=== PATIENT | female | born 1945 | race Caucasian/White ===

== ENCOUNTER → 2016-10-24 | Outpatient (CLI) | payer MEDICARE, OTHER ==
--- NOTE | 2016-10-24 12:04 | XR ---
EXAMINATION TYPE: XR bone survey complete DATE OF EXAM: 10/24/2016 COMPARISON: NONE HISTORY: Multiple myeloma Bony calvarium : 2 views of the bony calvarium demonstrate. No abnormality noted Spine: Two views of the cervical, thoracic and lumbar spines are submitted. Hypertrophic changes of the cervical spine noted. Degenerative changes of the thoracic and lumbar spine. Multilevel facet art hropathy. PELVIS: Single view of the pelvis demonstrates. No abnormality noted. Lucencies overlying the right iliac bone likely related to bowel. Arthropathy of the SI joints seen. Arthropathy of the hip joints noted. Correlate for femoral acetabular impingement. UPPER EXTREMITIES: Two views of the upper extremities. No abdomen only noted LOWER EXTREMITIES: 2 views of the lower extremities. Arthropathy of the hip and knee joints noted. Frontal view of the chest demonstrates cardiomegaly. Arthropathy of the shoulders noted. IMPRESSION: 1. No diagnostic evidence of multiple myeloma
== END | disposition home or self-care (01) ==
LOC: RADXRMAIN 10:48
PROVIDERS: ATTEND Internal Medicine Hematology & Oncology
DX: C90.01 Multiple myeloma in remission (principal); D64.9 Anemia, unspecified; I10 Essential (primary) hypertension; Z71.3 Dietary counseling and surveillance
CPT/HCPCS: 77075

== ENCOUNTER 2016-10-31 06:32 | Day surgery (SDC) | payer MEDICARE, OTHER ==
[2016-10-27 12:46] VITALS: BMI 40.7
[~2016-10-31 06:32] MED LIST: LACTATED RINGERS 1,000 ML IV SCH; LIDOCAINE 1% 20 ML VIAL (10MG/ML) FOR IV START INTRADERMA PRN
[2016-10-31 07:10] VITALS: TEMP 97.1
[2016-10-31] MEDS ORDERED: MIDAZOLAM 2 MG/2 ML VIAL ONE (08:00)
[2016-10-31] MEDS ORDERED: LIDOCAINE 1% INJ 10MG/ML (20 ML MDV) ONE (08:00)
[2016-10-31] MEDS ORDERED: PROPOFOL 10 MG/ML 20 ML VIAL IV ONE (08:00)
[2016-10-31] MEDS ORDERED: fentaNYL (PF) 50 MCG/ML 2 ML AMP ONE (08:00)
[2016-10-31 08:43] LABS: Basophils % (A) 1 %; CH 30.5; CHCM 32.3; Eosinophils # (A) 0.2 k/uL (0-0.7); Eosinophils % (A) 4 %; HCT 33.5 % (34.0-46.0); HDW 2.53; HGB 11.1 gm/dL (11.4-16.0); Luc # (Auto) 0.19; Luc % (Auto) 4; Lymphocytes % (A) 21 %; MCH 31.2 pg (25.0-35.0); MCV 94.4 fL (80.0-100.0); Mean Platelet Volume 8.6; Monocytes # (A) 0.4 k/uL (0-1.0); Monocytes % (A) 8 %; Neutrophils # (A) 2.8 k/uL (1.3-7.7); Neutrophils % (A) 62 %; RBC 3.55 m/uL (3.80-5.40); RDW 15.4 % (11.5-15.5); WBC 4.5 k/uL (3.8-10.6)
[2016-10-31 09:03] VITALS: BP 158/77; PULSE 44; RESP 20
--- NOTE | 2016-10-31 16:47 | PCN ---
DATE OF PROCEDURE: 10/31/2016 PROCEDURE: Bone marrow aspiration and biopsy. INDICATIONS FOR PROCEDURE: Monoclonal gammopathy and anemia. TYPE OF ANESTHESIA: Local with IV sedation. PROCEDURE NOTE: The procedure was explained in detail to the patient in the office. She presented to the outpatient endoscopy suite where IV access and informed consent were obtained. She was then placed in the left lateral decubitus position. The area over both posterior iliac crest was cleaned and prepped with chlorhexidine and sterile draping. IV sedation was then initiated. Local anesthesia was administered with lidocaine. Jamshidi needle was then inserted and bone marrow aspirate and biopsy obtained. On withdrawal of the needle, hemostasis was easily achieved. Blood loss was minimal and recovery from sedation was satisfactory. She appeared to have tolerated the procedure well without any obvious complications.
== END 2016-10-31 09:10 | disposition home or self-care (01) ==
LOC: OR 06:32
PROVIDERS: ATTEND Internal Medicine Hematology & Oncology
DX: D47.2 Monoclonal gammopathy (principal); D64.9 Anemia, unspecified; C90.00 Multiple myeloma not having achieved remission; I10 Essential (primary) hypertension; Z79.899 Other long term (current) drug therapy; Z88.1 Allergy status to other antibiotic agents
CPT/HCPCS: 85025; 38221; J2250; J2001; J3010; J2704; G0364

== ENCOUNTER → 2017-07-12 | Outpatient (CLI) | payer MEDICARE, OTHER ==
--- NOTE | 2017-07-12 14:41 | US ---
EXAMINATION TYPE: US venous doppler duplex LE BI DATE OF EXAM: 07/12/2017 2:23 PM COMPARISON: NONE CLINICAL HISTORY: R22.42 Swelling of Rt leg R22.41 Swelling of Lt Le. Bilateral pain and edema, great er on the right SIDE PERFORMED: bilateral TECHNIQUE: The lower extremity deep venous system is examined utilizing real time linear array sonog guillermo with graded compression, doppler sonography and color-flow sonography. VESSELS IMAGED: External Iliac Vein (EIV) Common Femoral Vein Deep Femoral Vein Greater Saphenous Vein * Femoral Vein Popliteal Vein Small Saphenous Vein * Proximal Calf Veins (* superficial vessels) Grayscale, color doppler, spectral doppler imaging performed of the deep veins of the lower extremiti es. There is normal flow, compressibility, vascular waveforms. IMPRESSION: Right Leg: No evidence of DVT. Superficial thrombus noted within varicose vein extending from mid th igh into lower calf Left Leg: No evidence of DVT
== END | disposition home or self-care (01) ==
LOC: RADUSWWP 13:43
PROVIDERS: ATTEND Internal Medicine Hematology & Oncology
DX: I82.811 Embolism and thrombosis of superficial veins of right lower extremity (principal); R22.42 Localized swelling, mass and lump, left lower limb
CPT/HCPCS: 93970

== ENCOUNTER 2017-09-01 10:23 | Inpatient (IN) | payer MEDICARE, OTHER ==
[2017-09-01] MEDS ORDERED: IBUPROFEN 600 MG TAB PO STA (10:50)
[2017-09-01] MEDS ORDERED: ACETAMINOPHEN TAB 500 MG TAB PO STA (10:50)
--- NOTE | 2017-09-01 10:55 | ED ---
General Adult HPI - General Chief complaint: Fever Stated complaint: Fever Time Seen by Provider: 09/01/17 10:25 Source: patient, RN notes reviewed Mode of arrival: ambulatory Limitations: no limitations - History of Present Illness Initial comments: This is a 71-year-old female with past medical history significant for multiple myeloma. Patient presents here today because she's complaining of chills and fever over the last 3 days. Patient states she has little bit of a cough but nothing significant production. Patient denies any difficulty breathing or shortness of breath. Patient denies any palpitations or chestpain. Patient denies any sore throat. Patient denies any neck pain or stiffness. Patient denies any abdominal pain patient denies nausea vomiting diarrhea. Patient denies any skin lesions rashes or abscesses. Patient states she is unable to get the shot because of her multiple myeloma patient denies any dysuria hematuria urinary freaky. Patient denies any back pain. Patient denies headache patient denies numbness weakness. Patient states she just feels weak and chilled. - Related Data Home Medications Medication Instructions Recorded Confirmed Ascorbic Acid [Vitamin C] 500 mg PO DAILY@1200 01/26/14 10/31/16 Atenolol [Tenormin] 50 mg PO QAM 01/26/14 10/31/16 Cholecalciferol [Vitamin D3] 2,000 units PO DAILY 01/26/14 10/31/16 Calcium Carbonate/Vitamin D3 1 each PO DAILY 10/27/16 10/31/16 [Caltrate 600 Plus D3 Tablet] Cyanocobalamin (Vitamin B-12) 1,000 mcg PO DAILY 10/27/16 10/31/16 [Vitamin B-12] Lactobacillus Acidophilus 1 each PO DAILY 10/27/16 10/31/16 [Acidophilus] Magnesium Oxide [Magnesium] 500 mg PO DAILY 10/27/16 10/31/16 Melatonin 10 mg PO HS 10/27/16 10/31/16 Multivit with Calcium,Iron,Min 1 each PO DAILY 10/27/16 10/31/16 [Women's Multivitamin] [place]-3 Fatty Acids [[place]-3] 300 mg PO DAILY 10/27/16 10/31/16 Pyridoxine [Vitamin B-6] 100 mg PO DAILY 10/27/16 10/31/16 Turmeric Root Extract [Turmeric] 1,000 mg PO DAILY 10/27/16 10/31/16 Allergies Allergy/AdvReac Type Severity Reaction Status Date / Time cephalexin Allergy Rash/Hives Verified 09/01/17 10:33 Review of Systems ROS Statement: Those systems with pertinent positive or pertinent negative responses have been documented in the HPI. ROS Other: All systems not noted in ROS Statement are negative. Past Medical History Past Medical History: Hypertension Additional Past Medical History / Comment(s): multiple myeloma History of Any Multi-Drug Resistant Organisms: None Reported Past Surgical History: Tubal Ligation Past Anesthesia/Blood Transfusion Reactions: No Reported Reaction Past Psychological History: No Psychological Hx Reported Smoking Status: Never smoker Past Alcohol Use History: Rare Past Drug Use History: None Reported - Past Family History Mother Family Medical History: Cancer Father Family Medical History: Cancer General Exam - General Exam Comments Initial Comments: GENERAL: Patient is well-developed and well-nourished. Patient is nontoxic and well- hydrated and is in mild distress. ENT: Neck is soft and supple. No significant lymphadenopathy is noted. Oropharynx is clear. Moist mucous membranes. Neck has full range of motion without eliciting any pain. EYES: The sclera were anicteric and conjunctiva were pink and moist. Extraocular movements were intact and pupils were equal round and reactive to light. Eyelids were unremarkable. PULMONARY: Unlabored respirations. Good breath sounds bilaterally. No audible rales rhonchi or wheezing was noted. CARDIOVASCULAR: There is a regular rate and rhythm without any murmurs gallops or rubs. ABDOMEN: Soft and nontender with normal bowel sounds. No palpable organomegaly was noted. There is no palpable pulsatile mass. SKIN: Skin is clear with no lesions or rashes and otherwise unremarkable. NEUROLOGIC: Patient is alert and oriented x3. Cranial nerves II through XII are grossly intact. Motor and sensory are also intact. Normal speech, volume and content. Symmetrical smile. MUSCULOSKELETAL: Normal extremities with adequate strength and full range of motion. No lower extremity swelling or edema. No calf tenderness. LYMPHATICS: No significant lymphadenopathy is noted PSYCHIATRIC: Normal psychiatric evaluation. Normal interpersonal interactions appears functionally intact in deals appropriately with others. No signs of depression. No signs of anxiety. Limitations: no limitations Course Vital Signs 09/01/17 09/01/17 09/01/17 10:28 10:50 11:20 Temperature 100.8 F H 102.1 F H Pulse Rate 81 76 Respiratory 22 24 Rate Blood Pressure 145/85 178/74 O2 Sat by Pulse 94 L 98 Oximetry 09/01/17 13:11 Temperature 100.1 F H Pulse Rate 62 Respiratory 18 Rate Blood Pressure 155/58 O2 Sat by Pulse 97 Oximetry Medical Decision Making - Medical Decision Making EKG shows sinus rhythm with occasional PAC at 74 bpm SC interval is 148 QRSs 84 QT interval 396 QTC is 439. Patient's EKG shows no ST segment elevation or depression or T wave abnormalities are noted. Chest x-ray shows bilateral patchy infiltrates. Radiology read it as relatively normal psychiatric CAT scan verified that it was red with as ground glass opacifications bilaterally indicative of pneumonia I spoke with Dr. Salmeron agreed to admit the patient admitted the patient wrote admitting orders consult pulmonary and oncology - Lab Data Result diagrams: 09/01/17 11:14 09/01/17 11:14 Lab Results 09/01/17 09/01/17 09/01/17 Range/Units 10:36 11:14 11:14 WBC 4.7 (3.8-10.6) k/uL RBC 3.25 L (3.80-5.40) m/uL Hgb 10.3 L (11.4-16.0) gm/dL Hct 30.0 L (34.0-46.0) % MCV 92.4 (80.0-100.0) fL MCH 31.6 (25.0-35.0) pg MCHC 34.2 (31.0-37.0) g/dL RDW 15.7 H (11.5-15.5) % Plt Count 104 L (150-450) k/uL Neutrophils % 80 % Lymphocytes % 5 % Monocytes % 6 % Eosinophils % 7 % Basophils % 0 % Neutrophils # 3.8 (1.3-7.7) k/uL Lymphocytes # 0.2 L (1.0-4.8) k/uL Monocytes # 0.3 (0-1.0) k/uL Eosinophils # 0.3 (0-0.7) k/uL Basophils # 0.0 (0-0.2) k/uL Poikilocytosis Moderate PT (9.0-12.0) sec INR (<1.2) APTT (22.0-30.0) sec Sodium (137-145) mmol/L Potassium (3.5-5.1) mmol/L Chloride (98-107) mmol/L Carbon Dioxide (22-30) mmol/L Anion Gap mmol/L BUN (7-17) mg/dL Creatinine (0.52-1.04) mg/dL Est GFR (CKD-EPI)AfAm (>60 ml/min/1.73 sqM) Est GFR (CKD-EPI)NonAf (>60 ml/min/1.73 sqM) Glucose (74-99) mg/dL Plasma Lactic Acid Jethro (0.7-2.0) mmol/L Calcium (8.4-10.2) mg/dL Total Bilirubin (0.2-1.3) mg/dL AST (14-36) U/L ALT (9-52) U/L Alkaline Phosphatase (38-126) U/L Total Protein (6.3-8.2) g/dL Albumin (3.5-5.0) g/dL Urine Color Yellow Urine Appearance Clear (Clear) Urine pH 5.5 (5.0-8.0) Ur Specific [place] 1.016 (1.001-1.035) Urine Protein Trace H (Negative) Urine Glucose (UA) Negative (Negative) Urine Ketones Negative (Negative) Urine Blood Negative (Negative) Urine Nitrite Negative (Negative) Urine Bilirubin Negative (Negative) Urine Urobilinogen <2.0 (<2.0) mg/dL Ur Leukocyte Esterase Negative (Negative) Influenza Type A RNA Not Detected (Not Detectd) Influenza Type B (PCR) Not Detected (Not Detectd) 09/01/17 09/01/17 09/01/17 Range/Units 11:14 11:14 11:14 WBC (3.8-10.6) k/uL RBC (3.80-5.40) m/uL Hgb (11.4-16.0) gm/dL Hct (34.0-46.0) % MCV (80.0-100.0) fL MCH (25.0-35.0) pg MCHC (31.0-37.0) g/dL RDW (11.5-15.5) % Plt Count (150-450) k/uL Neutrophils % % Lymphocytes % % Monocytes % % Eosinophils % % Basophils % % Neutrophils # (1.3-7.7) k/uL Lymphocytes # (1.0-4.8) k/uL Monocytes # (0-1.0) k/uL Eosinophils # (0-0.7) k/uL Basophils # (0-0.2) k/uL Poikilocytosis PT 10.3 (9.0-12.0) sec INR 1.1 (<1.2) APTT 21.6 L (22.0-30.0) sec Sodium 138 (137-145) mmol/L Potassium 4.0 (3.5-5.1) mmol/L Chloride 103 (98-107) mmol/L Carbon Dioxide 24 (22-30) mmol/L Anion Gap 11 mmol/L BUN 19 H (7-17) mg/dL Creatinine 0.70 (0.52-1.04) mg/dL Est GFR (CKD-EPI)AfAm >90 (>60 ml/min/1.73 sqM) Est GFR (CKD-EPI)NonAf 89 (>60 ml/min/1.73 sqM) Glucose 132 H (74-99) mg/dL Plasma Lactic Acid Jethro 1.5 (0.7-2.0) mmol/L Calcium 9.1 (8.4-10.2) mg/dL Total Bilirubin 1.3 (0.2-1.3) mg/dL AST 14 (14-36) U/L ALT 21 (9-52) U/L Alkaline Phosphatase 79 (38-126) U/L Total Protein 5.5 L (6.3-8.2) g/dL Albumin 3.6 (3.5-5.0) g/dL Urine Color Urine Appearance (Clear) Urine pH (5.0-8.0) Ur Specific [place] (1.001-1.035) Urine Protein (Negative) Urine Glucose (UA) (Negative) Urine Ketones (Negative) Urine Blood (Negative) Urine Nitrite (Negative) Urine Bilirubin (Negative) Urine Urobilinogen (<2.0) mg/dL Ur Leukocyte Esterase (Negative) Influenza Type A RNA (Not Detectd) Influenza Type B (PCR) (Not Detectd) Disposition Clinical Impression: Pneumonia, Multiple myeloma Disposition: ADMITTED IP TO THIS HOSP Is patient prescribed a controlled substance at d/c from ED?: No Referrals: Fermín Chris MD [Primary Care Provider] - 1-2 days Time of Disposition: 14:06
[2017-09-01 11:08] LABS: Appearance,Urine Clear (Clear); Bilirubin,Urine Negative (Negative); Blood,Urine Negative (Negative); Color,Urine Yellow; Glucose,Urine (UA) Negative (Negative); Ketones,Urine Negative (Negative); Leukocyte Esterase,Urine Negative (Negative); Nitrite,Urine Negative (Negative); PH, Urine 5.5 (5.0-8.0); Protein,Urine Trace (Negative); Specific Gravity,Urine 1.016 (1.001-1.035); Urobilinogen,Urine <2.0 mg/dL (<2.0)
[2017-09-01] MEDS: SODIUM CHLORIDE 0.9% 500 ML IV SCH ×2 (11:17→11:30)
[2017-09-01 11:40] LABS: Basophils % (A) 0 %; Eosinophils # (A) 0.3 k/uL (0-0.7); Eosinophils % (A) 7 %; HGB 10.3 gm/dL (11.4-16.0); Lymphocytes # (A) 0.2 k/uL (1.0-4.8); Lymphocytes % (A) 5 %; MCH 31.6 pg (25.0-35.0); MCHC 34.2 g/dL (31.0-37.0); MCV 92.4 fL (80.0-100.0); Mean Platelet Volume 9.3; Monocytes # (A) 0.3 k/uL (0-1.0); Monocytes % (A) 6 %; Neutrophils # (A) 3.8 k/uL (1.3-7.7); Neutrophils % (A) 80 %; Platelet Count 104 k/uL (150-450); Poikilocytosis Moderate; RBC 3.25 m/uL (3.80-5.40); RDW 15.7 % (11.5-15.5); WBC 4.7 k/uL (3.8-10.6)
--- NOTE | 2017-09-01 11:45 | XR ---
EXAMINATION TYPE: XR chest 2V DATE OF EXAM: 09/01/2017 HISTORY: Difficulty breathing . REFERENCE: NONE. FINDINGS: The heart is enlarged. There is blunting of both CP angles. I could not exclude small effus ions. The lungs are otherwise clear. I do not see evidence of pneumonia or edema. IMPRESSION: 1. CARDIOMEGALY. 2. I COULD NOT EXCLUDE SMALL, BILATERAL EFFUSIONS.
[2017-09-01 11:46] LABS: ALT 21 U/L (9-52); AST 14 U/L (14-36); Albumin 3.6 g/dL (3.5-5.0); Alkaline Phosphatase 79 U/L (38-126); Anion Gap 11 mmol/L; Blood Urea Nitrogen 19 mg/dL (7-17); Calcium 9.1 mg/dL (8.4-10.2); Carbon Dioxide 24 mmol/L (22-30); Chloride 103 mmol/L (98-107); Glucose 132 mg/dL (74-99); Sodium 138 mmol/L (137-145); Total Bilirubin 1.3 mg/dL (0.2-1.3); Total Protein 5.5 g/dL (6.3-8.2)
[2017-09-01 11:52] LABS: INR 1.1 (<1.2); Partial Thromboplastin Time 21.6 sec (22.0-30.0); Prothrombin Time 10.3 sec (9.0-12.0)
[2017-09-01] MEDS ORDERED: RX INFO: IV CONTRAST WAS GIVEN 1 EACH MISC MISCELLANE PRN (12:29)
--- NOTE | 2017-09-01 13:16 | CT ---
EXAMINATION TYPE: CT chest angio for PE DATE OF EXAM: 09/01/2017 COMPARISON: None. HISTORY: Multiple myeloma, patient has fever CT DLP: 711.8 mGycm Automated exposure control for dose reduction was used. CONTRAST: CT Chest for pulmonary embolism performed with with IV Contrast, patient injected with 100 mL of Isov ue 370. FINDINGS: There are patchy groundglass opacities throughout both lungs. There is some shotty mediastinal adenopathy. No pathologically enlarged lymph nodes are seen. There i s no pleural or pericardial fluid. The heart is mildly enlarged. The contrast bolus is suboptimal. There are no large pulmonary emboli. The aorta is normal in caliber without evidence of dissection. The gallbladder is been removed. There is an incompletely assessed 4.1 cm lesion in the posterior seg ment of the right lobe of the liver. The spleen is prominent measuring 15 cm. No definite bony destructive lesion is seen. IMPRESSION: 1. Suboptimal contrast bolus. There are no large pulmonary emboli. 2. Diffuse, patchy groundglass opacity may represent pneumonitis or alveolitis. 3. Splenomegaly. 4. Lesion in the posterior segment of the right lobe of the liver is incompletely assessed. This may represent hemangioma. Further, nonemergent follow-up would BE suggested.
[2017-09-01] MEDS ORDERED: cefTRIAXone 2,000 MG in SODIUM CHLORIDE 0.9% 100 ML IVPB STA (13:54)
[2017-09-01] MEDS ORDERED: LEVOFLOXACIN 750MG-D5W PMX 750 MG in DEXTROSE/WATER 1 150ML.BAG IVPB STA (14:02)
[2017-09-01] MEDS ORDERED: PNEUMONIA PROTOCOL UTILIZED 1 EACH MISC PO PRN (14:15)
[2017-09-01] MEDS ORDERED: AZITHROMYCIN 500 MG in SODIUM CHLORIDE 0.9% 250 ML IVPB STA (14:20)
[2017-09-01 15:08] VITALS: BMI 40.7
[2017-09-01] MEDS ORDERED: BISACODYL 5 MG TABLET.DR PO PRN (21:03)
[2017-09-01] MEDS: MELATONIN 5 MG TABLET PO SCH (21:23)
[2017-09-01] MEDS: LACTATED RINGERS 1,000 ML IV SCH (21:23)
--- NOTE | 2017-09-01 21:39 | HP ---
HISTORY AND PHYSICAL DATE OF ADMISSION: 09/01/2017 PRESENTING COMPLAINT: Fever, chills. HISTORY OF PRESENTING COMPLAINT: A very pleasant 71-year-old patient of Dr. Chris. Diagnosis of multiple myeloma under remission on maintenance medication being followed by Dr. Moncada. The patient for about 4 days has been having chills, fever, decreased appetite. No nausea, vomiting. No shortness of breath. No cough. No runny nose. No urinary symptoms. No skin trouble. Finally decided to come in. Chest x-ray was nonspecific. CT scan did show some pneumonitis-like picture. Hence, admitted with empiric antibiotics. The patient did force herself to eat some food this evening. No diarrhea. REVIEW OF SYSTEMS: CONSTITUTIONAL: Fever, chills. HEENT: None. RESPIRATORY: None. CARDIOVASCULAR: None. GASTROINTESTINAL: None. GENITOURINARY: None. MUSCULOSKELETAL: None. DERMATOLOGICAL: None. HEMATOLOGIC: None. LYMPHATIC: None. PSYCHIATRY: None. NEUROLOGICAL: None. PAST MEDICAL HISTORY: Multiple myeloma, hypertension. PAST SURGICAL HISTORY: Cholecystectomy, tubal ligation. SOCIAL HISTORY: Does not smoke, alcohol rarely. Takes care of her mother and brother. FAMILY HISTORY: Cancer, type unknown. HOME MEDICATIONS: 1. Turmeric 1000 mg p.o. daily. 2. Melatonin 10 mg q.h.s. 3. Magnesium oxide 400 mg p.o. daily. 4. as directed. 5. Probiotic 1 capsule p.o. daily. 6. Dexamethasone 20 mg p.o. daily. 7. Apple cider vinegar 10 mg p.o. daily. 8. Bisacodyl. 9. Tenormin 50 mg p.o. daily. 10.Aspirin 81 mg p.o. daily. 11. 60 mg p.o. daily. ALLERGIES: KEFLEX. EXAMINATION: VITAL SIGNS: On presentation, temperature 102.1, pulse 76, respirations 24, blood pressure 145/85, pulse ox 94% on room air. GENERAL APPEARANCE: Well-built, BMI of 40%. Lying in bed, tired-appearing. EYES: Pupils equal. Conjunctivae normal. HEENT: External nose and ears normal. Oral cavity normal. NECK: JVD not raised. Mass not palpable. RESPIRATORY: Effort normal. LUNGS: Fair air entry. CARDIOVASCULAR: First and second sounds normal. No edema. ABDOMEN: Soft, nontender. Liver and spleen not palpable. LYMPHATIC: No lymph nodes palpable in neck or axillae. PSYCHIATRY: Alert and oriented x3. Mood and affect normal. NEUROLOGICAL: Pupils equal. Cranial nerves grossly intact. Power and sensation grossly intact. INVESTIGATIONS: White count 4.7, hemoglobin 10.3, platelets 104, lymphocytes low at 0.2. Potassium 4.0, BUN 19, creatinine 0.7. Chest x-ray: Questionable right lower zone infiltrate. Chest CT: Evidence of possible pneumonitis. 1. Possible acute pneumonitis, likely viral, manifesting in chills, fever. Patient has no significant shortness of breath. No cough. The patient has associated lymphopenia suggestive of viral cause. Since the patient has had multiple myeloma, will cover empirically for bacteria. 2. Morbid obesity, BMI 40.7. 3. Multiple myeloma under remission on maintenance medication. 4. Essential hypertension. PLAN: Home medications are resumed. The patient is empirically on Levaquin and Zithromax. Give IV fluids. MMODL / IJN: [id number] /
[2017-09-01 22:24] VITALS: RESP 18
[2017-09-02 07:18] LABS: Basophils % (A) 0 %; Eosinophils # (A) 0.2 k/uL (0-0.7); Eosinophils % (A) 6 %; HCT 26.5 % (34.0-46.0); Lymphocytes # (A) 0.2 k/uL (1.0-4.8); Lymphocytes % (A) 6 %; MCH 31.8 pg (25.0-35.0); MCHC 33.8 g/dL (31.0-37.0); MCV 93.9 fL (80.0-100.0); Mean Platelet Volume 9.5; Monocytes # (A) 0.2 k/uL (0-1.0); Monocytes % (A) 9 %; Neutrophils % (A) 76 %; Platelet Count 101 k/uL (150-450); Poikilocytosis Moderate; RBC 2.82 m/uL (3.80-5.40); RDW 15.7 % (11.5-15.5); WBC 2.6 k/uL (3.8-10.6)
[2017-09-02] MEDS: LACTATED RINGERS 1,000 ML IV SCH ×2 (08:34→23:27)
[2017-09-02] MEDS: ATENOLOL 50 MG TAB PO SCH (08:35)
[2017-09-02] MEDS: ENOXAPARIN 40 MG/0.4 ML SYRINGE SQ SCH (08:35)
[2017-09-02] MEDS: MAGNESIUM OXIDE 400 MG TAB PO SCH (08:35)
[2017-09-02] MEDS: ASPIRIN 81 MG PO SCH (08:35)
[2017-09-02] MEDS: ACETYLCYSTEINE 800 MG/4 ML VIAL PO SCH (08:39)
--- NOTE | 2017-09-02 09:09 | XR ---
EXAMINATION TYPE: XR chest 2V DATE OF EXAM: 09/02/2017 HISTORY: pneumonia. REFERENCE: Previous study dated 09/01/2017. FINDINGS: The heart is enlarged. There is worsening bibasilar densities. I suspect small effusions. IMPRESSION: 1. CARDIOMEGALY. 2. BIBASILAR AIRSPACE DISEASE. 3. SMALL, BILATERAL EFFUSIONS.
[2017-09-02] MEDS ORDERED: FUROSEMIDE 10 MG/ML 4 ML VIAL IV STA (10:56)
[2017-09-02] MEDS: LACTOBACILLUS ACIDOPH & BULGAR 1 EACH PACKET PO SCH (11:13)
[2017-09-02] MEDS ORDERED: AZITHROMYCIN 500 MG TAB PO SCH (12:00)
--- NOTE | 2017-09-02 13:59 | P.CNPUL ---
History of Present Illness Consult date: 09/02/17 Reason for consult: dyspnea History of present illness: 71-year-old female patient, morbidly obese, with known history of multiple myeloma who is been maintained on a combination of Revlimid and Decadron once a week at a dose of 20 mg every Sunday. The patient came into the hospital because of increased shortness of breath and she was very much concerning that she was developing a fever and based on her history of multiple myeloma she was very much worried about an underlying septic event. She had some exertional dyspnea and limited cough. No significant sputum production. No hemoptysis or pleurisy. No runny nose. No nasal congestion. No dysuria fakes urgency. No skin rashes pain and altered mentation. No headaches. No nausea vomiting or diarrhea. She came in to the emergency and the patient had a chest x-ray that was nonspecific. Following that, a CAT scan of the chest was done and it showed suboptimal contrast and there was no evidence of any large pulmonary emboli. There was diffuse patchy groundglass opacity to suggest underlying alveolitis. There was splenomegaly. The patient denies having any history of cardiomyopathy. No history of any previous asthma or emphysema. She is a nonsmoker. No history of recurrent pneumonias. No previous history of DVT or pulmonary embolism. She was having some increased lower extremity edema and is improved. She is afebrile for now. She is feeling much better and today she was brought up to a room air oxygen. She has typical features of sleep breathing disorder. She has a BMI of 40.7. She snores and she has a Mallampati class IV with overbite. This needs to be evaluated on an outpatient basis. Review of Systems Constitutional: Reports fever, Reports weight gain Eyes: denies blurred vision, denies bulging eye, denies decreased vision Ears: deny: decreased hearing, ear discharge, earache, tinnitus Ears, nose, mouth and throat: Denies headache, Denies sore throat Cardiovascular: Reports dyspnea on exertion Respiratory: Reports dyspnea Gastrointestinal: Denies abdominal pain, Denies diarrhea, Denies nausea, Denies vomiting Genitourinary: Denies dysuria, Denies hematuria Musculoskeletal: Denies myalgias Musculoskeletal: bilateral: ankle swelling, absent: ankle pain, ankle stiffness Integumentary: Denies pruritus, Denies rash Neurological: Denies numbness, Denies weakness Psychiatric: Denies anxiety, Denies depression Endocrine: Denies fatigue, Denies weight change Hematologic/Lymphatic: Reports as per HPI Allergic/Immunologic: Reports as per HPI Past Medical History Past Medical History: Hypertension Additional Past Medical History / Comment(s): multiple myeloma History of Any Multi-Drug Resistant Organisms: None Reported Past Surgical History: Cholecystectomy, Tubal Ligation Past Anesthesia/Blood Transfusion Reactions: No Reported Reaction Past Psychological History: No Psychological Hx Reported Smoking Status: Never smoker Past Alcohol Use History: Rare Past Drug Use History: None Reported - Past Family History Mother Family Medical History: Cancer Father Family Medical History: Cancer Medications and Allergies Home Medications Medication Instructions Recorded Confirmed Type Magnesium Oxide [Magnesium] 500 mg PO DAILY 10/27/16 09/01/17 History Melatonin 10 mg PO HS 10/27/16 09/01/17 History Turmeric Root Extract [Turmeric] 1,000 mg PO DAILY 10/27/16 09/01/17 History Acetylcysteine 600mg 600 mg PO DAILY 09/01/17 09/01/17 History Aspirin EC [Ecotrin Low Dose] 81 mg PO DAILY 09/01/17 09/01/17 History Atenolol [Tenormin] 50 mg PO DAILY 09/01/17 09/01/17 History Bisacodyl 5 mg PO DAILY PRN 09/01/17 09/01/17 History Cider Vinegar [Apple Cider Vinegar] 300 mg PO DAILY 09/01/17 09/01/17 History Dexamethasone [Hexadrol] 20 mg PO MO 09/01/17 09/01/17 History L.acidoph,Paracasei, B.lactis 1 cap PO DAILY 09/01/17 09/01/17 History [Probiotic] Lenalidomide [Revlimid] 25 mg PO DIRECTED 09/01/17 09/01/17 History Allergies Allergy/AdvReac Type Severity Reaction Status Date / Time cephalexin Allergy Rash/Hives Verified 09/01/17 14:37 Physical Exam Vitals: Vital Signs Temp Pulse Pulse Resp BP BP Pulse Ox 09/02/17 06:49 97.9 F 75 18 128/60 92 L 09/01/17 22:23 97.9 F 64 18 157/82 93 L 09/01/17 14:52 97.8 F 65 20 149/61 94 L 09/01/17 14:33 97.7 F 60 18 133/59 98 09/01/17 14:15 94 L Intake and Output 09/01/17 09/02/17 09/02/17 22:59 06:59 14:59 Intake Total 800 Balance 800 Intake: IV 800 Lactated Ringers 1,000 ml 800 @ 100 mls/hr IV .Q10H [facility] Rx#:[id number] Other: Voiding Method Toilet # Voids 1 Gen. appearance, comfortable likely distress. The patient is morbidly obese with a BMI of 40.7. Head exam was generally normal. There was no scleral icterus or corneal arcus. Mucous membranes were moist. Neck was supple and without jugular venous distension, thyromegaly, or carotid bruits. Carotids were easily palpable bilaterally. There was no adenopathy. The patient has a Mallampati class IV along with significant crowding of the posterior oropharynx and the patient has an obvious overbite. Lung sounds are diminished bilaterally, especially in the lung bases,Lungs were clear to auscultation and percussion, and with normal diaphragmatic excursion. No wheezes or rales were noted. Abdominal exam revealed normal bowel sounds. The abdomen was soft, non-tender, and without masses, organomegaly, or appreciable enlargement of the abdominal aorta. The patient is morbidly obese and the examination of the organs are suboptimal Examination of the extremities revealed easily palpable radial, femoral and pedal pulses. There was no cyanosis, clubbing or edema. Examination of the skin revealed no evidence of significant rashes, suspicious appearing nevi or other concerning lesions. Neurologic the patient is awake and alert and there is no focal neurological deficit. Results - Laboratory Findings CBC and BMP: 09/02/17 06:44 09/01/17 11:14 PT/INR, D-dimer PT 10.3 sec (9.0-12.0) 09/01/17 11:14 INR 1.1 (<1.2) 09/01/17 11:14 Abnormal lab findings: Abnormal Labs 09/01/17 09/01/17 09/01/17 10:36 11:14 11:14 WBC RBC 3.25 L Hgb 10.3 L Hct 30.0 L RDW 15.7 H Plt Count 104 L Lymphocytes # 0.2 L APTT BUN 19 H Glucose 132 H Total Protein 5.5 L Urine Protein Trace H 09/01/17 09/02/17 11:14 06:44 WBC 2.6 L RBC 2.82 L Hgb 9.0 L Hct 26.5 L RDW 15.7 H Plt Count 101 L Lymphocytes # 0.2 L APTT 21.6 L BUN Glucose Total Protein Urine Protein - Diagnostic Findings Chest x-ray: image reviewed CT scan - chest: image reviewed Assessment and Plan Plan: Assessment 1 acute bilateral pneumonia suspected and a 71-year-old female patient who presented with fever, shortness of breath and hypoxemia in addition to diffuse groundglass changes bilaterally. Clinically the patient improved with antibiotics and her oxygenation is improved and she is currently afebrile. Rule out underlying CHF/interstitial edema/fluid overload 2 multiple myeloma currently on a combination of Revlimid and Decadron 3 morbid obesity with a BMI of 40.7 4 lower extremity edema 5 hypertension 6 suspect sleep apnea based on obesity with anatomic features Plan Continue the Levaquin and stop the Zithromax. Obtain sputum and blood cultures. Give the patient additional dose of Lasix 40 mg IV push. Cut down the IV fluids to KVO. Proceed with an echo cardiac exam in the morning. We'll continue to follow. Possible discharge within the next 24 hours especially if she continues to improve. Clinically much improved compared to yesterday. We' ll continue to follow.
[2017-09-02] MEDS ORDERED: LEVOFLOXACIN 750MG-D5W PMX 750 MG in DEXTROSE/WATER 1 150ML.BAG IVPB SCH (14:00)
--- NOTE | 2017-09-02 20:40 | CONS ---
CONSULTATION DATE OF CONSULTATION: September 02, 2017. REASON FOR CONSULTATION: Multiple myeloma. REASON FOR ADMISSION: Fever and shortness of breath. CHIEF COMPLAINT: Short of breath. HISTORY OF PRESENT ILLNESS: Antoinette is a very pleasant 71-year-old lady very well known to our practice. She has been under the care of Dr. Moncada. She was diagnosed with multiple myeloma in October of 2016. She was initially treated with RVD regimen and she received a very good response to it and subsequently she has been placed on maintenance Revlimid and she has been on it since then. Initially, the dose and schedule was adjusted due to her tolerance and she is currently taking Revlimid 25 mg day 1-14 of every 28 day cycles, and she has been doing well on it. The patient presented to the emergency department yesterday with fever, chills and decreased appetite about 4 days duration. In the emergency department, her fever went up to 102 Fahrenheit. She did have a chest x-ray which revealed cardiomegaly and then subsequently she ended up having a CT scan of the chest, which revealed diffuse patchy ground-glass opacity. Represent pneumonitis or alveolitis and she ended up being admitted to the hospital for further evaluation and recommendation. The patient since she has been in the hospital, she started to feel better. She is still short of breath and she has a cough mostly dry, but this improved. There is no headaches. No dysphagia, nausea, or vomiting. No melena, hematochezia, hematuria, hemoptysis, hematemesis or epistaxis and no skin rash or itching. Cultures are obtained and the blood cultures obtained and results are pending at this point in time. PAST MEDICAL HISTORY: In addition to multiple myeloma as stated above she has a history of hypertension, obesity. She has a history of superficial thrombosis in the upper extremity. SOCIAL HISTORY: No history of smoking, alcohol abuse or substance abuse. She is a . FAMILY HISTORY: For malignancy is negative. REVIEW OF SYSTEMS: As stated above in the history of present illness, otherwise negative. CURRENT MEDICATION: Include Mucomyst 600 mg daily, aspirin 81 mg daily. Tenormin 50 mg daily, Dulcolax 5 mg daily as needed. She takes Decadron 20 mg weekly, Revlimid 25 mg a day 1-14 every 28 days. She is currently on Lovenox 40 mg subcu daily. Levaquin 750 mg p.o. IV piggyback daily. Magnesium oxide 400 mg daily. Melatonin 10 mg at bedtime. PHYSICAL EXAMINATION: She is alert, oriented x3. She does not appear to be in distress. Her vital signs temperature 100.1. Her temp max was 102.1, pulse 62 and regular, respiration 18, blood pressure 155/58. HEENT: Normocephalic, atraumatic. No obvious icterus. NECK: Supple. No jugular venous distention. Chest was equal expansion bilaterally. LUNGS: Clear to auscultation and percussion. Heart is regular rhythm. ABDOMEN: Soft. No obvious organomegaly or masses. Bowel sounds present. Extremities reveal trace edema. Skin no significant bruise, petechiae. Lymphatics: No peripherally enlarged cervical supraclavicular nodes. Musculoskeletal moving all extremities appropriately. No percussion tenderness detected over spine, or sternum. RECENT LABORATORY DATA: WBC of 2.7, hemoglobin 9.0, hematocrit 26.5, platelets are 101. Sodium 138, potassium 4.0, chloride 103, CO2 24, BUN 19, creatinine 0.7. IMPRESSION: 1. Multiple myeloma with diagnostic and therapeutic circumstances stated above. 2. Respiratory tract infection with possible pneumonitis. The patient clinically appears to be improving. 3. Mild leukopenia without any significant neutropenia. This is from Revlimid. 4. Anemia also related to her multiple myeloma. 5. Anemia this is in part related to Revlimid and in part related to this current acute presentation. RECOMMENDATION: 1. Continue IV antibiotics. 2. Awaiting final blood cultures results. 3. I would recommend to hold the Revlimid for now until her symptoms resolved and then she may resume the subsequent cycle as scheduled. 4. Monitor blood count. 5. Continue DVT prophylaxis. The above was discussed in detail with the patient and her family at bedside and I have answered all their questions to their satisfaction. Thank you very much for allowing me to participate in the care of this nice lady. MMODL / IJN: [id number] /
[2017-09-02] MEDS: MELATONIN 5 MG TABLET PO SCH (21:18)
--- NOTE | 2017-09-02 21:49 | PN ---
PROGRESS NOTE DATE OF SERVICE: 09/02/2017. PRESENTING COMPLAINT: Fevers and chills. INTERVAL HISTORY: This patient presented with fever, chills, minimal respiratory symptoms, felt to have acute pneumonitis. Did start with antibiotics to which she is actually feeling better. Fevers have come down come down. Up to the bathroom. Family at the bedside. REVIEW OF SYSTEMS: Done for constitutional, cardiovascular, GI, pulmonary; relevant findings as above. CURRENT MEDICATIONS: Reviewed, that include IV Levaquin. PHYSICAL EXAMINATION: Afebrile, pulse 75, respiratory 18, blood pressure 120/60, pulse ox 92% on room air. GENERAL APPEARANCE: Sitting up, more comfortable. EYES: Pupils equal. Conjunctivae normal. HEENT: External nose and ear normal. NECK: JVD not raised. Mass not palpable. Respiratory effort lungs fair entry. CARDIOVASCULAR: 1st and 2nd sounds normal. No edema. ABDOMEN: Soft. Liver and spleen not palpable. PSYCHIATRY: Alert and oriented x3. Mood and affect normal. INVESTIGATIONS: White count 2.6, hemoglobin 9, platelets 101, pending proBNP. ASSESSMENT: 1. Possible pneumonitis, could be viral; cannot rule out a bacterial cause. The patient is feeling better. 2. Pancytopenia in a patient on Revlimid. 3. Morbid obesity, BMI 40.7. 4. Multiple myeloma, in remission. 5. Essential hypertension. PLAN: Discussed with Dr. Leon from Oncology. Given her white count, the patient's Revlimid is to be held for right now. We will add BNP. Doubt this to be fluid overload. Continue with antibiotics at the present time. If remains afebrile for 24 more hours and clinically continues to improve, hopefully can be discharged tomorrow. MMODL / IJN: [id number] /
[2017-09-03] MEDS: ENOXAPARIN 40 MG/0.4 ML SYRINGE SQ SCH (07:27)
[2017-09-03] MEDS: ASPIRIN 81 MG PO SCH (07:27)
[2017-09-03] MEDS: MAGNESIUM OXIDE 400 MG TAB PO SCH (07:27)
[2017-09-03] MEDS: ATENOLOL 50 MG TAB PO SCH (07:28)
[2017-09-03] MEDS: ACETYLCYSTEINE 800 MG/4 ML VIAL PO SCH (07:28)
--- NOTE | 2017-09-03 09:47 | P.PN ---
Subjective Progress Note Date: 09/03/17 Principal diagnosis: fever, URI Pt seen today in follow up. She has been holding oral Revlimid, continues on weekly dex for her multiple myeloma. Today she is feeling better, no fever, productive cough or SOB. Mild weakness but is independently ambulatory. Did have diarrhea after breakfast, related to the food, denied any other episodes of diarrhea, abd pain or cramping. No swelling or pain. Objective - Vital Signs Vital signs: Vital Signs Temp 97.8 F 09/03/17 07:40 Pulse 60 09/03/17 07:40 Resp 18 09/03/17 07:40 BP 130/59 09/03/17 07:40 Pulse Ox 92 L 09/03/17 07:40 Intake & Output 09/02/17 09/03/17 09/03/17 18:59 06:59 18:59 Other: Voiding Method Toilet Toilet # Voids 4 1 - Constitutional General appearance: Present: no acute distress, obese - EENT ENT: Present: normal oropharynx - Neck Neck: Absent: lymphadenopathy - Respiratory Respiratory: bilateral: CTA - Cardiovascular Rhythm: regular Heart sounds: normal: S1, S2 - Gastrointestinal General gastrointestinal: Present: normal bowel sounds, soft - Neurologic Neurologic: Present: CNII-XII intact - Musculoskeletal Musculoskeletal: Present: generalized weakness, strength equal bilaterally - Psychiatric Psychiatric: Present: A&O x's 3, appropriate affect, intact judgment & insight - Labs CBC & Chem 7: 09/02/17 06:44 09/01/17 11:14 Labs: Microbiology - Last 24 Hours (Table) 09/01/17 10:36 Urine Culture - Final Urine,Voided 09/01/17 12:12 Blood Culture - Preliminary Blood No Growth after 24 hours 09/01/17 11:14 Blood Culture - Preliminary Blood No Growth after 24 hours Assessment and Plan (1) Multiple myeloma Narrative/Plan: Cont to hold Revlimid until next cycle due to start and abx for URI complete. F/U appt with Dr. Moncada in chart CBC and lab monitoring outpatient Current Visit: Yes Status: Chronic Priority: Medium Code(s): C90.00 - MULTIPLE MYELOMA NOT HAVING ACHIEVED REMISSION SNOMED Code(s): 907350184 (2) Pancytopenia due to antineoplastic chemotherapy Narrative/Plan: Chemotherapy induced, also r/t disease. No acute interventions at this time. Pt CBC is near baseline for her. Current Visit: Yes Status: Chronic Priority: Medium Code(s): D61.810 - ANTINEOPLASTIC CHEMOTHERAPY INDUCED PANCYTOPENIA; T45.1X5A - ADVERSE EFFECT OF ANTINEOPLASTIC AND IMMUNOSUP DRUGS, INIT SNOMED Code(s): 604346084683899 Plan: Attending and Pulmonary following for admitting diagnosis of URI
[2017-09-03] MEDS ORDERED: DEXAMETHASONE 4 MG TAB PO SCH (12:00)
[2017-09-03] MEDS: LACTOBACILLUS ACIDOPH & BULGAR 1 EACH PACKET PO SCH (12:12)
--- NOTE | 2017-09-03 12:26 | ECHOF ---
Referral Reason:edema, sob MEASUREMENTS -------- HEIGHT: 170.2 cm WEIGHT: 117.9 kg BP: 169/72 IVSd: 1.3 cm (0.6 - 1.1) LVIDd: 4.2 cm (3.9 - 5.3) LVPWd: 1.2 cm (0.6 - 1.1) IVSs: 2.3 cm LVIDs: 2.6 cm LVPWs: 1.9 cm LAESV Index (A-L): 28.20 ml/m Ao Diam: 3.4 cm (2.0 - 3.7) AV Cusp: 2.3 cm (1.5 - 2.6) LA Diam: 4.4 cm (2.7 - 3.8) MV EXCURSION: 13.536 mm (> 18.000) MV EF SLOPE: 83 mm/s (70 - 150) EPSS: 0.4 cm MV E Liam: 0.95 m/s MV DecT: 251 ms MV A Liam: 1.18 m/s MV E/A Ratio: 0.80 AV maxP.91 mmHg AV meanP.50 mmHg RAP: 5.00 mmHg RVSP: 16.53 mmHg FINDINGS -------- Sinus rhythm. This was a technically good study. The left ventricular size is normal. There is mild concentric left ventricular hypertrophy. Overa ll left ventricular systolic function is normal with, an EF between 55 - 60 %. The right ventricle is mildly enlarged. The left atrium is mildly dilated. The right atrium is normal in size. Aortic valve is trileaflet and is mildly thickened. The mitral valve leaflets are mildly thickened. There is trace mitral regurgitation. Trace tricuspid regurgitation present. The right ventricular systolic pressure, as measured by Dopp ler, is 16.53mmHg. Pulmonic valve appears structurally normal. The aortic root size is normal. Normal inferior vena cava with normal inspiratory collapse consistent with estimated right atrial pre ssure of 5 mmHg. The pericardium is normal. CONCLUSIONS -------- 1. Sinus rhythm. 2. This was a technically good study. 3. The left ventricular size is normal. 4. There is mild concentric left ventricular hypertrophy. 5. Overall left ventricular systolic function is normal with, an EF between 55 - 60 %. 6. The right ventricle is mildly enlarged. 7. The left atrium is mildly dilated. 8. The right atrium is normal in size. 9. Aortic valve is trileaflet and is mildly thickened. 10. The mitral valve leaflets are mildly thickened. 11. There is trace mitral regurgitation. 12. Trace tricuspid regurgitation present. 13. The right ventricular systolic pressure, as measured by Doppler, is 16.53mmHg. 14. Pulmonic valve appears structurally normal. 15. The aortic root size is normal. 16. Normal inferior vena cava with normal inspiratory collapse consistent with estimated right atrial pressure of 5 mmHg. 17. The pericardium is normal. LITERATURE PROFESSOR: Joya Hall RDCS
--- NOTE | 2017-09-03 13:41 | P.PN ---
Subjective Progress Note Date: 09/03/17 Principal diagnosis: Acute bilateral pneumonia, with shortness of breath, and hypoxemia, rule out CHF , interstitial edema and fluid overload 71-year-old female patient, morbidly obese, with known history of multiple myeloma who is been maintained on a combination of Revlimid and Decadron once a week at a dose of 20 mg every Sunday. The patient came into the hospital because of increased shortness of breath and she was very much concerning that she was developing a fever and based on her history of multiple myeloma she was very much worried about an underlying septic event. She had some exertional dyspnea and limited cough. No significant sputum production. No hemoptysis or pleurisy. No runny nose. No nasal congestion. No dysuria fakes urgency. No skin rashes pain and altered mentation. No headaches. No nausea vomiting or diarrhea. She came in to the emergency and the patient had a chest x-ray that was nonspecific. Following that, a CAT scan of the chest was done and it showed suboptimal contrast and there was no evidence of any large pulmonary emboli. There was diffuse patchy groundglass opacity to suggest underlying alveolitis. There was splenomegaly. The patient denies having any history of cardiomyopathy. No history of any previous asthma or emphysema. She is a nonsmoker. No history of recurrent pneumonias. No previous history of DVT or pulmonary embolism. She was having some increased lower extremity edema and is improved. She is afebrile for now. She is feeling much better and today she was brought up to a room air oxygen. She has typical features of sleep breathing disorder. She has a BMI of 40.7. She snores and she has a Mallampati class IV with overbite. This needs to be evaluated on an outpatient basis. On 09/03/2017 patient seen in follow-up on oncology floor. She denies any worsening dyspnea, denies any chest wall pain, denies any hemoptysis. Vitals are stable, she is currently on 2 L per nasal cannula with O2 sat 91%, on room air her pulse ox is 86%, she is afebrile, blood and urine cultures show no growth since admission. Yesterday she was given a dose of IV Lasix with good diuresis, she is on empiric antibiotics with oral Levaquin. She denies any coughing, chest congestion or sputum production. No new lab work today, patient denies any fever chills or chest pain. ProBNP was within normal limits at 793, influenza screen was negative. Overall she reports improvement. We will obtain follow-up chest x-ray today to evaluate the appearance of bibasilar airspace disease, and bilateral effusions Objective - Vital Signs Vital signs: Vital Signs Temp 97.8 F 09/03/17 07:40 Pulse 60 09/03/17 07:40 Resp 18 09/03/17 07:40 BP 130/59 09/03/17 07:40 Pulse Ox 91 L 09/03/17 11:03 Intake & Output 09/02/17 09/03/17 09/03/17 18:59 06:59 18:59 Other: Voiding Method Toilet Toilet # Voids 4 1 - Exam Gen. appearance, comfortable likely distress. The patient is morbidly obese with a BMI of 40.7. Head exam was generally normal. There was no scleral icterus or corneal arcus. Mucous membranes were moist. Neck was supple and without jugular venous distension, thyromegaly, or carotid bruits. Carotids were easily palpable bilaterally. There was no adenopathy. The patient has a Mallampati class IV along with significant crowding of the posterior oropharynx and the patient has an obvious overbite. Lung sounds are diminished bilaterally, especially in the lung bases,Lungs were clear to auscultation and percussion, and with normal diaphragmatic excursion. No wheezes or rales were noted. Abdominal exam revealed normal bowel sounds. The abdomen was soft, non-tender, and without masses, organomegaly, or appreciable enlargement of the abdominal aorta. The patient is morbidly obese and the examination of the organs are suboptimal Examination of the extremities revealed easily palpable radial, femoral and pedal pulses. There was no cyanosis, clubbing or edema. Examination of the skin revealed no evidence of significant rashes, suspicious appearing nevi or other concerning lesions. Neurologic the patient is awake and alert and there is no focal neurological deficit. - Labs CBC & Chem 7: 09/02/17 06:44 09/01/17 11:14 Labs: Microbiology - Last 24 Hours (Table) 09/01/17 11:14 Blood Culture - Preliminary Blood No Growth after 48 hours 09/01/17 10:36 Urine Culture - Final Urine,Voided 09/01/17 12:12 Blood Culture - Preliminary Blood No Growth after 24 hours Assessment and Plan Plan: Assessment: 1 acute bilateral pneumonia suspected and a 71-year-old female patient who presented with fever, shortness of breath and hypoxemia in addition to diffuse groundglass changes bilaterally. Clinically the patient improved with antibiotics and her oxygenation is improved and she is currently afebrile. Rule out underlying CHF/interstitial edema/fluid overload 2 multiple myeloma currently on a combination of Revlimid and Decadron 3 morbid obesity with a BMI of 40.7 4 lower extremity edema 5 hypertension 6 suspect sleep apnea based on obesity with anatomic features Plan Microbiology remains negative thus far, patient is unable to produce any sputum , denies any chest congestion, has been afebrile for the past 48 hours. Continues to improve on empiric antibiotics in the form of Levaquin. Yesterday we gave her a dose of IV Lasix, obtain repeat chest x-ray today. Echocardiogram was completed and shows overall left ventricular systolic function is normal with an EF between 55-60%. Continue current medical treatment, I performed a history & physical examination of the patient and discussed their management with my nurse practitioner, Madina Crowe. I reviewed the nurse practitioner's note and agree with the documented findings and plan of care. Lung sounds are positive for diminished lung sounds, no rhonchi no rales or wheezes noted. The findings and the impression was discussed with the patient. I attest to the documentation by the nurse practitioner. Time with Patient: Less than 30
--- NOTE | 2017-09-03 13:43 | XR ---
EXAMINATION TYPE: XR chest 2V DATE OF EXAM: 09/03/2017 COMPARISON: 09/02/2017 HISTORY: Cough and fever TECHNIQUE: Frontal and lateral views of the chest are obtained. FINDINGS: Heart is enlarged. Bibasilar airspace disease has improved in the interim. No tony pulmon kirk vascular congestion is noted. Mild multilevel degenerative changes of thoracic spine and left acr omioclavicular joint are seen. Right acromioclavicular arthropathy is moderate no sizable pneumothora x or pleural effusion. IMPRESSION: Cardiomegaly with improved aeration of the lung bases in comparison to the prior and min imal subsegmental residual atelectasis.
[2017-09-03] MEDS ORDERED: LEVOFLOXACIN 750 MG TAB PO SCH (15:00)
[2017-09-03 16:10] VITALS: BP 123/58; PULSE 69; TEMP 98.2
--- NOTE | 2017-09-03 22:26 | DS ---
DISCHARGE SUMMARY FINAL DIAGNOSES: 1. Acute pneumonitis, could be viral, could be gram-negative organism present on admission. 2. Acute hypoxic respiratory failure secondary to pneumonia. 3. Pancytopenia in a patient on Revlimid. 4. Morbid obesity, BMI 40.7. 5. Multiple myeloma, in remission. 6. Essential hypertension. HOSPITAL COURSE: This very pleasant lady who is on Revlimid on maintenance dose for multiple myeloma presented with fever and chills. CT scan did show pneumonitis-like picture. Did get Levaquin to which she clinically responded well. The patient is found to be hypoxic, dropping her pulse ox to 86% on room air. Hence, she is being sent home on 2L of oxygen. Overall doing much better. Appetite has come back. Seen by Dr. Leon from Oncology who said to hold of the Revlimid for now. Doing much better the time of discharge. On exam, lungs improved air entry. CARDIOVASCULAR: First and seconds sounds normal. PSYCH: A and O x3. Care was discussed in detail with the patient. Oxygen is being arranged. CONSULTATION: Dr. Bowens/Dr. Mar from Pulmonary and Dr. Leon from Oncology. DISCHARGE MEDICATIONS: 1. Magnesium 500 mg p.o. daily. 2. Melatonin 10 mg q.h.s. 3. Turmeric 1000 mg p.o. daily. 4. Acetylcysteine 600 mg p.o. daily. 5. Aspirin 81 mg p.o. daily. 6. Tenormin 50 mg p.o. daily. 7. Dulcolax 5 mg daily p.r.n. 8. Apple cider vinegar 300 mg p.o. daily. 9. Dexamethasone 20 mg p.o. . 10.Probiotic 1 capsule p.o. daily. 11.Revlimid to be held off right now until follow up with Oncology. 12.Levaquin 750 mg a day for 5 days. Follow up with Dr. Chris in 2 or 3 days. Follow with on 09/11/2017. Labs CBC and BMP in 3 days. Discussed home oxygen 2 L at all times. Discussion and discharge planning more than 35 minutes. MMODL / IJN: [id number] /
== END 2017-09-03 17:15 | disposition home or self-care (01) | DRG 177 ==
LOC: EC 10:23 → 5ONC 14:15
PROVIDERS: ADMIT Hospitalist; ATTEND Hospitalist
DX: J15.6 Pneumonia due to other Gram-negative bacteria (principal); D61.810 Antineoplastic chemotherapy induced pancytopenia; J96.01 Acute respiratory failure with hypoxia; C90.01 Multiple myeloma in remission; Z68.41 Body mass index [BMI] 40.0-44.9, adult; R19.7 Diarrhea, unspecified; J12.9 Viral pneumonia, unspecified; E66.01 Morbid (severe) obesity due to excess calories; I11.9 Hypertensive heart disease without heart failure; M26.29 Other anomalies of dental arch relationship; T45.1X5A Adverse effect of antineoplastic and immunosuppressive drugs, initial encounter; Z98.51 Tubal ligation status; Z90.49 Acquired absence of other specified parts of digestive tract; Z80.9 Family history of malignant neoplasm, unspecified; Z88.1 Allergy status to other antibiotic agents; Z79.82 Long term (current) use of aspirin; Z79.899 Other long term (current) drug therapy
CPT/HCPCS: 36415; 71046; 71275; 80053; 81003; 83605; 83880; 85025; 85610; 85730; 87040; 87086; 87502; 93005; 93306; 96360; 99285

== ENCOUNTER 2017-11-04 14:58 | Inpatient (IN) | payer MEDICARE, OTHER ==
--- NOTE | 2017-11-04 15:24 | ED ---
Extremity Problem HPI - General Chief complaint: Extremity Problem,Nontraumatic Stated complaint: Swollen arm Time Seen by Provider: 11/04/17 15:08 Source: patient Mode of arrival: ambulatory Limitations: no limitations - History of Present Illness Initial comments: 72 yoF presenting with left hand and wrist swelling and an erythematous patch on her leg. She states the left leg rash began 5 days prior and began on the knee. It has now migrated to the middle of her anterior thigh. She states she has been taking aleve with mild improvement of the pain. she denies any injury to area. Denies F/C. She stats the hand swelling began yesterday after she was playing cards. She denies inciting event. She states she had been elevating it but it had not improved the swelling. It initially began with pain in her wrist. She states the pain is worse with movement and not alleviated by anything. Patient has a history of multiple myeloma, which is currently in remission. She states she has been diagnosed with superficial blood clots in the past that were secondary to Revlimid, which she is still currently on. She denies any DVT/PE, recent surgery, active cancer, coagulopathy, or history of being on anticoagulation. - Related Data Home Medications Medication Instructions Recorded Confirmed Magnesium Oxide [Magnesium] 500 mg PO DAILY 10/27/16 11/04/17 Melatonin 10 mg PO HS 10/27/16 11/04/17 Aspirin EC [Ecotrin Low Dose] 81 mg PO DAILY 09/01/17 11/04/17 Atenolol [Tenormin] 50 mg PO DAILY 09/01/17 11/04/17 Dexamethasone [Hexadrol] 20 mg PO MO 09/01/17 11/04/17 L.acidoph,Paracasei, B.lactis 1 cap PO DAILY 09/01/17 11/04/17 [Probiotic] Lenalidomide [Revlimid] 25 mg PO DIRECTED 09/01/17 11/04/17 Acyclovir 400 mg PO BID 11/04/17 11/04/17 Calcium Carbonate [Tums] 500 mg PO DAILY 11/04/17 11/04/17 Cholecalciferol (Vitamin D3) 2,000 unit PO DAILY 11/04/17 11/04/17 [Vitamin D3] Cyanocobalamin (Vitamin B-12) 1,000 mcg PO DAILY 11/04/17 11/04/17 [Vitamin B-12] Hydrochlorothiazide [Hydrodiuril] 25 mg PO DAILY 11/04/17 11/04/17 Prochlorperazine [Compazine] 10 mg PO DAILY PRN 11/04/17 11/04/17 Allergies Allergy/AdvReac Type Severity Reaction Status Date / Time Iodinated Contrast- Oral and Allergy Intermediate Rash/Hives Verified 11/04/17 22:01 IV Dye cephalexin Allergy Rash/Hives Verified 11/04/17 17:29 Review of Systems ROS Statement: Those systems with pertinent positive or pertinent negative responses have been documented in the HPI. Review of Systems Constitutional: Denies fever, chills Eyes: Denies change in vision, Denies pain Ears, nose, mouth, throat: Denies headaches, Denies sore throat Cardiovascular: Denies chest pain. Denies palpitations Respiratory: Denies shortness of breath, Denies cough Gastrointestinal: Denies abdominal pain. Denies nausea, vomiting, diarrhea. Genitourinary: Denies hematuria, Denies infections Musculoskeletal: Pain and swelling of left hand. Integumentary: Left leg rash Neurological: Denies headache, focal weakness, focal numbness Psychiatric: Denies anxiety, Denies depression Hematologic/Lymphatic: Denies easy bleeding or bruising ROS Other: All systems not noted in ROS Statement are negative. Past Medical History Past Medical History: Hypertension Additional Past Medical History / Comment(s): multiple myeloma History of Any Multi-Drug Resistant Organisms: None Reported Past Surgical History: Cholecystectomy, Tubal Ligation Past Anesthesia/Blood Transfusion Reactions: No Reported Reaction Past Psychological History: No Psychological Hx Reported Smoking Status: Never smoker Past Alcohol Use History: Rare Past Drug Use History: None Reported - Past Family History Mother Family Medical History: Cancer Father Family Medical History: Cancer General Exam - General Exam Comments Initial Comments: General: Awake, alert, No acute Distress HENT: Normocephalic. Atraumatic Eyes: PERRL. EOMI. No scleral icterus. No injected conjunctiva Neck: Full ROM Chest/Lungs: Clear to auscultation bilaterally. No wheezing, rhonchi, or rales Cardiac: Bradyacaria, rhythm. No murmurs or rubs Abdomen/GI: Soft, nontender, nondistended. No rebound, guarding, or rigidity. Musculoskeletal: Left hand swelling from wrist to PIP joint without eythema or focal tenderness. Full ROM. Sensation intact. 1+ left radial pulse. Skin: Warm, dry, intact. Large erythematous patch with indurated areas. No fluctuance. Tender to palpation. No streaking. Neurologic: A/Ox3, no weakness, no sensory deficit, no abnormal gait, no coordination deficit Limitations: no limitations Course Vital Signs 11/04/17 11/04/17 11/04/17 15:09 17:05 18:27 Temperature 97.6 F 97.7 F 97.9 F Pulse Rate 52 L 57 L 58 L Respiratory 18 18 18 Rate Blood Pressure 188/85 139/60 137/63 O2 Sat by Pulse 98 99 97 Oximetry 11/04/17 11/04/17 20:00 20:58 Temperature Pulse Rate 58 L 63 Respiratory 16 16 Rate Blood Pressure 172/72 157/70 O2 Sat by Pulse 97 Oximetry Medical Decision Making - Medical Decision Making 72 yoF presenting with left upper extremity swelling and left anterior thigh rash. On initial exam the patient is awake, alert, and in NAD. VSS. Initially a doppler of the left upper extremity was ordered as the patient's leg erythema appeared to be cellulitis. A bedside uS was done which showed multiple superficial blood clots. While discussing with the patient her results she was tachypneic. The family is reporting now that she has had worsening shortness of breath on exertion and intermittently while at rest. EKG and cardiac workup ordered. Wells score 1. D-dimer added. [address] with hives on her face post contrast. Solumedrol, Benadryl, and Pepcid ordered. No shortness of breath or oropharyngeal swelling. [address] negative. Her lower extremity DVT is negative. Her left hand swelling improved with elevation. Patient's symptoms could be secondary to osteoarthritis or acute strain. Her xrays were negative. Patient's hives have resolved. While assisting the patient to the commode she became very short of breath. She had one word conversational dyspnea. It resolved about 5 minutes after. Patient state this is not baseline for her. At this time she requires admission for new onset dyspnea. Spoke with Dr. Pisano who is agreeable to admission. - Lab Data Result diagrams: 11/04/17 15:30 11/04/17 15:30 Lab Results 0611/04/17 11/04/17 Range/Units 15:30 15:30 15:30 WBC 5.3 (3.8-10.6) k/uL RBC 3.04 L (3.80-5.40) m/uL Hgb 9.4 L (11.4-16.0) gm/dL Hct 28.5 L (34.0-46.0) % MCV 93.6 (80.0-100.0) fL MCH 30.9 (25.0-35.0) pg MCHC 33.0 (31.0-37.0) g/dL RDW 16.2 H (11.5-15.5) % Plt Count 125 L (150-450) k/uL Neutrophils % 67 % Lymphocytes % 12 % Monocytes % 16 % Eosinophils % 2 % Basophils % 0 % Neutrophils # 3.5 (1.3-7.7) k/uL Lymphocytes # 0.6 L (1.0-4.8) k/uL Monocytes # 0.9 (0-1.0) k/uL Eosinophils # 0.1 (0-0.7) k/uL Basophils # 0.0 (0-0.2) k/uL Anisocytosis Slight D-Dimer (<0.60) mg/L FEU Sodium 140 (137-145) mmol/L Potassium 4.5 (3.5-5.1) mmol/L Chloride 108 H (98-107) mmol/L Carbon Dioxide 24 (22-30) mmol/L Anion Gap 8 mmol/L BUN 22 H (7-17) mg/dL Creatinine 0.70 (0.52-1.04) mg/dL Est GFR (CKD-EPI)AfAm >90 (>60 ml/min/1.73 sqM) Est GFR (CKD-EPI)NonAf 88 (>60 ml/min/1.73 sqM) Glucose 114 H (74-99) mg/dL Calcium 8.8 (8.4-10.2) mg/dL Troponin I (0.000-0.034) ng/mL C-Reactive Protein 144.3 H (<10.0) mg/L NT-Pro-B Natriuret Pep 931 pg/mL 11/04/17 11/04/17 Range/Units 18:14 18:14 WBC (3.8-10.6) k/uL RBC (3.80-5.40) m/uL Hgb (11.4-16.0) gm/dL Hct (34.0-46.0) % MCV (80.0-100.0) fL MCH (25.0-35.0) pg MCHC (31.0-37.0) g/dL RDW (11.5-15.5) % Plt Count (150-450) k/uL Neutrophils % % Lymphocytes % % Monocytes % % Eosinophils % % Basophils % % Neutrophils # (1.3-7.7) k/uL Lymphocytes # (1.0-4.8) k/uL Monocytes # (0-1.0) k/uL Eosinophils # (0-0.7) k/uL Basophils # (0-0.2) k/uL Anisocytosis D-Dimer 2.19 H (<0.60) mg/L FEU Sodium (137-145) mmol/L Potassium (3.5-5.1) mmol/L Chloride (98-107) mmol/L Carbon Dioxide (22-30) mmol/L Anion Gap mmol/L BUN (7-17) mg/dL Creatinine (0.52-1.04) mg/dL Est GFR (CKD-EPI)AfAm (>60 ml/min/1.73 sqM) Est GFR (CKD-EPI)NonAf (>60 ml/min/1.73 sqM) Glucose (74-99) mg/dL Calcium (8.4-10.2) mg/dL Troponin I <0.012 (0.000-0.034) ng/mL C-Reactive Protein (<10.0) mg/L NT-Pro-B Natriuret Pep pg/mL - EKG Data EKG Comments: EKG shows sinus bradycardia at a rate of 50 bpm. LA interval 164 bpm. QRS duration 82 ms. QT/QTc 444/404 ms. Disposition Clinical Impression: Swelling of left hand, Dyspnea and respiratory abnormalities, Superficial thrombophlebitis of left leg Disposition: ADMITTED IP TO THIS [facility] Condition: Good Referrals: Fermín Chris MD [Primary Care Provider] - 1-2 days
[2017-11-04 15:43] LABS: Anisocytosis Slight; Basophils % (A) 0 %; Eosinophils # (A) 0.1 k/uL (0-0.7); Eosinophils % (A) 2 %; HCT 28.5 % (34.0-46.0); HGB 9.4 gm/dL (11.4-16.0); Lymphocytes # (A) 0.6 k/uL (1.0-4.8); Lymphocytes % (A) 12 %; MCH 30.9 pg (25.0-35.0); MCV 93.6 fL (80.0-100.0); Monocytes # (A) 0.9 k/uL (0-1.0); Monocytes % (A) 16 %; Neutrophils # (A) 3.5 k/uL (1.3-7.7); Neutrophils % (A) 67 %; Platelet Count 125 k/uL (150-450); RBC 3.04 m/uL (3.80-5.40); RDW 16.2 % (11.5-15.5); WBC 5.3 k/uL (3.8-10.6)
[2017-11-04 15:53] LABS: Anion Gap 8 mmol/L; Blood Urea Nitrogen 22 mg/dL (7-17); Calcium 8.8 mg/dL (8.4-10.2); Carbon Dioxide 24 mmol/L (22-30); Chloride 108 mmol/L (98-107); Glucose 114 mg/dL (74-99); Potassium 4.5 mmol/L (3.5-5.1); Sodium 140 mmol/L (137-145)
[2017-11-04 16:03] LABS: C Reactive Protein 144.3 mg/L (<10.0)
--- NOTE | 2017-11-04 16:46 | XR ---
EXAMINATION TYPE: XR hand complete LT DATE OF EXAM: 11/04/2017 COMPARISON: NONE HISTORY: Pain TECHNIQUE: 3 views left hand FINDINGS: There is some advanced degenerative joint changes of the distal interphalangeal joint space index finger. Moderately advanced degenerative changes are at the distal interphalangeal joint space middle finger. Mild degenerative changes are within the remaining joint space of the proximal distal interphalangeal joint spaces and at the first metacarpal carpal junction. No acute fracture is identified. IMPRESSION: 1. Degenerative joint changes distal interphalangeal joint spaces index and middle fingers. 2. An acute fracture is not identified.
--- NOTE | 2017-11-04 17:01 | XR ---
EXAMINATION TYPE: XR wrist complete LT DATE OF EXAM: 11/04/2017 COMPARISON: NONE HISTORY: Pain TECHNIQUE: 4 view left wrist FINDINGS: Degenerative changes at the first carpal metacarpal junction. No acute fractures are eviden t. Joint spaces are otherwise observed. Soft tissues are normal. Follow-up studies can be performed 7-10 days if there is been acute trauma to evaluate for occult fra cture. IMPRESSION: 1. Mild degenerative change first carpal metacarpal junction
--- NOTE | 2017-11-04 17:30 | US ---
EXAMINATION TYPE: US venous doppler duplex UE LT DATE OF EXAM: 11/04/2017 COMPARISON: NONE CLINICAL HISTORY: Pain. Left hand swelling and redness x 3 days; blood cancer per patient history; no recent injections or IV at left arm or hand; small (size of pencil eraser), round, raised white area is noted posterior left hand at swelling SIDE PERFORMED: left Left Arm: Negative for DVT. Edema channels are noted at swelling posterior left hand. IMPRESSION: 1. Left upper extremity negative for deep venous thrombosis. 2. Edema is present superficially.
--- NOTE | 2017-11-04 18:48 | XR ---
EXAMINATION TYPE: XR chest 2V DATE OF EXAM: 11/04/2017 COMPARISON: 09/03/2017 INDICATION: Pain, history of multiple myeloma, left arm swelling TECHNIQUE: Frontal and lateral views of the chest are obtained. FINDINGS: The heart size is enlarged.. The pulmonary vasculature is normal. There is silhouetting left diaphragm. Atelectasis could be considered. This may be related to patient body habitus. IMPRESSION: 1. Cardiomegaly. 2. Possible lingular atelectasis.
--- NOTE | 2017-11-04 20:19 | US ---
EXAMINATION TYPE: US venous doppler duplex LE LT DATE OF EXAM: 11/04/2017 8:02 PM COMPARISON: NONE CLINICAL HISTORY: Pain. Redness and pain left thigh SIDE PERFORMED: Left TECHNIQUE: The lower extremity deep venous system is examined utilizing real time linear array sonog guillermo with graded compression, doppler sonography and color-flow sonography. VESSELS IMAGED: External Iliac Vein (EIV) Common Femoral Vein Deep Femoral Vein Greater Saphenous Vein * Femoral Vein Popliteal Vein Small Saphenous Vein * Proximal Calf Veins (* superficial vessels) Left Leg: No evidence of DVT as visualized. Technical limitations due to patient's body habitus. Ligia ble to visualize lower femoral vein for compression. Superficial thrombus noted within area of rednes s, extending from upper thigh into knee area IMPRESSION: 1. Left lower extremity venous ultrasound negative for deep venous thrombosis. 2. Examination is limited due to patient body habitus. 3. At the level of the patient's redness appears to be superficial venous thrombosis.
[2017-11-04] MEDS ORDERED: diphenhydrAMINE 50 MG/ML 1 ML VIAL IVP STA (20:45)
[2017-11-04] MEDS ORDERED: methylPREDNISolone SOD SUCCI 125 MG/2 ML VIAL IV STA (20:45)
[2017-11-04] MEDS ORDERED: FAMOTIDINE 20 MG/2 ML VIAL IV STA (20:45)
--- NOTE | 2017-11-04 21:53 | CT ---
CT CHEST FOR PULMONARY EMBOLISM. EXAMINATION TYPE: CT angio chest DATE OF EXAM: 11/04/2017 INDICATION: SOB, elevated d-dimer CT DLP: 745.6 mGycm, Automated exposure control for dose reduction was used. CONTRAST: Patient injected with 100 mL of Isovue 370. COMPARISON: NONE TECHNIQUE: CT of the chest is performed on a spiral scan at 2 mm thick sections. Study is performed with intravenous contrast timed for evaluation for pulmonary embolism. This will limit additional po rtions of the evaluation. 3-D MIP images reconstructed by the technologist are reviewed on the compu ter in the coronal and sagittal planes. FINDINGS: No persistent filling defects are evident to suggest an acute pulmonary embolism. No mediastinal or hilar adenopathy enlarged by CT criteria is evident. The ascending aorta diameter at the level of the main pulmonary artery is 3.5 cm. The main pulmonary artery diameter at the bifur cation is 3.1 cm. There appears to be some mild compressive atelectasis within the dependent portions of the medial moi g bases bilaterally. There is a hypodensity within the lateral portion of the right upper lobe liver measuring approximate ly 3.8 cm. Hemangioma is not excluded. Other etiologies are within the differential. Follow-up can be formed. Consider ultrasound for additional evaluation. This was identified 09/01/2017 IMPRESSIONS: 1. No acute pulmonary embolism. 2. No acute pulmonary process. Minimal compressive atelectasis may be present. 3. Suspected hemangioma within the liver. This could be further evaluated with ultrasound.
[2017-11-04] MEDS ORDERED: KETOROLAC 30 MG/ML 1 ML VIAL IVP STA (22:37)
[2017-11-04] MEDS ORDERED: HYDROcodone/APAP 5-325MG 1 EACH TAB PO PRN (22:38)
[2017-11-04] MEDS ORDERED: ONDANSETRON 4 MG/2 ML VIAL IVP PRN (22:38)
[2017-11-04] MEDS ORDERED: NALOXONE 0.4 MG/ML 1 ML VIAL IV PRN (22:38)
[2017-11-04] MEDS ORDERED: PROCHLORPERAZINE 10 MG TAB PO PRN (22:41)
[2017-11-04] MEDS ORDERED: ACYCLOVIR 200 MG CAP PO SCH (23:00)
[2017-11-04] MEDS ORDERED: ACYCLOVIR 400 MG/10 ML CUP PO SCH (23:10)
[2017-11-05] MEDS: IBUPROFEN 400 MG TAB PO PRN (00:34)
[2017-11-05] MEDS: HEPARIN SODIUM,PORCINE 5,000 UNIT/ML 1 ML VIAL SQ SCH ×4 (00:34→23:24)
[2017-11-05 00:52] VITALS: BMI 46.3
[2017-11-05] MEDS: MAGNESIUM OXIDE 400 MG TAB PO SCH (07:56)
[2017-11-05] MEDS: CALCIUM CARBONATE 500 MG CHEWABLE PO SCH (07:56)
[2017-11-05] MEDS: HYDROCHLOROTHIAZIDE 25 MG TAB PO SCH (07:56)
[2017-11-05] MEDS: ATENOLOL 50 MG TAB PO SCH (07:56)
[2017-11-05] MEDS: ASPIRIN 81 MG PO SCH (07:56)
[2017-11-05] MEDS: ACYCLOVIR 200 MG CAP PO SCH ×2 (08:37→21:10)
[2017-11-05 10:08] LABS: Basophils % (A) 0 %; Eosinophils % (A) 0 %; HCT 30.3 % (34.0-46.0); HGB 9.7 gm/dL (11.4-16.0); Hypochromasia Slight; Lymphocytes # (A) 0.2 k/uL (1.0-4.8); Lymphocytes % (A) 5 %; MCH 30.3 pg (25.0-35.0); MCHC 31.9 g/dL (31.0-37.0); MCV 94.9 fL (80.0-100.0); Monocytes # (A) 0.3 k/uL (0-1.0); Monocytes % (A) 6 %; Neutrophils # (A) 4.3 k/uL (1.3-7.7); Neutrophils % (A) 89 %; Platelet Count 172 k/uL (150-450); RBC 3.19 m/uL (3.80-5.40); RDW 15.8 % (11.5-15.5); WBC 4.8 k/uL (3.8-10.6)
[2017-11-05 10:30] LABS: Anion Gap 12 mmol/L; Blood Urea Nitrogen 20 mg/dL (7-17); Carbon Dioxide 23 mmol/L (22-30); Chloride 105 mmol/L (98-107); Glucose 185 mg/dL (74-99); Potassium 4.8 mmol/L (3.5-5.1); Sodium 140 mmol/L (137-145)
[2017-11-05] MEDS: CLINDAMYCIN 300 MG in DEXTROSE 5% IN WATER 50 ML IVPB SCH ×4 (17:41→23:24)
[2017-11-05] MEDS ORDERED: DEXAMETHASONE 4 MG TAB PO SCH (21:00)
--- NOTE | 2017-11-06 00:10 | P.HPIM ---
History of Present Illness melody is a pleasant 72 yo F with pmh of MM on Revilmid , who presents initially because she was concerned about her wrist swelling of one day duration , pt denies h/o trauma, no bug bite as per pt , pt has no restriction in movement f her hand neither actively nor passively. pt also complains from the same time from rash on her anterior thight , that was started 4-5 days ago, with some area of induration in ED pt had venous doppler of left LE : no DVT, positive superficial thrombosis. Hand and wrist Xray : no fracture . CTPA:no PE. Past Medical History Past Medical History: Hypertension, Pneumonia Additional Past Medical History / Comment(s): multiple myeloma-in remission History of Any Multi-Drug Resistant Organisms: None Reported Past Surgical History: Cholecystectomy, Tubal Ligation Past Anesthesia/Blood Transfusion Reactions: No Reported Reaction Past Psychological History: No Psychological Hx Reported Smoking Status: Never smoker Past Alcohol Use History: Rare Past Drug Use History: None Reported - Past Family History Mother Family Medical History: Cancer Father Family Medical History: Cancer Medications and Allergies Home Medications Medication Instructions Recorded Confirmed Type Magnesium Oxide [Magnesium] 500 mg PO DAILY 10/27/16 11/04/17 History Melatonin 10 mg PO HS 10/27/16 11/04/17 History Aspirin EC [Ecotrin Low Dose] 81 mg PO DAILY 09/01/17 11/04/17 History Atenolol [Tenormin] 50 mg PO DAILY 09/01/17 11/04/17 History Dexamethasone [Hexadrol] 20 mg PO MO 09/01/17 11/04/17 History L.acidoph,Paracasei, B.lactis 1 cap PO DAILY 09/01/17 11/04/17 History [Probiotic] Lenalidomide [Revlimid] 25 mg PO DIRECTED 09/01/17 11/04/17 History Acyclovir 400 mg PO BID 11/04/17 11/04/17 History Calcium Carbonate [Tums] 500 mg PO DAILY 11/04/17 11/04/17 History Cholecalciferol (Vitamin D3) 2,000 unit PO DAILY 11/04/17 11/04/17 History [Vitamin D3] Cyanocobalamin (Vitamin B-12) 1,000 mcg PO DAILY 11/04/17 11/04/17 History [Vitamin B-12] Hydrochlorothiazide [Hydrodiuril] 25 mg PO DAILY 11/04/17 11/04/17 History Prochlorperazine [Compazine] 10 mg PO DAILY PRN 11/04/17 11/04/17 History Allergies Allergy/AdvReac Type Severity Reaction Status Date / Time Iodinated Contrast- Oral and Allergy Intermediate Rash/Hives Verified 11/04/17 22:01 IV Dye cephalexin Allergy Rash/Hives Verified 11/04/17 17:29 Physical Exam Vitals: Vital Signs Temp Pulse Pulse Pulse Resp BP BP 11/05/17 22:18 98.2 F 53 L 16 137/77 11/05/17 14:06 97.7 F 62 18 135/76 11/05/17 08:43 11/05/17 06:43 98.0 F 68 16 141/67 11/05/17 01:15 70 146/71 Pulse Ox 11/05/17 22:18 96 11/05/17 14:06 98 11/05/17 08:43 95 11/05/17 06:43 95 11/05/17 01:15 95 Intake and Output 11/05/17 11/05/17 11/06/17 14:59 22:59 06:59 Other: # Voids 1 1 HEENT: Head is atraumatic, normocephalic. Pupils equal, round. Neck is supple. There is no elevated jugular venous pressure. HEART EXAMINATION: Heart S1-S2, no murmur is heard CHEST EXAMINATION: Lungs reveal no expiratory wheezes throughout otherwise essentially clear. ABDOMEN: Soft, nontender. Bowel sounds are heard. No organomegaly noted. EXTREMITIES: 2+ peripheral pulses with no evidence of peripheral edema and no calf tenderness noted. -left thigh is erythematous , hot and with some area of induration the ant thigh minimal left wrist swelling NEUROLOGIC patient is awake, alert and oriented -3 Results CBC & Chem 7: 11/05/17 09:14 11/05/17 09:14 Labs: Abnormal Lab Results - Last 24 Hours (Table) 11/05/17 11/05/17 Range/Units 09:14 09:14 RBC 3.19 L (3.80-5.40) m/uL Hgb 9.7 L (11.4-16.0) gm/dL Hct 30.3 L (34.0-46.0) % RDW 15.8 H (11.5-15.5) % Lymphocytes # 0.2 L (1.0-4.8) k/uL BUN 20 H (7-17) mg/dL Glucose 185 H (74-99) mg/dL Thrombosis Risk Factor Assmnt - Choose All That Apply Any of the Below Risk Factors Present?: Yes Each Factor Represents 1 point: Obesity (BMI >25), Swollen legs (current) Other Risk Factors: Yes Each Risk Factor Represents 2 Points: Age 61-74 years Thrombosis Risk Factor Assessment Total Risk Factor Score: 4 Thrombosis Risk Factor Assessment Level: Moderate Risk Assessment and Plan Assessment: -left ant thigh cellulitis vs thrombophlebitis -left wrist swelling with negative xray -h/o Multiple Myeloma - Plan: pt with acute left thigh erythema and hotness, with left wrist swelling , c/w same treatment , c/w symptmatic treatment, pt wrist swelling is significantly imporved after given lasix to the pt . xray show no fracture , no h/o trauma or bug bite. possible cellulitis vs thrombophlebitis . start clindamycin . f/u vitals and lytes. call hem/onc consult. pt is suspecting her MM medication might be contributing. DVT and GI Prophylaxis. further recommendation based on patient condition .
[2017-11-06] MEDS: CLINDAMYCIN 300 MG in DEXTROSE 5% IN WATER 50 ML IVPB SCH ×8 (05:31→23:29)
[2017-11-06] MEDS: ACYCLOVIR 200 MG CAP PO SCH ×2 (08:31→20:09)
[2017-11-06] MEDS: HEPARIN SODIUM,PORCINE 5,000 UNIT/ML 1 ML VIAL SQ SCH ×3 (08:31→23:29)
[2017-11-06] MEDS: CALCIUM CARBONATE 500 MG CHEWABLE PO SCH (08:32)
[2017-11-06] MEDS: FAMOTIDINE 20 MG/2 ML VIAL IV SCH ×2 (08:32→20:09)
[2017-11-06] MEDS: ATENOLOL 50 MG TAB PO SCH (08:32)
[2017-11-06] MEDS: MAGNESIUM OXIDE 400 MG TAB PO SCH (08:32)
[2017-11-06] MEDS: ASPIRIN 81 MG PO SCH (08:32)
[2017-11-06] MEDS: HYDROCHLOROTHIAZIDE 25 MG TAB PO SCH (08:32)
--- NOTE | 2017-11-06 10:11 | US ---
EXAMINATION TYPE: US liver DATE OF EXAM: 11/06/2017 COMPARISON: CT dated 11/04/2017 CLINICAL HISTORY: abnormal CT of abdomen, hemangioma of liver EXAM MEASUREMENTS: Liver Length: 19.8 cm Gallbladder Wall: Surgically absent CBD: 0.4 cm Right Kidney: 11.4 x 4.9 x 5.0 cm Morbidly obese patient. Technically difficult study Pancreas: Tail obscured by overlying bowel gas Liver: Increased attenuation, decreased visualization of vessels, hepatomegaly, hypoechoic area seen also on CT measuring 3.3 x 3.8 x 3.1cm Gallbladder: Surgically absent Evidence for sonographic Troncoso's sign: no CBD: wnl There is no ascites. Right kidney shows normal cortical medullary differentiation. IMPRESSION: Hypoechoic focus within the right lobe of the liver corresponding to abnormality seen on CT. Findings do not show typical appearance of hemangioma. Liver MRI or dedicated liver CT with heman gioma protocol could be performed for better evaluation. Hepatomegaly. Possible hepatic steatosis. Po stop change.
--- NOTE | 2017-11-06 13:56 | P.CONS ---
History of Present Illness - Reason for Consult Consult date: 11/06/17 superficial thrombosis, left hand swelling, multiple myeloma - History of Present Illness The patient is a 72-year-old white female, well-known to our service. She is followed by Dr. Leon in the outpatient setting. She was initially seen in the practice, in 09/27 with complains of chronic anemia. On workup she was found to have an IgG multiple myeloma. She was started on Revlimid Velcade and Decadron, achieving a good remission. In 07/01 she was switched to maintenance Revlimid daily for 3 weeks with 1 week off each cycle. In 07/29 0 switched to 2 weeks on and 2 weeks off, because of side effects including diarrhea, weakness and lower extremity pain with the 3 week regimen. She tolerated this schedule much better (which included weekly Decadron at 20 mg). She presented to the emergency room, complaining of pain and swelling in her left breast and had, over the past few days. She denied any trauma, or insect bites. She had partial relief with anti-inflammatories and icing. In addition at the time of presentation she had noted a rash on the upper medial left thigh over the last day or so. Dopplers and x-ray of the left upper extremity were negative. She was started on antibiotics with some improvement. Doppler of the left lower extremity appeared to show superficial thrombus at the level of the redness. The patient was therefore admitted for further management, and consult placed. She was diagnosed with a right thigh superficial thrombus in 07/29. She is on aspirin 81 mg on a regular basis. Review of Systems Constitutional: Reports fatigue, Denies chills, Denies fever Eyes: denies blurred vision, denies pain Ears, nose, mouth and throat: Denies headache, Denies sore throat Cardiovascular: Denies chest pain, Denies shortness of breath Respiratory: Denies cough Gastrointestinal: Denies abdominal pain, Denies diarrhea, Denies nausea, Denies vomiting Genitourinary: Denies dysuria, Denies hematuria Menstruation: Reports postmenopausal Musculoskeletal: Reports as per HPI Musculoskeletal: left: hand pain, hand swelling, wrist pain, wrist stiffness, wrist swelling Integumentary: Reports rash Neurological: Denies numbness, Denies weakness Psychiatric: Denies anxiety, Denies depression Endocrine: Denies fatigue, Denies weight change Hematologic/Lymphatic: Reports as per HPI Past Medical History Past Medical History: Hypertension, Pneumonia Additional Past Medical History / Comment(s): multiple myeloma-in remission History of Any Multi-Drug Resistant Organisms: None Reported Past Surgical History: Cholecystectomy, Tubal Ligation Past Anesthesia/Blood Transfusion Reactions: No Reported Reaction Past Psychological History: No Psychological Hx Reported Smoking Status: Never smoker Past Alcohol Use History: Rare Past Drug Use History: None Reported - Past Family History Mother Family Medical History: Cancer Father Family Medical History: Cancer Medications and Allergies Home Medications Medication Instructions Recorded Confirmed Type Magnesium Oxide [Magnesium] 500 mg PO DAILY 10/27/16 11/04/17 History Melatonin 10 mg PO HS 10/27/16 11/04/17 History Aspirin EC [Ecotrin Low Dose] 81 mg PO DAILY 09/01/17 11/04/17 History Atenolol [Tenormin] 50 mg PO DAILY 09/01/17 11/04/17 History Dexamethasone [Hexadrol] 20 mg PO MO 09/01/17 11/04/17 History L.acidoph,Paracasei, B.lactis 1 cap PO DAILY 09/01/17 11/04/17 History [Probiotic] Lenalidomide [Revlimid] 25 mg PO DIRECTED 09/01/17 11/04/17 History Acyclovir 400 mg PO BID 11/04/17 11/04/17 History Calcium Carbonate [Tums] 500 mg PO DAILY 11/04/17 11/04/17 History Cholecalciferol (Vitamin D3) 2,000 unit PO DAILY 11/04/17 11/04/17 History [Vitamin D3] Cyanocobalamin (Vitamin B-12) 1,000 mcg PO DAILY 11/04/17 11/04/17 History [Vitamin B-12] Hydrochlorothiazide [Hydrodiuril] 25 mg PO DAILY 11/04/17 11/04/17 History Prochlorperazine [Compazine] 10 mg PO DAILY PRN 11/04/17 11/04/17 History Allergies Allergy/AdvReac Type Severity Reaction Status Date / Time Iodinated Contrast- Oral and Allergy Intermediate Rash/Hives Verified 11/04/17 22:01 IV Dye cephalexin Allergy Rash/Hives Verified 11/04/17 17:29 Physical Exam Vitals: Vital Signs Temp Pulse Pulse Resp BP BP Pulse Ox 06/26/18 06:28 97.4 F L 54 L 18 151/79 95 11/05/17 22:38 96 11/05/17 22:18 98.2 F 53 L 16 137/77 96 11/05/17 14:06 97.7 F 62 18 135/76 98 Intake and Output 11/05/17 11/06/17 11/06/17 22:59 06:59 14:59 Other: Voiding Method Toilet # Voids 1 1 Weight 130.1 kg - Constitutional General appearance: no acute distress - EENT Eyes: EOMI, PERRLA ENT: hearing grossly normal, normal oropharynx - Neck Neck: no lymphadenopathy Thyroid: bilateral: normal size - Respiratory Respiratory: bilateral: CTA - Cardiovascular Rhythm: regular Heart sounds: normal: S1, S2 - Gastrointestinal General gastrointestinal: normal bowel sounds, soft - Integumentary Integumentary: calor (left upper medial thigh in a linear fashion, with bluish discoloration) - Neurologic Neurologic: CNII-XII intact - Musculoskeletal left wrist and left hand swelling. Patient able to flex and extend wrist, but range of motion is diminished. No specific point tenderness on palpation Underlying nodularity in a linear fashion in the area of erythema in the left medial thigh, s/o venous thrombosis Musculoskeletal: strength equal bilaterally - Psychiatric Psychiatric: A&O x's 3, appropriate affect Results CBC & Chem 7: 11/05/17 09:14 11/05/17 09:14 Comments: report of hand x-rays reviewed Venous US: report reviewed Assessment and Plan (1) Superficial thrombophlebitis of left leg Narrative/Plan: the patient was found to have a new superficial thrombophlebitis involving the left thigh. She has known varicose veins, and had a superficial thrombus on the right side in 07/29. I have requested that radiology provide clarification as to how close this thrombosis to the saphenofemoral junction. If this is approaching the SF junction, then we would recommend full anticoagulation for 6-12 weeks with follow-up Dopplers in about 6 weeks. If the thrombus is distant from the SF junction, then the patient technically does not need full dose anticoagulation. However the concern in this case is that this episode occurred while she was on aspirin, that this is the second episode, and she has predisposing factors in terms of significant varicosities as well as her ongoing medication regimen. I will therefore also consult vascular surgery to see if the patient could be a candidate for treatment of the varicosities. She does not require full dose anticoagulation, we can consider increasing her aspirin dose. Current Visit: Yes Status: Acute Code(s): I80.02 - PHLEBITIS AND THOMBOPHLB OF SUPERFIC VESSELS OF L LOW EXTREM SNOMED Code(s): 09836041993410230 (2) Swelling of left hand Narrative/Plan: The etiology of this is unclear. The patient has no evidence of trauma, or thrombosis. There is no prior history of inflammatory arthritis. This could represent cellulitis and soft tissue edema, but the patient does appear to have some joint involvement with decreased range of motion at the wrist. I will therefore consult rheumatology to assess for a possible inflammatory arthritis. Continue antibiotic in the meantime Current Visit: Yes Status: Acute Code(s): M79.89 - OTHER SPECIFIED SOFT TISSUE DISORDERS SNOMED Code(s): 054556977 (3) Multiple myeloma Narrative/Plan: She is currently on maintenance Revlimid and Decadron as noted in the HPI. She had restaging labs done most recently in early 09/28 that showed no evidence of progression. She is currently off the Revlimid. She will start back on Revlimid next week. she has moderate anemia likely due to Revlimid effect. Hemoglobin is adequate. WBC and platelets are normal. Continue to monitor Current Visit: No Status: Chronic Priority: Medium Code(s): C90.00 - MULTIPLE MYELOMA NOT HAVING ACHIEVED REMISSION SNOMED Code(s): 673684299
--- NOTE | 2017-11-06 17:58 | P.CONS ---
History of Present Illness - Reason for Consult Consult date: 11/06/17 left hand and wrist swelling Requesting physician: Patrice E Sheet - Chief Complaint left hand and wrist swelling and pain x 5 days - History of Present Illness Patient is seen today as an inpatient consult for left hand swelling and pain for the past 5 days. Patient's previous medical history of hypertension, multiple myeloma currently on Revilimid and morbid obesity. Patient states that around 5 days ago she was playing cards and drinking alcohol with friends when she began to nose her left hand swell denies any injury. Patient states that over the past 5 days the swelling had gotten worse. Patient denies any unishear operator stiffness and denies previous similar episodes. Patient states that she tried to alleviate the swelling with [id number] NSAIDs as well as ice packs which did not seem to help. Patient presented to the ER with left hand's and wrist swelling and x-rays and which did not show any injury. Patient was given Lasix which did help the swelling. Patient was started on clindamycin. Patient had upper extremity venous Doppler study which was negative for DVT and did also complain of new shortness of breath in the emergency room and chest CTA was negative for pulmonary embolism, EKG was normal. X-rays of the hands did reveal generative joint changes in the DIPs of the second and third fingers; x-ray of the wrist did also reveal mild degenerative changes. Review of Systems Musculoskeletal: left: hand pain, hand swelling, wrist pain, wrist swelling Past Medical History Past Medical History: Hypertension, Pneumonia Additional Past Medical History / Comment(s): multiple myeloma-in remission History of Any Multi-Drug Resistant Organisms: None Reported Past Surgical History: Cholecystectomy, Tubal Ligation Past Anesthesia/Blood Transfusion Reactions: No Reported Reaction Past Psychological History: No Psychological Hx Reported Smoking Status: Never smoker Past Alcohol Use History: Rare Past Drug Use History: None Reported - Past Family History Mother Family Medical History: Cancer Father Family Medical History: Cancer Medications and Allergies Home Medications Medication Instructions Recorded Confirmed Type Magnesium Oxide [Magnesium] 500 mg PO DAILY 10/27/16 11/04/17 History Melatonin 10 mg PO HS 10/27/16 11/04/17 History Aspirin EC [Ecotrin Low Dose] 81 mg PO DAILY 09/01/17 11/04/17 History Atenolol [Tenormin] 50 mg PO DAILY 09/01/17 11/04/17 History Dexamethasone [Hexadrol] 20 mg PO MO 09/01/17 11/04/17 History L.acidoph,Paracasei, B.lactis 1 cap PO DAILY 09/01/17 11/04/17 History [Probiotic] Lenalidomide [Revlimid] 25 mg PO DIRECTED 09/01/17 11/04/17 History Acyclovir 400 mg PO BID 11/04/17 11/04/17 History Calcium Carbonate [Tums] 500 mg PO DAILY 11/04/17 11/04/17 History Cholecalciferol (Vitamin D3) 2,000 unit PO DAILY 11/04/17 11/04/17 History [Vitamin D3] Cyanocobalamin (Vitamin B-12) 1,000 mcg PO DAILY 11/04/17 11/04/17 History [Vitamin B-12] Hydrochlorothiazide [Hydrodiuril] 25 mg PO DAILY 11/04/17 11/04/17 History Prochlorperazine [Compazine] 10 mg PO DAILY PRN 11/04/17 11/04/17 History Allergies Allergy/AdvReac Type Severity Reaction Status Date / Time Iodinated Contrast- Oral and Allergy Intermediate Rash/Hives Verified 11/04/17 22:01 IV Dye cephalexin Allergy Rash/Hives Verified 11/04/17 17:29 Physical Exam Vitals: Vital Signs Temp Pulse Pulse Resp BP Pulse Ox 11/06/17 14:58 97.3 F L 61 16 152/74 96 11/06/17 06:28 97.4 F L 54 L 18 151/79 95 11/05/17 22:38 96 11/05/17 22:18 98.2 F 53 L 16 137/77 96 Intake and Output 11/06/17 11/06/17 11/06/17 06:59 14:59 22:59 Other: Voiding Method Toilet # Voids 1 3 Weight 130.1 kg On exam patient does have 2+ pitting edema of the left hand and wrist, and hand is red and warm on exam. Patient has no tenderness on exam but does admit to tenderness when symptoms first started. Patient denies unishear operator stiffness and has range of motion in both wrists. Patient states that she feels that her symptoms have improved since receiving Lasix and antibiotics. Patient also has 1 + pitting edema of the legs bilaterally. Patient has slight wheezes heard in bilateral upper lung menendez. Results CBC & Chem 7: 11/05/17 09:14 11/05/17 09:14 Assessment and Plan (1) Dyspnea and respiratory abnormalities Current Visit: Yes Status: Acute Code(s): R06.00 - DYSPNEA, UNSPECIFIED; R06.89 - OTHER ABNORMALITIES OF BREATHING SNOMED Code(s): 761579586 (2) Swelling of left hand Current Visit: Yes Status: Acute Priority: High Code(s): M79.89 - OTHER SPECIFIED SOFT TISSUE DISORDERS SNOMED Code(s): 146432551 (3) Degenerative arthritis of left hand Current Visit: Yes Status: Chronic Code(s): M19.042 - PRIMARY OSTEOARTHRITIS , LEFT HAND SNOMED Code(s): 213161658959314 (4) Degenerative arthritis of left wrist Current Visit: Yes Status: Chronic Code(s): M19.032 - PRIMARY OSTEOARTHRITIS , LEFT WRIST SNOMED Code(s): 590949479011891 Plan: Patient is seen today as an inpatient consult for left hand swelling and pain for the past 5 days. Patient's previous medical history of hypertension, multiple myeloma currently on Revilimid and morbid obesity. Patient states that around 5 days ago she was playing cards and drinking alcohol with friends when she began to nose her left hand swell denies any injury. Patient states that over the past 5 days the swelling had gotten worse. Patient denies any unishear operator stiffness and denies previous similar episodes. Patient states that she tried to alleviate the swelling with [id number] NSAIDs as well as ice packs which did not seem to help. Patient presented to the ER with left hand's and wrist swelling and x-rays and which did not show any injury. Patient was given Lasix which did help the swelling. Patient was started on clindamycin. Patient had upper extremity venous Doppler study which was negative for DVT and did also complain of new shortness of breath in the emergency room and chest CTA was negative for pulmonary embolism, EKG was normal. X-rays of the hands did reveal generative joint changes in the DIPs of the second and third fingers; x-ray of the wrist did also reveal mild degenerative changes. On review of labs patient's most recent WBC was 4.8, he will 9.7, hematocrit 30.3, creatinine 0.75, CRP 144.3. Patient has multiple myeloma and is on Revlimid , on for 3 weeks, off for one week with Decadron given weekly. On exam patient does have 2+ pitting edema of the left hand and wrist, and hand is red and warm on exam. Patient has no tenderness on exam but does admit to tenderness when symptoms first started. Patient denies unishear operator stiffness and has range of motion in both wrists. Patient states that she feels that her symptoms have improved since receiving Lasix and antibiotics. For patient's symptoms today I will also order basic connective tissue disease panel which includes testing for rheumatoid arthritis, ЕЛЕНА, and uric acid, as there is suspicion for possible gout. Patient's x-rays did not reveal erosive changes of inflammatory arthritis. As patient is feeling better I will not start prednisone at this time, and patient will follow with us on discharge at our office if necessary. Time with Patient: Greater than 30
[2017-11-06 18:35] LABS: Anisocytosis Slight; Basophils % (A) 0 %; Eosinophils % (A) 0 %; HCT 29.5 % (34.0-46.0); HGB 9.7 gm/dL (11.4-16.0); Lymphocytes # (A) 0.4 k/uL (1.0-4.8); Lymphocytes % (A) 7 %; MCH 30.6 pg (25.0-35.0); MCHC 32.8 g/dL (31.0-37.0); MCV 93.3 fL (80.0-100.0); Mean Platelet Volume 7.8; Monocytes # (A) 0.6 k/uL (0-1.0); Monocytes % (A) 12 %; Neutrophils % (A) 79 %; Platelet Count 220 k/uL (150-450); RBC 3.16 m/uL (3.80-5.40); RDW 16.2 % (11.5-15.5); WBC 5.1 k/uL (3.8-10.6)
--- NOTE | 2017-11-06 18:56 | P.PN ---
Genevieve oliver is a pleasant 72 yo F with pmh of MM on Revilmid , who presents initially because she was concerned about her wrist swelling of one day duration , pt denies h/o trauma, no bug bite as per pt , pt has no restriction in movement f her hand neither actively nor passively. pt also complains from the same time from rash on her anterior thight , that was started 4-5 days ago, with some area of induration in ED pt had venous doppler of left LE : no DVT, positive superficial thrombosis. Hand and wrist Xray : no fracture . CTPA:no PE. 11/06/2017 Patient pain and erythema THE left anterior thigh is significantly improving, however there is some induration. Her hand his swelling is almost so improving with no restriction of movement Objective - Vital Signs Vital signs: Vital Signs Temp 97.3 F L 11/06/17 14:58 Pulse 61 11/06/17 14:58 Resp 16 11/06/17 14:58 BP 152/74 11/06/17 14:58 Pulse Ox 96 11/06/17 14:58 Intake & Output 11/05/17 11/06/17 11/06/17 18:59 06:59 18:59 Weight 130.1 kg Other: Voiding Method Toilet # Voids 1 1 2 - Exam HEENT: Head is atraumatic, normocephalic. Pupils equal, round. Neck is supple. There is no elevated jugular venous pressure. HEART EXAMINATION: Heart S1-S2, no murmur is heard CHEST EXAMINATION: Lungs reveal no expiratory wheezes throughout otherwise essentially clear. ABDOMEN: Soft, nontender. Bowel sounds are heard. No organomegaly noted. EXTREMITIES: 2+ peripheral pulses with no evidence of peripheral edema and no calf tenderness noted. -left thigh is erythematous , hot and with some area of induration the ant thigh , improved minimal left wrist swelling NEUROLOGIC patient is awake, alert and oriented -3 - Labs CBC & Chem 7: 11/06/17 18:19 11/05/17 09:14 Labs: Abnormal Lab Results - Last 24 Hours (Table) 11/06/17 Range/Units 18:19 RBC 3.16 L (3.80-5.40) m/uL Hgb 9.7 L (11.4-16.0) gm/dL Hct 29.5 L (34.0-46.0) % RDW 16.2 H (11.5-15.5) % Lymphocytes # 0.4 L (1.0-4.8) k/uL Assessment and Plan Assessment: -left ant thigh cellulitis vs thrombophlebitis -left wrist swelling with negative xray -h/o Multiple Myeloma - Plan: pt with acute left thigh erythema and hotness, with left wrist swelling , c/w same treatment , c/w symptmatic treatment, pt wrist swelling is significantly imporved after given lasix to the pt . xray show no fracture , no h/o trauma or bug bite. possible cellulitis vs thrombophlebitis . start clindamycin . f/u vitals and lytes. call hem/onc consult. pt is suspecting her MM medication might be contributing. Rheumatologic disease consult is appreciated, they suspect gout of the left wrist, connective tissue workup was initiated and the recommended follow-up as an outpatient. Hemoccult consult is appreciated and they recommended to start Revlimid next week as patient is currently off Revlimid. While her for left thigh superficial thrombophlebitis they recommended increasing aspirin does and vascular surgery consult for varicosity DVT and GI Prophylaxis. further recommendation based on patient condition .
[2017-11-06 19:00] LABS: Albumin 3.7 g/dL (3.5-5.0); C Reactive Protein 52.4 mg/L (<10.0); Calcium 9.4 mg/dL (8.4-10.2); Potassium 4.5 mmol/L (3.5-5.1); Total Bilirubin 0.4 mg/dL (0.2-1.3); Total Protein 5.9 g/dL (6.3-8.2); Uric Acid 5.6 mg/dL (3.7-7.4)
[2017-11-06 19:28] LABS: Erythrocyte Sedimentation Rate 54 mm/hr (0-20)
[2017-11-06] MEDS: IBUPROFEN 400 MG TAB PO PRN (21:33)
[2017-11-06 22:43] VITALS: BP 122/56; PULSE 56; RESP 18; TEMP 97
[2017-11-07 00:42] LABS: Rheumatoid Factor 12 IU/mL (0-15)
[2017-11-07 01:56] LABS: Cyclic Citrullinated Pep IgG NEGATIVE (NEGATIVE)
[2017-11-07] MEDS ORDERED: ASPIRIN 325 MG TAB PO SCH (09:00)
[2017-11-07] MEDS: ACYCLOVIR 200 MG CAP PO SCH (13:05)
[2017-11-07] MEDS: ATENOLOL 50 MG TAB PO SCH (13:05)
[2017-11-07] MEDS: CLINDAMYCIN 300 MG in DEXTROSE 5% IN WATER 50 ML IVPB SCH ×4 (13:05→13:48)
[2017-11-07] MEDS: HEPARIN SODIUM,PORCINE 5,000 UNIT/ML 1 ML VIAL SQ SCH (13:05)
[2017-11-07] MEDS: MAGNESIUM OXIDE 400 MG TAB PO SCH (13:06)
[2017-11-07] MEDS: HYDROCHLOROTHIAZIDE 25 MG TAB PO SCH (13:06)
[2017-11-07] MEDS: FAMOTIDINE 20 MG/2 ML VIAL IV SCH (13:06)
[2017-11-07] MEDS: CALCIUM CARBONATE 500 MG CHEWABLE PO SCH (13:06)
--- NOTE | 2017-11-07 13:26 | CONS ---
CONSULTATION Patient is a 72-year-old female. I was consulted for left superficial thrombophlebitis. Patient has been admitted and ultrasound shows no DVT. The patient has some redness and discomfort in the thigh area and also on the left wrist swelling. X-rays are negative. Patient has history of multiple myeloma under care of Oncology. MEDICAL HISTORY: History of hypertension, history of multiple myeloma, history of pneumonia. PHYSICAL EXAMINATION: Patient was seen in her room. Her neck is supple. Trachea central. CHEST: Clear on auscultation. ABDOMEN: Soft. Femoral pulses are present. Patient has varicosity in anterior aspect of the thigh with some mild tenderness. IMPRESSION: Left greater saphenous vein thrombophlebitis with varicosity. PLAN: The patient needs a Jobst stocking, Motrin for the pain and follow up in office in 2 weeks. MMODL / IJN: [id number] /
[2017-11-07] MEDS ORDERED: FAMOTIDINE 20 MG TAB PO SCH (21:00)
--- NOTE | 2017-11-07 22:59 | P.DS ---
Providers Date of admission: 11/06/17 18:45 Attending physician: Patrice Pisano MD Consults: 11/05/17 16:00 Consult Physician Urgent Consulting Provider: Talat Crespo Consult Reason/Comments: superficial thrombosis, Multiple Myeloma Do you want consulting provider notified?: Yes 11/06/17 12:36 Consult Physician Routine Consulting Provider: Miesha Stoll Consult Reason/Comments: left wrist and hand swelling Do you want consulting provider notified?: Yes 11/06/17 15:59 Consult Physician Routine Consulting Provider: Boogie Oro Consult Reason/Comments: b/l superficial thrombophlebitis, varicose veins Do you want consulting provider notified?: Yes Primary care physician: [facility] Course: melody is a pleasant 72 yo F with pmh of MM on [place]il[place] , who presents initially because she was concerned about her wrist swelling of one day duration , pt denies h/o trauma, no bug bite as per pt , pt has no restriction in movement f her hand neither actively nor passively. pt also complains from the same time from rash on her anterior thight , that was started 4-5 days ago, with some area of induration in ED pt had venous doppler of left LE : no DVT, but with positive superficial thrombosis. Hand and wrist Xray : no fracture . CTPA:no PE & right lobe hypodensity of the liver , radiologist recommended liver ultrasound. Patient has liver ultrasound which shows right lobe hypoechoic focus corresponding to the hypodensity seen on CT. radiologist recommended liver MRI or dedicated liver CT scan with hemangioma protocol. Oncologist upon evaluation of the patient, recommended surgical consult for varicose veins. No need for anticoagulation and her dose of aspirin is increased to 325 mg daily as recommended by the millinery department manager. I spoke with Florinda, the vascular surgeon who evaluated the pt, no plan for inpatient procedures, patient can follow-up as an outpatient. Patient thigh was seen also by her patient safety attendant,for her left wrist problem and it could be due to to gout, recommended connective tissue workup like rheumatoid factor, PNA, and uric acid. Her hand swelling and left thigh cellulitis/thrombosis are significantly improved, with no redness although some discoloration remains from inflammation , and some induration , hotness is improved significantly too i spoke with her friend and her DPOA at bed side, and update them with all the above problems and management plan and they verbalized understanding and acceptance. pt was cleared by all consultants. oncology , surgery ,and rheumatology pt was found stable and can be discharge home however she needs f/u as outpt and both with her DPOA agree i spoke with and updated him with all the above and he kindly took a note of this including the Connective T. workup and the recommendation of the radiologist for the possible liver heamangioma discharge exam HEENT: Head is atraumatic, normocephalic. Pupils equal, round. Neck is supple. There is no elevated jugular venous pressure. HEART EXAMINATION: Heart S1-S2, no murmur is heard CHEST EXAMINATION: Lungs reveal no expiratory wheezes throughout otherwise essentially clear. ABDOMEN: Soft, nontender. Bowel sounds are heard. No organomegaly noted. EXTREMITIES: 2+ peripheral pulses with no evidence of peripheral edema and no calf tenderness noted. -left thigh is erythematous ( resolved) , hot (significantly improved) and with some area of induration the ant thigh , improving minimal left wrist swelling , improving NEUROLOGIC patient is awake, alert and oriented -3 Patient Condition at Discharge: Good Plan - Discharge Summary New Discharge Prescriptions: New Clindamycin [Cleocin] 150 mg PO Q6H 4 Days #16 capsule Continue Cholecalciferol (Vitamin D3) [Vitamin D3] 2,000 unit PO DAILY #30 capsule Cyanocobalamin (Vitamin B-12) [Vitamin B-12] 1,000 mcg PO DAILY #30 tablet Discontinued Prochlorperazine [Compazine] 10 mg PO DAILY PRN PRN Reason: Nausea No Action Magnesium Oxide [Magnesium] 500 mg PO DAILY Melatonin 10 mg PO HS L.acidoph,Paracasei, B.lactis [Probiotic] 1 cap PO DAILY Atenolol [Tenormin] 50 mg PO DAILY Aspirin EC [Ecotrin Low Dose] 81 mg PO DAILY Dexamethasone [Hexadrol] 20 mg PO MO Lenalidomide [Revlimid] 25 mg PO DIRECTED Acyclovir 400 mg PO BID Hydrochlorothiazide [Hydrodiuril] 25 mg PO DAILY Calcium Carbonate [Tums] 500 mg PO DAILY Discharge Medication List Magnesium Oxide [Magnesium] 500 mg PO DAILY 10/27/16 [History] Melatonin 10 mg PO HS 10/27/16 [History] Aspirin EC [Ecotrin Low Dose] 81 mg PO DAILY 09/01/17 [History] Atenolol [Tenormin] 50 mg PO DAILY 09/01/17 [History] Dexamethasone [Hexadrol] 20 mg PO MO 09/01/17 [History] L.acidoph,Paracasei, B.lactis [Probiotic] 1 cap PO DAILY 09/01/17 [History] Lenalidomide [Revlimid] 25 mg PO DIRECTED 09/01/17 [History] Acyclovir 400 mg PO BID 11/04/17 [History] Calcium Carbonate [Tums] 500 mg PO DAILY 11/04/17 [History] Hydrochlorothiazide [Hydrodiuril] 25 mg PO DAILY 11/04/17 [History] Cholecalciferol (Vitamin D3) [Vitamin D3] 2,000 unit PO DAILY #30 capsule [Rx] Clindamycin [Cleocin] 150 mg PO Q6H 4 Days #16 capsule 11/07/17 [Rx] Cyanocobalamin (Vitamin B-12) [Vitamin B-12] 1,000 mcg PO DAILY #30 tablet 11/07 [Rx] Follow up Appointment(s)/Referral(s): Fermín Chris MD [Primary Care Provider] - 11/09/17 10:45 am Miesha Stoll MD [STAFF PHYSICIAN] - 1 Week (Office currently closed. [employer] for your left wrist swelling , possible gout.) Jet Moncada MD [STAFF PHYSICIAN] - 11/13/17 Boogie Oro MD [STAFF PHYSICIAN] - 11/21/17 1:30 pm () Patient Instructions/Handouts: Superficial Thrombophlebitis (GEN) Activity/Diet/Wound Care/Special Instructions: Wear GINA HOSE as tolerated. Activity as tolerated. Cardiac diet. Discharge Disposition: HOME SELF-CARE
[2017-11-08 04:17] LABS: Angiotensin-1 Converting Enz. 50 U/L (8-52)
[2017-11-08 12:20] LABS: HLA B27 POSITIVE
== END 2017-11-07 16:21 | disposition home or self-care (01) | DRG 300 ==
LOC: EC 14:58 → 4MS4W 22:41 → OBSVTOIN 11-06 18:45
PROVIDERS: ADMIT Internal Medicine; ATTEND Internal Medicine
DX: I80.02 Phlebitis and thrombophlebitis of superficial vessels of left lower extremity (principal); C90.01 Multiple myeloma in remission; L03.116 Cellulitis of left lower limb; M19.032 Primary osteoarthritis, left wrist; R06.00 Dyspnea, unspecified; E66.01 Morbid (severe) obesity due to excess calories; I10 Essential (primary) hypertension; D64.9 Anemia, unspecified; M19.042 Primary osteoarthritis, left hand; I83.90 Asymptomatic varicose veins of unspecified lower extremity; Z79.82 Long term (current) use of aspirin; Z79.899 Other long term (current) drug therapy; Z87.01 Personal history of pneumonia (recurrent); Z90.49 Acquired absence of other specified parts of digestive tract; Z98.51 Tubal ligation status; Z88.1 Allergy status to other antibiotic agents; Z91.041 Radiographic dye allergy status
CPT/HCPCS: 36415; 71046; 71275; 76705; 80048; 80053; 82164; 82550; 83880; 84443; 84484; 84550; 85025; 85379; 85652; 86038; 86140; 86200; 86431; 86812; 93005; 94760; 96374; 96375; 99285

== ENCOUNTER 2018-06-28 16:35 | Inpatient (IN) | payer MEDICARE, OTHER ==
[2018-06-28 18:14] LABS: Anisocytosis Slight; Basophils % (A) 1 %; Eosinophils % (A) 1 %; HCT 21.5 % (34.0-46.0); HGB 7.2 gm/dL (11.4-16.0); Hypochromasia Slight; Lymphocytes # (A) 0.4 k/uL (1.0-4.8); Lymphocytes % (A) 12 %; MCH 32.4 pg (25.0-35.0); MCHC 33.3 g/dL (31.0-37.0); MCV 97.3 fL (80.0-100.0); Macrocytosis Slight; Monocytes # (A) 0.4 k/uL (0-1.0); Monocytes % (A) 14 %; Neutrophils # (A) 2.1 k/uL (1.3-7.7); Neutrophils % (A) 70 %; Platelet Count 125 k/uL (150-450); Poikilocytosis Slight; RBC 2.21 m/uL (3.80-5.40); RDW 17.2 % (11.5-15.5)
[2018-06-28 18:23] LABS: Albumin 3.6 g/dL (3.5-5.0); Potassium 4.7 mmol/L (3.5-5.1); Total Bilirubin 1.6 mg/dL (0.2-1.3); Total Protein 5.7 g/dL (6.3-8.2)
[2018-06-28 18:24] LABS: Appearance,Urine Clear (Clear); Bilirubin,Urine Negative (Negative); Blood,Urine Moderate (Negative); Color,Urine Yellow; Glucose,Urine (UA) Negative (Negative); Ketones,Urine Negative (Negative); Leukocyte Esterase,Urine Small (Negative); Mucus,Urine Rare /hpf; Nitrite,Urine Negative (Negative); Protein,Urine Trace (Negative); RBC,Urine 26 /hpf (0-5); Specific Gravity,Urine 1.017 (1.001-1.035); Squamous Epithelial Cell,Urine 1 /hpf (0-4); Urobilinogen,Urine <2.0 mg/dL (<2.0); WBC,Urine 47 /hpf (0-5)
[2018-06-28 18:30] LABS: INR 0.9 (<1.2); Prothrombin Time 9.6 sec (9.0-12.0)
[2018-06-28 18:31] LABS: Partial Thromboplastin Time 18.8 sec (22.0-30.0)
[2018-06-28] MEDS ORDERED: ALBUTEROL NEBULIZED 2.5 MG/3 ML INHALATION STA (19:16)
[2018-06-28] MEDS ORDERED: LEVOFLOXACIN 750MG-D5W PMX 750 MG in DEXTROSE/WATER 1 150ML.BAG IVPB STA (19:16)
--- NOTE | 2018-06-28 19:21 | ED ---
Fever HPI - General Chief Complaint: Fever Stated Complaint: Fever Time Seen by Provider: 06/28/18 19:02 Source: patient, RN notes reviewed, old records reviewed Mode of arrival: ambulatory Limitations: no limitations - History of Present Illness Initial Comments: Patient is a 72-year-old female with history of multiple myeloma presents today with 2 days of fever. She reports that her fever was 101 earlier today. She complains of increased shortness of breath and slight cough. She also complains of extremity edema. Patient states that she previously was admitted for sepsis and pneumonia. Patient states that she has had increased fatigue. She reports she's been alternating Motrin and Tylenol. Patient reports that she is on chemotherapy medications. She reports that makes her immunosuppressed. Patient states that she sees Dr. Moncada. - Related Data Home Medications Medication Instructions Recorded Confirmed Atenolol [Tenormin] 50 mg PO DAILY 09/01/17 06/28/18 Dexamethasone [Hexadrol] 20 mg PO MO 09/01/17 06/28/18 L.acidoph,Paracasei, B.lactis 1 cap PO DAILY 09/01/17 06/28/18 [Probiotic] Lenalidomide [Revlimid] 25 mg PO DIRECTED 09/01/17 06/28/18 Apixaban [Eliquis] 2.5 mg PO BID 06/28/18 06/28/18 Fluticasone/Vilanterol [Breo 1 puff INHALATION DAILY 06/28/18 06/28/18 Ellipta 200-25 Mcg INH] Furosemide [Lasix] 40 mg PO DAILY 06/28/18 06/28/18 Allergies Allergy/AdvReac Type Severity Reaction Status Date / Time Iodinated Contrast- Oral and Allergy Intermediate Rash/Hives Verified 06/28/18 19:57 IV Dye cephalexin Allergy Rash/Hives Verified 06/28/18 19:57 Review of Systems ROS Statement: Those systems with pertinent positive or pertinent negative responses have been documented in the HPI. ROS Other: All systems not noted in ROS Statement are negative. Past Medical History Past Medical History: Hypertension, Pneumonia Additional Past Medical History / Comment(s): multiple myeloma-in remission History of Any Multi-Drug Resistant Organisms: None Reported Past Surgical History: Cholecystectomy, Tubal Ligation Past Anesthesia/Blood Transfusion Reactions: No Reported Reaction Past Psychological History: No Psychological Hx Reported Smoking Status: Never smoker Past Alcohol Use History: Rare Past Drug Use History: None Reported - Past Family History Mother Family Medical History: Cancer Father Family Medical History: Cancer General Exam - General Exam Comments Initial Comments: 9-year-old female. Alert and oriented. Patient is somewhat short of breath. Limitations: no limitations General appearance: alert, in no apparent distress Head exam: Present: atraumatic, normocephalic, normal inspection Eye exam: Present: normal appearance, PERRL, EOMI. Absent: scleral icterus, conjunctival injection, periorbital swelling ENT exam: Present: normal exam, normal oropharynx, mucous membranes moist Neck exam: Present: normal inspection. Absent: tenderness, meningismus, lymphadenopathy Respiratory exam: Present: decreased breath sounds. Absent: normal lung sounds bilaterally, respiratory distress, wheezes, rales, rhonchi, stridor Cardiovascular Exam: Present: regular rate, normal rhythm, normal heart sounds. Absent: systolic murmur, diastolic murmur, rubs, gallop, clicks GI/Abdominal exam: Present: soft, normal bowel sounds. Absent: distended, tenderness, guarding, rebound, rigid Extremities exam: Present: normal inspection, full ROM, normal capillary refill , pedal edema (Bilateral). Absent: tenderness, joint swelling, calf tenderness Back exam: Present: normal inspection, full ROM Neurological exam: Present: alert, oriented X3, CN II-XII intact Psychiatric exam: Present: normal affect, normal mood Skin exam: Present: warm, dry, intact, normal color. Absent: rash Course Vital Signs 06/28/18 06/28/18 06/28/18 17:04 19:29 19:37 Temperature 99 F Pulse Rate 65 65 66 Respiratory 20 16 16 Rate Blood Pressure 185/84 O2 Sat by Pulse 97 Oximetry 06/28/18 06/28/18 20:00 21:21 Temperature 98.0 F Pulse Rate 64 61 Respiratory 20 18 Rate Blood Pressure 122/76 123/68 O2 Sat by Pulse 96 95 Oximetry Medical Decision Making - Medical Decision Making Patient is a 9-year-old female who presents today with intermittent fevers. She underwent treatment for multiple myeloma. Patient states that she is told to come in for evaluation she's had high fevers. She complains of some cough and shortness of breath. She denies any chest pain at this time. Patient's EKG is normal. Chest x-ray shows cardiomegaly. No evidence of significant heart failure effusion. She does have bilateral thickening edema which is worse. Urinalysis is positive for infection. Urine culture obtained. Lactic acid was normal. Cord blood cell count is low at 3.2. Asians hemoglobin was also low at 7.2. Patient reports no bloody stools. Occult was negative. We' ll repeat CBC to recheck hemoglobin. - Lab Data Result diagrams: 06/28/18 17:57 06/28/18 17:57 Lab Results 06/28/18 06/28/18 06/28/18 Range/Units 17:57 17:57 17:57 WBC 3.0 L (3.8-10.6) k/uL RBC 2.21 L (3.80-5.40) m/uL Hgb 7.2 L (11.4-16.0) gm/dL Hct 21.5 L (34.0-46.0) % MCV 97.3 (80.0-100.0) fL MCH 32.4 (25.0-35.0) pg MCHC 33.3 (31.0-37.0) g/dL RDW 17.2 H (11.5-15.5) % Plt Count 125 L (150-450) k/uL Neutrophils % 70 % Lymphocytes % 12 % Monocytes % 14 % Eosinophils % 1 % Basophils % 1 % Neutrophils # 2.1 (1.3-7.7) k/uL Lymphocytes # 0.4 L (1.0-4.8) k/uL Monocytes # 0.4 (0-1.0) k/uL Eosinophils # 0.0 (0-0.7) k/uL Basophils # 0.0 (0-0.2) k/uL Hypochromasia Slight Poikilocytosis Slight Anisocytosis Slight Macrocytosis Slight PT (9.0-12.0) sec INR (<1.2) APTT (22.0-30.0) sec D-Dimer (<0.60) mg/L FEU Sodium 139 (137-145) mmol/L Potassium 4.7 (3.5-5.1) mmol/L Chloride 107 (98-107) mmol/L Carbon Dioxide 26 (22-30) mmol/L Anion Gap 6 mmol/L BUN 30 H (7-17) mg/dL Creatinine 0.99 (0.52-1.04) mg/dL Est GFR (CKD-EPI)AfAm 67 (>60 ml/min/1.73 sqM) Est GFR (CKD-EPI)NonAf 58 (>60 ml/min/1.73 sqM) Glucose 116 H (74-99) mg/dL Plasma Lactic Acid Jethro 1.4 (0.7-2.0) mmol/L Calcium 9.0 (8.4-10.2) mg/dL Total Bilirubin 1.6 H (0.2-1.3) mg/dL AST 15 (14-36) U/L ALT 32 (9-52) U/L Alkaline Phosphatase 65 (38-126) U/L NT-Pro-B Natriuret Pep pg/mL Total Protein 5.7 L (6.3-8.2) g/dL Albumin 3.6 (3.5-5.0) g/dL Urine Color Urine Appearance (Clear) Urine pH (5.0-8.0) Ur Specific [place] (1.001-1.035) Urine Protein (Negative) Urine Glucose (UA) (Negative) Urine Ketones (Negative) Urine Blood (Negative) Urine Nitrite (Negative) Urine Bilirubin (Negative) Urine Urobilinogen (<2.0) mg/dL Ur Leukocyte Esterase (Negative) Urine RBC (0-5) /hpf Urine WBC (0-5) /hpf Ur Squamous Epith Cells (0-4) /hpf Urine Mucus (None) /hpf Stool Occult Blood (Negative) Influenza Type A RNA (Not Detectd) Influenza Type B (PCR) (Not Detectd) 06/28/18 06/28/18 06/28/18 Range/Units 17:57 17:57 17:57 WBC (3.8-10.6) k/uL RBC (3.80-5.40) m/uL Hgb (11.4-16.0) gm/dL Hct (34.0-46.0) % MCV (80.0-100.0) fL MCH (25.0-35.0) pg MCHC (31.0-37.0) g/dL RDW (11.5-15.5) % Plt Count (150-450) k/uL Neutrophils % % Lymphocytes % % Monocytes % % Eosinophils % % Basophils % % Neutrophils # (1.3-7.7) k/uL Lymphocytes # (1.0-4.8) k/uL Monocytes # (0-1.0) k/uL Eosinophils # (0-0.7) k/uL Basophils # (0-0.2) k/uL Hypochromasia Poikilocytosis Anisocytosis Macrocytosis PT 9.6 (9.0-12.0) sec INR 0.9 (<1.2) APTT 18.8 L (22.0-30.0) sec D-Dimer (<0.60) mg/L FEU Sodium (137-145) mmol/L Potassium (3.5-5.1) mmol/L Chloride (98-107) mmol/L Carbon Dioxide (22-30) mmol/L Anion Gap mmol/L BUN (7-17) mg/dL Creatinine (0.52-1.04) mg/dL Est GFR (CKD-EPI)AfAm (>60 ml/min/1.73 sqM) Est GFR (CKD-EPI)NonAf (>60 ml/min/1.73 sqM) Glucose (74-99) mg/dL Plasma Lactic Acid Jethro (0.7-2.0) mmol/L Calcium (8.4-10.2) mg/dL Total Bilirubin (0.2-1.3) mg/dL AST (14-36) U/L ALT (9-52) U/L Alkaline Phosphatase (38-126) U/L NT-Pro-B Natriuret Pep 2210 pg/mL Total Protein (6.3-8.2) g/dL Albumin (3.5-5.0) g/dL Urine Color Yellow Urine Appearance Clear (Clear) Urine pH 6.0 (5.0-8.0) Ur Specific [place] 1.017 (1.001-1.035) Urine Protein Trace H (Negative) Urine Glucose (UA) Negative (Negative) Urine Ketones Negative (Negative) Urine Blood Moderate H (Negative) Urine Nitrite Negative (Negative) Urine Bilirubin Negative (Negative) Urine Urobilinogen <2.0 (<2.0) mg/dL Ur Leukocyte Esterase Small H (Negative) Urine RBC 26 H (0-5) /hpf Urine WBC 47 H (0-5) /hpf Ur Squamous Epith Cells 1 (0-4) /hpf Urine Mucus Rare H (None) /hpf Stool Occult Blood (Negative) Influenza Type A RNA (Not Detectd) Influenza Type B (PCR) (Not Detectd) 06/28/18 06/28/18 06/28/18 Range/Units 17:57 20:00 21:29 WBC (3.8-10.6) k/uL RBC (3.80-5.40) m/uL Hgb (11.4-16.0) gm/dL Hct (34.0-46.0) % MCV (80.0-100.0) fL MCH (25.0-35.0) pg MCHC (31.0-37.0) g/dL RDW (11.5-15.5) % Plt Count (150-450) k/uL Neutrophils % % Lymphocytes % % Monocytes % % Eosinophils % % Basophils % % Neutrophils # (1.3-7.7) k/uL Lymphocytes # (1.0-4.8) k/uL Monocytes # (0-1.0) k/uL Eosinophils # (0-0.7) k/uL Basophils # (0-0.2) k/uL Hypochromasia Poikilocytosis Anisocytosis Macrocytosis PT (9.0-12.0) sec INR (<1.2) APTT (22.0-30.0) sec D-Dimer 0.47 (<0.60) mg/L FEU Sodium (137-145) mmol/L Potassium (3.5-5.1) mmol/L Chloride (98-107) mmol/L Carbon Dioxide (22-30) mmol/L Anion Gap mmol/L BUN (7-17) mg/dL Creatinine (0.52-1.04) mg/dL Est GFR (CKD-EPI)AfAm (>60 ml/min/1.73 sqM) Est GFR (CKD-EPI)NonAf (>60 ml/min/1.73 sqM) Glucose (74-99) mg/dL Plasma Lactic Acid Jethro (0.7-2.0) mmol/L Calcium (8.4-10.2) mg/dL Total Bilirubin (0.2-1.3) mg/dL AST (14-36) U/L ALT (9-52) U/L Alkaline Phosphatase (38-126) U/L NT-Pro-B Natriuret Pep pg/mL Total Protein (6.3-8.2) g/dL Albumin (3.5-5.0) g/dL Urine Color Urine Appearance (Clear) Urine pH (5.0-8.0) Ur Specific [place] (1.001-1.035) Urine Protein (Negative) Urine Glucose (UA) (Negative) Urine Ketones (Negative) Urine Blood (Negative) Urine Nitrite (Negative) Urine Bilirubin (Negative) Urine Urobilinogen (<2.0) mg/dL Ur Leukocyte Esterase (Negative) Urine RBC (0-5) /hpf Urine WBC (0-5) /hpf Ur Squamous Epith Cells (0-4) /hpf Urine Mucus (None) /hpf Stool Occult Blood Negative (Negative) Influenza Type A RNA Not Detected (Not Detectd) Influenza Type B (PCR) Not Detected (Not Detectd) 06/28/18 22:12 EKG performed at 1740 shows normal sinus rhythm and normal EKG noted. Ventricular rate of 60 bpm. Was 160 ms. QRS duration 66. QT QTc is 420/424 ms. - Radiology Data Radiology results: report reviewed Chest x-ray shows some mild cardiomegaly no heart failure. No adverse changes compared old exam. Disposition Clinical Impression: Pancytopenia due to antineoplastic chemotherapy, Dyspnea, UTI (urinary tract infection), Elevated brain natriuretic peptide (BNP) level, History of fever Disposition: ADMITTED IP TO THIS HOSP Condition: Stable Is patient prescribed a controlled substance at d/c from ED?: No Referrals: Fermín Chris MD [Primary Care Provider] - 1-2 days Time of Disposition: 22:27
--- NOTE | 2018-06-28 19:58 | XR ---
EXAMINATION TYPE: XR chest 2V DATE OF EXAM: 06/28/2018 COMPARISON: 02/08/2018 HISTORY: Difficulty breathing TECHNIQUE: Frontal and lateral views of the chest are obtained. FINDINGS: There is no heart failure nor confluent pneumonic infiltrate. Costophrenic angles are rico r. Heart appears slightly enlarged. There is no pleural effusion. Bony thorax is intact. IMPRESSION: Mild cardiomegaly. No heart failure. No adverse change compared to old exam.
[2018-06-28] MEDS: SODIUM CHLORIDE 0.9% 1,000 ML IV SCH (21:17)
[2018-06-28] MEDS ORDERED: FUROSEMIDE 10 MG/ML 4 ML VIAL IV STA (21:39)
[2018-06-28] MEDS ORDERED: VANCOMYCIN IV PER PHARMACY 1 EACH MISC MISCELLANE PRN (22:18)
[2018-06-28] MEDS ORDERED: VANCOMYCIN 2,000 MG in SODIUM CHLORIDE 0.9% 500 ML 500 ML IVPB STA (22:20)
[2018-06-28] MEDS ORDERED: MORPHINE SULFATE 4 MG/ML SYRINGE IV PRN (22:28)
[2018-06-28] MEDS ORDERED: ONDANSETRON 4 MG/2 ML VIAL IVP PRN (22:28)
[2018-06-28] MEDS ORDERED: KETOROLAC 30 MG/ML 1 ML VIAL IVP PRN (22:28)
[2018-06-28] MEDS ORDERED: NALOXONE 0.4 MG/ML 1 ML VIAL IV PRN (22:28)
[2018-06-28] MEDS ORDERED: Lenalidomide [Revlimid] 25 MG PO SCH (22:30)
[2018-06-29 00:21] VITALS: BMI 45.4
[2018-06-29] MEDS: SYMBICORT 160-4.5 MCG INHALER INHALATION SCH ×2 (08:08→21:00)
[2018-06-29] MEDS ORDERED: NON-FORMULARY DRUG (L.Acidoph,Paracasei, B.Lactis [Probiotic] 1 CAP) PO SCH (09:00)
[2018-06-29] MEDS: APIXABAN 2.5 MG TABLET PO SCH ×2 (09:36→20:20)
[2018-06-29] MEDS: FUROSEMIDE 40 MG TAB PO SCH (09:36)
[2018-06-29] MEDS: ATENOLOL 50 MG TAB PO SCH (09:36)
[2018-06-29] MEDS ORDERED: traMADol 50 MG TAB PO PRN (14:18)
--- NOTE | 2018-06-29 14:20 | P.HPIM ---
History of Present Illness This is a pleasant 72 years old female with past medical history of hypertension , pneumonia and multiple myeloma on Revilmid , gout, hypodensity lesion of the liver which the patient states she checked by her PCP with CAT scan and was concerning, COPD and sleep apnea on 2 L oxygen via NC at home and she follows up with Dr. Bowens. who presents initially because of fever and dyspnea of 1- 2 days duration, associated with occasional dry cough. patient checked her temperature, at home was 100.2. Patient denies signs symptoms of upper respiratory tract infection however patient denies chest pain, no abdominal pain. No nausea vomiting. No diarrhea. No rash. No uterine abnormality or dysuria. In the hospital she had a fever of 102. Blood workup showing leukopenia of 3.0K, anemia of 7.2 and platelets 125, which is lower than her baseline. She has negative d-dimer at 0.47. BMP was unremarkable. Total bilirubin is slightly elevated at 1.6 however rest of LFT within normal. ProBNP is 2210, urinalysis is suspicious for infection. Urine culture and blood culture are sent. FOBT is negative rate and loans antigen is negative. Chest x-ray: Mild cardiomegaly with no infiltrate as per radiology report. EKG normal sinus rhythm. Patient in the emergency room was given 1 dose of Levaquin and started on vancomycin. She is also on steroids as dexamethasone from home Patient is on home oxygen as 2 L/M via NC. Review of Systems CONSTITUTIONAL: No fever, no malaise, no fatigue. HEENT: No recent visual problems or hearing problems. Denied any sore throat. CARDIOVASCULAR: No orthopnea, PND, no palpitations, no syncope. PULMONARY: No shortness of breath, no cough, no hemoptysis. GASTROINTESTINAL: No diarrhea, no nausea, no vomiting, no abdominal pain. Normoactive bowel sounds. NEUROLOGICAL: No headaches, no weakness, no numbness. HEMATOLOGICAL: Denies any bleeding or petechiae. GENITOURINARY: Denies any burning micturition, frequency, or urgency. MUSCULOSKELETAL/RHEUMATOLOGICAL: Denies any joint pain, swelling, or any muscle pain. ENDOCRINE: Denies any polyuria or polydipsia. Past Medical History Past Medical History: Hypertension, Pneumonia Additional Past Medical History / Comment(s): multiple myeloma-in remission History of Any Multi-Drug Resistant Organisms: None Reported Past Surgical History: Cholecystectomy, Tubal Ligation Past Anesthesia/Blood Transfusion Reactions: No Reported Reaction Past Psychological History: No Psychological Hx Reported Smoking Status: Never smoker Past Alcohol Use History: Rare Past Drug Use History: None Reported - Past Family History Mother Family Medical History: Cancer Father Family Medical History: Cancer Medications and Allergies Home Medications Medication Instructions Recorded Confirmed Type Atenolol [Tenormin] 50 mg PO DAILY 09/01/17 06/28/18 History Dexamethasone [Hexadrol] 20 mg PO MO 09/01/17 06/28/18 History L.acidoph,Paracasei, B.lactis 1 cap PO DAILY 09/01/17 06/28/18 History [Probiotic] Lenalidomide [Revlimid] 25 mg PO DIRECTED 09/01/17 06/28/18 History Apixaban [Eliquis] 2.5 mg PO BID 06/28/18 06/28/18 History Fluticasone/Vilanterol [Breo 1 puff INHALATION DAILY 06/28/18 06/28/18 History Ellipta 200-25 Mcg INH] Furosemide [Lasix] 40 mg PO DAILY 06/28/18 06/28/18 History Allergies Allergy/AdvReac Type Severity Reaction Status Date / Time Iodinated Contrast- Oral and Allergy Intermediate Rash/Hives Verified 06/28/18 19:57 IV Dye cephalexin Allergy Rash/Hives Verified 06/28/18 19:57 Physical Exam Vitals: Vital Signs Temp Pulse Pulse Pulse Resp BP BP 06/29/18 07:00 97.7 F 57 L 18 133/67 06/29/18 00:45 98.5 F 61 98 22 156/79 06/28/18 23:52 98.7 F 64 16 128/70 06/28/18 21:21 98.0 F 61 18 123/68 06/28/18 20:00 64 20 122/76 06/28/18 19:37 66 16 06/28/18 19:29 65 16 06/28/18 17:04 99 F 65 20 185/84 Pulse Ox 06/29/18 07:00 99 06/29/18 00:45 06/28/18 23:52 98 06/28/18 21:21 95 06/28/18 20:00 96 06/28/18 19:37 06/28/18 19:29 06/28/18 17:04 97 Intake and Output 06/28/18 06/29/18 06/29/18 22:59 06:59 14:59 Intake Total 1000 701 Balance 1000 701 Intake: Intake, IV Titration 1000 Amount Sodium Chloride 0.9% 1, 500 000 ml @ 100 mls/hr IV . Q10H [facility] Rx#:[id number] Vancomycin 2,000 mg In 500 Sodium Chloride 0.9% 500 ml 500 ml @ 167 mls/hr IVPB Q16H [facility] Rx#: [id number] Oral 701 Other: Weight 131.542 kg GENERAL: The patient is alert and oriented x3, not in any acute distress. Well developed, well nourished. HEENT: Pupils are round and equally reacting to light. EOMI. No scleral icterus. No conjunctival pallor. Normocephalic, atraumatic. No pharyngeal erythema. No thyromegaly. CARDIOVASCULAR: S1 and S2 present. No murmurs, rubs, or gallops. PULMONARY: Chest is clear to auscultation, no wheezing or crackles. ABDOMEN: Soft, nontender, nondistended, normoactive bowel sounds. No palpable organomegaly. MUSCULOSKELETAL: No joint swelling or deformity. EXTREMITIES: No cyanosis, clubbing, or pedal edema. NEUROLOGICAL: Gross neurological examination did not reveal any focal deficits. SKIN: No rashes. Results CBC & Chem 7: 06/28/18 17:57 06/28/18 17:57 Labs: Abnormal Lab Results - Last 24 Hours (Table) 06/28/18 06/28/18 06/28/18 Range/Units 17:57 17:57 17:57 WBC 3.0 L (3.8-10.6) k/uL RBC 2.21 L (3.80-5.40) m/uL Hgb 7.2 L (11.4-16.0) gm/dL Hct 21.5 L (34.0-46.0) % RDW 17.2 H (11.5-15.5) % Plt Count 125 L (150-450) k/uL Lymphocytes # 0.4 L (1.0-4.8) k/uL APTT 18.8 L (22.0-30.0) sec BUN 30 H (7-17) mg/dL Glucose 116 H (74-99) mg/dL Total Bilirubin 1.6 H (0.2-1.3) mg/dL Total Protein 5.7 L (6.3-8.2) g/dL Urine Protein (Negative) Urine Blood (Negative) Ur Leukocyte Esterase (Negative) Urine RBC (0-5) /hpf Urine WBC (0-5) /hpf Urine Mucus (None) /hpf 06/28/18 Range/Units 17:57 WBC (3.8-10.6) k/uL RBC (3.80-5.40) m/uL Hgb (11.4-16.0) gm/dL Hct (34.0-46.0) % RDW (11.5-15.5) % Plt Count (150-450) k/uL Lymphocytes # (1.0-4.8) k/uL APTT (22.0-30.0) sec BUN (7-17) mg/dL Glucose (74-99) mg/dL Total Bilirubin (0.2-1.3) mg/dL Total Protein (6.3-8.2) g/dL Urine Protein Trace H (Negative) Urine Blood Moderate H (Negative) Ur Leukocyte Esterase Small H (Negative) Urine RBC 26 H (0-5) /hpf Urine WBC 47 H (0-5) /hpf Urine Mucus Rare H (None) /hpf Microbiology - Last 24 Hours (Table) 06/28/18 17:57 Urine Culture - Preliminary Urine,Voided Thrombosis Risk Factor Assmnt - Choose All That Apply Any of the Below Risk Factors Present?: No Other Risk Factors: Yes Each Risk Factor Represents 2 Points: Age 61-74 years Other congenital or acquired thrombophilia - If yes, enter type in comment: No Thrombosis Risk Factor Assessment Total Risk Factor Score: 2 Thrombosis Risk Factor Assessment Level: Low Risk Assessment and Plan Assessment: Systemic inflammatory response with leukopenia and fever Most likely patient has Sepsis [place] present on admission Fever of 102, present on admission Possible respiratory tract infection, versus UTI History of multiple myeloma underdevelopment History of gout Essential hypertension History of pneumonia Plan: This is a pleasant 72 years old female who presents because of sepsis, and pancytopenia, mostly secondary to UTI versus respiratory tract infection. Continue with antibiotics. I'll infectious disease. Hematology oncology team has been consulted already by 80 team. Labs and medication were reviewed.. Continue same treatment. Continue with symptomatic treatment. Resume home medication. Monitor lytes and vitals. DVT and GI prophylaxis. Further recommendations of the clinical course of the patient DVT prophylaxis: Eliquis GI Prophylaxis: Protonix Prognosis is guarded
[2018-06-29] MEDS: PANTOPRAZOLE 40 MG/10 ML VIAL IV SCH (17:24)
[2018-06-29] MEDS: VANCOMYCIN 2,000 MG in SODIUM CHLORIDE 0.9% 500 ML 500 ML IVPB SCH (17:24)
[2018-06-29] MEDS: SODIUM CHLORIDE 0.9% 1,000 ML IV SCH ×3 (17:25→23:16)
[2018-06-29 18:02] LABS: Anisocytosis Slight; Basophils % (A) 0 %; Eosinophils % (A) 1 %; Hypochromasia Slight; Lymphocytes # (A) 0.3 k/uL (1.0-4.8); Lymphocytes % (A) 12 %; MCH 31.9 pg (25.0-35.0); MCHC 32.7 g/dL (31.0-37.0); MCV 97.5 fL (80.0-100.0); Macrocytosis Slight; Mean Platelet Volume 8.6; Monocytes # (A) 0.3 k/uL (0-1.0); Monocytes % (A) 11 %; Neutrophils # (A) 1.6 k/uL (1.3-7.7); Neutrophils % (A) 72 %; Platelet Count 111 k/uL (150-450); Poikilocytosis Slight; RBC 2.76 m/uL (3.80-5.40); RDW 17.3 % (11.5-15.5); WBC 2.3 k/uL (3.8-10.6)
[2018-06-29 18:06] LABS: HGB 8.8 gm/dL (11.4-16.0)
[2018-06-29 18:09] LABS: Albumin 3.7 g/dL (3.5-5.0); Calcium 8.7 mg/dL (8.4-10.2); Magnesium 1.8 mg/dL (1.6-2.3); Potassium 4.3 mmol/L (3.5-5.1); Total Bilirubin 1.2 mg/dL (0.2-1.3); Total Protein 5.7 g/dL (6.3-8.2)
--- NOTE | 2018-06-29 21:56 | P.CONS ---
History of Present Illness - Reason for Consult Consult date: 06/29/18 On treatment Multiple Myeloma Requesting physician: Kathleen Lucas - Chief Complaint Fever and Pancytopenia - History of Present Illness The patient is a 72-year-old white female, well-known to our service. She is followed by Dr. Moncada in the outpatient setting. She was initially seen in the practice, in 09/27 with complains of chronic anemia. On workup she was found to have an IgG multiple myeloma. She was started on Revlimid Velcade and Decadron, achieving a good remission. In 07/01 she was switched to maintenance Revlimid daily for 3 weeks with 1 week off each cycle. In 07/29 0 switched to 2 weeks on and 2 weeks off, because of side effects including diarrhea, weakness and lower extremity pain with the 3 week regimen. She tolerated this schedule much better (which included weekly Decadron at 20 mg). She presented to the emergency room for evaluation of fevers, chills and sweats. No productive cough, mild increase SOB. Urinary frequency. A full work- up completed and she was placed on antibiotics. She has remained afebrile since admission. Review of Systems A 14 point review of systems assessed and completed and all neg except HPI Past Medical History Past Medical History: Hypertension, Pneumonia Additional Past Medical History / Comment(s): multiple myeloma-in remission History of Any Multi-Drug Resistant Organisms: None Reported Past Surgical History: Cholecystectomy, Tubal Ligation Past Anesthesia/Blood Transfusion Reactions: No Reported Reaction Past Psychological History: No Psychological Hx Reported Smoking Status: Never smoker Past Alcohol Use History: Rare Past Drug Use History: None Reported - Past Family History Mother Family Medical History: Cancer Father Family Medical History: Cancer Medications and Allergies Home Medications Medication Instructions Recorded Confirmed Type Atenolol [Tenormin] 50 mg PO DAILY 09/01/17 06/28/18 History Dexamethasone [Hexadrol] 20 mg PO MO 09/01/17 06/28/18 History L.acidoph,Paracasei, B.lactis 1 cap PO DAILY 09/01/17 06/28/18 History [Probiotic] Lenalidomide [Revlimid] 25 mg PO DIRECTED 09/01/17 06/28/18 History Apixaban [Eliquis] 2.5 mg PO BID 02/15/19 02/15/19 History Fluticasone/Vilanterol [Breo 1 puff INHALATION DAILY 06/28/18 06/28/18 History Ellipta 200-25 Mcg INH] Furosemide [Lasix] 40 mg PO DAILY 06/28/18 06/28/18 History Allergies Allergy/AdvReac Type Severity Reaction Status Date / Time Iodinated Contrast- Oral and Allergy Intermediate Rash/Hives Verified 06/28/18 19:57 IV Dye cephalexin Allergy Rash/Hives Verified 06/28/18 19:57 Physical Exam Vitals: Vital Signs Temp Pulse Pulse Pulse Resp BP BP 06/29/18 14:15 98.1 F 64 18 123/75 06/29/18 07:00 97.7 F 57 L 18 133/67 06/29/18 00:45 98.5 F 61 98 22 156/79 06/28/18 23:52 98.7 F 64 16 128/70 06/28/18 21:21 98.0 F 61 18 123/68 06/28/18 20:00 64 20 122/76 06/28/18 19:37 66 16 06/28/18 19:29 65 16 Pulse Ox 06/29/18 14:15 100 06/29/18 07:00 99 06/29/18 00:45 06/28/18 23:52 98 06/28/18 21:21 95 06/28/18 20:00 96 06/28/18 19:37 06/28/18 19:29 Intake and Output 06/29/18 06/29/18 06/29/18 06:59 14:59 22:59 Intake Total 1000 701 Balance 1000 701 Intake: Intake, IV Titration 1000 Amount Sodium Chloride 0.9% 1, 500 000 ml @ 100 mls/hr IV . Q10H [facility] Rx#:[id number] Vancomycin 2,000 mg In 500 Sodium Chloride 0.9% 500 ml 500 ml @ 167 mls/hr IVPB Q16H [facility] Rx#: [id number] Oral 701 Gen: Alert No Acute Distress Head NC NT No Lymphadenopathy Lungs: Diminished bibasilar, No increased effort, Clear through rest Heart: Tachy, Reg Abdomen Obese soft ND Ext No edema, no rashingf Results CBC & Chem 7: 06/29/18 17:38 06/29/18 17:38 Labs: Abnormal Lab Results - Last 24 Hours (Table) 06/28/18 06/28/18 06/28/18 Range/Units 17:57 17:57 17:57 WBC 3.0 L (3.8-10.6) k/uL RBC 2.21 L (3.80-5.40) m/uL Hgb 7.2 L (11.4-16.0) gm/dL Hct 21.5 L (34.0-46.0) % RDW 17.2 H (11.5-15.5) % Plt Count 125 L (150-450) k/uL Lymphocytes # 0.4 L (1.0-4.8) k/uL APTT 18.8 L (22.0-30.0) sec BUN 30 H (7-17) mg/dL Glucose 116 H (74-99) mg/dL Total Bilirubin 1.6 H (0.2-1.3) mg/dL Total Protein 5.7 L (6.3-8.2) g/dL Urine Protein (Negative) Urine Blood (Negative) Ur Leukocyte Esterase (Negative) Urine RBC (0-5) /hpf Urine WBC (0-5) /hpf Urine Mucus (None) /hpf 06/28/18 Range/Units 17:57 WBC (3.8-10.6) k/uL RBC (3.80-5.40) m/uL Hgb (11.4-16.0) gm/dL Hct (34.0-46.0) % RDW (11.5-15.5) % Plt Count (150-450) k/uL Lymphocytes # (1.0-4.8) k/uL APTT (22.0-30.0) sec BUN (7-17) mg/dL Glucose (74-99) mg/dL Total Bilirubin (0.2-1.3) mg/dL Total Protein (6.3-8.2) g/dL Urine Protein Trace H (Negative) Urine Blood Moderate H (Negative) Ur Leukocyte Esterase Small H (Negative) Urine RBC 26 H (0-5) /hpf Urine WBC 47 H (0-5) /hpf Urine Mucus Rare H (None) /hpf Microbiology - Last 24 Hours (Table) 06/28/18 17:57 Urine Culture - Preliminary Urine,Voided Abdominal x-ray: report reviewed Assessment and Plan Plan: Assessment and Recommendations: 1. IgG Yaak Myeloma: Currently on Maintence treatment as she in in CR - Treatment Revlimid 25mg PO days 1-14 q28 days and Dex 20mg PO weekly - Currently on hold until acute situation and picture resolves - Recheck Myeloma panel 2. Febrile: T-Max 102.1 - ID is following - Although her neutrophils are stable above 1 and WBC above 1.5 she has immunosuppression with senior care weekly Dexamthasone and hx: Multiple Myeloma still undergoing treatment maintenace with Revlimid - Alvarez cultures Pending - Urinalysis awaiting Culture, prob UTI - Chest Xray no acute Process - Influenza Negative 3. Pancytopenia: - CBC today and daily, will discuss the addition of GCSF with Dr. Baer - Agree with broad spectrum antibiotics - Hemoglobin 7.1 on 06/28/18, await today redraw and transfuse with IRradiated PRBC if less than 7 - Platlets are stable at 120s 4. Symptomatic Superficial SVT: - She was diagnosed with this in October 2017, her symptoms persisted on aspirin despite DVT ruled out - She was therefore started on a low dose eliquis for current and future prophylaxis with the increased risk of thrombosis on Revlimid. - Ok to continue with platlets greater than 50K Thank you for allowing us to participate in the care of your patient, we will follow along Physician Attest: I have discussed and agree with above history and physical, I have developed the complete impression and plan and agree with dictation dictated as a scribe.
--- NOTE | 2018-06-29 22:59 | XR ---
EXAM: XR Chest, 2 Views CLINICAL HISTORY: ITS.REASON XR Reason: diffuse wheezing and wet cough new from yesterday TECHNIQUE: Frontal and lateral views of the chest. COMPARISON: 06/28/18 FINDINGS: Lungs: Basilar airspace opacities favoring atelectasis. No new consolidation. Pleural space: Unremarkable. No pneumothorax. Heart: Stable cardiomegaly. Mediastinum: Stable. Bones/joints: Stable. IMPRESSION: 1. Mild basilar opacities favoring atelectasis. No acute interval change since previous exam..
[2018-06-30] MEDS: SYMBICORT 160-4.5 MCG INHALER INHALATION SCH ×2 (08:00→20:58)
[2018-06-30] MEDS: VANCOMYCIN 2,000 MG in SODIUM CHLORIDE 0.9% 500 ML 500 ML IVPB SCH ×2 (08:07→23:48)
[2018-06-30] MEDS: ATENOLOL 50 MG TAB PO SCH (08:11)
[2018-06-30] MEDS: FUROSEMIDE 40 MG TAB PO SCH (08:11)
[2018-06-30] MEDS: APIXABAN 2.5 MG TABLET PO SCH ×2 (08:11→22:01)
[2018-06-30] MEDS: PANTOPRAZOLE 40 MG/10 ML VIAL IV SCH (08:11)
[2018-06-30 08:48] LABS: Anisocytosis Slight; Basophils % (A) 1 %; Eosinophils % (A) 2 %; HCT 24.3 % (34.0-46.0); HGB 8.1 gm/dL (11.4-16.0); Hypochromasia Slight; Lymphocytes # (A) 0.3 k/uL (1.0-4.8); Lymphocytes % (A) 16 %; MCH 32.6 pg (25.0-35.0); MCHC 33.4 g/dL (31.0-37.0); MCV 97.7 fL (80.0-100.0); Macrocytosis Slight; Mean Platelet Volume 8.3; Monocytes # (A) 0.2 k/uL (0-1.0); Monocytes % (A) 10 %; Neutrophils # (A) 1.1 k/uL (1.3-7.7); Neutrophils % (A) 67 %; Platelet Count 111 k/uL (150-450); Poikilocytosis Slight; RBC 2.49 m/uL (3.80-5.40); RDW 17.3 % (11.5-15.5); WBC 1.6 k/uL (3.8-10.6)
[2018-06-30 08:53] LABS: Albumin 3.2 g/dL (3.5-5.0); Calcium 8.7 mg/dL (8.4-10.2); Magnesium 1.9 mg/dL (1.6-2.3); Potassium 4.2 mmol/L (3.5-5.1); Total Bilirubin 0.9 mg/dL (0.2-1.3); Total Protein 5.4 g/dL (6.3-8.2)
[2018-06-30] MEDS: SODIUM CHLORIDE 0.9% 1,000 ML IV SCH ×2 (11:35→22:01)
--- NOTE | 2018-06-30 14:54 | P.CONS ---
History of Present Illness - Reason for Consult Consult date: 06/29/18 Sepsis Requesting physician: Patrice E Sheet - Chief Complaint Fever X 2 days - History of Present Illness Patient is 72-year-old female with past medical history significant for multiple myeloma for the patient currently on chemotherapy through her oncologist , patient presented to hospital with chief complaints of fever with rigors and chills and night sweats that apparently has been going on for the last 2 days before the patient is in the hospital patient is complaining of some increasing shortness of breath with minimal exertion however the patient denies significant chest pain cough or sputum production. Denies having any abdominal pain/nausea but no vomiting denies having any diarrhea or burning or frequency of urine, with the symptom the patient was evaluated by the ER physician, patient had did have a low-grade fever of 99F patient had did have mild leukopenia with a white count of 3000 patient had did have a positive UA, with small leukocyte esterases 47 WBC patient influenza serology was negative patient did have a chest x-ray that was reported negative for any acute infiltrate patient wasn't [facility] infectious disease was consulted for further recommendation regarding antibiotic therapy Review of Systems Positive points has been mentioned in HPI rest of the system has been negative Past Medical History Past Medical History: Hypertension, Pneumonia Additional Past Medical History / Comment(s): multiple myeloma-in remission History of Any Multi-Drug Resistant Organisms: None Reported Past Surgical History: Cholecystectomy, Tubal Ligation Past Anesthesia/Blood Transfusion Reactions: No Reported Reaction Past Psychological History: No Psychological Hx Reported Smoking Status: Never smoker Past Alcohol Use History: Rare Past Drug Use History: None Reported - Past Family History Mother Family Medical History: Cancer Father Family Medical History: Cancer Medications and Allergies Home Medications Medication Instructions Recorded Confirmed Type Atenolol [Tenormin] 50 mg PO DAILY 09/01/17 06/28/18 History Dexamethasone [Hexadrol] 20 mg PO MO 09/01/17 06/28/18 History L.acidoph,Paracasei, B.lactis 1 cap PO DAILY 09/01/17 06/28/18 History [Probiotic] Lenalidomide [Revlimid] 25 mg PO DIRECTED 09/01/17 06/28/18 History Apixaban [Eliquis] 2.5 mg PO BID 06/28/18 06/28/18 History Fluticasone/Vilanterol [Breo 1 puff INHALATION DAILY 06/28/18 06/28/18 History Ellipta 200-25 Mcg INH] Furosemide [Lasix] 40 mg PO DAILY 06/28/18 06/28/18 History Allergies Allergy/AdvReac Type Severity Reaction Status Date / Time Iodinated Contrast- Oral and Allergy Intermediate Rash/Hives Verified 06/28/18 19:57 IV Dye cephalexin Allergy Rash/Hives Verified 06/28/18 19:57 Physical Exam Vitals: Vital Signs Temp Pulse Pulse Pulse Resp BP BP 06/29/18 19:32 98.8 F 61 18 103/59 06/29/18 14:15 98.1 F 64 18 123/75 06/29/18 07:00 97.7 F 57 L 18 133/67 06/29/18 00:45 98.5 F 61 98 22 156/79 06/28/18 23:52 98.7 F 64 16 128/70 Pulse Ox 06/29/18 19:32 93 L 06/29/18 14:15 100 06/29/18 07:00 99 06/29/18 00:45 06/28/18 23:52 98 Intake and Output 06/29/18 06/29/18 06/29/18 06:59 14:59 22:59 Intake Total 1000 701 461 Balance 1000 701 461 Intake: Intake, IV Titration 1000 Amount Sodium Chloride 0.9% 1, 500 000 ml @ 100 mls/hr IV . Q10H [facility] Rx#:[id number] Vancomycin 2,000 mg In 500 Sodium Chloride 0.9% 500 ml 500 ml @ 167 mls/hr IVPB Q16H [facility] Rx#: [id number] Oral 701 461 Other: # Voids 1 General: The patient is awake and alert, in no distress. Skin: no rashes and no masses palpable. Eye: Pupils are equal, round, there is normal conjunctiva bilaterally. Ears, nose, mouth and throat: There are moist mucous membranes and no oral lesions. Neck: The neck is supple, there is no thyromegaly. Cardiovascular: S1-S2 regular rate and rhythm. No murmur. Respiratory: Unlabored breathing clear to auscultation bilaterally Gastrointestinal: Soft, non-distended, non-tender abdomen without masses or organomegaly noted. Neurological: There are no obvious motor or sensory deficits. Coordination appears grossly intact. Speech is normal. Psychiatric: Patient is awake and alert and oriented 3, appropriate mood & affect, normal judgment. Results CBC & Chem 7: 06/30/18 07:54 06/30/18 07:54 Labs: Abnormal Lab Results - Last 24 Hours (Table) 06/29/18 06/29/18 Range/Units 17:38 17:38 WBC 2.3 L (3.8-10.6) k/uL RBC 2.76 L (3.80-5.40) m/uL Hgb 8.8 L D (11.4-16.0) gm/dL Hct 27.0 L (34.0-46.0) % RDW 17.3 H (11.5-15.5) % Plt Count 111 L (150-450) k/uL Lymphocytes # 0.3 L (1.0-4.8) k/uL BUN 25 H (7-17) mg/dL Creatinine 1.21 H (0.52-1.04) mg/dL Glucose 112 H (74-99) mg/dL Total Protein 5.7 L (6.3-8.2) g/dL Microbiology - Last 24 Hours (Table) 06/28/18 17:57 Blood Culture - Preliminary Blood No Growth after 24 hours 06/28/18 17:57 Urine Culture - Preliminary Urine,Voided Assessment and Plan (1) History of fever Current Visit: Yes Status: Acute Code(s): Z87.898 - PERSONAL HISTORY OF OTHER SPECIFIED CONDITIONS SNOMED Code(s): 808583275 (2) UTI (urinary tract infection) Current Visit: Yes Status: Acute Code(s): N39.0 - URINARY TRACT INFECTION, SITE NOT SPECIFIED SNOMED Code(s): 84316495 Plan: 1- patient presented to hospital with fever that has been going on for 2 days in this patient who do have a history of multiple myeloma currently on chemotherapy making her immunocompromised workup so far is pointing towards a possible urinary source of this fever and infection, 2- patient with cephalexin ALLERGY that will limit the number of antibiotic choices for treatment of underlying infection 3- we will start the patient on Azactam 2 g every 24 hours while waiting for cultures to finalize and condition is stabilized we will follow-up on clinical condition to further adjust medication if needed , thank you for this consultation will follow this patient along with you Time with Patient: Greater than 30
[2018-06-30] MEDS: AZTREONAM 2 GM in SODIUM CHLORIDE 0.9% 100 ML IVPB SCH ×2 (15:55→22:34)
--- NOTE | 2018-06-30 16:06 | P.PN ---
Subjective This is a pleasant 72 years old female with past medical history of hypertension , pneumonia and multiple myeloma on Revilmid , gout, hypodensity lesion of the liver which the patient states she checked by her PCP with CAT scan and was concerning, COPD and sleep apnea on 2 L oxygen via NC at home and she follows up with Dr. Bowens. who presents initially because of fever and dyspnea of 1- 2 days duration, associated with occasional dry cough. patient checked her temperature, at home was 100.2. Patient denies signs symptoms of upper respiratory tract infection however patient denies chest pain, no abdominal pain. No nausea vomiting. No diarrhea. No rash. No uterine abnormality or dysuria. In the hospital she had a fever of 102. Blood workup showing leukopenia of 3.0K, anemia of 7.2 and platelets 125, which is lower than her baseline. She has negative d-dimer at 0.47. BMP was unremarkable. Total bilirubin is slightly elevated at 1.6 however rest of LFT within normal. ProBNP is 2210, urinalysis is suspicious for infection. Urine culture and blood culture are sent. FOBT is negative rate and loans antigen is negative. Chest x-ray: Mild cardiomegaly with no infiltrate as per radiology report. EKG normal sinus rhythm. Patient in the emergency room was given 1 dose of Levaquin and started on vancomycin. She is also on steroids as dexamethasone from home Patient is on home oxygen as 2 L/M via NC. 06/30/2018 Patient was sitting on the side of the bed, her dyspnea is improving. However she started to make a little phlegm. Which we will send sample for culture. No chest pain. She denies urinary dysuria however urine culture is coming back showing gram-negative bacilli with the final result is pending. Hematology oncology and infectious disease team are following the patient and their input is appreciated. Patient was started on azactam as per ID, while continue on vancomycin for now. WBC is coming down to 1.6 and neutrophil 1.1, patient was placed on neutropenic precautions. BMP is unremarkable and creatinine is 1.0 patient continue on IV fluids normal saline at 75 mm/h. FOBT is negative and influenza is negative. Patient with no fevers and blood pressure is stable. Review of systems CONSTITUTIONAL: No fever, no malaise, no fatigue. HEENT: No recent visual problems or hearing problems. Denied any sore throat. CARDIOVASCULAR: No orthopnea, PND, no palpitations, no syncope. PULMONARY: no hemoptysis. GASTROINTESTINAL: No diarrhea, no nausea, no vomiting, no abdominal pain. Normoactive bowel sounds. NEUROLOGICAL: No headaches, no weakness, no numbness. HEMATOLOGICAL: Denies any bleeding or petechiae. MUSCULOSKELETAL/RHEUMATOLOGICAL: Denies any joint pain, swelling, or any muscle pain. ENDOCRINE: Denies any polyuria or polydipsia. Medication: Albuterol, Eliquis, Tenormin, jejunum, Symbicort, dexamethasone, Lasix, vancomycin, Protonix, tramadol, and sodium chloride. Objective - Vital Signs Vital signs: Vital Signs Temp 98.2 F 06/30/18 07:00 Pulse 55 L 06/30/18 07:00 Resp 16 06/30/18 07:00 BP 133/58 06/30/18 07:00 Pulse Ox 100 06/30/18 07:00 Intake & Output 06/29/18 06/30/18 06/30/18 18:59 06:59 18:59 Intake Total 922 1480 600 Balance 922 1480 600 Intake: Intake, IV Titration 1000 600 Amount Sodium Chloride 0.9% 1, 1000 100 000 ml @ 100 mls/hr IV . Q10H [facility] Rx#:[id number] Vancomycin 2,000 mg In 500 Sodium Chloride 0.9% 500 ml 500 ml @ 167 mls/hr IVPB Q16H [facility] Rx#: [id number] Oral 922 480 Other: Voiding Method Toilet # Voids 1 6 - Labs CBC & Chem 7: 06/30/18 07:54 06/30/18 07:54 Labs: Abnormal Lab Results - Last 24 Hours (Table) 06/29/18 06/29/18 06/30/18 Range/Units 17:38 17:38 07:54 WBC 2.3 L (3.8-10.6) k/uL RBC 2.76 L (3.80-5.40) m/uL Hgb 8.8 L D (11.4-16.0) gm/dL Hct 27.0 L (34.0-46.0) % RDW 17.3 H (11.5-15.5) % Plt Count 111 L (150-450) k/uL Neutrophils # (1.3-7.7) k/uL Lymphocytes # 0.3 L (1.0-4.8) k/uL BUN 25 H 22 H (7-17) mg/dL Creatinine 1.21 H (0.52-1.04) mg/dL Glucose 112 H 101 H (74-99) mg/dL Total Protein 5.7 L 5.4 L (6.3-8.2) g/dL Albumin 3.2 L (3.5-5.0) g/dL 06/30/18 Range/Units 07:54 WBC 1.6 L (3.8-10.6) k/uL RBC 2.49 L (3.80-5.40) m/uL Hgb 8.1 L (11.4-16.0) gm/dL Hct 24.3 L (34.0-46.0) % RDW 17.3 H (11.5-15.5) % Plt Count 111 L (150-450) k/uL Neutrophils # 1.1 L (1.3-7.7) k/uL Lymphocytes # 0.3 L (1.0-4.8) k/uL BUN (7-17) mg/dL Creatinine (0.52-1.04) mg/dL Glucose (74-99) mg/dL Total Protein (6.3-8.2) g/dL Albumin (3.5-5.0) g/dL Microbiology - Last 24 Hours (Table) 06/28/18 17:57 Urine Culture - Preliminary Urine,Voided Gram Neg Bacilli 06/28/18 17:57 Blood Culture - Preliminary Blood No Growth after 24 hours Assessment and Plan Assessment: Systemic inflammatory response with leukopenia and fever Most likely patient has Sepsis [place] present on admission Fever of 102, present on admission Mostly UTI, with gram-negative bacteria. less likely respiratory tract infection History of multiple myeloma underdevelopment History of gout Essential hypertension History of pneumonia Plan: This is a pleasant 72 years old female who presents because of sepsis, and pancytopenia, mostly secondary to UTI versus respiratory tract infection. Continue with antibiotics as per ID. I'll infectious disease. Hematology oncology team has been consulted already by ED team. Labs and medication were reviewed.. Continue same treatment. Continue with symptomatic treatment. Resume home medication. Monitor lytes and vitals. DVT and GI prophylaxis. Further recommendations of the clinical course of the patient DVT prophylaxis: Eliquis GI Prophylaxis: Protonix Prognosis is guarded
--- NOTE | 2018-06-30 17:09 | P.PN ---
Subjective Progress Note Date: 06/30/18 Principal diagnosis: Febrile Neutropenia and pancytopenia She is breathing a little better today, sitting on side of bed. Her Blood counts have worsened (WBC and NEuts) hemoglobin stable Objective - Vital Signs Vital signs: Vital Signs Temp 98.0 F 06/30/18 14:46 Pulse 57 L 06/30/18 14:46 Resp 16 06/30/18 07:00 BP 110/64 06/30/18 14:46 Pulse Ox 94 L 06/30/18 14:46 Intake & Output 06/29/18 06/30/18 06/30/18 18:59 06:59 18:59 Intake Total 922 1480 600 Balance 922 1480 600 Intake: Intake, IV Titration 1000 600 Amount Sodium Chloride 0.9% 1, 1000 100 000 ml @ 100 mls/hr IV . Q10H [facility] Rx#:[id number] Vancomycin 2,000 mg In 500 Sodium Chloride 0.9% 500 ml 500 ml @ 167 mls/hr IVPB Q16H [facility] Rx#: [id number] Oral 922 480 Other: Voiding Method Toilet # Voids 1 6 - Exam Gen: Alert No Acute Distress Head NC NT No Lymphadenopathy Lungs: Diminished bibasilar, No increased effort, Expiratory wheezing on ausculation Heart: Tachy, Reg Abdomen Obese soft ND Ext No edema, no rashingf - Labs CBC & Chem 7: 06/30/18 07:54 06/30/18 07:54 Labs: Abnormal Lab Results - Last 24 Hours (Table) 06/29/18 06/29/18 06/30/18 Range/Units 17:38 17:38 07:54 WBC 2.3 L (3.8-10.6) k/uL RBC 2.76 L (3.80-5.40) m/uL Hgb 8.8 L D (11.4-16.0) gm/dL Hct 27.0 L (34.0-46.0) % RDW 17.3 H (11.5-15.5) % Plt Count 111 L (150-450) k/uL Neutrophils # (1.3-7.7) k/uL Lymphocytes # 0.3 L (1.0-4.8) k/uL BUN 25 H 22 H (7-17) mg/dL Creatinine 1.21 H (0.52-1.04) mg/dL Glucose 112 H 101 H (74-99) mg/dL Total Protein 5.7 L 5.4 L (6.3-8.2) g/dL Albumin 3.2 L (3.5-5.0) g/dL 06/30/18 Range/Units 07:54 WBC 1.6 L (3.8-10.6) k/uL RBC 2.49 L (3.80-5.40) m/uL Hgb 8.1 L (11.4-16.0) gm/dL Hct 24.3 L (34.0-46.0) % RDW 17.3 H (11.5-15.5) % Plt Count 111 L (150-450) k/uL Neutrophils # 1.1 L (1.3-7.7) k/uL Lymphocytes # 0.3 L (1.0-4.8) k/uL BUN (7-17) mg/dL Creatinine (0.52-1.04) mg/dL Glucose (74-99) mg/dL Total Protein (6.3-8.2) g/dL Albumin (3.5-5.0) g/dL Microbiology - Last 24 Hours (Table) 06/28/18 17:57 Urine Culture - Preliminary Urine,Voided Gram Neg Bacilli 06/28/18 17:57 Blood Culture - Preliminary Blood No Growth after 24 hours Assessment and Plan Plan: Assessment and Recommendations: 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 Pancytopenia: - CBC today and daily,WBC has decreased and so have Neutrophils. With active infection and decreased Neutrophils addition of GCSF may be beneficial - Agree with broad spectrum antibiotics - IRradiated PRBC if less than 7 - Platlets are stable at 120s 4. Symptomatic Superficial SVT: - She was diagnosed with this in October 2017, her symptoms persisted on aspirin despite DVT ruled out - She was therefore started on a low dose eliquis for current and future prophylaxis with the increased risk of thrombosis on Revlimid. - Ok to continue with platlets greater than 50K 5. UTI - Gram Negative Bacilli: - IV antibiotics and Dr. Mccoy from ID following Plan: - Continue supportive care - Monitor daily CBC - Await Immunoglobulin levels ordered yesterday, not resulted yet, for addition option of immune support with IVIG Thank you for allowing us to participate in the care of your patient, we will follow along Physician Attest: I have discussed and agree with above history and physical, I have developed the complete impression and plan and agree with dictation dictated as a scribe.
[2018-06-30] MEDS: MELATONIN 3 MG TABLET PO SCH (22:01)
--- NOTE | 2018-07-01 05:29 | PN ---
PROGRESS NOTE DATE OF SERVICE: 06/30/2018. REASON FOR FOLLOWUP: Fever with source likely UTI with possible component of pneumonia. INTERVAL HISTORY: The patient overall feels better and has improved. No fever has been recorded. The patient denies having any chest pain. She did have some cough and bringing up some sputum but no hemoptysis. No abdominal pain and no diarrhea. PHYSICAL EXAMINATION: On examination, blood pressure is 150/73 with a pulse of 63, temperature 97.3. She is 98% on 2 L nasal cannula. General description is an elderly female up in the bed in no distress. RESPIRATORY SYSTEM: Unlabored breathing with decreased breath sounds at the bases. No wheeze. HEART: S1, S2. Regular rate and rhythm. ABDOMEN: Soft, no tenderness. LABS: Hemoglobin 8.1, white count 1.6 with a BUN of 22, creatinine 1.04. Urine showing a gram-negative bacilli. Chest x-ray completed this morning did show mild basilar opacity favoring atelectasis. DIAGNOSTIC IMPRESSION AND PLAN: Patient admitted to the hospital with a fever. This patient with underlying multiple myeloma on chemo with source possible urinary tract infection, which showing gram- negative. Chest x-ray with some opacities will try to obtain a sputum. Keep the patient on vancomycin and Azactam while waiting for the condition to stabilize and culture to finalize. Continue with supportive care. MMODL / IJN: [id number] /
[2018-07-01] MEDS ORDERED: IMMUNE GLOBULIN (GAMMAGARD) 20 GM in EMPTY BAG 1 BAG IV NR (06:00)
[2018-07-01] MEDS ORDERED: IMMUNE GLOBULIN (GAMMAGARD) 5 GM in EMPTY BAG 1 BAG IV NR (06:00)
[2018-07-01 07:48] LABS: Anisocytosis Slight; HCT 24.4 % (34.0-46.0); HGB 8.2 gm/dL (11.4-16.0); Hypochromasia Slight; MCH 33.3 pg (25.0-35.0); MCHC 33.8 g/dL (31.0-37.0); MCV 98.6 fL (80.0-100.0); Macrocytosis Slight; Mean Platelet Volume 7.6; Platelet Count 107 k/uL (150-450); Poikilocytosis Moderate; RBC 2.48 m/uL (3.80-5.40); RDW 17.5 % (11.5-15.5); WBC 1.8 k/uL (3.8-10.6)
[2018-07-01 07:55] LABS: Calcium 8.6 mg/dL (8.4-10.2)
[2018-07-01] MEDS: SYMBICORT 160-4.5 MCG INHALER INHALATION SCH ×2 (08:52→20:22)
[2018-07-01] MEDS ORDERED: DEXAMETHASONE 4 MG TAB PO SCH (09:00)
[2018-07-01 09:20] LABS: Band Neutrophils % 2 %; Eosinophils # (M) 0.07 k/uL (0-0.7); Monocytes # (M) 0.49 k/uL (0-1.0); Myelocytes # (M) 0.04 k/uL (0); Myelocytes % 2 %; Neutrophils % (M) 46 %; Nucleated Red Blood Cells 0 /100 WBC (0-0); Total Cells Counted 200
[2018-07-01] MEDS: FUROSEMIDE 40 MG TAB PO SCH (10:00)
[2018-07-01] MEDS: ATENOLOL 50 MG TAB PO SCH (10:00)
[2018-07-01] MEDS: PANTOPRAZOLE 40 MG TABLET PO SCH (10:00)
[2018-07-01] MEDS: APIXABAN 2.5 MG TABLET PO SCH ×2 (10:00→20:38)
[2018-07-01] MEDS: AZTREONAM 2 GM in SODIUM CHLORIDE 0.9% 100 ML IVPB SCH (10:01)
[2018-07-01 10:51] LABS: Immunoglobulin A 28.1 mg/dL (60.0-350.0); Immunoglobulin M <16.9 mg/dL (40.0-280.0)
[2018-07-01] MEDS ORDERED: IMMUNE GLOBULIN (GAMMAGARD) 1 GM/10 ML VIAL IV ONE (12:03)
[2018-07-01] MEDS ORDERED: VANCOMYCIN TROUGH DUE 1 EACH MISC MISCELLANE ONE (15:00)
[2018-07-01] MEDS: ERTAPENEM 1 GM in SODIUM CHLORIDE 0.9% 50 ML IVPB SCH (15:47)
[2018-07-01] MEDS: SODIUM CHLORIDE 0.9% 1,000 ML IV SCH ×2 (15:54→23:46)
[2018-07-01 16:21] LABS: Appearance,Urine Clear (Clear); Bilirubin,Urine Negative (Negative); Blood,Urine Negative (Negative); Color,Urine Light Yellow; Glucose,Urine (UA) Negative (Negative); Ketones,Urine Negative (Negative); Leukocyte Esterase,Urine Negative (Negative); Nitrite,Urine Negative (Negative); Protein,Urine Negative (Negative); Specific Gravity,Urine 1.007 (1.001-1.035); Urobilinogen,Urine <2.0 mg/dL (<2.0)
[2018-07-01] MEDS: VANCOMYCIN 2,000 MG in SODIUM CHLORIDE 0.9% 500 ML 500 ML IVPB SCH (16:25)
--- NOTE | 2018-07-01 18:43 | P.PN ---
Subjective Progress Note Date: 07/01/18 Principal diagnosis: pancytopenia and fever, on treatment for MM In f/u today pt c/o difficulty sleeping due to cough/NI, so she is very tired today. Denied fever, chills, nausea, purulent sputum or hemoptysis, can only expectorate small amounts of thick white/cream colored sputum. Objective - Vital Signs Vital signs: Vital Signs Temp 98.0 F 07/01/18 07:00 Pulse 74 07/01/18 07:00 Resp 16 07/01/18 07:00 BP 147/78 07/01/18 07:00 Pulse Ox 98 07/01/18 07:00 Intake & Output 06/30/18 07/01/18 07/01/18 18:59 06:59 18:59 Intake Total 600 320 Balance 600 320 Intake: Intake, IV Titration 600 320 Amount Sodium Chloride 0.9% 1, 100 320 000 ml @ 75 mls/hr IV . [id number] [facility] Rx#:[id number] Vancomycin 2,000 mg In 500 Sodium Chloride 0.9% 500 ml 500 ml @ 167 mls/hr IVPB Q16H [facility] Rx#: [id number] Other: Voiding Method Toilet # Voids 6 - Constitutional General appearance: Present: cooperative, morbidly obese, no acute distress - EENT Eyes: Present: anicteric sclerae, EOMI ENT: Present: hearing grossly normal - Respiratory Respiratory: right: rhonchi (RUL), bilateral: wheezing (scasttered, end expiratory) - Cardiovascular Heart sounds: normal: S1, S2 Abnormal Heart Sounds: Absent: systolic murmur, diastolic murmur, rub, S3 Gallop , S4 Gallop, click, other - Gastrointestinal General gastrointestinal: Present: normal bowel sounds, soft - Integumentary Integumentary: Present: pale - Neurologic Neurologic: Present: CNII-XII intact - Musculoskeletal Musculoskeletal: Present: strength equal bilaterally - Psychiatric Psychiatric: Present: A&O x's 3, appropriate affect, intact judgment & insight - Labs CBC & Chem 7: 07/01/18 06:59 07/01/18 06:59 Labs: Abnormal Lab Results - Last 24 Hours (Table) 06/29/18 06/29/18 07/01/18 Range/Units 17:38 17:38 06:59 WBC (3.8-10.6) k/uL RBC (3.80-5.40) m/uL Hgb (11.4-16.0) gm/dL Hct (34.0-46.0) % RDW (11.5-15.5) % Plt Count (150-450) k/uL Neutrophils # (Manual) (1.3-7.7) k/uL Lymphocytes # (Manual) (1.0-4.8) k/uL Myelocytes # (Manual) (0) k/uL BUN 21 H (7-17) mg/dL Glucose 107 H (74-99) mg/dL IgG 326.0 L (700.0-1600.0) mg/dL IgA 28.1 L (60.0-350.0) mg/dL IgM <16.9 L (40.0-280.0) mg/dL Free Lambda LC, Quant 0.30 L (0.57-2.63) mg/dL 07/01/18 Range/Units 06:59 WBC 1.8 L (3.8-10.6) k/uL RBC 2.48 L (3.80-5.40) m/uL Hgb 8.2 L (11.4-16.0) gm/dL Hct 24.4 L (34.0-46.0) % RDW 17.5 H (11.5-15.5) % Plt Count 107 L (150-450) k/uL Neutrophils # (Manual) 0.80 L (1.3-7.7) k/uL Lymphocytes # (Manual) 0.40 L (1.0-4.8) k/uL Myelocytes # (Manual) 0.04 H (0) k/uL BUN (7-17) mg/dL Glucose (74-99) mg/dL IgG (700.0-1600.0) mg/dL IgA (60.0-350.0) mg/dL IgM (40.0-280.0) mg/dL Free Lambda LC, Quant (0.57-2.63) mg/dL Microbiology - Last 24 Hours (Table) 06/28/18 17:57 Urine Culture - Final Urine,Voided Escherichia coli 06/28/18 17:57 Blood Culture - Preliminary Blood No Growth after 48 hours 06/29/18 14:43 Blood Culture - Preliminary Blood No Growth after 24 hours Assessment and Plan (1) Hypogammaglobulinemia Narrative/Plan: Secondary to MM and treatment of myeloma. IgG<400, gammaguard ordered. Current Visit: Yes Status: Acute Priority: High Code(s): D80.1 - NONFAMILIAL HYPOGAMMAGLOBULINEMIA SNOMED Code(s): 974494861 (2) Multiple myeloma Narrative/Plan: Cont maintenance Rev and Dex as prescribed. Current Visit: Yes Status: Chronic Priority: Medium Code(s): C90.00 - MULTIPLE MYELOMA NOT HAVING ACHIEVED REMISSION SNOMED Code(s): 480257896
[2018-07-01] MEDS: MELATONIN 3 MG TABLET PO SCH ×2 (20:38→23:45)
--- NOTE | 2018-07-01 23:02 | P.PN ---
Subjective This is a pleasant 72 years old female with past medical history of hypertension , pneumonia and multiple myeloma on Revilmid , gout, hypodensity lesion of the liver which the patient states she checked by her PCP with CAT scan and was concerning, COPD and sleep apnea on 2 L oxygen via NC at home and she follows up with Dr. Bowens. who presents initially because of fever and dyspnea of 1- 2 days duration, associated with occasional dry cough. patient checked her temperature, at home was 100.2. Patient denies signs symptoms of upper respiratory tract infection however patient denies chest pain, no abdominal pain. No nausea vomiting. No diarrhea. No rash. No uterine abnormality or dysuria. In the hospital she had a fever of 102. Blood workup showing leukopenia of 3.0K, anemia of 7.2 and platelets 125, which is lower than her baseline. She has negative d-dimer at 0.47. BMP was unremarkable. Total bilirubin is slightly elevated at 1.6 however rest of LFT within normal. ProBNP is 2210, urinalysis is suspicious for infection. Urine culture and blood culture are sent. FOBT is negative rate and loans antigen is negative. Chest x-ray: Mild cardiomegaly with no infiltrate as per radiology report. EKG normal sinus rhythm. Patient in the emergency room was given 1 dose of Levaquin and started on vancomycin. She is also on steroids as dexamethasone from home Patient is on home oxygen as 2 L/M via NC. 06/30/2018 Patient was sitting on the side of the bed, her dyspnea is improving. However she started to make a little phlegm. Which we will send sample for culture. No chest pain. She denies urinary dysuria however urine culture is coming back showing gram-negative bacilli with the final result is pending. Hematology oncology and infectious disease team are following the patient and their input is appreciated. Patient was started on azactam as per ID, while continue on vancomycin for now. WBC is coming down to 1.6 and neutrophil 1.1, patient was placed on neutropenic precautions. BMP is unremarkable and creatinine is 1.0 patient continue on IV fluids normal saline at 75 mm/h. FOBT is negative and influenza is negative. Patient with no fevers and blood pressure is stable. 07/01/2018 Patient still have little dyspnea, but improving. Patient now remember that her to admission she have urgency to go to the bathroom but not think we'll come up, which is mostly due to her urinary tract infection. Vitas looks stable. WBC C start improving slightly up to 1.8. Hemoglobin 8.2. And platelets 107. BMP is unremarkable. Urine culture is growing E. coli, infectious disease are following the case and she is currently on vancomycin and invanz. she was little dyspneic today, pt states she will feel better after she get her steroid dose today. Review of systems CONSTITUTIONAL: No fever, no malaise, no fatigue. HEENT: No recent visual problems or hearing problems. Denied any sore throat. CARDIOVASCULAR: No orthopnea, PND, no palpitations, no syncope. PULMONARY: no hemoptysis. GASTROINTESTINAL: No diarrhea, no nausea, no vomiting, no abdominal pain. Normoactive bowel sounds. NEUROLOGICAL: No headaches, no weakness, no numbness. HEMATOLOGICAL: Denies any bleeding or petechiae. MUSCULOSKELETAL/RHEUMATOLOGICAL: Denies any joint pain, swelling, or any muscle pain. ENDOCRINE: Denies any polyuria or polydipsia. Medication: Albuterol, Eliquis, Tenormin, jejunum, Symbicort, dexamethasone, Lasix, vancomycin, Protonix, tramadol, and sodium chloride.invanz Objective - Vital Signs Vital signs: Vital Signs Temp 98.0 F 07/01/18 07:00 Pulse 74 07/01/18 07:00 Resp 16 07/01/18 07:00 BP 147/78 07/01/18 07:00 Pulse Ox 98 07/01/18 07:00 Intake & Output 06/30/18 07/01/18 07/01/18 18:59 06:59 18:59 Intake Total 600 320 360 Balance 600 320 360 Intake: Intake, IV Titration 600 320 Amount Sodium Chloride 0.9% 1, 100 320 000 ml @ 75 mls/hr IV . [id number] [facility] Rx#:[id number] Vancomycin 2,000 mg In 500 Sodium Chloride 0.9% 500 ml 500 ml @ 167 mls/hr IVPB Q16H [facility] Rx#: [id number] Oral 360 Other: Voiding Method Toilet # Voids 6 - Exam GENERAL: The patient is alert and oriented x3, not in any acute distress. Well developed, well nourished. HEENT: Pupils are round and equally reacting to light. EOMI. No scleral icterus. No conjunctival pallor. Normocephalic, atraumatic. No pharyngeal erythema. No thyromegaly. CARDIOVASCULAR: S1 and S2 present. No murmurs, rubs, or gallops. PULMONARY: Chest is clear to auscultation, no wheezing or crackles. ABDOMEN: Soft, nontender, nondistended, normoactive bowel sounds. No palpable organomegaly. MUSCULOSKELETAL: No joint swelling or deformity. EXTREMITIES: No cyanosis, clubbing, or pedal edema. NEUROLOGICAL: Gross neurological examination did not reveal any focal deficits. SKIN: No rashes. - Labs CBC & Chem 7: 07/01/18 06:59 07/01/18 06:59 Labs: Abnormal Lab Results - Last 24 Hours (Table) 06/29/18 06/29/18 07/01/18 Range/Units 17:38 17:38 06:59 WBC (3.8-10.6) k/uL RBC (3.80-5.40) m/uL Hgb (11.4-16.0) gm/dL Hct (34.0-46.0) % RDW (11.5-15.5) % Plt Count (150-450) k/uL Neutrophils # (Manual) (1.3-7.7) k/uL Lymphocytes # (Manual) (1.0-4.8) k/uL Myelocytes # (Manual) (0) k/uL BUN 21 H (7-17) mg/dL Glucose 107 H (74-99) mg/dL IgG 326.0 L (700.0-1600.0) mg/dL IgA 28.1 L (60.0-350.0) mg/dL IgM <16.9 L (40.0-280.0) mg/dL Free Lambda LC, Quant 0.30 L (0.57-2.63) mg/dL 07/01/18 Range/Units 06:59 WBC 1.8 L (3.8-10.6) k/uL RBC 2.48 L (3.80-5.40) m/uL Hgb 8.2 L (11.4-16.0) gm/dL Hct 24.4 L (34.0-46.0) % RDW 17.5 H (11.5-15.5) % Plt Count 107 L (150-450) k/uL Neutrophils # (Manual) 0.80 L (1.3-7.7) k/uL Lymphocytes # (Manual) 0.40 L (1.0-4.8) k/uL Myelocytes # (Manual) 0.04 H (0) k/uL BUN (7-17) mg/dL Glucose (74-99) mg/dL IgG (700.0-1600.0) mg/dL IgA (60.0-350.0) mg/dL IgM (40.0-280.0) mg/dL Free Lambda LC, Quant (0.57-2.63) mg/dL Microbiology - Last 24 Hours (Table) 06/28/18 17:57 Urine Culture - Final Urine,Voided Escherichia coli 06/28/18 17:57 Blood Culture - Preliminary Blood No Growth after 48 hours 06/29/18 14:43 Blood Culture - Preliminary Blood No Growth after 24 hours Assessment and Plan Assessment: Systemic inflammatory response with leukopenia and fever Most likely patient has Sepsis [place] present on admission Fever of 102, present on admission Mostly UTI, with gram-negative bacteria. less likely respiratory tract infection History of multiple myeloma underdevelopment History of gout Essential hypertension History of pneumonia Plan: This is a pleasant 72 years old female who presents because of sepsis, and pancytopenia, mostly secondary to UTI versus respiratory tract infection. Continue with antibiotics as per ID. I'll infectious disease. Hematology oncology team has been consulted already by ED team. Labs and medication were reviewed.. Continue same treatment. Continue with symptomatic treatment. Resume home medication. Monitor lytes and vitals. DVT and GI prophylaxis. Further recommendations of the clinical course of the patient DVT prophylaxis: Eliquis GI Prophylaxis: Protonix Prognosis is guarded
--- NOTE | 2018-07-01 23:02 | PN ---
PROGRESS NOTE DATE OF SERVICE: 07/01/2018. REASON FOR FOLLOWUP: Fever, source UTI/pneumonia. INTERVAL HISTORY: The patient is afebrile. The patient continues to have a cough, bringing up some sputum. No hemoptysis. No nausea, no vomiting. No abdominal pain or any diarrhea. PHYSICAL EXAMINATION: Blood pressure 134/70 with a pulse of 64, temperature is 97.7, she is 94% on room air. GENERAL DESCRIPTION: An elderly female up in the bed in no distress. RESPIRATORY SYSTEM: Unlabored breathing with decreased breath sounds in the bases, no wheeze. HEART: S1, S2. Regular rate and rhythm. ABDOMEN: Soft, no tenderness. LABS: Urine was finalized with ESBL E coli. BUN of 21, creatinine 0.99. DIAGNOSTIC IMPRESSION AND PLAN: 1. Patient with fever, concern for UTI with urine now showing ESBL E coli, however, the patient did have significant respiratory symptoms. We will repeat another UA and cultures. Add Invanz while waiting for repeat UA to finalize. 2. Patient does have infiltrate on chest x-ray with concern for pneumonia. The patient did provide a sputum sample today. We will keep the patient on vancomycin at this point. Repeat a chest x-ray tomorrow and follow up on sputum culture. Continue supportive care. MMODL / IJN: [id number] /
[2018-07-02] MEDS: IPRATROPIUM-ALBUTEROL 3 ML NEB INHALATION PRN ×3 (04:58→20:58)
[2018-07-02 08:09] LABS: Anisocytosis Slight; Basophils % (A) 1 %; Eosinophils % (A) 0 %; HCT 25.4 % (34.0-46.0); Hypochromasia Slight; Lymphocytes # (A) 0.2 k/uL (1.0-4.8); Lymphocytes % (A) 9 %; MCHC 31.5 g/dL (31.0-37.0); MCV 98.3 fL (80.0-100.0); Macrocytosis Slight; Mean Platelet Volume 8.9; Monocytes # (A) 0.3 k/uL (0-1.0); Monocytes % (A) 12 %; Neutrophils # (A) 1.6 k/uL (1.3-7.7); Neutrophils % (A) 76 %; Platelet Count 103 k/uL (150-450); Poikilocytosis Moderate; RBC 2.58 m/uL (3.80-5.40); RDW 16.7 % (11.5-15.5); WBC 2.2 k/uL (3.8-10.6)
[2018-07-02] MEDS: SYMBICORT 160-4.5 MCG INHALER INHALATION SCH ×2 (08:15→20:58)
[2018-07-02] MEDS: VANCOMYCIN 2,000 MG in SODIUM CHLORIDE 0.9% 500 ML 500 ML IVPB SCH (08:16)
[2018-07-02] MEDS: ATENOLOL 50 MG TAB PO SCH (08:17)
[2018-07-02] MEDS: APIXABAN 2.5 MG TABLET PO SCH ×2 (08:17→21:21)
[2018-07-02] MEDS: PANTOPRAZOLE 40 MG TABLET PO SCH (08:17)
[2018-07-02] MEDS: ERTAPENEM 1 GM in SODIUM CHLORIDE 0.9% 50 ML IVPB SCH (08:17)
[2018-07-02] MEDS: FUROSEMIDE 40 MG TAB PO SCH (08:18)
[2018-07-02 08:36] LABS: Potassium 4.4 mmol/L (3.5-5.1)
--- NOTE | 2018-07-02 09:16 | XR ---
EXAMINATION TYPE: XR chest 2V DATE OF EXAM: 07/02/2018 COMPARISON: 06/29/2018 TECHNIQUE: PA and lateral views submitted. HISTORY: Abnormal x-ray FINDINGS: The heart is enlarged and there is bilateral consolidation and small left effusion. Biapical pleural thickening. Arthropathy of the shoulders. No overt failure. IMPRESSION: 1. Stable bilateral lower lobe infiltrate and small left effusion. 2. Stable cardiomegaly.
--- NOTE | 2018-07-02 19:30 | P.PN ---
Subjective This is a pleasant 72 years old female with past medical history of hypertension , pneumonia and multiple myeloma on Revilmid , gout, hypodensity lesion of the liver which the patient states she checked by her PCP with CAT scan and was concerning, COPD and sleep apnea on 2 L oxygen via NC at home and she follows up with Dr. Bowens. who presents initially because of fever and dyspnea of 1- 2 days duration, associated with occasional dry cough. patient checked her temperature, at home was 100.2. Patient denies signs symptoms of upper respiratory tract infection however patient denies chest pain, no abdominal pain. No nausea vomiting. No diarrhea. No rash. No uterine abnormality or dysuria. In the hospital she had a fever of 102. Blood workup showing leukopenia of 3.0K, anemia of 7.2 and platelets 125, which is lower than her baseline. She has negative d-dimer at 0.47. BMP was unremarkable. Total bilirubin is slightly elevated at 1.6 however rest of LFT within normal. ProBNP is 2210, urinalysis is suspicious for infection. Urine culture and blood culture are sent. FOBT is negative rate and loans antigen is negative. Chest x-ray: Mild cardiomegaly with no infiltrate as per radiology report. EKG normal sinus rhythm. Patient in the emergency room was given 1 dose of Levaquin and started on vancomycin. She is also on steroids as dexamethasone from home Patient is on home oxygen as 2 L/M via NC. 06/30/2018 Patient was sitting on the side of the bed, her dyspnea is improving. However she started to make a little phlegm. Which we will send sample for culture. No chest pain. She denies urinary dysuria however urine culture is coming back showing gram-negative bacilli with the final result is pending. Hematology oncology and infectious disease team are following the patient and their input is appreciated. Patient was started on azactam as per ID, while continue on vancomycin for now. WBC is coming down to 1.6 and neutrophil 1.1, patient was placed on neutropenic precautions. BMP is unremarkable and creatinine is 1.0 patient continue on IV fluids normal saline at 75 mm/h. FOBT is negative and influenza is negative. Patient with no fevers and blood pressure is stable. 07/01/2018 Patient still have little dyspnea, but improving. Patient now remember that her to admission she have urgency to go to the bathroom but not think we'll come up, which is mostly due to her urinary tract infection. Vitas looks stable. WBC C start improving slightly up to 1.8. Hemoglobin 8.2. And platelets 107. BMP is unremarkable. Urine culture is growing E. coli, infectious disease are following the case and she is currently on vancomycin and invanz. she was little dyspneic today, pt states she will feel better after she get her steroid dose today. 07/02/2018 Patient states to me that her breathing feels better compared to when she came in. She does not have any more pressure in her urinary bladder as when she came in with. WBC slightly improved up to 2.2 KG, hemoglobin 8.0, platelets 103. BMP is unremarkable with creatinine 0.9. Review of systems CONSTITUTIONAL: No fever, no malaise, no fatigue. HEENT: No recent visual problems or hearing problems. Denied any sore throat. CARDIOVASCULAR: No orthopnea, PND, no palpitations, no syncope. PULMONARY: no hemoptysis. GASTROINTESTINAL: No diarrhea, no nausea, no vomiting, no abdominal pain. Normoactive bowel sounds. NEUROLOGICAL: No headaches, no weakness, no numbness. HEMATOLOGICAL: Denies any bleeding or petechiae. MUSCULOSKELETAL/RHEUMATOLOGICAL: Denies any joint pain, swelling, or any muscle pain. ENDOCRINE: Denies any polyuria or polydipsia. Medication: Albuterol, Eliquis, Tenormin, jejunum, Symbicort, dexamethasone, Lasix, vancomycin, Protonix, tramadol, and sodium chloride.invanz Objective - Vital Signs Vital signs: Vital Signs Temp 97.5 F L 07/02/18 14:25 Pulse 57 L 07/02/18 14:25 Resp 16 07/02/18 16:00 BP 135/78 07/02/18 14:25 Pulse Ox 96 07/02/18 14:25 Intake & Output 07/02/18 07/02/18 07/03/18 06:59 18:59 06:59 Intake Total 1390 1524 Balance 1390 1524 Intake: Intake, IV Titration 210 600 Amount Ertapenem 1 gm In Sodium 100 Chloride 0.9% 50 ml @ 100 mls/hr IVPB DAILY [facility] Rx #:[id number] Immune Globulin ( 50 Gammagard) 5 gm In Empty Bag 1 bag @ Titrate IV . Q0M NR Rx#:[id number] Sodium Chloride 0.9% 1, 160 000 ml @ 50 mls/hr IV . Q20H [facility] Rx#:[id number] Vancomycin 2,000 mg In 500 Sodium Chloride 0.9% 500 ml 500 ml @ 167 mls/hr IVPB Q16H [facility] Rx#: [id number] Oral [id number] 924 Other: # Voids 2 1 - Exam GENERAL: The patient is alert and oriented x3, not in any acute distress. Well developed, well nourished. HEENT: Pupils are round and equally reacting to light. EOMI. No scleral icterus. No conjunctival pallor. Normocephalic, atraumatic. No pharyngeal erythema. No thyromegaly. CARDIOVASCULAR: S1 and S2 present. No murmurs, rubs, or gallops. PULMONARY: Chest is clear to auscultation, no wheezing or crackles. ABDOMEN: Soft, nontender, nondistended, normoactive bowel sounds. No palpable organomegaly. MUSCULOSKELETAL: No joint swelling or deformity. EXTREMITIES: No cyanosis, clubbing, or pedal edema. NEUROLOGICAL: Gross neurological examination did not reveal any focal deficits. SKIN: No rashes. - Labs CBC & Chem 7: 07/02/18 07:24 07/02/18 07:24 Labs: Abnormal Lab Results - Last 24 Hours (Table) 07/02/18 07/02/18 Range/Units 07:24 07:24 WBC 2.2 L (3.8-10.6) k/uL RBC 2.58 L (3.80-5.40) m/uL Hgb 8.0 L (11.4-16.0) gm/dL Hct 25.4 L (34.0-46.0) % RDW 16.7 H (11.5-15.5) % Plt Count 103 L (150-450) k/uL Lymphocytes # 0.2 L (1.0-4.8) k/uL Chloride 108 H (98-107) mmol/L BUN 26 H (7-17) mg/dL Glucose 136 H (74-99) mg/dL Microbiology - Last 24 Hours (Table) 06/29/18 14:43 Blood Culture - Preliminary Blood No Growth after 72 hours 07/01/18 17:18 Gram Stain - Preliminary Sputum Sputum Culture - Preliminary 06/28/18 17:57 Blood Culture - Preliminary Blood No Growth after 72 hours Assessment and Plan Assessment: Systemic inflammatory response with leukopenia and fever Most likely patient has Sepsis [place] present on admission Fever of 102, present on admission Mostly UTI, with gram-negative bacteria. less likely respiratory tract infection History of multiple myeloma underdevelopment History of gout Essential hypertension History of pneumonia Plan: This is a pleasant 72 years old female who presents because of sepsis, and pancytopenia, mostly secondary to UTI versus respiratory tract infection. Continue with antibiotics as per ID. I'll infectious disease. Hematology oncology team has been consulted already by ED team. Labs and medication were reviewed.. Continue same treatment. Continue with symptomatic treatment. Resume home medication. Monitor lytes and vitals. DVT and GI prophylaxis. Further recommendations of the clinical course of the patient DVT prophylaxis: Eliquis GI Prophylaxis: Protonix Prognosis is guarded
[2018-07-02] MEDS: SODIUM CHLORIDE 0.9% 1,000 ML IV SCH (21:21)
[2018-07-02] MEDS: MELATONIN 3 MG TABLET PO SCH (21:21)
[2018-07-03] MEDS: VANCOMYCIN 2,000 MG in SODIUM CHLORIDE 0.9% 500 ML 500 ML IVPB SCH (00:21)
[2018-07-03] MEDS: IPRATROPIUM-ALBUTEROL 3 ML NEB INHALATION PRN ×4 (04:45→21:48)
--- NOTE | 2018-07-03 06:31 | PN ---
PROGRESS NOTE DATE OF SERVICE: 07/02/2018. REASON FOR FOLLOWUP: Fever, likely pneumonia. INTERVAL HISTORY: The patient is afebrile. She seems to be breathing more comfortably. Did have very minimal cough with occasional sputum production. No chest pain. No abdominal pain or any diarrhea. PHYSICAL EXAMINATION: Blood pressure 136/73 with a pulse of 87. Temperature 98. She is 98% on room air. General description is an elderly female up in the chair in no distress. Respiratory system: Unlabored breathing with decreased breath sounds at the bases. No wheeze. Heart S1, S2. Regular rate and rhythm. Abdomen soft, no tenderness. LABS: Hemoglobin , BUN of 26, creatinine 0.94. Sputum cultures currently pending. Blood culture negative. DIAGNOSTIC IMPRESSION AND PLAN: Patient admitted to the hospital with fever in this patient who did have underlying immunodeficiency on chemo. Patient is currently covered with Invanz and vanco because of a CEPHALEXIN ALLERGY. We will follow up on sputum culture to narrow down her antibiotics. Continue supportive care. MMODL / IJN: [id number] /
[2018-07-03 07:19] LABS: Calcium 8.7 mg/dL (8.4-10.2); Potassium 3.8 mmol/L (3.5-5.1)
[2018-07-03 08:08] LABS: Anisocytosis Slight; Basophils % (A) 1 %; Eosinophils % (A) 1 %; HCT 24.7 % (34.0-46.0); HGB 7.8 gm/dL (11.4-16.0); Hypochromasia Slight; Lymphocytes # (A) 0.4 k/uL (1.0-4.8); Lymphocytes % (A) 23 %; MCH 31.4 pg (25.0-35.0); MCHC 31.6 g/dL (31.0-37.0); MCV 99.4 fL (80.0-100.0); Macrocytosis Slight; Mean Platelet Volume 9.5; Monocytes # (A) 0.2 k/uL (0-1.0); Monocytes % (A) 14 %; Neutrophils % (A) 58 %; Poikilocytosis Slight; RBC 2.48 m/uL (3.80-5.40); RDW 17.1 % (11.5-15.5); WBC 1.8 k/uL (3.8-10.6)
[2018-07-03] MEDS: SYMBICORT 160-4.5 MCG INHALER INHALATION SCH ×2 (08:32→21:48)
[2018-07-03] MEDS: PANTOPRAZOLE 40 MG TABLET PO SCH (09:05)
[2018-07-03] MEDS: ATENOLOL 50 MG TAB PO SCH (09:05)
[2018-07-03] MEDS: APIXABAN 2.5 MG TABLET PO SCH ×2 (09:05→22:26)
[2018-07-03] MEDS: ERTAPENEM 1 GM in SODIUM CHLORIDE 0.9% 50 ML IVPB SCH (09:05)
[2018-07-03] MEDS: FUROSEMIDE 40 MG TAB PO SCH (09:06)
[2018-07-03 09:21] LABS: Platelet Count 98 k/uL (150-450)
--- NOTE | 2018-07-03 12:12 | CT ---
EXAMINATION TYPE: CT chest wo con DATE OF EXAM: 07/03/2018 COMPARISON: 11/04/2017 HISTORY: persistent sob and pancytopenia CT DLP: 748.6 mGycm. Automated Exposure Control for Dose Reduction was Utilized. TECHNIQUE: CT scan of the thorax is performed without IV contrast. FINDINGS: LUNGS: There is mild left basilar peribronchial cuffing and bilateral subpleural deposition of fat. M inimal dependent atelectasis is also seen. The lungs are grossly clear, there is no concerning parenc hymal mass or nodule identified. There is no pleural effusion or pneumothorax seen. The tracheobro nchial tree is patent. MEDIASTINUM: Lack of IV contrast is noted to limit evaluation for mediastinal and especially hilar ad enopathy. There are no definitive greater than 1 cm hilar or mediastinal lymph nodes. No cardiomega ly or pericardial effusion is seen. Moderate coronary artery calcifications are focal within the left main and left anterior descending coronary artery proximally. Mediastinal lipomatosis is noted. Ther e is enlargement of the right main pulmonary artery measuring up to 3.1 cm suggesting underlying pulm onary arterial hypertension. OTHER: Solitary hepatic lesion is seen with peripheral curvilinear calcifications, unchanged from the prior of 11/04/2017. Gallbladder is surgically absent. Moderate multilevel degenerative changes of th e spine are seen. IMPRESSION: 1. Mild left basilar peribronchial cuffing may be infectious or inflammatory. Bronchitis could be con sidered. Minimal bibasilar atelectasis is also seen. 2. Enlargement of the main pulmonary artery suggests underlying pulmonary arterial hypertension. 3. Focal moderate coronary artery calcification is present at the left main and left anterior descend ing coronary artery junction. 4. Hepatic lesion is incompletely characterized on the prior ultrasound of 11/06/[address] of 018. Further workup with three-phase enhanced CT or MR abdomen are recommended.
[2018-07-03] MEDS: LEVOFLOXACIN 750 MG TAB PO SCH (12:17)
[2018-07-03] MEDS: SODIUM CHLORIDE 0.9% 1,000 ML IV SCH ×2 (12:19→22:27)
--- NOTE | 2018-07-03 17:08 | P.PN ---
Subjective This is a pleasant 72 years old female with past medical history of hypertension , pneumonia and multiple myeloma on Revilmid , gout, hypodensity lesion of the liver which the patient states she checked by her PCP with CAT scan and was concerning, COPD and sleep apnea on 2 L oxygen via [place] at home and she follows up with Dr. Bowens. who presents initially because of fever and dyspnea of 1- 2 days duration, associated with occasional dry cough. patient checked her temperature, at home was 100.2. Patient denies signs symptoms of upper respiratory tract infection however patient denies chest pain, no abdominal pain. No nausea vomiting. No diarrhea. No rash. No uterine abnormality or dysuria. In the hospital she had a fever of 102. Blood workup showing leukopenia of 3.0K, anemia of 7.2 and platelets 125, which is lower than her baseline. She has negative d-dimer at 0.47. BMP was unremarkable. Total bilirubin is slightly elevated at 1.6 however rest of LFT within normal. ProBNP is 2210, urinalysis is suspicious for infection. Urine culture and blood culture are sent. FOBT is negative rate and loans antigen is negative. Chest x-ray: Mild cardiomegaly with no infiltrate as per radiology report. EKG normal sinus rhythm. Patient in the emergency room was given 1 dose of Levaquin and started on vancomycin. She is also on steroids as dexamethasone from home Patient is on home oxygen as 2 L/M via [place]. 06/30/2018 Patient was sitting on the side of the bed, her dyspnea is improving. However she started to make a little phlegm. Which we will send sample for culture. No chest pain. She denies urinary dysuria however urine culture is coming back showing gram-negative bacilli with the final result is pending. Hematology oncology and infectious disease team are following the patient and their input is appreciated. Patient was started on azactam as per ID, while continue on vancomycin for now. WBC is coming down to 1.6 and neutrophil 1.1, patient was placed on neutropenic precautions. BMP is unremarkable and creatinine is 1.0 patient continue on IV fluids normal saline at 75 mm/h. FOBT is negative and influenza is negative. Patient with no fevers and blood pressure is stable. 07/01/2018 Patient still have little dyspnea, but improving. Patient now remember that her to admission she have urgency to go to the bathroom but not think we'll come up, which is mostly due to her urinary tract infection. Vitas looks stable. WBC C start improving slightly up to 1.8. Hemoglobin 8.2. And platelets 107. BMP is unremarkable. Urine culture is growing E. coli, infectious disease are following the case and she is currently on vancomycin and invanz. she was little dyspneic today, pt states she will feel better after she get her steroid dose today. 07/02/2018 Patient states to me that her breathing feels better compared to when she came in. She does not have any more pressure in her urinary bladder as when she came in with. WBC slightly improved up to 2.2 KG, hemoglobin 8.0, platelets 103. BMP is unremarkable with creatinine 0.9. 07/03/2018 Patient remains dyspneic, no urinary complaints. No fever. Her WBC is down again today to 1.8. Platelets 98, and hemoglobin 7.8. Patient she feels tired and with malaise. Repeat CAT scan of the chest shows peribronchial cuffing which may be infectious or inflammatory with a bronchitis should be considered. Pulmonary hypertension with coronary artery calcification. Discussed the case with the infectious disease team and Dr. Mccoy will adjust her antibiotic. Levofloxacin was started. Also we'll do serial troponins. Patient also with hepatic lesion that needs further investigations with 3 phasic CAT scan or MRI. But due to the patient condition this can be done at a later date. Creatinine is slightly increased and patient was placed on IV fluids at 50 mL per hour. Vancomycin and Invanz were stopped today. Review of systems CONSTITUTIONAL: No fever, HEENT: No recent visual problems or hearing problems. Denied any sore throat. CARDIOVASCULAR: no syncope. PULMONARY: no hemoptysis. GASTROINTESTINAL: No diarrhea, no nausea, no vomiting, no abdominal pain. Normoactive bowel sounds. NEUROLOGICAL: No headaches, no weakness, no numbness. HEMATOLOGICAL: Denies any bleeding or petechiae. MUSCULOSKELETAL/RHEUMATOLOGICAL: Denies any joint pain, swelling, or any muscle pain. ENDOCRINE: Denies any polyuria or polydipsia. Medication: Albuterol, Eliquis, Tenormin, jejunum, Symbicort, dexamethasone, Lasix, , Protonix, tramadol, and sodium chloride.Levaquin. Objective - Vital Signs Vital signs: Vital Signs Temp 98 F 07/03/18 14:19 Pulse 64 07/03/18 14:19 Resp 16 07/03/18 14:19 BP 137/71 07/03/18 14:19 Pulse Ox 97 07/03/18 14:19 Intake & Output 07/02/18 07/03/18 07/03/18 18:59 06:59 18:59 Intake Total 1524 Balance 1524 Intake: Intake, IV Titration 600 Amount Ertapenem 1 gm In Sodium 100 Chloride 0.9% 50 ml @ 100 mls/hr IVPB DAILY [facility] Rx #:[id number] Vancomycin 2,000 mg In 500 Sodium Chloride 0.9% 500 ml 500 ml @ 167 mls/hr IVPB Q16H [facility] Rx#: [id number] Oral 924 Other: Voiding Method Toilet Toilet # Voids 1 1 - Exam GENERAL: The patient is alert and oriented x3, not in any acute distress. Well developed, well nourished. HEENT: Pupils are round and equally reacting to light. EOMI. No scleral icterus. No conjunctival pallor. Normocephalic, atraumatic. No pharyngeal erythema. No thyromegaly. CARDIOVASCULAR: S1 and S2 present. No murmurs, rubs, or gallops. PULMONARY: Chest is clear to auscultation, no wheezing or crackles. ABDOMEN: Soft, nontender, nondistended, normoactive bowel sounds. No palpable organomegaly. MUSCULOSKELETAL: No joint swelling or deformity. EXTREMITIES: No cyanosis, clubbing, or pedal edema. NEUROLOGICAL: Gross neurological examination did not reveal any focal deficits. SKIN: No rashes. - Labs CBC & Chem 7: 07/03/18 06:40 07/03/18 06:40 Labs: Abnormal Lab Results - Last 24 Hours (Table) 07/03/18 07/03/18 Range/Units 06:40 06:40 WBC 1.8 L (3.8-10.6) k/uL RBC 2.48 L (3.80-5.40) m/uL Hgb 7.8 L (11.4-16.0) gm/dL Hct 24.7 L (34.0-46.0) % RDW 17.1 H (11.5-15.5) % Plt Count 98 L (150-450) k/uL Neutrophils # 1.0 L (1.3-7.7) k/uL Lymphocytes # 0.4 L (1.0-4.8) k/uL Chloride 110 H (98-107) mmol/L BUN 31 H (7-17) mg/dL Creatinine 1.10 H (0.52-1.04) mg/dL Microbiology - Last 24 Hours (Table) 07/01/18 17:18 Gram Stain - Final Sputum Sputum Culture - Final 06/28/18 17:57 Blood Culture - Preliminary Blood No Growth after 96 hours 06/29/18 14:43 Blood Culture - Preliminary Blood No Growth after 72 hours Assessment and Plan Assessment: Systemic inflammatory response with leukopenia and fever Most likely patient has Sepsis. present on admission Fever of 102, present on admission. No more fever Looks like the patient has pneumonia, rather than UTI Dyspnea, rule out cardiac causes History of multiple myeloma underdevelopment History of gout Essential hypertension History of pneumonia Plan: This is a pleasant 72 years old female who presents because of sepsis, and pancytopenia, mostly secondary respiratory tract infection. Continue with antibiotics as per ID. I'll infectious disease. Hematology oncology team has been consulted already by ED team. Labs and medication were reviewed.. Continue same treatment. Continue with symptomatic treatment. Resume home medication. Monitor lytes and vitals. DVT and GI prophylaxis. Further recommendations of the clinical course of the patient DVT prophylaxis: Eliquis GI Prophylaxis: Protonix Prognosis is guarded
--- NOTE | 2018-07-03 17:56 | P.PN ---
Subjective Progress Note Date: 07/03/18 Principal diagnosis: Febrile Neutropenia and pancytopenia Status post one dose IVIG, She is more short of breath today Objective - Vital Signs Vital signs: Vital Signs Temp 98 F 07/03/18 14:19 Pulse 64 07/03/18 14:19 Resp 16 07/03/18 14:19 BP 137/71 07/03/18 14:19 Pulse Ox 97 07/03/18 14:19 Intake & Output 07/02/18 07/03/18 07/03/18 18:59 06:59 18:59 Intake Total 1524 Balance 1524 Intake: Intake, IV Titration 600 Amount Ertapenem 1 gm In Sodium 100 Chloride 0.9% 50 ml @ 100 mls/hr IVPB DAILY [facility] Rx #:[id number] Vancomycin 2,000 mg In 500 Sodium Chloride 0.9% 500 ml 500 ml @ 167 mls/hr IVPB Q16H [facility] Rx#: [id number] Oral 924 Other: Voiding Method Toilet Toilet # Voids 1 1 - Exam Gen: Alert No Acute Distress Head NC NT No Lymphadenopathy Lungs: Diminished bibasilar, No increased effort, Expiratory and audible wheezing on ausculation Heart: Tachy, Reg Abdomen Obese soft ND Ext No edema, no rashingf - Labs CBC & Chem 7: 07/03/18 06:40 07/03/18 06:40 Labs: Abnormal Lab Results - Last 24 Hours (Table) 07/03/18 07/03/18 Range/Units 06:40 06:40 WBC 1.8 L (3.8-10.6) k/uL RBC 2.48 L (3.80-5.40) m/uL Hgb 7.8 L (11.4-16.0) gm/dL Hct 24.7 L (34.0-46.0) % RDW 17.1 H (11.5-15.5) % Plt Count 98 L (150-450) k/uL Neutrophils # 1.0 L (1.3-7.7) k/uL Lymphocytes # 0.4 L (1.0-4.8) k/uL Chloride 110 H (98-107) mmol/L BUN 31 H (7-17) mg/dL Creatinine 1.10 H (0.52-1.04) mg/dL Microbiology - Last 24 Hours (Table) 06/29/18 14:43 Blood Culture - Preliminary Blood No Growth after 96 hours 07/01/18 17:18 Gram Stain - Final Sputum Sputum Culture - Final 06/28/18 17:57 Blood Culture - Preliminary Blood No Growth after 96 hours Assessment and Plan Plan: Assessment and Recommendations: 1. IgG [place] Myeloma: Currently on Maintence treatment as she in in CR - Treatment Revlimid 25mg PO days 1-14 q28 days and Dex 20mg PO weekly - Currently on hold until acute situation and picture resolves - Recheck Myeloma panel 2. 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 Pancytopenia: - Continue GCSF, Neuts 0.4 - Agree with broad spectrum antibiotics - IRradiated PRBC if less than 7 - Platlets are stable at 90K 4. Symptomatic Superficial SVT: - She was diagnosed with this in October 2017, her symptoms persisted on aspirin despite DVT ruled out - She was therefore started on a low dose eliquis for current and future prophylaxis with the increased risk of thrombosis on Revlimid. - Ok to continue with platlets greater than 50K 5. UTI - Gram Negative Bacilli: - IV antibiotics and Dr. Mccoy from ID following Plan: - Continue supportive care - Monitor daily CBC Physician Attest: I have discussed and agree with above history and physical, I have developed the complete impression and plan and agree with dictation dictated as a scribe.
--- NOTE | 2018-07-03 21:02 | PN ---
PROGRESS NOTE DATE OF SERVICE: 07/03/2018 REASON FOR FOLLOWUP: Pneumonia. INTERVAL HISTORY: The patient is currently afebrile. She is breathing comfortably. The patient continues to have some cough, minimal sputum production. No chest pain. No abdominal pain or any diarrhea. PHYSICAL EXAMINATION: Blood pressure is 137/71 with a pulse of 64, temperature 98. She is 97% on room air. General description is an elderly female up in the chair in no distress. RESPIRATORY SYSTEM: Unlabored breathing with decreased breath sounds at the bases. No wheeze. HEART: S1, S2. Regular rate and rhythm. ABDOMEN: Soft. No tenderness. LABS: Hemoglobin is 7.8 with a white count of 1.8. BUN of 31, creatinine 1.10. DIAGNOSTIC IMPRESSION AND PLAN: Patient with a fever. Source is possible pneumonia. Sputum so far negative for any resistant pathogen. We will discontinue the vancomycin and Azactam and start the patient on Levaquin 750 daily. If the patient continues to improve, to finish therapy with oral Levaquin. Continue with supportive care. MMADRIANAL / MARY BETHN: [id number] /
[2018-07-03] MEDS: MELATONIN 3 MG TABLET PO SCH (22:26)
[2018-07-04] MEDS: SYMBICORT 160-4.5 MCG INHALER INHALATION SCH (07:28)
[2018-07-04 07:47] VITALS: TEMP 98.3
[2018-07-04] MEDS: FUROSEMIDE 40 MG TAB PO SCH (07:48)
[2018-07-04] MEDS: APIXABAN 2.5 MG TABLET PO SCH (07:48)
[2018-07-04] MEDS: PANTOPRAZOLE 40 MG TABLET PO SCH (07:48)
[2018-07-04] MEDS: ATENOLOL 50 MG TAB PO SCH (07:48)
[2018-07-04 08:14] LABS: Anisocytosis Slight; Basophils % (A) 1 %; Eosinophils # (A) 0.1 k/uL (0-0.7); Eosinophils % (A) 3 %; HCT 23.4 % (34.0-46.0); HGB 7.9 gm/dL (11.4-16.0); Hypochromasia Slight; Lymphocytes # (A) 0.4 k/uL (1.0-4.8); Lymphocytes % (A) 22 %; MCH 33.4 pg (25.0-35.0); MCHC 33.8 g/dL (31.0-37.0); MCV 98.9 fL (80.0-100.0); Macrocytosis Slight; Mean Platelet Volume 7.8; Monocytes # (A) 0.2 k/uL (0-1.0); Monocytes % (A) 14 %; Neutrophils % (A) 57 %; Platelet Count 108 k/uL (150-450); Poikilocytosis Slight; RBC 2.37 m/uL (3.80-5.40); RDW 17.4 % (11.5-15.5); WBC 1.7 k/uL (3.8-10.6)
[2018-07-04 08:17] LABS: Calcium 8.7 mg/dL (8.4-10.2); Potassium 3.6 mmol/L (3.5-5.1)
[2018-07-04 08:30] LABS: Creatine Kinase MB 0.5 ng/mL (0.0-2.4)
[2018-07-04] MEDS: LEVOFLOXACIN 750 MG TAB PO SCH (10:55)
[2018-07-04] MEDS: IPRATROPIUM-ALBUTEROL 3 ML NEB INHALATION PRN (11:03)
[2018-07-04 13:19] LABS: Creatine Kinase MB 0.5 ng/mL (0.0-2.4)
[2018-07-04 16:21] VITALS: BP 185/72; PULSE 62; RESP 18
--- NOTE | 2018-07-04 16:56 | P.PN ---
Subjective Progress Note Date: 07/04/18 Principal diagnosis: Febrile Neutropenia and pancytopenia Blood count recovery is slow and minimal, CT chest reviewed. remains afebrile Objective - Vital Signs Vital signs: Vital Signs Temp 98.3 F 07/04/18 15:00 Pulse 62 07/04/18 15:00 Resp 18 07/04/18 15:00 BP 185/72 07/04/18 15:00 Pulse Ox 95 07/04/18 15:00 Intake & Output 07/03/18 07/04/18 07/04/18 18:59 06:59 18:59 Intake Total 1300 360 Balance 1300 360 Weight 131.542 kg Intake: Intake, IV Titration 800 Amount Sodium Chloride 0.9% 1, 400 000 ml @ 50 mls/hr IV . Q20H [facility] Rx#:[id number] Sodium Chloride 0.9% 1, 400 000 ml @ 50 mls/hr IV . Q20H [facility] Rx#:[id number] Oral 500 360 Other: Voiding Method Toilet Toilet Toilet # Voids 2 3 - Exam Gen: Alert No Acute Distress Head NC NT No Lymphadenopathy Lungs: Diminished bibasilar, No increased effort, Expiratory and audible wheezing on ausculation Heart: Tachy, Reg Abdomen Obese soft ND Ext No edema, no rashingf - Labs CBC & Chem 7: 07/04/18 07:00 07/04/18 07:00 Labs: Abnormal Lab Results - Last 24 Hours (Table) 07/04/18 07/04/18 07/04/18 Range/Units 07:00 07:00 07:00 WBC 1.7 L (3.8-10.6) k/uL RBC 2.37 L (3.80-5.40) m/uL Hgb 7.9 L (11.4-16.0) gm/dL Hct 23.4 L (34.0-46.0) % RDW 17.4 H (11.5-15.5) % Plt Count 108 L (150-450) k/uL Neutrophils # 1.0 L (1.3-7.7) k/uL Lymphocytes # 0.4 L (1.0-4.8) k/uL Chloride 109 H (98-107) mmol/L BUN 26 H (7-17) mg/dL Total Creatine Kinase 24 L (30-135) U/L 07/04/18 Range/Units 11:59 WBC (3.8-10.6) k/uL RBC (3.80-5.40) m/uL Hgb (11.4-16.0) gm/dL Hct (34.0-46.0) % RDW (11.5-15.5) % Plt Count (150-450) k/uL Neutrophils # (1.3-7.7) k/uL Lymphocytes # (1.0-4.8) k/uL Chloride (98-107) mmol/L BUN (7-17) mg/dL Total Creatine Kinase 27 L (30-135) U/L Microbiology - Last 24 Hours (Table) 06/28/18 17:57 Blood Culture - Preliminary Blood No Growth after 120 hours 06/29/18 14:43 Blood Culture - Preliminary Blood No Growth after 96 hours 07/01/18 17:18 Gram Stain - Final Sputum Sputum Culture - Final Assessment and Plan Plan: Assessment and Recommendations: 1. IgG [place] Myeloma: Currently on Maintence treatment as she in in CR - Treatment Revlimid 25mg PO days 1-14 q28 days and Dex 20mg PO weekly - Currently on hold until acute situation and picture resolves - Reviewed Myeloma panel 2. Febrile: T-Max 102.1 since admission, Currently afebrile - ID is following - Although her neutrophils are stable above 1 and WBC above 1.5 she has immunosuppression with [facility] Dexamthasone and hx: Multiple Myeloma still undergoing treatment maintenace with Revlimid - Alvarez cultures Pending - UTI positive culture - Chest Xray no acute Process, reated for dyspnea showing aatelectasis - Incentive spirometer ordered - Influenza Negative - Status POst IVIG on 07/02/18 3. Pancytopenia: not improving - Continue GCSF - Agree with broad spectrum antibiotics - Irradiated PRBC if less than 7 - Platlets are stable 4. Symptomatic Superficial SVT: - She was diagnosed with this in October 2017, her symptoms persisted on aspirin despite DVT ruled out - She was therefore started on a low dose eliquis for current and future prophylaxis with the increased risk of thrombosis on Revlimid. - Ok to continue with platlets greater than 50K 5. UTI - Gram Negative Bacilli: - IV antibiotics and Dr. Mccoy from ID following Plan: - Continue supportive care - Monitor daily CBC - Continue Zarxio Physician Attest: I have discussed and agree with above history and physical, I have developed the complete impression and plan and agree with dictation dictated as a scribe.
--- NOTE | 2018-07-04 20:10 | P.DS ---
Providers Date of admission: 06/28/18 22:25 Attending physician: Micky Simon Consults: 06/28/18 22:28 Consult Physician Stat Consulting Provider: Jet Moncada Consult Reason/Comments: pancytopenia, hx fever Do you want consulting provider notified?: Yes 06/29/18 14:20 Consult Physician Urgent Consulting Provider: Rachel Mccoy Consult Reason/Comments: sepsis Do you want consulting provider notified?: Yes Primary care physician: [facility] Course: This is a pleasant 72 years old female with past medical history of hypertension , pneumonia and multiple myeloma on Revilmid , gout, hypodensity lesion of the liver which the patient states she checked by her PCP with CAT scan and was concerning, COPD and sleep apnea on 2 L oxygen via NC at home and she follows up with Dr. Bowens. who presents initially because of fever and dyspnea of 1- 2 days duration, associated with occasional dry cough. pt was treated initially with vancomycin and aztreonam , pt was thought she has UTI as UC came back positive for gram negative Bacilli, and negative cxr, pt has also pancytopenia and she is been followed up by hematology team .pt did not improve much she remains dyspneic and weak. Repeat CAT scan of the chest shows pneumonia. Patient antibiotic was switched to Levaquin, after that patient showed significant interval improvement and she is much less dyspneic. Patient has been evaluated by infectious disease and he doesn't have to discharged on short course of Levaquin for 7 days which was provided for the patient. Hematology team also cleared The patient for discharge and follow-up as an outpatient, although her blood cells has not improved completely but she can follow-up as an outpatient per hematology Patient herself agreed and felt that she is be able to go home and follow up with ID and hematology and she agrees with the appointments made for her by the staff Problems and management plan was discussed with the patient and she verbalized understanding and acceptance Patient was found stable and can be discharged home and guarded prognosis however she needs follow-up as an outpatient. physical exam Gen.: Patient alert awake and oriented X 3, NOT IN DISTRESS CVS: s1-s2, RRR, no murmur CHEST:bilateral CTA, no wheezing or crepitation Abdomen: Soft, no tenderness, no distention, positive bowel sounds Extremities: No leg edema or induration Time spent more than 35 minutes Patient Condition at Discharge: Stable Plan - Discharge Summary Discharge Rx Participant: No New Discharge Prescriptions: New Albuterol Inhaler [Ventolin Hfa Inhaler] 1 - 2 puff INHALATION RT-Q6H PRN #1 inhaler PRN Reason: Shortness Of Breath Levofloxacin [Levaquin] 750 mg PO Q24H #7 tab Pantoprazole [Protonix] 40 mg PO AC-BRKFST #7 tablet.dr Skye Hoganoph,Paracasei, B.lactis [Probiotic] 1 cap PO DAILY Atenolol [Tenormin] 50 mg PO DAILY Dexamethasone [Hexadrol] 20 mg PO MO Furosemide [Lasix] 40 mg PO DAILY Apixaban [Eliquis] 2.5 mg PO BID Discontinued Lenalidomide [Revlimid] 25 mg PO DIRECTED Fluticasone/Vilanterol [Breo Ellipta 200-25 Mcg INH] 1 puff INHALATION DAILY Discharge Medication List Atenolol [Tenormin] 50 mg PO DAILY 09/01/17 [History] Dexamethasone [Hexadrol] 20 mg PO MO 09/01/17 [History] Edisonoph,Paracasei, B.lactis [Probiotic] 1 cap PO DAILY 09/01/17 [History] Apixaban [Eliquis] 2.5 mg PO BID 06/28/18 [History] Furosemide [Lasix] 40 mg PO DAILY 06/28/18 [History] Albuterol Inhaler [Ventolin Hfa Inhaler] 1 - 2 puff INHALATION RT-Q6H PRN #1 inhaler 07/04/18 [Rx] Levofloxacin [Levaquin] 750 mg PO Q24H #7 tab 07/04/18 [Rx] Pantoprazole [Protonix] 40 mg PO AC-BRKFST #7 tablet. 07/04/18 [Rx] Follow up Appointment(s)/Referral(s): Lizzie Wilson ANPBC [Nurse Practitioner] - 07/08/18 11:30 am Fermín Chris MD [Primary Care Provider] - 1-2 days Rcahel Mccoy MD [STAFF PHYSICIAN] - 07/09/18 2:00 pm Patient Instructions/Handouts: Urinary Tract Infection in Women (GEN) Activity/Diet/Wound Care/Special Instructions: regular diet activity is limited till you see your doctor Discharge Disposition: HOME SELF-CARE
--- NOTE | 2018-07-04 22:27 | PN ---
PROGRESS NOTE DATE OF SERVICE: 07/04/2018. REASON FOR FOLLOWUP: Pneumonia, community-acquired. INTERVAL HISTORY: The patient is afebrile. The patient has been breathing comfortably. The patient denies having any chest pain. Occasional cough. No nausea, no vomiting. No abdominal pain, no diarrhea. PHYSICAL EXAMINATION: Blood pressure is 185/72 with a pulse of 62, temperature 98.3. She is 95% on room air. General description is an elderly female up in the bed in no distress. RESPIRATORY SYSTEM: Unlabored breathing with decreased intensity of breath sounds. No wheeze. HEART: S1, S2. Regular rate and rhythm. ABDOMEN: Soft. No tenderness. LABS: Hemoglobin 7.9, white count 1.7, BUN of 26, creatinine 0.96. Sputum has been usual respiratory laurie. Blood cultures have been negative. DIAGNOSTIC IMPRESSION AND PLAN: Patient admitted to hospital with febrile neutropenia in this patient with a concern for possible . Urine was ESBL E coli repeat UA was negative. Patient's x- rays have been suspicious for pneumonia. Sputum has shown usual respiratory laurie. Patient will finish therapy with a short course of oral Levaquin. Plan of care was discussed with the admitting physician. Continue with supportive care. MMODL / IJN: [id number] /
== END 2018-07-04 18:16 | disposition home or self-care (01) | DRG 871 ==
LOC: EC 16:35 → 4SSUR 22:25
PROVIDERS: ADMIT Hospitalist; ATTEND Hospitalist
DX: A41.9 Sepsis, unspecified organism (principal); D61.810 Antineoplastic chemotherapy induced pancytopenia; J18.9 Pneumonia, unspecified organism; C90.01 Multiple myeloma in remission; D80.1 Nonfamilial hypogammaglobulinemia; J44.0 Chronic obstructive pulmonary disease with (acute) lower respiratory infection; N39.0 Urinary tract infection, site not specified; G47.30 Sleep apnea, unspecified; I10 Essential (primary) hypertension; I25.10 Atherosclerotic heart disease of native coronary artery without angina pectoris; I27.20 Pulmonary hypertension, unspecified; K76.9 Liver disease, unspecified; T45.1X5A Adverse effect of antineoplastic and immunosuppressive drugs, initial encounter; Z79.01 Long term (current) use of anticoagulants; Z79.899 Other long term (current) drug therapy; Z87.01 Personal history of pneumonia (recurrent); Z88.1 Allergy status to other antibiotic agents; Z99.81 Dependence on supplemental oxygen; Z91.041 Radiographic dye allergy status; Z90.49 Acquired absence of other specified parts of digestive tract; Z98.51 Tubal ligation status; B96.20 Unspecified Escherichia coli [E. coli] as the cause of diseases classified elsewhere
CPT/HCPCS: 36415; 71046; 71250; 80048; 80053; 80202; 81001; 81003; 82272; 82550; 82553; 82784; 83605; 83735; 83880; 83883; 85025; 85379; 85610; 85730; 86334; 87040; 87070; 87077; 87086; 87186; 87205; 87502; 93005; 94640; 94760; 96365; 96375; 99285

== ENCOUNTER → 2018-08-13 | Outpatient (CLI) | payer MEDICARE, OTHER ==
[2018-08-14 08:37] VITALS: BMI 48.9
== END ==
LOC: LABWHC1 12:58
PROVIDERS: ATTEND Internal Medicine Hematology & Oncology
DX: C90.00 Multiple myeloma not having achieved remission (principal)
CPT/HCPCS: 97802

== ENCOUNTER 2018-12-04 06:41 | Day surgery (SDC) | payer MEDICARE, OTHER ==
[2018-12-02 09:30] VITALS: BMI 44.1
[~2018-12-04 06:41] MED LIST changes: +TETRACAINE 0.5% OPHTH (PF) DROPS 4 ML BTL OP ONE
[2018-12-04] MEDS: CYCLOPENTOLATE 1% OPHTH SOLN 2 ML BTL OP ONE ×3 (06:55→07:15)
[2018-12-04 06:59] VITALS: TEMP 97.4
[2018-12-04] MEDS: PHENYLEPHRINE 2.5% OPHTH DRP 2ML OP NR ×3 (07:00→07:20)
[2018-12-04 07:13] LABS: Glucose,Whole Blood 111 mg/dL (75-99)
[2018-12-04] MEDS ORDERED: MIDAZOLAM 2 MG/2 ML VIAL ONE (07:24)
[2018-12-04] MEDS ORDERED: fentaNYL (PF) 50 MCG/ML 2 ML AMP ONE (07:24)
[2018-12-04] MEDS: MOXIFLOXACIN HCL 0.5% DROPS 3 ML BTL OP ONE ×2 (07:36→07:57)
[2018-12-04] MEDS ORDERED: BALANCED SALT IRRIG SOLN COMB2 15 ML IRRIG.SOLN IRRIGATION ONE (07:36)
[2018-12-04] MEDS ORDERED: LIDOCAINE 1% (PF) 10MG/ML VIAL SQ ONE ×2 (07:36→07:43)
[2018-12-04] MEDS ORDERED: DUOVISC KIT (GREEN BOX) INTRAOCULA ONE ×2 (07:36→07:43)
[2018-12-04] MEDS: TIMOLOL 0.5% OPHTH DROPS 5 ML BTL OP ONE ×2 (07:36→07:57)
[2018-12-04] MEDS ORDERED: EPINEPHrine (PF) 0.3 ML in BALANCED SALT IRRIG SOLN COMB2 500 ML IRRIGATION ONE ×4 (07:37)
--- NOTE | 2018-12-04 08:02 | P.OP ---
Date of Procedure: 12/04/18 Preoperative Diagnosis: ns Postoperative Diagnosis: SAME Procedure(s) Performed: PIOL, OD Implants: PCB00 20.50 Anesthesia: MAC Estimated Blood Loss (ml): 0 Pathology: none sent Condition: stable Disposition: same day Indications for Procedure: blurry vision Operative Findings: no complications
[2018-12-04 08:07] VITALS: RESP 18
[2018-12-04 08:24] VITALS: BP 131/80; PULSE 47
--- NOTE | 2018-12-04 18:18 | OP ---
OPERATIVE REPORT DATE OF SURGERY: December 04, 2018. PROCEDURE PERFORMED: Phacoemulsification of cataract and intraocular lens implant of the right eye. NEUROLOGICAL SURGERY TEACHER: PREOPERATIVE DIAGNOSIS: Nuclear sclerosis. POSTOPERATIVE DIAGNOSIS: Nuclear sclerosis. OPERATION: Clear cornea phacoemulsification of cataract right OD eye. ESTIMATED BLOOD LOSS: Zero. SPECIMEN TAKEN: None. NARRATIVE: After obtaining the appropriate consent, the patient was brought to the Operating Room where the patient was placed under cardiac monitoring and prepped and draped in the usual sterile manner. At the 11 o'clock position a 15 degree super sharp blade was used to create a paracentesis followed by instillation of 1% Xylocaine MPF 50:50 mix with BSS into the anterior chamber. This was followed by Duovisc to stabilize the anterior chamber. At the 9 o'clock position a self-sealing corneal flap incision was created using 2.8 mm julissa keratome. A cystatome was used to initiate a continuous tear capsulorrhexis which was completed with the Utrata forceps. A Binkhorst cannula was used to hydrodissect the lens nucleus followed by hydrodelineation. Phacoemulsification of the lens was performed utilizing phaco-chop in 17.53 seconds at 24% power. The remaining cortical material was removed using the irrigation aspiration mode followed by additional 1% Xylocaine MPF into the anterior chamber followed by viscoelastic to stabilize the capsular bag. A Jayy and Jayy PCB 0 0 20.5 diopters posterior chamber lens was placed into the capsular bag without difficulty. The remaining viscoelastic material was removed from the anterior chamber with the irrigation/aspiration. Balanced salt solution was used to normalize the intraocular pressure. The incision was checked for watertight integrity. The patient then received two drops of 0.5% timolol followed by two drops Vigamox, was lightly patched and shielded in the usual manner. There were no complications from the procedure. The patient tolerated the procedure well and was returned to recovery in good condition. MMODL / IJN: [id number] /
== END 2018-12-04 08:45 | disposition home or self-care (01) ==
LOC: OR 06:41
PROVIDERS: ATTEND Ophthalmology
DX: H25.11 Age-related nuclear cataract, right eye (principal); H52.4 Presbyopia; H52.13 Myopia, bilateral; I10 Essential (primary) hypertension; Z85.79 Personal history of other malignant neoplasms of lymphoid, hematopoietic and related tissues; Z88.1 Allergy status to other antibiotic agents; Z88.8 Allergy status to other drugs, medicaments and biological substances; Z79.899 Other long term (current) drug therapy; Z80.3 Family history of malignant neoplasm of breast; Z84.89 Family history of other specified conditions; Z84.1 Family history of disorders of kidney and ureter

== ENCOUNTER 2019-01-08 10:27 | Day surgery (SDC) | payer MEDICARE, OTHER ==
[2019-01-03 12:57] VITALS: BMI 44.1
[~2019-01-08 10:27] MED LIST changes: +MIDAZOLAM 2 MG/2 ML VIAL IV PRN; +MOXIFLOXACIN HCL 0.5% DROPS 3 ML BTL OP ONE; +TIMOLOL 0.5% OPHTH DROPS 5 ML BTL OP ONE
[2019-01-08 10:44] VITALS: TEMP 97.5
[2019-01-08] MEDS: PHENYLEPHRINE 2.5% OPHTH DRP 2ML OP NR ×3 (10:47→10:59)
[2019-01-08] MEDS: CYCLOPENTOLATE 1% OPHTH SOLN 2 ML BTL OP ONE ×3 (10:50→11:02)
[2019-01-08] MEDS ORDERED: MIDAZOLAM 2 MG/2 ML VIAL ONE (11:14)
[2019-01-08] MEDS ORDERED: fentaNYL (PF) 50 MCG/ML 2 ML AMP ONE (11:14)
[2019-01-08] MEDS ORDERED: EPINEPHrine (PF) 0.3 ML in BALANCED SALT IRRIG SOLN COMB2 500 ML IRRIGATION ONE (11:23)
[2019-01-08] MEDS ORDERED: BALANCED SALT IRRIG SOLN COMB2 15 ML IRRIG.SOLN INTRAOCULA ONE (11:24)
[2019-01-08] MEDS ORDERED: DUOVISC KIT (GREEN BOX) INTRAOCULA ONE (11:24)
[2019-01-08] MEDS ORDERED: LIDOCAINE 1% (PF) 10MG/ML VIAL SQ ONE (11:25)
--- NOTE | 2019-01-08 11:46 | P.OP ---
Date of Procedure: 01/08/19 Preoperative Diagnosis: NS Postoperative Diagnosis: same Procedure(s) Performed: PIOL, OS Implants: PCB00 21.50 Anesthesia: MAC Surgeon: Dimitri Wellington Pathology: none sent Condition: stable Disposition: same day Indications for Procedure: blurry vision Operative Findings: no complications
[2019-01-08 11:55] VITALS: RESP 16
[2019-01-08 12:13] VITALS: BP 142/83; PULSE 48
--- NOTE | 2019-01-09 07:57 | OP ---
OPERATIVE REPORT DATE OF SURGERY: 01/08/2019 PROCEDURE: Phacoemulsification of cataract and intraocular lens implant of the left eye. PREOPERATIVE DIAGNOSIS: Nuclear sclerosis. POSTOPERATIVE DIAGNOSIS: Nuclear sclerosis. ESTIMATED BLOOD LOSS: Zero. SPECIMEN TAKEN: None. NARRATIVE: After obtaining the appropriate consent, the patient was brought to the Operating Room where the patient was placed under cardiac monitoring and prepped and draped in the usual sterile manner. At the 5 o'clock position a 15 degree super sharp blade was used to create a paracentesis followed by instillation of 1% Xylocaine MPF 50:50 mix with BSS into the anterior chamber. This was followed by Duovisc to stabilize the anterior chamber. At the 3 o'clock position a self-sealing corneal flap incision was created using 2.8 mm julissa keratome. A cystotome was used to initiate a continuous tear capsulorrhexis which was completed with the Utrata forceps. A Binkhorst cannula was used to hydrodissect the lens nucleus followed by hydrodelineation. Phacoemulsification of the lens was performed utilizing phacochop in 20.71 seconds at 24% power. The remaining cortical material was removed using the irrigation aspiration mode followed by additional 1% Xylocaine MPF into the anterior chamber followed by viscoelastic to stabilize the capsular bag. A Jayy and Jayy PCB00 21.5 diopters posterior chamber lens was placed into the capsular bag without difficulty. The remaining viscoelastic material was removed from the anterior chamber with the irrigation/aspiration. Balanced salt solution was used to normalize the intraocular pressure. The incision was checked for watertight integrity. The patient then received two drops of 0.5% timolol followed by two drops Vigamox, was lightly patched and shielded in the usual manner. There were no complications from the procedure. The patient tolerated the procedure well and was returned to recovery in good condition. MMODL / IJN: [id number] /
== END 2019-01-08 12:27 | disposition home or self-care (01) ==
LOC: OR 10:27
PROVIDERS: ATTEND Ophthalmology
DX: H25.12 Age-related nuclear cataract, left eye (principal); I10 Essential (primary) hypertension; C90.01 Multiple myeloma in remission; J45.909 Unspecified asthma, uncomplicated; H52.4 Presbyopia; H52.13 Myopia, bilateral; Z88.1 Allergy status to other antibiotic agents; Z91.041 Radiographic dye allergy status; Z79.01 Long term (current) use of anticoagulants; Z79.51 Long term (current) use of inhaled steroids; Z79.899 Other long term (current) drug therapy; Z97.3 Presence of spectacles and contact lenses; Z98.41 Cataract extraction status, right eye; Z96.1 Presence of intraocular lens; Z90.49 Acquired absence of other specified parts of digestive tract; Z91.02 Food additives allergy status; Z98.51 Tubal ligation status; Z80.3 Family history of malignant neoplasm of breast; Z84.1 Family history of disorders of kidney and ureter; Z83.518 Family history of other specified eye disorder
CPT/HCPCS: 66984; C1780; J2250; J0171; J3010; J2001

== ENCOUNTER 2020-10-07 15:30 | Emergency (ER) | payer MEDICARE, OTHER ==
[2020-10-07 15:39] VITALS: BP 150/64; PULSE 62; RESP 18; TEMP 97.8
[2020-10-07] MEDS ORDERED: MORPHINE SULFATE 2 MG/ML SYRINGE IVP ONE (17:02)
--- NOTE | 2020-10-07 17:15 | ED ---
General Adult HPI - General Chief complaint: Extremity Problem,Nontraumatic Stated complaint: leg pain Time Seen by Provider: 10/07/20 16:12 Source: patient, RN/MD, RN notes reviewed Mode of arrival: EMS Limitations: physical limitation - History of Present Illness Initial comments: 75-year-old obese white female, presents to the emergency room with right leg pain worsening over the past 2 days. Patient states that on Sunday she could feel tightness in her right leg and it felt like gout. Patient states on Sunday she was up walking around and got 4500 steps in, states that she might have overdone it as the pain became worse in her right leg. Patient denies injuries. Today the pain was so much this morning she couldn't bear it. She called her primary care doctor, Dr. Espinoza's office, and was told to take her gout medication. Patient states she took the 4 pills but it was not better and was told to come to the emergency room if no relief. Patient states the pain is worse when she ambulates short distances to the bathroom. Patient has increased swelling in that right leg and inability to lift leg off the bed and complaints of most of the pain behind the right knee. Patient has history of multiple myeloma in 2017 but is clear now, history of hypertension and pneumonia and gout. Patient denies any chest pain, nausea, vomiting, diarrhea, or shortness of breath. -: days(s) (4) Location: lower extremity (Right) Radiation: non-radiation Severity scale (1-10): 8 (Tightness) Consistency: constant Improves with: immobilization, rest Worsens with: other (Ambulation) Associated Symptoms: weakness Treatments Prior to Arrival: other (Gout medication) - Related Data Home Medications Medication Instructions Recorded Confirmed atenoloL [Tenormin] 50 mg PO DAILY 09/01/17 10/07/20 dexAMETHasone ORAL [Hexadrol] 4 mg PO MO 09/01/17 10/07/20 Apixaban [Eliquis] 2.5 mg PO BID 06/28/18 10/07/20 Furosemide [Lasix] 40 mg PO DAILY 06/28/18 10/07/20 Cyanocobalamin (Vitamin B-12) 1,000 mcg PO DAILY 12/02/18 10/07/20 [Vitamin B-12] Lenalidomide [Revlimid] 10 mg PO DIRECTED 12/02/18 10/07/20 Melatonin 10 mg PO HS 12/02/18 10/07/20 Cholestyramine (with Sugar) 4 gm PO HS PRN 10/07/20 10/07/20 [Cholestyramine Packet] L.acidoph,Paracasei, B.lactis 1 cap PO DAILY 10/07/20 10/07/20 [Probiotic] Triamcinolone 0.5% Cream [Kenalog 1 applic TOPICAL BID 10/07/20 10/07/20 0.5% Cream] methylPREDNISolone Dose Pack See Taper PO DAILY 10/07/20 10/07/20 [Medrol Dose Pack] Previous Rx's Medication Instructions Recorded Indomethacin [Indocin] 50 mg PO TID 5 Days #15 capsule 10/07/20 Allergies Allergy/AdvReac Type Severity Reaction Status Date / Time Iodinated Contrast Media Allergy Intermediate Rash/Hives Verified 10/07/20 17:22 cephalexin Allergy Rash/Hives Verified 10/07/20 17:22 Review of Systems ROS Statement: Those systems with pertinent positive or pertinent negative responses have been documented in the HPI. ROS Other: All systems not noted in ROS Statement are negative. Past Medical History Past Medical History: Cancer, Eye Disorder, Hypertension, Pneumonia Additional Past Medical History / Comment(s): multiple myeloma-in remission. CATARACT LT EYE History of Any Multi-Drug Resistant Organisms: ESBL Date of last positivie culture/infection: 06/28/18 ESBL E. coli MDRO Source:: Urine Past Surgical History: Cholecystectomy, Tubal Ligation Additional Past Surgical History / Comment(s): CATARACT REMOVED FROM RT EYE Past Anesthesia/Blood Transfusion Reactions: No Reported Reaction Past Psychological History: No Psychological Hx Reported Past Alcohol Use History: Rare Past Drug Use History: None Reported - Past Family History Mother Family Medical History: Cancer Father Family Medical History: Cancer General Exam Limitations: physical limitation General appearance: alert, in no apparent distress, obese Head exam: Present: atraumatic, normocephalic, normal inspection Eye exam: Present: normal appearance, PERRL, EOMI. Absent: scleral icterus, conjunctival injection, periorbital swelling ENT exam: Present: normal exam, normal oropharynx, mucous membranes moist Neck exam: Present: normal inspection, full ROM. Absent: tenderness, meni ngismus, lymphadenopathy Respiratory exam: Present: normal lung sounds bilaterally, decreased breath sounds. Absent: respiratory distress, wheezes, rales, rhonchi, stridor, chest wall tenderness, accessory muscle use Cardiovascular Exam: Present: regular rate, normal rhythm, normal heart sounds. Absent: systolic murmur, diastolic murmur, rubs, gallop, clicks GI/Abdominal exam: Present: soft, normal bowel sounds. Absent: distended, tenderness, guarding, rebound, rigid Rectal exam: Present: deferred Extremities exam: Present: calf tenderness Right Hip exam: Absent: tenderness, crepitus, internal rotation, shortening Upper Leg exam: Present: tenderness, swelling. Absent: crepitus Knee exam: Present: tenderness, swelling, full knee extension. Absent: laceration, deformity, crepitus, dislocation, erythema Lower Leg exam: Present: tenderness, swelling. Absent: laceration, deformity, crepitus, erythema Ankle exam: Present: swelling. Absent: tenderness, laceration, crepitus, erythema Foot/Toe exam: Present: swelling (2-3+ pitting edema) Neurovascular tendon exam: Present: pallor, decreased fine/light touch. Absent: abnormal cap refill, extremity cold to touch, foot drop Gait: not tested/not observed Left Lower Leg exam: Present: swelling Ankle exam: Present: swelling (+1 edema) Foot/Toe exam: Present: swelling Neurovascular tendon exam: Absent: abnormal cap refill, extremity cold to touch, pallor, foot drop Back exam: Present: normal inspection. Absent: tenderness, CVA tenderness (R), CVA tenderness (L) Neurological exam: Present: alert, oriented X3, CN II-XII intact Psychiatric exam: Present: normal affect, normal mood Skin exam: Present: warm, dry, intact, normal color. Absent: rash, cyanosis, diaphoretic, erythema, petechiae Course Vital Signs 10/07/20 15:35 Temperature 97.8 F Pulse Rate 62 Respiratory 18 Rate Blood Pressure 150/64 O2 Sat by Pulse 96 Oximetry Medical Decision Making - Medical Decision Making Patient is a WBC count 3.7 which is normal for the patient. Hemoglobin and hematocrit is 9.2 and 27.5 which is elevated from May 2019, potassium is 3.2 which we replaced with 40 of K-dur. U/S left leg negative for DVT. Bakers cyst noted 2.7 x 1.2 x .9. Uric acid is 7.8 and patient did take 4 tablets of steroids as prescribed with no relief. She'll be directed to continue using her steroids in addition take indomethacin 50 mg 3 times a day for the next 5 days. Will also follow up with her primary care doctor in 1 week. Elevate leg to decrease swelling case discussed with Dr. Chávez was agreeable to this plan of care. - Lab Data Result diagrams: 10/07/20 17:23 10/07/20 17: Lab Results 10/07/20 10/07/20 10/07/20 Range/Units 17:23 17: 17:23 WBC 3.7 L (3.8-10.6) k/uL RBC 2.70 L (3.80-5.40) m/uL Hgb 9.2 L (11.4-16.0) gm/dL Hct 27.5 L (34.0-46.0) % MCV 101.9 H (80.0-100.0) fL MCH 34.1 (25.0-35.0) pg MCHC 33.5 (31.0-37.0) g/dL RDW 16.3 H (11.5-15.5) % Plt Count 100 L (150-450) k/uL MPV 8.6 Neutrophils % 77 % Lymphocytes % 9 % Monocytes % 12 % Eosinophils % 0 % Basophils % 0 % Neutrophils # 2.9 (1.3-7.7) k/uL Lymphocytes # 0.4 L (1.0-4.8) k/uL Monocytes # 0.4 (0-1.0) k/uL Eosinophils # 0.0 (0-0.7) k/uL Basophils # 0.0 (0-0.2) k/uL Poikilocytosis Slight Anisocytosis Slight Macrocytosis Slight PT 11.7 (9.0-12.0) sec INR 1.1 (<1.2) Sodium 134 L (137-145) mmol/L Potassium 3.2 L (3.5-5.1) mmol/L Chloride 103 (98-107) mmol/L Carbon Dioxide 25 (22-30) mmol/L Anion Gap 6 mmol/L BUN 23 H (7-17) mg/dL Creatinine 0.89 (0.52-1.04) mg/dL Est GFR (CKD-EPI)AfAm 74 (>60 ml/min/1.73 sqM) Est GFR (CKD-EPI)NonAf 65 (>60 ml/min/1.73 sqM) Glucose 148 H (74-99) mg/dL Uric Acid 7.8 H (3.7-7.4) mg/dL Calcium 8.3 L (8.4-10.2) mg/dL Total Bilirubin 2.2 H (0.2-1.3) mg/dL AST 20 (14-36) U/L ALT 21 (4-34) U/L Alkaline Phosphatase 54 (38-126) U/L NT-Pro-B Natriuret Pep pg/mL Total Protein 5.5 L (6.3-8.2) g/dL Albumin 3.4 L (3.5-5.0) g/dL 10/07/20 Range/Units 17:23 WBC (3.8-10.6) k/uL RBC (3.80-5.40) m/uL Hgb (11.4-16.0) gm/dL Hct (34.0-46.0) % MCV (80.0-100.0) fL MCH (25.0-35.0) pg MCHC (31.0-37.0) g/dL RDW (11.5-15.5) % Plt Count (150-450) k/uL MPV Neutrophils % % Lymphocytes % % Monocytes % % Eosinophils % % Basophils % % Neutrophils # (1.3-7.7) k/uL Lymphocytes # (1.0-4.8) k/uL Monocytes # (0-1.0) k/uL Eosinophils # (0-0.7) k/uL Basophils # (0-0.2) k/uL Poikilocytosis Anisocytosis Macrocytosis PT (9.0-12.0) sec INR (<1.2) Sodium (137-145) mmol/L Potassium (3.5-5.1) mmol/L Chloride (98-107) mmol/L Carbon Dioxide (22-30) mmol/L Anion Gap mmol/L BUN (7-17) mg/dL Creatinine (0.52-1.04) mg/dL Est GFR (CKD-EPI)AfAm (>60 ml/min/1.73 sqM) Est GFR (CKD-EPI)NonAf (>60 ml/min/1.73 sqM) Glucose (74-99) mg/dL Uric Acid (3.7-7.4) mg/dL Calcium (8.4-10.2) mg/dL Total Bilirubin (0.2-1.3) mg/dL AST (14-36) U/L ALT (4-34) U/L Alkaline Phosphatase (38-126) U/L NT-Pro-B Natriuret Pep 3250 pg/mL Total Protein (6.3-8.2) g/dL Albumin (3.5-5.0) g/dL Disposition Clinical Impression: Shah cyst, Gout attack, Lymphedema Disposition: HOME SELF-CARE Condition: Fair Additional Instructions: Take medication as prescribed in addition to your steroids prescribed by primary care doctor. Follow-up with your doctor this week and let him know that your uric acid level is 7.8. Prescriptions: Indomethacin [Indocin] 50 mg PO TID 5 Days #15 capsule Is patient prescribed a controlled substance at d/c from ED?: No Referrals: Fermín Chris MD [Primary Care Provider] - 1-2 days Time of Disposition: 19:13
[2020-10-07 17:30] LABS: Anisocytosis Slight; Basophils % (A) 0 %; Eosinophils % (A) 0 %; HCT 27.5 % (34.0-46.0); HGB 9.2 gm/dL (11.4-16.0); Lymphocytes # (A) 0.4 k/uL (1.0-4.8); Lymphocytes % (A) 9 %; MCH 34.1 pg (25.0-35.0); MCHC 33.5 g/dL (31.0-37.0); MCV 101.9 fL (80.0-100.0); Macrocytosis Slight; Mean Platelet Volume 8.6; Monocytes # (A) 0.4 k/uL (0-1.0); Monocytes % (A) 12 %; Neutrophils # (A) 2.9 k/uL (1.3-7.7); Neutrophils % (A) 77 %; Platelet Count 100 k/uL (150-450); Poikilocytosis Slight; RDW 16.3 % (11.5-15.5); WBC 3.7 k/uL (3.8-10.6)
--- NOTE | 2020-10-07 17:47 | XR ---
EXAMINATION: XR chest 2V DATE AND TIME: 10/07/2020 5:36 PM CLINICAL INDICATION: PHH; weakness TECHNIQUE: AP and 2 lateral views were obtained. COMPARISON: 07/02/2018 FINDINGS: The overlying soft tissues are prominent, limiting visualization. The cardiac silhouette is markedly enlarged, similar to the prior study. The frontal radiograph shows complete silhouetting of the hemidiaphragms bilaterally, consistent with airlessness within the lung bases which cannot be well visualized. The pleural spaces are negative for pneumothorax, but pleural effusion cannot be excluded. The skeletal structures and soft tissues are negative for definite acute findings. IMPRESSION: Bibasilar airlessness, but difficult chest radiographic lung base visualization. Would suggest relati vely low threshold for obtaining noncontrast CT to assess lungs and pleural spaces.
[2020-10-07 17:50] LABS: Albumin 3.4 g/dL (3.5-5.0); Calcium 8.3 mg/dL (8.4-10.2); Potassium 3.2 mmol/L (3.5-5.1); Total Bilirubin 2.2 mg/dL (0.2-1.3); Total Protein 5.5 g/dL (6.3-8.2); Uric Acid 7.8 mg/dL (3.7-7.4)
[2020-10-07 17:51] LABS: INR 1.1 (<1.2); Prothrombin Time 11.7 sec (9.0-12.0)
[2020-10-07] MEDS ORDERED: POTASSIUM CHLORIDE ER 20 MEQ TAB.ER PO STA (18:29)
--- NOTE | 2020-10-07 18:44 | US ---
EXAMINATION TYPE: US venous doppler duplex LE RT DATE OF EXAM: 10/07/2020 6:25 PM COMPARISON: US CLINICAL HISTORY: Pain 2-3 days. Patient on Eliquis. SIDE PERFORMED: Right TECHNIQUE: The lower extremity deep venous system is examined utilizing real time linear array sonog guillermo with graded compression, doppler sonography and color-flow sonography. VESSELS IMAGED: Common Femoral Vein Deep Femoral Vein Greater Saphenous Vein * Femoral Vein Popliteal Vein Small Saphenous Vein * Proximal Calf Veins (* superficial vessels) RIGHT LOWER EXTREMITY: No direct or indirect evidence of deep venous filling defect. Exam is limited due to edema and patient body habitus. Hypoechoic area seen right popliteal area measuring 2.7 x 1.2 x 0.9 cm. IMPRESSION: Negative for DVT, right lower extremity.
== END 2020-10-07 19:35 | disposition home or self-care (01) ==
LOC: EC 15:30
DX: M71.20 Synovial cyst of popliteal space [Baker], unspecified knee (principal); M79.604 Pain in right leg; I10 Essential (primary) hypertension; I89.0 Lymphedema, not elsewhere classified; M10.9 Gout, unspecified; Z79.01 Long term (current) use of anticoagulants; Z90.49 Acquired absence of other specified parts of digestive tract; Z98.51 Tubal ligation status
CPT/HCPCS: 99284 ×2; 96374 ×2; 36415; 83880; 80053; 84550; 85025; 85610; 71046; 93971; J2270

== ENCOUNTER 2021-11-03 16:37 | Inpatient (IN) | payer MEDICARE, OTHER ==
[2021-11-03] MEDS ORDERED: IBUPROFEN 600 MG TAB PO STA (17:40)
[2021-11-03 18:12] LABS: HGB 9.3 gm/dL (11.4-16.0); MCH 35.6 pg (25.0-35.0); MCHC 34.3 g/dL (31.0-37.0); MCV 103.9 fL (80.0-100.0); Macrocytosis Moderate; Mean Platelet Volume 9.7; Poikilocytosis Slight; RDW 15.3 % (11.5-15.5); WBC 3.1 k/uL (3.8-10.6)
[2021-11-03 18:31] LABS: Albumin 3.3 g/dL (3.5-5.0); Magnesium 1.7 mg/dL (1.6-2.3); Potassium 3.8 mmol/L (3.5-5.1); Total Bilirubin 1.9 mg/dL (0.2-1.3); Total Protein 5.5 g/dL (6.3-8.2)
--- NOTE | 2021-11-03 18:33 | ED ---
General Adult HPI - General Chief complaint: Shortness of Breath Stated complaint: SOB Time Seen by Provider: 11/03/21 17:25 Source: EMS, RN notes reviewed, old records reviewed Mode of arrival: EMS - History of Present Illness Initial comments: Patient is a 76-year-old female with past medical history remarkable for multiple myeloma in remission, hypertension, pneumonia who presents emergency Department complaining of possibly having pneumonia. Patient states she has increased work of breathing. Has felt febrile. States she feels somewhat wheezy over the right lung. This is typical when she has pneumonia. Denies any chest pain. Denies any nausea, vomiting, diarrhea. Does take water pills at home, and notices no worsening lower extremity swelling. No worsening o rthopnea. No PND. No other acute complaints at this time. She presents over concern for upper respiratory infection. Was vaccinated boosted for COVID-19. Was vaccinated for influenza. - Related Data Home Medications Medication Instructions Recorded Confirmed atenoloL [Tenormin] 50 mg PO DAILY 09/01/17 11/03/21 Apixaban [Eliquis] 2.5 mg PO BID 06/28/18 11/03/21 Furosemide [Lasix] 40 mg PO DAILY 06/28/18 11/03/21 Cyanocobalamin (Vitamin B-12) 1,000 mcg PO DAILY 12/02/18 11/03/21 [Vitamin B-12] Lenalidomide [Revlimid] 10 mg PO DIRECTED 12/02/18 11/03/21 L.acidoph,Paracasei, B.lactis 1 cap PO DAILY 10/07/20 11/03/21 [Probiotic] Clotrimazole/Betameth Cream 1 applic TOPICAL BID PRN 11/03/21 11/03/21 [Lotrisone] Indomethacin [Indocin] 50 mg PO TID PRN 11/03/21 11/03/21 Allergies Allergy/AdvReac Type Severity Reaction Status Date / Time Iodinated Contrast Media Allergy Intermediate Rash/Hives Verified 11/03/21 21:48 cephalexin Allergy Rash/Hives Verified 11/03/21 21:48 Review of Systems ROS Statement: Those systems with pertinent positive or pertinent negative responses have been documented in the HPI. Review of Systems: CONST: Endorses fever EYES: Denies blurry vision ENT: Denies nasal congestion C/V: Denies Chest pain RESP: Endorses cough GI: Denies abdominal pain : Denies dysuria SKIN: Denies rash. MSK: Denies joint pain. NEURO: Denies headache ROS Other: All systems not noted in ROS Statement are negative. Past Medical History Past Medical History: Cancer, Eye Disorder, Hypertension, Pneumonia Additional Past Medical History / Comment(s): multiple myeloma-in remission. CATARACT LT EYE History of Any Multi-Drug Resistant Organisms: ESBL Date of last positivie culture/infection: 06/28/18 ESBL E. coli MDRO Source:: Urine Past Surgical History: Cholecystectomy, Tubal Ligation Additional Past Surgical History / Comment(s): CATARACT REMOVED FROM RT EYE Past Anesthesia/Blood Transfusion Reactions: No Reported Reaction Past Psychological History: No Psychological Hx Reported Smoking Status: Never smoker Past Alcohol Use History: None Reported Past Drug Use History: None Reported - Past Family History Mother Family Medical History: Cancer Father Family Medical History: Cancer General Exam - General Exam Comments Initial Comments: General: Appears in no acute distress. Patient is febrile. HEAD: Normal with no signs of head trauma. EYES: PERRLA, EOMI, conjunctiva normal, no discharge. ENT: Hearing grossly intact, normal oropharynx. RESPIRATORY: Rhonchorus breath sounds, seem isolated over right lung field. Bilateral breath sounds present. Mild increased work of breathing. C/V: Regular rate and rhythm. S1 and S2 auscultated, 2+ bilateral pitting edema, peripheral pulses 2+ and intact throughout ABD: Abd is soft, nontender, nondistended EXT: Normal range of motion, no obvious deformity SKIN: No rashes or lesions observed on exposed skin. NEURO: Alert and oriented 4. Course Vital Signs 11/03/21 11/03/21 11/03/21 16:57 18:04 19:27 Temperature 101.3 F H Pulse Rate 74 68 Respiratory 20 26 H 19 Rate Blood Pressure 171/58 133/56 O2 Sat by Pulse 98 97 Oximetry 11/03/21 11/03/21 11/03/21 19:36 21:00 22:00 Temperature 98.6 F 98.6 F 98.6 F Pulse Rate 75 Respiratory Rate Blood Pressure 131/74 O2 Sat by Pulse Oximetry Medical Decision Making - Medical Decision Making Based on the patient's presentation and physical exam, I'm concerned for upper respiratory illness and the patient. Screening EKG will be obtained in addition to infectious labs including blood cultures, viral swabs. Chest x-ray will also be obtained. Patient was in agreement this plan. Patient is tachypneic at this time. Patient's EKG shows no signs of acute ischemia.Chest x-ray revealed cardiomegaly and pulmonary vascular congestion. Laboratory studies were remarkable for a leukopenia with a white blood cell count of 3.1. Patient has a macrocytic anemia with hemoglobin 9.3, which is stable and chronic for the patient. Patient has a thrombocytopenia which is also chronic for the patient. Patient is an elevated BNP of 3300. Covid and flu are negative. On reevaluation, patient remains stable saturating well on her normal home 2 L nasal cannula. I discussed the results with the patient. I am still concerned for upper respiratory illness at this time with the productive cough and fever. However it does appear she may have a heart failure exacerbation as well considering she has 2+ pitting edema bilateral lower extremities. Therefore we will treat that with Lasix and then also administer IV antibiotics. She'll be admitted. She was in agreement with this plan. Urinalysis is still pending at this time. Echo was ordered. Patient will be restarted on home medications. She was in agreement this plan. I spoke with the admitting team and Dr. Khan who accepted the patient. - Lab Data Result diagrams: 11/03/21 17:50 11/03/21 17:50 Lab Results 11/03/21 11/03/21 11/03/21 Range/Units 17:50 17:50 17:50 WBC 3.1 L (3.8-10.6) k/uL RBC 2.60 L (3.80-5.40) m/uL Hgb 9.3 L (11.4-16.0) gm/dL Hct 27.0 L (34.0-46.0) % MCV 103.9 H (80.0-100.0) fL MCH 35.6 H (25.0-35.0) pg MCHC 34.3 (31.0-37.0) g/dL RDW 15.3 (11.5-15.5) % Plt Count 87 L (150-450) k/uL MPV 9.7 Neutrophils % (Manual) 56 % Band Neuts % (Manual) 2 % Lymphocytes % (Manual) 23 % Monocytes % (Manual) 19 % Neutrophils # (Manual) 1.70 (1.3-7.7) k/uL Lymphocytes # (Manual) 0.71 L (1.0-4.8) k/uL Monocytes # (Manual) 0.59 (0-1.0) k/uL Nucleated RBCs 0 (0-0) /100 WBC Manual Slide Review Performed Poikilocytosis Slight Macrocytosis Moderate PT 11.4 (9.0-12.0) sec INR 1.1 (<1.2) APTT 25.3 (22.0-30.0) sec Sodium 134 L (137-145) mmol/L Potassium 3.8 (3.5-5.1) mmol/L Chloride 105 (98-107) mmol/L Carbon Dioxide 23 (22-30) mmol/L Anion Gap 6 mmol/L BUN 18 H (7-17) mg/dL Creatinine 0.89 (0.52-1.04) mg/dL Est GFR (CKD-EPI)AfAm 74 (>60 ml/min/1.73 sqM) Est GFR (CKD-EPI)NonAf 64 (>60 ml/min/1.73 sqM) Glucose 117 H (74-99) mg/dL Plasma Lactic Acid Jethro (0.7-2.0) mmol/L Calcium 8.0 L (8.4-10.2) mg/dL Magnesium 1.7 (1.6-2.3) mg/dL Total Bilirubin 1.9 H (0.2-1.3) mg/dL AST 24 (14-36) U/L ALT 17 (4-34) U/L Alkaline Phosphatase 75 (38-126) U/L NT-Pro-B Natriuret Pep pg/mL Total Protein 5.5 L (6.3-8.2) g/dL Albumin 3.3 L (3.5-5.0) g/dL Coronavirus (PCR) (Not Detectd) Influenza Type A RNA (Not Detectd) Influenza Type B (PCR) (Not Detectd) 11/03/21 11/03/21 11/03/21 Range/Units 17:50 17:50 17:50 WBC (3.8-10.6) k/uL RBC (3.80-5.40) m/uL Hgb (11.4-16.0) gm/dL Hct (34.0-46.0) % MCV (80.0-100.0) fL MCH (25.0-35.0) pg MCHC (31.0-37.0) g/dL RDW (11.5-15.5) % Plt Count (150-450) k/uL MPV Neutrophils % (Manual) % Band Neuts % (Manual) % Lymphocytes % (Manual) % Monocytes % (Manual) % Neutrophils # (Manual) (1.3-7.7) k/uL Lymphocytes # (Manual) (1.0-4.8) k/uL Monocytes # (Manual) (0-1.0) k/uL Nucleated RBCs (0-0) /100 WBC Manual Slide Review Poikilocytosis Macrocytosis PT (9.0-12.0) sec INR (<1.2) APTT (22.0-30.0) sec Sodium (137-145) mmol/L Potassium (3.5-5.1) mmol/L Chloride (98-107) mmol/L Carbon Dioxide (22-30) mmol/L Anion Gap mmol/L BUN (7-17) mg/dL Creatinine (0.52-1.04) mg/dL Est GFR (CKD-EPI)AfAm (>60 ml/min/1.73 sqM) Est GFR (CKD-EPI)NonAf (>60 ml/min/1.73 sqM) Glucose (74-99) mg/dL Plasma Lactic Acid Jethro 1.0 (0.7-2.0) mmol/L Calcium (8.4-10.2) mg/dL Magnesium (1.6-2.3) mg/dL Total Bilirubin (0.2-1.3) mg/dL AST (14-36) U/L ALT (4-34) U/L Alkaline Phosphatase (38-126) U/L NT-Pro-B Natriuret Pep pg/mL Total Protein (6.3-8.2) g/dL Albumin (3.5-5.0) g/dL Coronavirus (PCR) Not Detected (Not Detectd) Influenza Type A RNA Not Detected (Not Detectd) Influenza Type B (PCR) Not Detected (Not Detectd) 06/23/22 Range/Units 17:50 WBC (3.8-10.6) k/uL RBC (3.80-5.40) m/uL Hgb (11.4-16.0) gm/dL Hct (34.0-46.0) % MCV (80.0-100.0) fL MCH (25.0-35.0) pg MCHC (31.0-37.0) g/dL RDW (11.5-15.5) % Plt Count (150-450) k/uL MPV Neutrophils % (Manual) % Band Neuts % (Manual) % Lymphocytes % (Manual) % Monocytes % (Manual) % Neutrophils # (Manual) (1.3-7.7) k/uL Lymphocytes # (Manual) (1.0-4.8) k/uL Monocytes # (Manual) (0-1.0) k/uL Nucleated RBCs (0-0) /100 WBC Manual Slide Review Poikilocytosis Macrocytosis PT (9.0-12.0) sec INR (<1.2) APTT (22.0-30.0) sec Sodium (137-145) mmol/L Potassium (3.5-5.1) mmol/L Chloride (98-107) mmol/L Carbon Dioxide (22-30) mmol/L Anion Gap mmol/L BUN (7-17) mg/dL Creatinine (0.52-1.04) mg/dL Est GFR (CKD-EPI)AfAm (>60 ml/min/1.73 sqM) Est GFR (CKD-EPI)NonAf (>60 ml/min/1.73 sqM) Glucose (74-99) mg/dL Plasma Lactic Acid Jethro (0.7-2.0) mmol/L Calcium (8.4-10.2) mg/dL Magnesium (1.6-2.3) mg/dL Total Bilirubin (0.2-1.3) mg/dL AST (14-36) U/L ALT (4-34) U/L Alkaline Phosphatase (38-126) U/L NT-Pro-B Natriuret Pep 3390 pg/mL Total Protein (6.3-8.2) g/dL Albumin (3.5-5.0) g/dL Coronavirus (PCR) (Not Detectd) Influenza Type A RNA (Not Detectd) Influenza Type B (PCR) (Not Detectd) - EKG Data -: EKG Interpreted by Me EKG Comments: 12-lead Electrocardiogram Interpretation Note EKG was reviewed and interpreted by myself. 12-lead ECG performed at 1715 is interpreted by me as revealing normal sinus rhythm at a rate of 72 beats per minute. [place] is normal. NE interval is 160 ms, QRS duration is 94 ms, QTc is 440 ms.. There were no ST or T wave abnormalities to suggest myocardial ischemia or injury. R wave progression across the precordium was satisfactory. By my interpretation this EKG is non-diagnostic for acute ischemia. Disposition Clinical Impression: Volume overload, Upper respiratory infection, Leukopenia, Thrombocytopenia Disposition: ADMITTED IP TO THIS HOSP Condition: Stable Time of Disposition: 20:29
[2021-11-03 18:35] LABS: INR 1.1 (<1.2); Partial Thromboplastin Time 25.3 sec (22.0-30.0); Prothrombin Time 11.4 sec (9.0-12.0)
[2021-11-03 19:13] LABS: Band Neutrophils % 2 %; Lymphocytes # (M) 0.71 k/uL (1.0-4.8); Monocytes # (M) 0.59 k/uL (0-1.0); Neutrophils % (M) 56 %; Nucleated Red Blood Cells 0 /100 WBC (0-0); Total Cells Counted 100
[2021-11-03 19:14] LABS: Platelet Count 87 k/uL (150-450)
--- NOTE | 2021-11-03 20:05 | XR ---
EXAMINATION TYPE: XR chest 2V DATE OF EXAM: 11/03/2021 6:47 PM COMPARISON: Multiple radiographs, with the most recent on 10/07/2020 TECHNIQUE: XR chest 2V Frontal and lateral views of the chest. CLINICAL INDICATION:Female, 76 years old with history of difficulty breathing; FINDINGS: Lungs/Pleura: There is no evidence of pleural effusion, focal consolidation, or pneumothorax. Pulmonary vascularity: Pulmonary vascular congestion. Heart/mediastinum: Cardiomediastinal silhouette is enlarged and stable. Musculoskeletal: No acute osseous pathology. IMPRESSION: Cardiomegaly and pulmonary vascular congestion. Correlate with BNP for congestive heart failure.
[2021-11-03] MEDS ORDERED: PNEUMONIA PROTOCOL UTILIZED 1 EACH MISC PO PRN ×2 (20:29→20:32)
[2021-11-03] MEDS ORDERED: AZITHROMYCIN 500 MG in SODIUM CHLORIDE 0.9% 250 ML IVPB STA (20:29)
[2021-11-03] MEDS ORDERED: LEVOFLOXACIN 750MG-D5W PMX 750 MG in DEXTROSE/WATER 1 150ML.BAG IVPB STA (20:32)
[2021-11-03] MEDS ORDERED: LEVOFLOXACIN 750MG-D5W PMX 750 MG in DEXTROSE/WATER 1 150ML.BAG IVPB ONE (20:48)
[2021-11-03] MEDS: APIXABAN 2.5 MG TABLET PO SCH (23:37)
[2021-11-03] MEDS: FUROSEMIDE 10 MG/ML 4 ML VIAL IV SCH (23:38)
[2021-11-04] MEDS ORDERED: HEPARIN SODIUM,PORCINE/PF 5,000 UNIT/0.5 ML SYRINGE SQ SCH
[2021-11-04 06:00] LABS: Appearance,Urine Clear (Clear); Bacteria,Urine Few /hpf; Bilirubin,Urine Negative (Negative); Blood,Urine Negative (Negative); Color,Urine Light Yellow; Glucose,Urine (UA) Negative (Negative); Hyaline Casts,Urine 1 /lpf (0-2); Ketones,Urine Negative (Negative); Leukocyte Esterase,Urine Small (Negative); Mucus,Urine Rare /hpf; Nitrite,Urine Negative (Negative); Protein,Urine Negative (Negative); RBC,Urine 2 /hpf (0-5); Specific Gravity,Urine 1.007 (1.001-1.035); Squamous Epithelial Cell,Urine 2 /hpf (0-4); Urobilinogen,Urine <2.0 mg/dL (<2.0); WBC,Urine 4 /hpf (0-5)
[2021-11-04] MEDS ORDERED: AZITHROMYCIN 500 MG TAB PO SCH (09:00)
[2021-11-04] MEDS: FUROSEMIDE 10 MG/ML 4 ML VIAL IV SCH (09:14)
[2021-11-04] MEDS: LEVOFLOXACIN 750 MG TAB PO SCH (09:14)
[2021-11-04] MEDS: APIXABAN 2.5 MG TABLET PO SCH ×2 (09:16→21:48)
--- NOTE | 2021-11-04 10:21 | CA ---
Transthoracic Echo Report Name: Antoinette Lawson Age: 76 Gender: F : 1945 Exam Date: 11/04/2021 08:01 Exam Location: [facility] Ht (in): 66 Wt (lb): 260 Ordering Physician: Fermín Delacruz MD Attending/Referring Phys: [employer] Room Helper Magda Bran RDCS Procedure CPT: Indications: volume overload Cardiac Hx: Technical Quality: Fair Contrast 1: Total Dose (mL): Contrast 2: Total Dose (mL): MEASUREMENTS (Male / Female) Normal Values 2D ECHO LV Diastolic Diameter PLAX 4.7 cm 4.2 - 5.9 / 3.9 - 5.3 cm LV Systolic Diameter PLAX 3.2 cm IVS Diastolic Thickness 1.4 cm 0.6 - 1.0 / 0.6 - 0.9 cm LVPW Diastolic Thickness 1.4 cm 0.6 - 1.0 / 0.6 - 0.9 cm LV Relative Wall Thickness 0.6 RV Internal Dim ED PLAX 3.4 cm LA Systolic Diameter LX 3.4 cm 3.0 - 4.0 / 2.7 - 3.8 cm LA Volume 60.8 cm??? 18 - 58 / 22 - 52 cm??? M-MODE Aortic Root Diameter MM 3.3 cm MV E Point Septal Separation 0.3 cm AV Cusp Separation MM 1.9 cm DOPPLER AV Peak Velocity 169.8 cm/s AV Peak Gradient 11.5 mmHg MV Area PHT 4.4 cm??? Mitral E Point Velocity 114.7 cm/s Mitral A Point Velocity 98.0 cm/s Mitral E to A Ratio 1.2 MV Deceleration Time 170.8 ms MV E' Velocity 6.5 cm/s Mitral E to MV E' Ratio 17.7 TR Peak Velocity 238.0 cm/s TR Peak Gradient 22.7 mmHg Right Ventricular Systolic Press 27.7 mmHg FINDINGS Left Ventricle Left ventricular ejection fraction is estimated at 60-65 %. Left ventricular cavity size normal. Moderate concentric left ventricular hypertrophy. Right Ventricle Mild right ventricular dilatation. Right Atrium Normal right atrial size. Left Atrium Mildly increased left atrial volume. No evidence for an atrial septal defect. Mitral Valve Mild mitral regurgitation. Mitral annular calcification. Aortic Valve Focal thickening of the aortic valve cusps. Tricuspid Valve Mild tricuspid regurgitation. Pulmonic Valve Structurally normal pulmonic valve. Pericardium Normal pericardium. No pleural effusion. Aorta Normal size aortic root and proximal ascending aorta. CONCLUSIONS Left ventricle hypertrophy with preserved systolic function Previewed by: Dr. Kleber Keith MD (Electronically Signed) Final Date: 04 November 2021 10:20
[2021-11-04] MEDS ORDERED: ALBUTEROL NEBULIZED (CONC) 5 MG, SODIUM CHLORIDE 0.9% NEBULIZ 3 ML INHALATION SCH ×2 (13:00)
[2021-11-04] MEDS: CYANOCOBALAMIN 500 MCG TAB PO SCH (13:47)
[2021-11-04] MEDS: METOPROLOL TARTRATE 12.5 MG TAB PO SCH ×2 (13:47→21:48)
--- NOTE | 2021-11-04 13:51 | P.CNPUL ---
History of Present Illness Consult date: 11/04/21 Requesting physician: Selvin Khan Reason for consult: dyspnea, abnormal CXR/CT Chief complaint: Shortness of breath, cough, congestion, fever History of present illness: This is a very pleasant 76-year-old female patient who follows with Dr. Espinoza as her primary care provider. She has a history of multiple myeloma currently in remission, and has been on Revlimid and Decadron, peripheral venous insufficiency on long-term anticoagulation with Eliquis, chronic anemia, obesity, hypertension, previous pneumonias. She has also followed up with Dr. Bowens for hypersomnia. No history of COPD. No asthma. No home oxygen. No home inhalers. She has a 1 week history of increasing shortness of breath cough congestion fever, green/yellow productive sputum. Chest x-ray reveals evidence of cardiomegaly and pulmonary vascular congestion. Suspicious for congestive heart failure. White count 3.1. Hemoglobin 9.3. Platelet count 87,000. Sodium 134. Potassium 3.8. BUN 18. Creatinine 0.89. AST 24. ALT 17. ProBNP 3390. Current virus by PCR not detected. Influenza screen negative. She is seen today in consultation on the regular medical floor. Currently sitting up in bed. Awake and alert in no acute distress. She does have some dyspnea with conversation. Dyspnea with exertion. Maintaining O2 saturations in the 90s on 2 L/m per nasal cannula. She's afebrile. Hemodynamically stable. She's been initiated on Lasix 40 mg IV every 12 hours. She is anticoagulated with Eliquis. Antibiotics in the form of Zosyn and Levaquin. Follow-up chest x-ray pending. Review of Systems REVIEW OF SYSTEMS: CONSTITUTIONAL: Denies any recent significant weight loss or weight gain. EYES: Denies change in vision. EARS, NOSE, MOUTH, THROAT: Denies headaches, denies sore throat. CARDIOVASCULAR: Denies chest pain, palpitations or syncopal episodes. RESPIRATORY: Positive for shortness of breath, cough, congestion no hemoptysis. GASTROINTESTINAL: Denies change in appetite, denies abdominal pain GENITOURINARY: Denies hematuria, denies infections. MUSKULOSKELETAL: Denies pain, denies swelling. INTEGUMENTARY: Denies rash, denies eczema. NEUROLOGICAL: Denies recent memory loss, no recent seizure activity. PSYCHIATRIC: Denies anxiety, denies depression. HEMATOLOGIC/LYMPHATIC: Denies anemia, denies enlarged lymph nodes. Past Medical History Past Medical History: Cancer, Eye Disorder, Hypertension, Pneumonia Additional Past Medical History / Comment(s): multiple myeloma-in remission. CATARACT LT EYE History of Any Multi-Drug Resistant Organisms: ESBL Date of last positivie culture/infection: 06/28/18 ESBL E. coli MDRO Source:: Urine Past Surgical History: Cholecystectomy, Tubal Ligation Additional Past Surgical History / Comment(s): CATARACT REMOVED FROM RT EYE Past Anesthesia/Blood Transfusion Reactions: No Reported Reaction Past Psychological History: No Psychological Hx Reported Smoking Status: Never smoker Past Alcohol Use History: None Reported Past Drug Use History: None Reported - Past Family History Mother Family Medical History: Cancer Father Family Medical History: Cancer Medications and Allergies Home Medications Medication Instructions Recorded Confirmed Type atenoloL [Tenormin] 50 mg PO DAILY 09/01/17 11/03/21 History Apixaban [Eliquis] 2.5 mg PO BID 06/28/18 11/03/21 History Furosemide [Lasix] 40 mg PO DAILY 06/28/18 11/03/21 History Cyanocobalamin (Vitamin B-12) 1,000 mcg PO DAILY 12/02/18 11/03/21 History [Vitamin B-12] Lenalidomide [Revlimid] 10 mg PO DIRECTED 12/02/18 11/03/21 History L.acidoph,Paracasei, B.lactis 1 cap PO DAILY 10/07/20 11/03/21 History [Probiotic] Clotrimazole/Betameth Cream 1 applic TOPICAL BID PRN 11/03/21 11/03/21 History [Lotrisone] Indomethacin [Indocin] 50 mg PO TID PRN 11/03/21 11/03/21 History Allergies Allergy/AdvReac Type Severity Reaction Status Date / Time Iodinated Contrast Media Allergy Intermediate Rash/Hives Verified 11/03/21 21:48 cephalexin Allergy Rash/Hives Verified 11/03/21 21:48 Physical Exam Vitals: Vital Signs Temp Pulse Pulse Resp BP BP Pulse Ox 11/04/21 08:00 98 F 55 L 18 114/71 98 11/04/21 04:46 98.1 F 57 L 20 131/81 98 11/04/21 01:00 62 20 06/24/22 00:10 97.6 F 62 20 130/76 96 11/03/21 22:00 98.6 F 75 131/74 11/03/21 21:00 98.6 F 11/03/21 20:29 98 11/03/21 19:36 98.6 F 11/03/21 19:27 68 19 133/56 97 11/03/21 18:04 26 H 11/03/21 16:57 101.3 F H 74 20 171/58 98 Intake and Output 11/03/21 11/04/21 11/04/21 22:59 06:59 14:59 Intake Total 150 Balance 150 Intake: Intake, IV Titration 150 Amount Levofloxacin 750Mg-D5w 150 Pmx 750 mg In Dextrose/ Water 1 150ml.bag @ 100 mls/hr IVPB ONCE ONE Rx#: [id number] Other: Voiding Method Bedside Commode Weight 117.934 kg 117.934 kg GENERAL EXAM: Alert, pleasant 76-year-old female patient, on 2 L nasal cannula, fairly comfortable in no apparent distress. HEAD: Normocephalic. EYES: Normal reaction of pupils, equal size. NOSE: Clear with pink turbinates. THROAT: No erythema or exudates. NECK: No masses, no JVD. CHEST: No chest wall deformity. LUNGS: Equal air entry with crackles in the bilateral bases, diminished. CVS: S1 and S2 normal with no audible murmur, regular rhythm. ABDOMEN: No hepatosplenomegaly, normal bowel sounds, no guarding or rigidity. SPINE: No scoliosis or deformity SKIN: No rashes CENTRAL NERVOUS SYSTEM: No focal deficits, tone is normal in all 4 extremities. EXTREMITIES: There is no peripheral edema. No clubbing, no cyanosis. Peripheral pulses are intact. Results - Laboratory Findings CBC and BMP: 11/03/21 17:50 11/03/21 17:50 PT/INR, D-dimer PT 11.4 sec (9.0-12.0) 11/03/21 17:50 INR 1.1 (<1.2) 11/03/21 17:50 Abnormal lab findings: Abnormal Labs 11/03/21 11/03/21 11/04/21 17:50 17:50 05:35 WBC 3.1 L RBC 2.60 L Hgb 9.3 L Hct 27.0 L MCV 103.9 H MCH 35.6 H Plt Count 87 L Lymphocytes # (Manual) 0.71 L Sodium 134 L BUN 18 H Glucose 117 H Calcium 8.0 L Total Bilirubin 1.9 H Total Protein 5.5 L Albumin 3.3 L Ur Leukocyte Esterase Small H Urine Bacteria Few H Urine Mucus Rare H - Diagnostic Findings Chest x-ray: image reviewed Assessment and Plan Assessment: Acute hypoxemic respiratory failure secondary to diastolic congestive heart failure as his possible pneumonia History of multiple myeloma, on Revlimid Chronic venous insufficiency maintained on Eliquis Morbid obesity with a BMI of 42 g per metered squared Chronic anemia Hypertension Plan: The patient was seen and evaluated Chest x-ray, labs and medications reviewed Continue Zosyn and Levaquin for now Check a pro-calcitonin Continue IV diuretics Titrate the FiO2 as tolerated We will continue to follow and make further recommendations based on her clinical status I have personally seen and examined the patient, performed the documentation and the assessment and plan as written. Number of minutes spent on the visit: 20.
--- NOTE | 2021-11-04 13:52 | XR ---
EXAMINATION TYPE: XR chest 2V DATE OF EXAM: 11/04/2021 COMPARISON: Chest x-ray 11/03/2021 CT chest 07/03/2018 HISTORY: Pneumonia TECHNIQUE: Frontal and lateral views of the chest are obtained. FINDINGS: Patient is rotated. Enlarged appearance of the heart may be due to at least in part to pro minent epicardial fat pads. There is some improvement in aeration in the right upper lobe. No evident pneumothorax. No pleural effusion. Prominent lung may be indicative of underlying COPD. Surgical cli ps present in the upper abdomen. There are overlying artifacts. There is thoracic spondylosis. Centra l vascularity is somewhat less conspicuous. IMPRESSION: Suspect some improvement in aeration, volume status.
--- NOTE | 2021-11-04 14:54 | P.CONS ---
History of Present Illness - Reason for Consult Consult date: 11/04/21 Multiple Myeloma Requesting physician: Selvin Khan - History of Present Illness or years and feeling tired with lack of energy. She denied any signs/symptoms of blood loss, reported trying oral iron supplement without benefit. The patient stated her mother had chronic anemia for years with all negative studies. She denies knowledge of any chronic illness such as DM, CRF or liver disease, no anorexia or weight loss. Remains fully active despite being tired. 10/17/16: Feels Ok, C/O being tired, no skeletal pain. 11/16/16: Feels Ok, C/O fatigue. 12/19/16: Feels Ok, tolerated RVD well with minimal toxicities. She is fully active. 01/30/17: Doing well, tolerating RVD well, C/O mild fatigue and edema in feet. No symptoms of P neuropathy, no diarrhea. 02/27/17: Feels Ok, tolerating RVD well > no diarrhea, no P neuropathy, fully active. 03/28/17: Feels Ok, C/O having increasing apetite , oral intake and insomnia with Decadron. Tolerating RVD well. 05/08/17: Feels Ok, tolerating RVD well, active. 06/05/17: Feels Ok, tolerating RVD well, has dry cough, no fever/chills. 07/12/17: Recently started on Maintenance Revlimid days 1-21, every 28 days. She is taking baby aspirin although presents after a two week period of increasing swelling and pain in her RLE. 07/18/17: C/O severe weakness and diarrhea after Revlamid X 3 weeks (Tolerated 2 weeks regimen well in past), rash on face progressed. No skeletal pain. 07/31/17: Feels well, stronger, facial rash significantly improved. 09/11/17: Was admitted to hospital with Fever/Pneumonia. Still feels tired, taking weekly Dexamethasone. 10/11/17: Feels well, stronger, denies any skeletal/visceral pain, no fever or chills. Lesions on R cheek persists. Taking Decadron 20mg Po weekly. 11/13/17: Was admitted to [facility] with superficial Thrombophlebitis. No DVT found. 01/25/18: Feels Ok, om maintenance Revlamid 25mg Days 1-14 Q 28 days/Dex 20mg Po weekly > well tolerated. 04/19/18: Feels well, tolerating Rev/Dex well, minimal diarrhea, fully active 08/20/18: Feels Ok, was hospitalized with severe edema > on diuretics. Tolerating Revlamid well with occasional diarrhea (25mg Po days 1-14 Q 28 days) and Decadron 20mg Po weekly. 09/11/18: Still with diarhhea inquiring about 10mg REv. new diet as well, questran started. 10/09/18: Feels Ok, having intermitent diarrhea, controlled with antidiarrheals. Otherwise tolearating Rev/Dex well 11/26/18: C/O fatigue & loss of vision, will have cataract surgery soon. C/O cough and low-grade fever 01/14/19: Feels stronger, tolerating lower dose Revlamid much better. 03/12/19: Feels well, tolerating Revlamid/Dex well. Had recent L lower back pain > seen by Chairopracter> improved. 04/22/19: Feels better, less diarrhea,no skeletal pain. On Revlamid 10mg Po days 1-14 Q 28 days, Ex 16mg Po weekly. 06/10/19: Feels Ok, tolerating Rev/Dex well, no new skeletal pains. 09/18/19: Feels well, stronger, tolerating Revlamid (10mg Po days [id number]) and Decadron (16mg Po weekly) very well, denies skeletal pains. 11/18/19: Feels well, tolerating Revlamid well, now on 8mg of Dex weekly 12/17/19: Feeling well, increased activity and walking more. Dex weekly. 01/07/20: Doing well. No bleeding. Tolerating current regimen. 01/30/20: Feels well, fully active, tolerating Revlamid (10mg Po days 1-14 Q 28days) and Decadron 4mg po weekly well. 03/19/20: Fees Ok, had slight nausea & diarrhea. No skeletal pain. 05/25/20: Feels Ok, had recent gout, lost 20 LBS, feels a bit better, on Revlamid 10 mg days 1-14 Q 28 days and Decadron 4 mg Po once daily, given 1 dose of Feraheme only. 07/06/20: Feels Ok, stronger after loosing weight by diet modification. 08/17/20: Feels well, continue to loose weight, tolerating Revlamid well (10 mg Po days 1-14 Q 28 days), Decadron 4 mg Po weekly. C/O gouty arthritis. 09/28/20: Feels well, has intermittent headaches attributed to seasonal allergies. Tolerating Revlamid well. 11/12/20: Feels well, tolerating Revlamid 10 mg Po days 1-14 Q 28 days and Decadron 4 mg Po weekly well. Had recent LLE "gout" > recovered well 12/29/20: Tolerating Revlamid well (10 mg Po daily days 1-14 Q 28days) and Decadron 4 mg weekly well, C/O arthralgias. Feels stronger after iron infusion. 03/09/21: Feeling better, gout improving, continues on Revlimid. 05/05/21: Continues on revlamid 10mg po 1-14, q28 and 4mg weekly. No new complains 08/09/21: Feels well, has mild chronic arthralgias, tolerating Revlamid 10 mg Po days 1-14 Q 28 days and Decadron 4 mg once weekly very well. 10/11/21: Feels well, C/O arthralgias, remains relatively active, tolerating Revlamid well. Most recently maintained on revlimid day 1-14 no dex. She is admitted for increased SOB and dyspena and RLE edema Review of Systems All systems: negative Constitutional: Reports as per HPI Past Medical History Past Medical History: Cancer, Eye Disorder, Hypertension, Pneumonia Additional Past Medical History / Comment(s): multiple myeloma-in remission. CATARACT LT EYE History of Any Multi-Drug Resistant Organisms: ESBL Year Discovered:: 06/28/18 ESBL E. coli MDRO Source:: Urine Past Surgical History: Cholecystectomy, Tubal Ligation Additional Past Surgical History / Comment(s): CATARACT REMOVED FROM RT EYE Past Anesthesia/Blood Transfusion Reactions: No Reported Reaction Past Psychological History: No Psychological Hx Reported Smoking Status: Never smoker Past Alcohol Use History: None Reported Past Drug Use History: None Reported - Past Family History Mother Family Medical History: Cancer Father Family Medical History: Cancer Medications and Allergies Home Medications Medication Instructions Recorded Confirmed Type atenoloL [Tenormin] 50 mg PO DAILY 09/01/17 11/03/21 History Apixaban [Eliquis] 2.5 mg PO BID 06/28/18 11/03/21 History Furosemide [Lasix] 40 mg PO DAILY 06/28/18 11/03/21 History Cyanocobalamin (Vitamin B-12) 1,000 mcg PO DAILY 12/02/18 11/03/21 History [Vitamin B-12] Lenalidomide [Revlimid] 10 mg PO DIRECTED 12/02/18 11/03/21 History L.acidoph,Paracasei, B.lactis 1 cap PO DAILY 10/07/20 11/03/21 History [Probiotic] Clotrimazole/Betameth Cream 1 applic TOPICAL BID PRN 11/03/21 11/03/21 History [Lotrisone] Indomethacin [Indocin] 50 mg PO TID PRN 11/03/21 11/03/21 History Allergies Allergy/AdvReac Type Severity Reaction Status Date / Time Iodinated Contrast Media Allergy Intermediate Rash/Hives Verified 11/03/21 21:48 cephalexin Allergy Rash/Hives Verified 11/03/21 21:48 Physical Exam Vitals: Vital Signs Temp Pulse Pulse Resp BP BP Pulse Ox 11/04/21 13:46 78 130/79 11/04/21 08:00 98 F 55 L 18 114/71 98 11/04/21 04:46 98.1 F 57 L 20 131/81 98 11/04/21 01:00 62 20 11/04/21 00:10 97.6 F 62 20 130/76 96 11/03/21 22:00 98.6 F 75 131/74 11/03/21 21:00 98.6 F 11/03/21 20:29 98 11/03/21 19:36 98.6 F 11/03/21 19:27 68 19 133/56 97 11/03/21 18:04 26 H 11/03/21 16:57 101.3 F H 74 20 171/58 98 Intake and Output 11/03/21 11/04/21 11/04/21 22:59 06:59 14:59 Intake Total 150 Balance 150 Intake: Intake, IV Titration 150 Amount Levofloxacin 750Mg-D5w 150 Pmx 750 mg In Dextrose/ Water 1 150ml.bag @ 100 mls/hr IVPB ONCE ONE Rx#: [id number] Other: Voiding Method Bedside Commode Weight 117.934 kg 117.934 kg - Constitutional General appearance: cooperative, no acute distress - EENT Eyes: EOMI ENT: hard of hearing, NA/AT - Neck Neck: normal ROM - Cardiovascular Rhythm: regularly irregular leg Peripheral Edema: bilateral: 1+ - Gastrointestinal General gastrointestinal: soft - Integumentary Integumentary: pale - Neurologic Neurologic: CNII-XII intact - Musculoskeletal Musculoskeletal: generalized weakness - Psychiatric Psychiatric: A&O x's 3 Results CBC & Chem 7: 11/03/21 17:50 11/04/21 13:58 Labs: Abnormal Lab Results - Last 24 Hours (Table) 11/03/21 11/03/21 11/04/21 Range/Units 17:50 17:50 05:35 WBC 3.1 L (3.8-10.6) k/uL RBC 2.60 L (3.80-5.40) m/uL Hgb 9.3 L (11.4-16.0) gm/dL Hct 27.0 L (34.0-46.0) % MCV 103.9 H (80.0-100.0) fL MCH 35.6 H (25.0-35.0) pg Plt Count 87 L (150-450) k/uL Lymphocytes # (Manual) 0.71 L (1.0-4.8) k/uL Sodium 134 L (137-145) mmol/L BUN 18 H (7-17) mg/dL Glucose 117 H (74-99) mg/dL Calcium 8.0 L (8.4-10.2) mg/dL Total Bilirubin 1.9 H (0.2-1.3) mg/dL Total Protein 5.5 L (6.3-8.2) g/dL Albumin 3.3 L (3.5-5.0) g/dL Ur Leukocyte Esterase Small H (Negative) Urine Bacteria Few H (None) /hpf Urine Mucus Rare H (None) /hpf Chest x-ray: report reviewed Assessment and Plan (1) Multiple myeloma Narrative/Plan: Hold Revlamid until acute hospital concerns are resolved. Current Visit: No Status: Chronic Priority: Medium Code(s): C90.00 - MULTIPLE MYELOMA NOT HAVING ACHIEVED REMISSION SNOMED Code(s): 953865520 (2) Pancytopenia due to antineoplastic chemotherapy Narrative/Plan: Secondary to revlimid and exacerbated with acute inflammatory, infectious hospitalization Continue eliquis unless platelets drop below 50K Transfuse irradiated PRBC if hemoglobin less than 7 Current Visit: No Status: Chronic Priority: Medium Code(s): D61.810 - ANTINEOPLASTIC CHEMOTHERAPY INDUCED PANCYTOPENIA; T45.1X5A - ADVERSE EFFECT OF ANTINEOPLASTIC AND IMMUNOSUP DRUGS, INIT SNOMED Code(s): 116745678423922 (3) Dyspnea and respiratory abnormalities Narrative/Plan: Pulmonary following Current Visit: No Status: Acute Code(s): R06.00 - DYSPNEA, UNSPECIFIED; R06.89 - OTHER ABNORMALITIES OF BREATHING SNOMED Code(s): 456296635 Plan: Will resume Revlimid next cycle
[2021-11-04 15:05] LABS: African American GFR (CKD) 64 (>60 ml/min/1.73 sqM); Anion Gap 9 mmol/L; Blood Urea Nitrogen 20 mg/dL (7-17); Calcium 8.5 mg/dL (8.4-10.2); Carbon Dioxide 28 mmol/L (22-30); Chloride 98 mmol/L (98-107); Glucose 117 mg/dL (74-99); Non-African American GFR(CKD) 55 (>60 ml/min/1.73 sqM); Potassium 3.5 mmol/L (3.5-5.1); Sodium 135 mmol/L (137-145)
--- NOTE | 2021-11-04 15:05 | P.HPIM ---
History of Present Illness H&P Date: 11/04/21 Chief Complaint: Congested cough This is a very pleasant 76-year-old patient who follows with Dr. Fermín Chris. Chronic stable medical conditions include multiple myeloma for which patient is on Revlimid maintenance dose under control. Being followed by Dr. Waggoner. Also has underlying osteoarthritis of multiple joints, hypertension, B12 deficiency. Patient now presents with 2 days of increasing cough yellow sputum. Fever and chills. Some wheezing. Patient is also on eliquis for DVT about 2 years ago to the left leg. Also poor appetite tired rundown. Patient also states she has chronic right lower extremity swelling. Review of systems: GEN.: Fever and chills tired EYES: None HEENT: None NECK: None RESPIRATORY: As above CARDIOVASCULAR: None GASTROINTESTINAL: None GENITOURINARY: None MUSCULOSKELETAL: Joint pains LYMPHATICS: None HEMATOLOGICAL: None PSYCHIATRY: None NEUROLOGICAL: None Past medical history to include: Hypertension, multiple myeloma, hypertension, osteoarthritis, B12 deficiency Family history: Cancer -Social history: No history of smoking or alcohol. takes care of her brother at home Physical examination: VITAL SIGNS: 101.3, 74, 26, 1 33 x 56, 98% on 3 L upon presentation GENERAL: BMI 42, sitting on bed, tired awake. EYES: Pupils equal. Conjunctiva normal. HEENT: External appearance of nose and ears normal, oral cavity grossly normal. NECK: JVD not raised; masses not palpable. HEART: First and second heart sounds are normal; no edema. LUNGS: Respiratory rate increased; left posterior coarse breath sounds. ABDOMEN: Soft, nontender, liver spleen not palpable, no masses palpable. PSYCH: Alert and oriented x3; mood and affect normal. MUSCULOSKELETAL:No Clubbing/cyanosis;muscles-grossly intact NEUROLOGICAL: Cranial nerves grossly intact; no facial asymmetry, power and sensation grossly intact. LYMPHATICS: No lymph nodes palpable in the axilla and neck INVESTIGATIONS, reviewed in the clinical context: White count 3.1 hemoglobin 9.3 platelets 77 sodium 134 potassium 3.8. 18 creatinine 0.89 proBNP 3390 COVID 19/influenza type A and type B: Not detected EKG tracing personally reviewed by me- normal sinus rhythm. Rate 72 Chest x-ray film personally reviewed by me-cardiomegaly. Venous prominence. Infiltrate. Assessment and plan: -Pneumonia suspected gram-negative organism and the patient is immunosuppressed. IV Zosyn -Sepsis from pneumonia IV Zosyn, IV fluids -Questionable congestive heart failure. Patient has elevated proBNP. And venous prominence on the x-ray. This simply could be an elevated resting BNP. Clinically patient doesn't seem to be in CHF. Will DC IV Lasix started the ER. 2-D echo. Cardiology consultation. -Chronic multiple myeloma in remission. On maintenance dose of Revlimid. Follows with Dr waggoner -Pancytopenia, from underlying multiple myeloma. Possibly worsening from underlying sepsis/infection. Labs are somewhat similar to the one from September of 2020. -Chronic DVT and the risk of DVT from patient being on Revlimid and multiple myeloma. Continue eliquis 2.5 mg twice a day -Chronic B12 deficiency Vitamin B12 thousand microgram a day -Primary osteoarthritis multiple joints bilaterally Indomethacin 50 mg 3 times a day when necessary -Essential hypertension Tenormin 50 mg a day -Morbid obesity BMI 42 Weight loss measures IV Zosyn. Resume home medications. 2-D echocardiogram. Telemetry. Consultation to pulmonary cardiology. Care was discussed with the patient. Questions answered. Past Medical History Past Medical History: Cancer, Eye Disorder, Hypertension, Pneumonia Additional Past Medical History / Comment(s): multiple myeloma-in remission. CATARACT LT EYE History of Any Multi-Drug Resistant Organisms: ESBL Date of last positivie culture/infection: 06/28/18 ESBL E. coli MDRO Source:: Urine Past Surgical History: Cholecystectomy, Tubal Ligation Additional Past Surgical History / Comment(s): CATARACT REMOVED FROM RT EYE Past Anesthesia/Blood Transfusion Reactions: No Reported Reaction Past Psychological History: No Psychological Hx Reported Smoking Status: Never smoker Past Alcohol Use History: None Reported Past Drug Use History: None Reported - Past Family History Mother Family Medical History: Cancer Father Family Medical History: Cancer Medications and Allergies Home Medications Medication Instructions Recorded Confirmed Type atenoloL [Tenormin] 50 mg PO DAILY 09/01/17 11/03/21 History Apixaban [Eliquis] 2.5 mg PO BID 06/28/18 11/03/21 History Furosemide [Lasix] 40 mg PO DAILY 06/28/18 11/03/21 History Cyanocobalamin (Vitamin B-12) 1,000 mcg PO DAILY 12/02/18 11/03/21 History [Vitamin B-12] Lenalidomide [Revlimid] 10 mg PO DIRECTED 12/02/18 11/03/21 History L.acidoph,Paracasei, B.lactis 1 cap PO DAILY 10/07/20 11/03/21 History [Probiotic] Clotrimazole/Betameth Cream 1 applic TOPICAL BID PRN 11/03/21 11/03/21 History [Lotrisone] Indomethacin [Indocin] 50 mg PO TID PRN 11/03/21 11/03/21 History Allergies Allergy/AdvReac Type Severity Reaction Status Date / Time Iodinated Contrast Media Allergy Intermediate Rash/Hives Verified 11/03/21 21:48 cephalexin Allergy Rash/Hives Verified 11/03/21 21:48 Physical Exam Vitals: Vital Signs Temp Pulse Pulse Resp BP BP Pulse Ox 11/04/21 04:46 98.1 F 57 L 20 131/81 98 11/04/21 01:00 62 20 11/04/21 00:10 97.6 F 62 20 130/76 96 11/03/21 22:00 98.6 F 75 131/74 11/03/21 21:00 98.6 F 11/03/21 20:29 98 11/03/21 19:36 98.6 F 11/03/21 19:27 68 19 133/56 97 11/03/21 18:04 26 H 11/03/21 16:57 101.3 F H 74 20 171/58 98 Intake and Output 11/03/21 11/04/21 11/04/21 22:59 06:59 14:59 Intake Total 150 Balance 150 Intake: Intake, IV Titration 150 Amount Levofloxacin 750Mg-D5w 150 Pmx 750 mg In Dextrose/ Water 1 150ml.bag @ 100 mls/hr IVPB ONCE ONE Rx#: [id number] Other: Voiding Method Bedside Commode Weight 117.934 kg 117.934 kg Results CBC & Chem 7: 11/03/21 17:50 11/03/21 17:50 Labs: Abnormal Lab Results - Last 24 Hours (Table) 11/03/21 11/03/21 11/04/21 Range/Units 17:50 17:50 05:35 WBC 3.1 L (3.8-10.6) k/uL RBC 2.60 L (3.80-5.40) m/uL Hgb 9.3 L (11.4-16.0) gm/dL Hct 27.0 L (34.0-46.0) % MCV 103.9 H (80.0-100.0) fL MCH 35.6 H (25.0-35.0) pg Plt Count 87 L (150-450) k/uL Lymphocytes # (Manual) 0.71 L (1.0-4.8) k/uL Sodium 134 L (137-145) mmol/L BUN 18 H (7-17) mg/dL Glucose 117 H (74-99) mg/dL Calcium 8.0 L (8.4-10.2) mg/dL Total Bilirubin 1.9 H (0.2-1.3) mg/dL Total Protein 5.5 L (6.3-8.2) g/dL Albumin 3.3 L (3.5-5.0) g/dL Ur Leukocyte Esterase Small H (Negative) Urine Bacteria Few H (None) /hpf Urine Mucus Rare H (None) /hpf Thrombosis Risk Factor Assmnt - Choose All That Apply Each Factor Represents 1 point: Obesity (BMI >25) Other Risk Factors: Yes Each Risk Factor Represents 2 Points: Age 61-74 years Other congenital or acquired thrombophilia - If yes, enter type in comment: No Thrombosis Risk Factor Assessment Total Risk Factor Score: 3 Thrombosis Risk Factor Assessment Level: Moderate Risk
[2021-11-04] MEDS: PIPERACILLIN-TAZOBACTAM 3.375 GM in SODIUM CHLORIDE 0.9% 100 ML IVPB SCH ×2 (15:41→23:47)
[2021-11-04] MEDS: ALBUTEROL NEBULIZED 2.5 MG/3 ML INHALATION SCH (19:33)
[2021-11-05] MEDS: ALBUTEROL NEBULIZED 2.5 MG/3 ML INHALATION SCH ×3 (07:28→19:02)
[2021-11-05] MEDS: APIXABAN 2.5 MG TABLET PO SCH ×2 (09:09→21:51)
[2021-11-05] MEDS: CYANOCOBALAMIN 500 MCG TAB PO SCH (09:09)
[2021-11-05] MEDS: METOPROLOL TARTRATE 12.5 MG TAB PO SCH ×2 (09:10→21:51)
[2021-11-05] MEDS: LEVOFLOXACIN 750 MG TAB PO SCH (09:10)
[2021-11-05] MEDS: PIPERACILLIN-TAZOBACTAM 3.375 GM in SODIUM CHLORIDE 0.9% 100 ML IVPB SCH ×3 (09:10→23:57)
--- NOTE | 2021-11-05 12:39 | P.PN ---
Subjective Progress Note Date: 11/05/21 This is a very pleasant 76-year-old female patient who follows with Dr. Espinoza as her primary care provider. She has a history of multiple myeloma currently in remission, and has been on Revlimid and Decadron, peripheral venous insufficiency on long-term anticoagulation with Eliquis, chronic anemia, obesi ty, hypertension, previous pneumonias. She has also followed up with Dr. Bowens for hypersomnia. No history of COPD. No asthma. No home oxygen. No home inhalers. She has a 1 week history of increasing shortness of breath cough congestion fever, green/yellow productive sputum. Chest x-ray reveals evidence of cardiomegaly and pulmonary vascular congestion. Suspicious for congestive heart failure. White count 3.1. Hemoglobin 9.3. Platelet count 87,000. Sodium 134. Potassium 3.8. BUN 18. Creatinine 0.89. AST 24. ALT 17. ProBNP 3390. Current virus by PCR not detected. Influenza screen negative. She is seen today in consultation on the regular medical floor. Currently sitting up in bed. Awake and alert in no acute distress. She does have some dyspnea with conversation. Dyspnea with exertion. Maintaining O2 saturations in the 90s on 2 L/m per nasal cannula. She's afebrile. Hemodynamically stable. She's been initiated on Lasix 40 mg IV every 12 hours. She is anticoagulated with Eliquis. Antibiotics in the form of Zosyn and Levaquin. Follow-up chest x-ray pending. The patient is seen today 11/05/2021 in follow-up on the regular medical floor. She is doing better. She's been up in the shower. She is maintaining good O2 saturations in the upper 90s on 2 L/m per nasal cannula. Afebrile. Hemodynamically stable. Follow up chest x-ray was showing improved aeration. The cultures reveal no growth. No new labs today. She is continued on Levaquin and Zosyn. Anticoagulated with Eliquis. Objective - Vital Signs Vital signs: Vital Signs Temp 98.5 F 11/05/21 12:28 Pulse 67 11/05/21 12:28 Resp 16 11/05/21 12:28 BP 137/78 11/05/21 12:28 Pulse Ox 94 L 11/05/21 12:28 FiO2 Intake & Output 11/04/21 11/05/21 11/05/21 18:59 06:59 18:59 Intake Total 500 Balance 500 Intake: Intake, IV Titration 100 Amount Piperacillin-Tazobactam 3 100 .375 gm In Sodium Chloride 0.9% 100 ml @ 25 mls/hr IVPB Q8HR [facility] Rx# :[id number] Oral 400 Other: Voiding Method Bedside Commode Bedside Commode # Voids 4 - Exam GENERAL EXAM: Alert, 76-year-old female, on 2 L nasal cannula, fairly comfortable in no apparent distress. HEAD: Normocephalic. EYES: Normal reaction of pupils, equal size. NOSE: Clear with pink turbinates. THROAT: No erythema or exudates. NECK: No masses, no JVD. CHEST: No chest wall deformity. LUNGS: Equal air entry with crackles in the bilateral bases, diminished. CVS: S1 and S2 normal with no audible murmur, regular rhythm. ABDOMEN: No hepatosplenomegaly, normal bowel sounds, no guarding or rigidity. SPINE: No scoliosis or deformity SKIN: No rashes CENTRAL NERVOUS SYSTEM: No focal deficits, tone is normal in all 4 extremities. EXTREMITIES: There is no peripheral edema. No clubbing, no cyanosis. Peripheral pulses are intact. - Labs CBC & Chem 7: 11/03/21 17:50 11/04/21 13:58 Labs: Abnormal Lab Results - Last 24 Hours (Table) 11/04/21 11/04/21 Range/Units 13:58 13:58 Sodium 135 L (137-145) mmol/L BUN 20 H (7-17) mg/dL Glucose 117 H (74-99) mg/dL Procalcitonin 0.83 H (0.02-0.09) ng/mL Microbiology - Last 24 Hours (Table) 11/03/21 19:15 Blood Culture - Preliminary Blood No Growth after 24 hours 11/03/21 19:25 Blood Culture - Preliminary Blood No Growth after 24 hours Assessment and Plan Assessment: Acute hypoxemic respiratory failure secondary to diastolic congestive heart failure and possible pneumonia. Pro-calcitonin 0.83. Remains on Zosyn and Levaquin. History of multiple myeloma, on Revlimid Chronic venous insufficiency maintained on Eliquis Morbid obesity with a BMI of 42 g per metered squared Chronic anemia Hypertension Plan: The patient was seen and evaluated Medications reviewed Continue Zosyn and Levaquin Titrate the FiO2 as tolerated Follow-up chest x-ray in a.m. We will continue to follow I have personally seen and examined the patient, performed the documentation and the assessment and plan as written. Number of minutes spent on the visit: 10.
[2021-11-05 13:51] LABS: Basophils # (M) 0 X 10*3/uL (0.00-0.10); Eosinophils # (M) 0.18 X 10*3/uL (0.04-0.35); HCT 24.3 % (37.2-46.3); HGB 7.7 g/dL (12.0-15.0); Lymphocytes # (M) 0.42 X 10*3/uL (0.90-5.00); MCH 32.6 pg (27.0-32.0); MCHC 31.7 g/dL (32.0-37.0); Mean Platelet Volume 11.7 fL (9.5-12.2); Monocytes # (M) 0.33 X 10*3/uL (0.20-1.00); NRBC Per 100 WBC 0 /100 WBCS (0.0-0.0); Neutrophils # (M) 1.29 X 10*3/uL (2.00-8.90); Neutrophils % (M) 58 %; Platelet Count 80 X 10*3/uL (140-440); RBC 2.36 X 10*6/uL (4.10-5.20); RDW 14.6 % (11.5-14.5); WBC 2.23 X 10*3/uL (4.50-10.00)
[2021-11-05 14:01] LABS: % Iron Saturation 21.04 (12.00-45.00); African American GFR (CKD) 51.6 (60.0-200.0); Albumin 3.3 g/dL (3.8-4.9); Albumin/Globulin Ratio 1.94 (1.60-3.17); Anion Gap 12.2 mmol/L (10.00-18.00); BUN/Creat Ratio 17.58 Ratio (12.00-20.00); Blood Urea Nitrogen 21.1 mg/dL (9.0-27.0); Calcium 8.2 mg/dL (8.7-10.3); Carbon Dioxide 25.8 mmol/L (20.0-27.5); Globulin 1.7 g/dL (1.6-3.3); Non-African American GFR(CKD) 44.5 (60.0-200.0); Potassium 3.4 mmol/L (3.5-5.5); Total Bilirubin 1.1 mg/dL (0.30-1.20)
--- NOTE | 2021-11-05 16:34 | P.CRDCN ---
History of Present Illness Consult date: 11/05/21 History of present illness: This is a 76-year-old female with history of multiple myeloma in remission and also history of DVT for which she is on anti-coagulation therapy and history of hypersomnia is admitted to the hospital with increasing shortness of breath, congestion, fever and asputum production. Chest x-ray showed evidence of cardiac megaly and pulmonary vascular congestion. ProBNP is elevated. Patient LV function is preserved with an ejection fraction of 60-65%. Her potassium is on the low side. Be in his normal creatinine is normal. Lungs show diminished air exchange. Oxygen saturation in the range of 90%. It appears that patient may have diastolic congestive heart failure along with possibility of bronchitis and pneumonia. We'll initiate her on diuretics along with potassium supplement. Continue rest of the management pulmonary consult is also requested Review of Systems As per the chart Past Medical History Past Medical History: Cancer, Eye Disorder, Hypertension, Pneumonia Additional Past Medical History / Comment(s): multiple myeloma-in remission. CATARACT LT EYE History of Any Multi-Drug Resistant Organisms: ESBL Date of last positivie culture/infection: 06/28/18 ESBL E. coli MDRO Source:: Urine Past Surgical History: Cholecystectomy, Tubal Ligation Additional Past Surgical History / Comment(s): CATARACT REMOVED FROM RT EYE Past Anesthesia/Blood Transfusion Reactions: No Reported Reaction Past Psychological History: No Psychological Hx Reported Smoking Status: Never smoker Past Alcohol Use History: None Reported Past Drug Use History: None Reported - Past Family History Mother Family Medical History: Cancer Father Family Medical History: Cancer Medications and Allergies Home Medications Medication Instructions Recorded Confirmed Type atenoloL [Tenormin] 50 mg PO DAILY 09/01/17 11/03/21 History Apixaban [Eliquis] 2.5 mg PO BID 06/28/18 11/03/21 History Furosemide [Lasix] 40 mg PO DAILY 06/28/18 11/03/21 History Cyanocobalamin (Vitamin B-12) 1,000 mcg PO DAILY 12/02/18 11/03/21 History [Vitamin B-12] Lenalidomide [Revlimid] 10 mg PO DIRECTED 12/02/18 11/03/21 History L.acidoph,Paracasei, B.lactis 1 cap PO DAILY 10/07/20 11/03/21 History [Probiotic] Clotrimazole/Betameth Cream 1 applic TOPICAL BID PRN 11/03/21 11/03/21 History [Lotrisone] Indomethacin [Indocin] 50 mg PO TID PRN 11/03/21 11/03/21 History Allergies Allergy/AdvReac Type Severity Reaction Status Date / Time Iodinated Contrast Media Allergy Intermediate Rash/Hives Verified 11/03/21 21:48 cephalexin Allergy Rash/Hives Verified 11/03/21 21:48 Physical Exam Vitals: Vital Signs Temp Pulse Pulse Pulse Resp BP Pulse Ox 11/05/21 12:59 64 11/05/21 12:50 66 11/05/21 12:28 98.5 F 67 16 137/78 94 L 11/05/21 08:00 60 78 16 11/05/21 07:43 66 11/05/21 07:31 62 98 11/05/21 05:42 98.4 F 60 16 119/51 99 11/04/21 20:00 98.6 F 63 16 122/71 98 11/04/21 19:44 63 11/04/21 19:33 61 Intake and Output 11/05/21 11/05/21 11/05/21 06:59 14:59 22:59 Other: Voiding Method Bedside Commode GENERAL EXAM: Patient is alert and oriented and doesn't appear to be in any acute distress HEENT: Normocephalic. Normal reaction of pupils, equal size, normal range of extraocular motion. No erythema or exudates in the throat. NECK: No masses, no nuchal rigidity. CHEST: No chest wall deformity. LUNGS: Diminished air exchange HEART: S1 and S2 normal with no audible mumurs or gallops. Regular rhythm, femorals equal on both sides.. ABDOMEN: No hepatosplenomegaly, normal bowel sounds, no guarding or rigidity. SKIN: No rashes CENTRAL NERVOUS SYSTEM: No focal deficits. EXTREMITIES: Mild edema Results 11/05/21 06:22 11/05/21 06:22 Cardiac Enzymes 11/05/21 Range/Units 06: AST 22 (13-35) U/L CBC 11/05/21 Range/Units 06:22 WBC 2.23 L (4.50-10.00) X 10*3/uL RBC 2.36 L (4.10-5.20) X 10*6/uL Hgb 7.7 L (12.0-15.0) g/dL Hct 24.3 L (37.2-46.3) % Plt Count 80 L (140-440) X 10*3/uL Comprehensive Metabolic Panel 11/05/21 Range/Units 06:22 Sodium 141 (135-145) mmol/L Potassium 3.4 L (3.5-5.5) mmol/L Chloride 103 (96-109) mmol/L Carbon Dioxide 25.8 (20.0-27.5) mmol/L BUN 21.1 (9.0-27.0) mg/dL Creatinine 1.2 (0.6-1.5) mg/dL Glucose 96 (70-110) mg/dL Calcium 8.2 L (8.7-10.3) mg/dL AST 22 (13-35) U/L ALT 22 (8-44) U/L Alkaline Phosphatase 77 (41-126) U/L Total Protein 5.0 L (6.2-8.2) g/dL Albumin 3.3 L (3.8-4.9) g/dL Current Medications Generic Name Dose Route Start Last Admin Trade Name Freq PRN Reason Stop Dose Admin Albuterol Sulfate 2.5 mg 11/04/21 20:00 11/05/21 12:47 Albuterol Nebulized 2.5 Mg/3 Ml INHALATION 2.5 mg RT-TID BONILLA Administration Apixaban 2.5 mg 11/03/21 21:00 11/05/21 09:09 Apixaban 2.5 Mg Tablet PO 2.5 mg BID BONILLA Administration Protocol Cyanocobalamin 1,000 mcg 11/04/21 10:00 11/05/21 09:09 Cyanocobalamin 500 Mcg Tab PO 1,000 mcg DAILY BONILLA Administration Furosemide 40 mg 11/06/21 09:00 Furosemide 40 Mg Tab PO BID@0900,1600 BONILLA Piperacillin Sod/Tazobactam 100 mls @ 25 mls/hr 11/04/21 16:00 11/05/21 09:10 Sod 3.375 gm/ Sodium Chloride IVPB 25 mls/hr Q8HR BONILLA Administration Protocol Indomethacin 50 mg 11/04/21 09:58 Indomethacin 25 Mg Cap PO TID PRN Pain Levofloxacin 750 mg 11/07/21 09:00 Levofloxacin 750 Mg Tab PO 11/07/21 09:01 Q48H BONILLA Protocol Metoprolol Tartrate 12.5 mg 11/04/21 10:00 11/05/21 09:10 Metoprolol Tartrate 12.5 Mg Tab PO 12.5 mg BID BONILLA Administration Miscellaneous Information 1 each 11/03/21 20:32 Pneumonia Protocol Utilized 1 Each Misc PO ONCE PRN Per Protocol Potassium Chloride 20 meq 11/05/21 21:00 Potassium Chloride Er 20 Meq Tab.Er PO BID BONILLA Intake and Output 11/05/21 11/05/21 11/05/21 06:59 14:59 22:59 Other: Voiding Method Bedside Commode 11/05/21 06:22 11/05/21 06:22 EKG Interpretations (text) Sinus rhythm with nonspecific ST-T changes Assessment and Plan (1) Acute on chronic diastolic CHF (congestive heart failure) Current Visit: Yes Status: Acute Code(s): I50.33 - ACUTE ON CHRONIC DIASTOLIC (CONGESTIVE) HEART FAILURE SNOMED Code(s): 995671317 (2) History of DVT (deep vein thrombosis) Current Visit: Yes Status: Acute Code(s): Z86.718 - PERSONAL HISTORY OF OTHER VENOUS THROMBOSIS AND EMBOLISM SNOMED Code(s): 060595608 (3) Elevated brain natriuretic peptide (BNP) level Current Visit: No Status: Acute Code(s): R79.89 - OTHER SPECIFIED ABNORMAL FINDINGS OF BLOOD CHEMISTRY SNOMED Code(s): 075507006 (4) History of fever Current Visit: No Status: Acute Code(s): Z87.898 - PERSONAL HISTORY OF OTHER SPECIFIED CONDITIONS SNOMED Code(s): 671615185 Plan: Continue with diuretics and potassium supplement. Continue rest of the management. Further comminution depend upon the clinical course
[2021-11-05] MEDS: INDOMETHACIN 25 MG CAP PO PRN ×2 (17:38→23:57)
--- NOTE | 2021-11-05 20:26 | P.PN ---
Subjective Progress Note Date: 11/05/21 76-year-old female patient who follows with Dr. Espinoza as her primary care provider. She has a history of multiple myeloma currently in remission, and has been on Revlimid and Decadron, peripheral venous insufficiency on long-term anticoagulation with Eliquis, chronic anemia, obesity, hypertension, previous pneumonias. She has also followed up with Dr. Bowens for hypersomnia. No history of COPD. No asthma. No home oxygen. No home inhalers. She has a 1 week history of increasing shortness of breath cough congestion fever, green/yellow productive sputum. Chest x-ray reveals evidence of cardiomegaly and pulmonary vascular congestion. Suspicious for congestive heart failure. White count 3.1. Hemoglobin 9.3. Platelet count 87,000. Sodium 134. Potassium 3.8. BUN 18. Creatinine 0.89. AST 24. ALT 17. ProBNP 3390. Current virus by PCR not detected. Influenza screen negative. She is seen today in consultation on the regular medical floor. Currently sitting up in bed. Awake and alert in no acute distress. She does have some dyspnea with conversation. Dyspnea with exertion. Maintaining O2 saturations in the 90s on 2 L/m per nasal cannula. She's afebrile. Hemodynamically stable. She's been initiated on Lasix 40 mg IV every 12 hours. She is anticoagulated with Eliquis. Antibiotics in the form of Zosyn and Levaquin. Objective - Vital Signs Vital signs: Vital Signs Temp 98.5 F 11/05/21 12:28 Pulse 64 11/05/21 12:59 Resp 16 11/05/21 12:28 BP 137/78 11/05/21 12:28 Pulse Ox 94 L 11/05/21 12:28 FiO2 Intake & Output 11/04/21 11/05/21 11/05/21 18:59 06:59 18:59 Intake Total 500 240 Balance 500 240 Intake: Intake, IV Titration 100 Amount Piperacillin-Tazobactam 3 100 .375 gm In Sodium Chloride 0.9% 100 ml @ 25 mls/hr IVPB Q8HR [facility] Rx# :[id number] Oral 400 240 Other: Voiding Method Bedside Commode Bedside Commode # Voids 4 4 # Bowel Movements 1 - Exam GENERAL EXAM: Alert, 76-year-old female, on 2 L nasal cannula, fairly comfortable in no apparent distress. HEAD: Normocephalic. NECK: No masses, no JVD. CHEST: No chest wall deformity. LUNGS: Equal air entry with crackles in the bilateral bases, diminished. CVS: S1 and S2 normal with no audible murmur, regular rhythm. ABDOMEN: No hepatosplenomegaly, normal bowel sounds, no guarding or rigidity. SKIN: No rashes CENTRAL NERVOUS SYSTEM: No focal deficits, tone is normal in all 4 extremities. EXTREMITIES: There is no peripheral edema. No clubbing, no cyanosis. Peripheral pulses are intact. - Labs CBC & Chem 7: 11/05/21 06:22 11/05/21 06:22 Labs: Abnormal Lab Results - Last 24 Hours (Table) 11/04/21 11/05/21 11/05/21 Range/Units 13:58 06:22 06:22 WBC 2.23 L (4.50-10.00) X 10*3/uL RBC 2.36 L (4.10-5.20) X 10*6/uL Hgb 7.7 L (12.0-15.0) g/dL Hct 24.3 L (37.2-46.3) % MCV 103.0 H (80.0-97.0) fL MCH 32.6 H (27.0-32.0) pg MCHC 31.7 L (32.0-37.0) g/dL RDW 14.6 H (11.5-14.5) % Plt Count 80 L (140-440) X 10*3/uL Plt Count Comment DECREASED A Neutrophils # (Manual) 1.29 L (2.00-8.90) X 10*3/uL Lymphocytes # (Manual) 0.42 L (0.90-5.00) X 10*3/uL Potassium 3.4 L (3.5-5.5) mmol/L Est GFR (CKD-EPI)AfAm 51.6 L (60.0-200.0) Est GFR (CKD-EPI)NonAf 44.5 L (60.0-200.0) Calcium 8.2 L (8.7-10.3) mg/dL Iron 44 L (50-170) ug/dL TIBC 207 L (228-460) ug/dL Transferrin 148.0 L (204.0-354.0) mg/dL Ferritin 1408.0 H (10.0-291.0) ng/mL Total Protein 5.0 L (6.2-8.2) g/dL Albumin 3.3 L (3.8-4.9) g/dL Vitamin D 25-Hydroxy 18.6 L (30.0-100.0) ng/mL Procalcitonin 0.83 H (0.02-0.09) ng/mL Microbiology - Last 24 Hours (Table) 11/05/21 07:45 Sputum Culture - Preliminary Sputum 11/03/21 19:15 Blood Culture - Preliminary Blood No Growth after 24 hours 11/03/21 19:25 Blood Culture - Preliminary Blood No Growth after 24 hours Assessment and Plan Assessment: 1. Acute hypoxemic respiratory failure secondary to diastolic congestive heart failure and possible pneumonia. Pro-calcitonin 0.83. --Remains on Zosyn and Levaquin. -- Pro-calcitonin 0.83. Monitor CBC, CRP and pro-calcitonin -Titrate the FiO2 as tolerated Follow-up chest x-ray in a.m. 2. History of multiple myeloma, on Revlimid 3. Chronic venous insufficiency maintained on Eliquis 4. Morbid obesity with a BMI of 42; counseling done for need for weight reduction 5. Chronic anemia; at baseline 6. Hypertension; continue with home antihypertensive therapy
[2021-11-05] MEDS: POTASSIUM CHLORIDE ER 20 MEQ TAB.ER PO SCH (21:51)
[2021-11-06] MEDS: INDOMETHACIN 25 MG CAP PO PRN ×3 (04:54→22:01)
--- NOTE | 2021-11-06 07:15 | XR ---
EXAMINATION TYPE: XR chest 2V DATE OF EXAM: 11/06/2021 COMPARISON: 11/04/2021 HISTORY: Shortness of breath TECHNIQUE: Frontal and lateral views of the chest are obtained. FINDINGS: Scattered senescent parenchymal changes noted. Hyperinflation compatible with COPD. No evidence for infiltrate. No evidence for atelectasis. Heart size is stable. Mediastinal structures are stable and grossly unremarkable. No evidence for hilar prominence. Degenerative changes dorsal spine. IMPRESSION: 1. No evidence for acute pulmonary disease.
[2021-11-06] MEDS: ALBUTEROL NEBULIZED 2.5 MG/3 ML INHALATION SCH ×3 (07:29→19:37)
[2021-11-06] MEDS: FUROSEMIDE 40 MG TAB PO SCH ×2 (07:43→13:45)
[2021-11-06] MEDS: CYANOCOBALAMIN 500 MCG TAB PO SCH (07:43)
[2021-11-06] MEDS: METOPROLOL TARTRATE 12.5 MG TAB PO SCH ×2 (07:43→20:20)
[2021-11-06] MEDS: PIPERACILLIN-TAZOBACTAM 3.375 GM in SODIUM CHLORIDE 0.9% 100 ML IVPB SCH (07:43)
[2021-11-06] MEDS: APIXABAN 2.5 MG TABLET PO SCH ×2 (07:43→20:20)
[2021-11-06] MEDS: POTASSIUM CHLORIDE ER 20 MEQ TAB.ER PO SCH ×6 (07:44→23:06)
--- NOTE | 2021-11-06 10:56 | P.PN ---
Subjective Progress Note Date: 11/06/21 his is a 76-year-old female with history of multiple myeloma in remission and also history of DVT for which she is on anti-coagulation therapy and history of hypersomnia is admitted to the hospital with increasing shortness of breath, congestion, fever and asputum production. Chest x-ray showed evidence of cardiac megaly and pulmonary vascular congestion. ProBNP is elevated. Patient LV function is preserved with an ejection fraction of 60-65%. Her potassium is on the low side. Be in his normal creatinine is normal. Lungs show diminished air exchange. Oxygen saturation in the range of 90%. It appears that patient may have diastolic congestive heart failure along with possibility of bronchitis and pneumonia. We'll initiate her on diuretics along with potassium supplement. Continue rest of the management pulmonary consult is also requested. 11/06/2021: This patient seemed to feeling slightly better, still complaining of some cough . Has some expiratory rhonchi. Chest x-ray did not show any acute problem and this seemed to be some improvement. Lab work showed pancytopenia with a drop in hemoglobin and platelet count. Patient is anxious to go home. She is currently on Lasix 40 mg by mouth twice a day along with potassium supplement. Rectal Lites are within normal limits. Continue current medical therapy Objective - Vital Signs Vital signs: Vital Signs Temp 98.2 F 11/06/21 04:28 Pulse 62 11/06/21 07:42 Resp 18 11/06/21 04:28 BP 154/78 11/06/21 07:42 Pulse Ox 95 11/06/21 07:31 FiO2 21 11/05/21 19:02 Intake & Output 11/05/21 11/06/21 11/06/21 18:59 06:59 18:59 Intake Total 240 100 Balance 240 100 Intake: Intake, IV Titration 100 Amount Piperacillin-Tazobactam 3 100 .375 gm In Sodium Chloride 0.9% 100 ml @ 25 mls/hr IVPB Q8HR [facility] Rx# :[id number] Oral 240 Other: Voiding Method Bedside Commode Bedside Commode # Voids 4 # Bowel Movements 1 1 - Exam GENERAL EXAM: Patient is alert and oriented and doesn't appear to be in any acute distress HEENT: Normocephalic. Normal reaction of pupils, equal size, normal range of extraocular motion. No erythema or exudates in the throat. NECK: No masses, no nuchal rigidity. CHEST: No chest wall deformity. LUNGS: Expiratory rhonchi HEART: S1 and S2 normal with no audible mumurs or gallops. Regular rhythm, femorals equal on both sides.. ABDOMEN: No hepatosplenomegaly, normal bowel sounds, no guarding or rigidity. SKIN: No rashes CENTRAL NERVOUS SYSTEM: No focal deficits. EXTREMITIES: No cyanosis, clubbing or edema. - Labs CBC & Chem 7: 11/05/21 06:22 11/05/21 06:22 Labs: Abnormal Lab Results - Last 24 Hours (Table) 11/05/21 11/05/21 Range/Units 06: 06:22 WBC 2.23 L (4.50-10.00) X 10*3/uL RBC 2.36 L (4.10-5.20) X 10*6/uL Hgb 7.7 L (12.0-15.0) g/dL Hct 24.3 L (37.2-46.3) % MCV 103.0 H (80.0-97.0) fL MCH 32.6 H (27.0-32.0) pg MCHC 31.7 L (32.0-37.0) g/dL RDW 14.6 H (11.5-14.5) % Plt Count 80 L (140-440) X 10*3/uL Plt Count Comment DECREASED A Neutrophils # (Manual) 1.29 L (2.00-8.90) X 10*3/uL Lymphocytes # (Manual) 0.42 L (0.90-5.00) X 10*3/uL Potassium 3.4 L (3.5-5.5) mmol/L Est GFR (CKD-EPI)AfAm 51.6 L (60.0-200.0) Est GFR (CKD-EPI)NonAf 44.5 L (60.0-200.0) Calcium 8.2 L (8.7-10.3) mg/dL Iron 44 L (50-170) ug/dL TIBC 207 L (228-460) ug/dL Transferrin 148.0 L (204.0-354.0) mg/dL Ferritin 1408.0 H (10.0-291.0) ng/mL Total Protein 5.0 L (6.2-8.2) g/dL Albumin 3.3 L (3.8-4.9) g/dL Vitamin D 25-Hydroxy 18.6 L (30.0-100.0) ng/mL Microbiology - Last 24 Hours (Table) 11/05/21 07:45 Gram Stain - Preliminary Sputum Sputum Culture - Preliminary 11/03/21 19:25 Blood Culture - Preliminary Blood No Growth after 48 hours 11/03/21 19:15 Blood Culture - Preliminary Blood No Growth after 48 hours Assessment and Plan (1) Acute on chronic diastolic CHF (congestive heart failure) Current Visit: Yes Status: Acute Code(s): I50.33 - ACUTE ON CHRONIC DIASTOLIC (CONGESTIVE) HEART FAILURE SNOMED Code(s): 115073326 (2) History of DVT (deep vein thrombosis) Current Visit: Yes Status: Acute Code(s): Z86.718 - PERSONAL HISTORY OF OTHER VENOUS THROMBOSIS AND EMBOLISM SNOMED Code(s): 034912113 (3) Elevated brain natriuretic peptide (BNP) level Current Visit: No Status: Acute Code(s): R79.89 - OTHER SPECIFIED ABNORMAL FINDINGS OF BLOOD CHEMISTRY SNOMED Code(s): 772563374 (4) History of fever Current Visit: No Status: Acute Code(s): Z87.898 - PERSONAL HISTORY OF OTHER SPECIFIED CONDITIONS SNOMED Code(s): 261540439 Plan: Patient seemed to feeling better. Complaining some cough and still has some expiratory rhonchi. Chest x-ray showed improvement. Lab values showed pancytopenia. Continue current medical therapy. Oncology follow-up
[2021-11-06 11:10] LABS: HCT 25.6 % (37.2-46.3); HGB 8.3 g/dL (12.0-15.0); MCH 32.8 pg (27.0-32.0); MCHC 32.4 g/dL (32.0-37.0); MCV 101.2 fL (80.0-97.0); Mean Platelet Volume 11.7 fL (9.5-12.2); NRBC Per 100 WBC 0 /100 WBCS (0.0-0.0); Platelet Count 84 X 10*3/uL (140-440); RBC 2.53 X 10*6/uL (4.10-5.20); RDW 14.3 % (11.5-14.5); WBC 2.73 X 10*3/uL (4.50-10.00)
--- NOTE | 2021-11-06 11:14 | P.PN ---
Subjective Progress Note Date: 11/06/21 This is a very pleasant 76-year-old female patient who follows with Dr. Espinoza as her primary care provider. She has a history of multiple myeloma currently in remission, and has been on Revlimid and Decadron, peripheral venous insufficiency on long-term anticoagulation with Eliquis, chronic anemia, obesi ty, hypertension, previous pneumonias. She has also followed up with Dr. Bowens for hypersomnia. No history of COPD. No asthma. No home oxygen. No home inhalers. She has a 1 week history of increasing shortness of breath cough congestion fever, green/yellow productive sputum. Chest x-ray reveals evidence of cardiomegaly and pulmonary vascular congestion. Suspicious for congestive heart failure. White count 3.1. Hemoglobin 9.3. Platelet count 87,000. Sodium 134. Potassium 3.8. BUN 18. Creatinine 0.89. AST 24. ALT 17. ProBNP 3390. Current virus by PCR not detected. Influenza screen negative. She is seen today in consultation on the regular medical floor. Currently sitting up in bed. Awake and alert in no acute distress. She does have some dyspnea with conversation. Dyspnea with exertion. Maintaining O2 saturations in the 90s on 2 L/m per nasal cannula. She's afebrile. Hemodynamically stable. She's been initiated on Lasix 40 mg IV every 12 hours. She is anticoagulated with Eliquis. Antibiotics in the form of Zosyn and Levaquin. Follow-up chest x-ray pending. The patient is seen today 11/05/2021 in follow-up on the regular medical floor. She is doing better. She's been up in the shower. She is maintaining good O2 saturations in the upper 90s on 2 L/m per nasal cannula. Afebrile. Hemodynamically stable. Follow up chest x-ray was showing improved aeration. The cultures reveal no growth. No new labs today. She is continued on Levaquin and Zosyn. Anticoagulated with Eliquis. She is seen today 11/07/1999 follow-up on the regular medical floor. She is resting comfortably in bed. No worsening shortness of breath, cough or congestion. Maintaining O2 saturations in the mid 90s on room air. She's afebrile. Hemodynamically stable. Follow-up chest x-ray revealed no acute pulmonary process. Blood cultures revealed no growth. Sputum culture reveals no growth. White count 2.7. Hemoglobin 8.3. Platelets 84,000. She is continued on Levaquin. Anti-coagulated with Eliquis. Albuterol nebulized treatments. Objective - Vital Signs Vital signs: Vital Signs Temp 98.2 F 11/06/21 04:28 Pulse 62 11/06/21 07:42 Resp 18 11/06/21 04:28 BP 154/78 11/06/21 07:42 Pulse Ox 95 11/06/21 07:31 FiO2 21 11/05/21 19:02 Intake & Output 11/05/21 11/06/21 11/06/21 18:59 06:59 18:59 Intake Total 240 100 Balance 240 100 Intake: Intake, IV Titration 100 Amount Piperacillin-Tazobactam 3 100 .375 gm In Sodium Chloride 0.9% 100 ml @ 25 mls/hr IVPB Q8HR [facility] Rx# :[id number] Oral 240 Other: Voiding Method Bedside Commode Bedside Commode # Voids 4 # Bowel Movements 1 1 - Exam GENERAL EXAM: Alert, 76-year-old female, on room air, fairly comfortable in no apparent distress. HEAD: Normocephalic. EYES: Normal reaction of pupils, equal size. NOSE: Clear with pink turbinates. THROAT: No erythema or exudates. NECK: No masses, no JVD. CHEST: No chest wall deformity. LUNGS: Equal air entry with crackles in the bilateral bases, diminished. CVS: S1 and S2 normal with no audible murmur, regular rhythm. ABDOMEN: No hepatosplenomegaly, normal bowel sounds, no guarding or rigidity. SPINE: No scoliosis or deformity SKIN: No rashes CENTRAL NERVOUS SYSTEM: No focal deficits, tone is normal in all 4 extremities. EXTREMITIES: There is no peripheral edema. No clubbing, no cyanosis. Peripheral pulses are intact. - Labs CBC & Chem 7: 11/05/21 06:22 11/05/21 06:22 Labs: Abnormal Lab Results - Last 24 Hours (Table) 11/05/21 11/05/21 Range/Units 06: 06:22 WBC 2.23 L (4.50-10.00) X 10*3/uL RBC 2.36 L (4.10-5.20) X 10*6/uL Hgb 7.7 L (12.0-15.0) g/dL Hct 24.3 L (37.2-46.3) % MCV 103.0 H (80.0-97.0) fL MCH 32.6 H (27.0-32.0) pg MCHC 31.7 L (32.0-37.0) g/dL RDW 14.6 H (11.5-14.5) % Plt Count 80 L (140-440) X 10*3/uL Plt Count Comment DECREASED A Neutrophils # (Manual) 1.29 L (2.00-8.90) X 10*3/uL Lymphocytes # (Manual) 0.42 L (0.90-5.00) X 10*3/uL Potassium 3.4 L (3.5-5.5) mmol/L Est GFR (CKD-EPI)AfAm 51.6 L (60.0-200.0) Est GFR (CKD-EPI)NonAf 44.5 L (60.0-200.0) Calcium 8.2 L (8.7-10.3) mg/dL Iron 44 L (50-170) ug/dL TIBC 207 L (228-460) ug/dL Transferrin 148.0 L (204.0-354.0) mg/dL Ferritin 1408.0 H (10.0-291.0) ng/mL Total Protein 5.0 L (6.2-8.2) g/dL Albumin 3.3 L (3.8-4.9) g/dL Vitamin D 25-Hydroxy 18.6 L (30.0-100.0) ng/mL Microbiology - Last 24 Hours (Table) 11/05/21 07:45 Gram Stain - Preliminary Sputum Sputum Culture - Preliminary 11/03/21 19:25 Blood Culture - Preliminary Blood No Growth after 48 hours 11/03/21 19:15 Blood Culture - Preliminary Blood No Growth after 48 hours Assessment and Plan Assessment: Acute hypoxemic respiratory failure secondary to diastolic congestive heart failure and possible pneumonia. Pro-calcitonin 0.83. Remains on Levaquin. Follow-up chest x-ray reveals no acute pulmonary process. History of multiple myeloma, on Revlimid Chronic venous insufficiency maintained on Eliquis Morbid obesity with a BMI of 42 g per metered squared Chronic anemia Hypertension Plan: The patient was seen and evaluated Chest x-ray, labs and medications reviewed Discontinue Zosyn Continue Levaquin Cleared for discharge from the pulmonary standpoint Follow-up in the office in 1-2 weeks' I have personally seen and examined the patient, performed the documentation and the assessment and plan as written. Number of minutes spent on the visit: 10.
[2021-11-06 16:01] LABS: ALT 24 U/L (4-34); AST 26 U/L (14-36); African American GFR (CKD) 51 (>60 ml/min/1.73 sqM); Albumin/Globulin Ratio 1.4; Alkaline Phosphatase 85 U/L (38-126); Anion Gap 7 mmol/L; Blood Urea Nitrogen 19 mg/dL (7-17); Carbon Dioxide 28 mmol/L (22-30); Chloride 102 mmol/L (98-107); Globulin 2.1 g/dL; Glucose 162 mg/dL (74-99); Non-African American GFR(CKD) 44 (>60 ml/min/1.73 sqM); Potassium 2.9 mmol/L (3.5-5.1); Sodium 137 mmol/L (137-145); Total Bilirubin 1.2 mg/dL (0.2-1.3); Total Protein 5.1 g/dL (6.3-8.2)
[2021-11-06] MEDS ORDERED: Potassium Replacement Protocol 1 EACH MISC MISCELLANE PRN (16:33)
--- NOTE | 2021-11-06 17:32 | P.PN ---
Subjective Progress Note Date: 11/06/21 Principal diagnosis: Acute hypoxemic respiratory failure secondary to diastolic congestive heart failure and possible pneumonia Chronic venous insufficiency maintained on Eliquis 76-year-old female patient who follows with Dr. Espinoza as her primary care anaya middleton. She has a history of multiple myeloma currently in remission, and has been on Revlimid and Decadron, peripheral venous insufficiency on long-term anticoagulation with Eliquis, chronic anemia, obesity, hypertension, previous pneumonias. She has also followed up with Dr. Bowens for hypersomnia. No history of COPD. No asthma. No home oxygen. No home inhalers. She has a 1 week history of increasing shortness of breath cough congestion fever, green/yellow productive sputum. Chest x-ray reveals evidence of cardiomegaly and pulmonary vascular congestion. Suspicious for congestive heart failure. White count 3.1. Hemoglobin 9.3. Platelet count 87,000. Sodium 134. Potassium 3.8. BUN 18. Creatinine 0.89. AST 24. ALT 17. ProBNP 3390. Current virus by PCR not detected. Influenza screen negative. She is seen today in consultation on the regular medical floor. Currently sitting up in bed. Awake and alert in no acute distress. She does have some dyspnea with conversation. Dyspnea with exertion. Maintaining O2 saturations in the 90s on 2 L/m per nasal cannula. She's afebrile. Hemodynamically stable. She's been initiated on Lasix 40 mg IV every 12 hours. She is anticoagulated with Eliquis. Antibiotics in the form of Zosyn and Levaquin. 11/06/2021 Patient is seen and evaluated the room at bedside; report some improvement in breathing Vital signs are reviewed and reveal temperature 98.2, pulse 62, respiration 18 and blood pressure 154/78 and O2 saturation of 95% on an FiO2 of 21 Chest x-ray was completed and reveals some improvement in pulmonary vascular congestion Lab review shows WBC of 2.73, hemoglobin of 8.3 and platelet count of 84; sodium 137, potassium 2.9, BUN/creatinine of 19/1.1 We will consult hematology for pancytopenia with further drop in hemoglobin and platelet count; patient is receiving IV KCl with plans to repeat potassium levels once infusion is completed Cardiology recommending to continue with Lasix 40 mg twice a day with potassium supplement Patient has been cleared by pulmonary service for discharge once cleared by other consultants Objective - Vital Signs Vital signs: Vital Signs Temp 98.6 F 11/06/21 13:29 Pulse 73 11/06/21 13:29 Resp 18 11/06/21 13:29 BP 145/68 11/06/21 13:29 Pulse Ox 95 11/06/21 13:29 FiO2 21 11/05/21 19:02 Intake & Output 11/05/21 11/06/21 11/06/21 18:59 06:59 18:59 Intake Total 240 100 360 Balance 240 100 360 Intake: Intake, IV Titration 100 Amount Piperacillin-Tazobactam 3 100 .375 gm In Sodium Chloride 0.9% 100 ml @ 25 mls/hr IVPB Q8HR [facility] Rx# :[id number] Oral 240 360 Other: Voiding Method Bedside Commode Bedside Commode Bedside Commode # Voids 4 4 # Bowel Movements 1 1 1 - Exam GENERAL EXAM: Alert, 76-year-old female, on 2 L nasal cannula, fairly comfortable in no apparent distress. HEAD: Normocephalic. NECK: No masses, no JVD. CHEST: No chest wall deformity. LUNGS: Equal air entry with crackles in the bilateral bases, diminished. CVS: S1 and S2 normal with no audible murmur, regular rhythm. ABDOMEN: No hepatosplenomegaly, normal bowel sounds, no guarding or rigidity. SKIN: No rashes CENTRAL NERVOUS SYSTEM: No focal deficits, tone is normal in all 4 extremities. EXTREMITIES: There is no peripheral edema. No clubbing, no cyanosis. Peripheral pulses are intact. - Labs CBC & Chem 7: 11/06/21 06:42 11/06/21 15:03 Labs: Abnormal Lab Results - Last 24 Hours (Table) 11/06/21 11/06/21 11/06/21 Range/Units 06:42 06:42 15:03 WBC 2.73 L (4.50-10.00) X 10*3/uL RBC 2.53 L (4.10-5.20) X 10*6/uL Hgb 8.3 L (12.0-15.0) g/dL Hct 25.6 L (37.2-46.3) % MCV 101.2 H (80.0-97.0) fL MCH 32.8 H (27.0-32.0) pg Plt Count 84 L (140-440) X 10*3/uL Potassium 2.9 L (3.5-5.1) mmol/L BUN 19 H (7-17) mg/dL Creatinine 1.21 H (0.52-1.04) mg/dL Glucose 162 H (74-99) mg/dL Calcium 8.0 L (8.4-10.2) mg/dL C-Reactive Protein 12.60 H (0.00-0.80) mg/dL Total Protein 5.1 L (6.3-8.2) g/dL Albumin 3.0 L (3.5-5.0) g/dL Microbiology - Last 24 Hours (Table) 11/05/21 07:45 Gram Stain - Preliminary Sputum Sputum Culture - Preliminary 11/03/21 19:25 Blood Culture - Preliminary Blood No Growth after 48 hours 11/03/21 19:15 Blood Culture - Preliminary Blood No Growth after 48 hours Assessment and Plan Assessment: 1. Acute hypoxemic respiratory failure secondary to diastolic congestive heart failure and possible pneumonia. Pro-calcitonin 0.83. --Remains on Zosyn and Levaquin. -- Pro-calcitonin 0.83. Monitor CBC, CRP and pro-calcitonin -Titrate the FiO2 as tolerated Follow-up chest x-ray in a.m. 2. History of multiple myeloma, on Revlimid 3. Chronic venous insufficiency maintained on Eliquis 4. Morbid obesity with a BMI of 42; counseling done for need for weight reduction 5. Chronic anemia; at baseline 6. Hypertension; continue with home antihypertensive therapy
[2021-11-06 22:17] VITALS: RESP 16
[2021-11-07] MEDS: POTASSIUM CHLORIDE ER 20 MEQ TAB.ER PO SCH ×2 (00:49→09:06)
[2021-11-07] MEDS: INDOMETHACIN 25 MG CAP PO PRN (00:49)
[2021-11-07] MEDS: ALBUTEROL NEBULIZED 2.5 MG/3 ML INHALATION SCH ×2 (07:18→12:14)
[2021-11-07] MEDS ORDERED: LEVOFLOXACIN 750 MG TAB PO SCH (09:00)
[2021-11-07] MEDS: FUROSEMIDE 40 MG TAB PO SCH (09:06)
[2021-11-07] MEDS: METOPROLOL TARTRATE 12.5 MG TAB PO SCH (09:06)
[2021-11-07] MEDS: CYANOCOBALAMIN 500 MCG TAB PO SCH (09:06)
[2021-11-07] MEDS: APIXABAN 2.5 MG TABLET PO SCH (09:06)
[2021-11-07 09:29] LABS: African American GFR (CKD) 46.8 (60.0-200.0); Anion Gap 9.6 mmol/L (10.00-18.00); Blood Urea Nitrogen 18.2 mg/dL (9.0-27.0); Calcium 8.2 mg/dL (8.7-10.3); Carbon Dioxide 25.4 mmol/L (20.0-27.5); Non-African American GFR(CKD) 40.4 (60.0-200.0); Potassium 4.1 mmol/L (3.5-5.5)
--- NOTE | 2021-11-07 10:37 | P.PN ---
Subjective Progress Note Date: 11/07/21 HISTORY OF PRESENT ILLNESS: This a 76-year-old female who does not follow with a nursery worker. Patient is admitted to the hospital secondary to congestive heart failure and pneumonia. Patient examined this morning. Patient is sitting up in the Center the bed eating breakfast. Patient currently denies chest pain or pressure. She denies shortness of breath. She reports a productive cough this morning. She has been transitioned to oral Lasix. Echocardiogram completed revealing ejection fraction 60-65%. PHYSICAL EXAM: VITAL SIGNS: Reviewed. GENERAL: Well-developed in no acute distress. NECK: Supple. No JVD or thyromegaly LUNGS: Respirations even and unlabored. Lungs with rhonchi noted. HEART: Regular rate and rhythm. S1 and S2 heard. EXTREMITIES: Normal range of motion. No clubbing or cyanosis. Peripheral pulses intact. No lower extremity edema ASSESSMENT: Acute hypoxic respiratory failure Pneumonia Acute on chronic congestive heart failure with preserved ejection fraction History of DVT, maintained on anticoagulation Hypokalemia PLAN: Continue current cardiac medications Patient is stable from a cardiac standpoint She is to follow up on an outpatient basis Nurse practitioner note has been reviewed by physician. Signing provider agrees with the documented findings, assessment, and plan of care. Objective - Vital Signs Vital signs: Vital Signs Temp 98.1 F 11/07/21 05:00 Pulse 68 11/07/21 07:33 Resp 16 11/07/21 05:00 BP 145/74 11/07/21 05:00 Pulse Ox 96 11/07/21 05:00 FiO2 21 11/06/21 19:38 Intake & Output 11/06/21 11/07/21 11/07/21 18:59 06:59 18:59 Intake Total 360 Balance 360 Intake: Oral 360 Other: Voiding Method Bedside Commode Bedside Commode # Voids 4 3 # Bowel Movements 1 - Labs CBC & Chem 7: 11/06/21 06:42 11/07/21 05:45 Labs: Abnormal Lab Results - Last 24 Hours (Table) 11/06/21 11/06/21 11/06/21 Range/Units 06:42 06:42 15:03 WBC 2.73 L (4.50-10.00) X 10*3/uL RBC 2.53 L (4.10-5.20) X 10*6/uL Hgb 8.3 L (12.0-15.0) g/dL Hct 25.6 L (37.2-46.3) % MCV 101.2 H (80.0-97.0) fL MCH 32.8 H (27.0-32.0) pg Plt Count 84 L (140-440) X 10*3/uL Potassium 2.9 L (3.5-5.1) mmol/L Anion Gap (10.00-18.00) mmol/L BUN 19 H (7-17) mg/dL Creatinine 1.21 H (0.52-1.04) mg/dL Est GFR (CKD-EPI)AfAm (60.0-200.0) Est GFR (CKD-EPI)NonAf (60.0-200.0) Glucose 162 H (74-99) mg/dL Calcium 8.0 L (8.4-10.2) mg/dL C-Reactive Protein 12.60 H (0.00-0.80) mg/dL Total Protein 5.1 L (6.3-8.2) g/dL Albumin 3.0 L (3.5-5.0) g/dL 11/06/21 11/07/21 Range/Units 21:51 05:45 WBC (4.50-10.00) X 10*3/uL RBC (4.10-5.20) X 10*6/uL Hgb (12.0-15.0) g/dL Hct (37.2-46.3) % MCV (80.0-97.0) fL MCH (27.0-32.0) pg Plt Count (140-440) X 10*3/uL Potassium 3.3 L (3.5-5.1) mmol/L Anion Gap 9.60 L (10.00-18.00) mmol/L BUN (7-17) mg/dL Creatinine (0.52-1.04) mg/dL Est GFR (CKD-EPI)AfAm 46.8 L (60.0-200.0) Est GFR (CKD-EPI)NonAf 40.4 L (60.0-200.0) Glucose 128 H (74-99) mg/dL Calcium 8.2 L (8.4-10.2) mg/dL C-Reactive Protein (0.00-0.80) mg/dL Total Protein (6.3-8.2) g/dL Albumin (3.5-5.0) g/dL Microbiology - Last 24 Hours (Table) 11/05/21 07:45 Gram Stain - Final Sputum Sputum Culture - Final 11/03/21 19:25 Blood Culture - Preliminary Blood No Growth after 72 hours 11/03/21 19:15 Blood Culture - Preliminary Blood No Growth after 72 hours
[2021-11-07 11:37] VITALS: BP 147/77; TEMP 97.9
[2021-11-07 12:25] VITALS: PULSE 68
--- NOTE | 2021-11-07 15:57 | P.PN ---
Subjective Progress Note Date: 11/07/21 This is a very pleasant 76-year-old female patient who follows with Dr. Espinoza as her primary care provider. She has a history of multiple myeloma currently in remission, and has been on Revlimid and Decadron, peripheral venous insufficiency on long-term anticoagulation with Eliquis, chronic anemia, obes ity, hypertension, previous pneumonias. She has also followed up with Dr. Bowens for hypersomnia. No history of COPD. No asthma. No home oxygen. No home inhalers. She has a 1 week history of increasing shortness of breath cough congestion fever, green/yellow productive sputum. Chest x-ray reveals evidence of cardiomegaly and pulmonary vascular congestion. Suspicious for congestive heart failure. White count 3.1. Hemoglobin 9.3. Platelet count 87,000. Sodium 134. Potassium 3.8. BUN 18. Creatinine 0.89. AST 24. ALT 17. ProBNP 3390. Current virus by PCR not detected. Influenza screen negative. She is seen today in consultation on the regular medical floor. Currently sitting up in bed. Awake and alert in no acute distress. She does have some dyspnea with conversation. Dyspnea with exertion. Maintaining O2 saturations in the 90s on 2 L/m per nasal cannula. She's afebrile. Hemodynamically stable. She's been initiated on Lasix 40 mg IV every 12 hours. She is anticoagulated with Eliquis. Antibiotics in the form of Zosyn and Levaquin. Follow-up chest x-ray pending. The patient is seen today 11/05/2021 in follow-up on the regular medical floor. She is doing better. She's been up in the shower. She is maintaining good O2 saturations in the upper 90s on 2 L/m per nasal cannula. Afebrile. Hemodynamically stable. Follow up chest x-ray was showing improved aeration. The cultures reveal no growth. No new labs today. She is continued on Levaquin and Zosyn. Anticoagulated with Eliquis. She is seen today 11/07/1999 follow-up on the regular medical floor. She is resting comfortably in bed. No worsening shortness of breath, cough or congestion. Maintaining O2 saturations in the mid 90s on room air. She's afebrile. Hemodynamically stable. Follow-up chest x-ray revealed no acute pulmonary process. Blood cultures revealed no growth. Sputum culture reveals no growth. White count 2.7. Hemoglobin 8.3. Platelets 84,000. She is continued on Levaquin. Anti-coagulated with Eliquis. Albuterol nebulized treatments. 11/07/2021, the patient is clinically stable on room air oxygen. The patient remains on oral diuretics.no major edema in lower extremities. The patient is on Lasix 40 mg twice a day. No nausea. No vomiting. No chest pain. The patient has history ofacute hypoxic respiratory failure secondary to diastolic heart failure which improved and the patient had a follow-up chest x-ray revealing no acute abnormalities. She has history of multiple myeloma and she is maintained on Revlimid. No other complaints otherwise for now. Objective - Vital Signs Vital signs: Vital Signs Temp 97.9 F 11/07/21 11:18 Pulse 68 11/07/21 12:25 Resp 16 11/07/21 11:18 BP 147/77 11/07/21 11:18 Pulse Ox 99 11/07/21 11:18 FiO2 21 11/06/21 19:38 Intake & Output 11/06/21 11/07/21 11/07/21 18:59 06:59 18:59 Intake Total 360 Balance 360 Intake: Oral 360 Other: Voiding Method Bedside Commode Bedside Commode # Voids 4 3 # Bowel Movements 1 - Exam GENERAL EXAM: Alert, 76-year-old female, on room air, fairly comfortable in no apparent distress.the patient is currently on room air oxygen and her breathing is nonlabored at this point in time. HEAD: Normocephalic. EYES: Normal reaction of pupils, equal size. NOSE: Clear with pink turbinates. THROAT: No erythema or exudates. NECK: No masses, no JVD. CHEST: No chest wall deformity. LUNGS: Equal air entry with crackles in the bilateral bases, diminished. CVS: S1 and S2 normal with no audible murmur, regular rhythm. ABDOMEN: No hepatosplenomegaly, normal bowel sounds, no guarding or rigidity. SPINE: No scoliosis or deformity SKIN: No rashes CENTRAL NERVOUS SYSTEM: No focal deficits, tone is normal in all 4 extremities. EXTREMITIES: There is no peripheral edema. No clubbing, no cyanosis. Peripheral pulses are intact. - Labs CBC & Chem 7: 11/06/21 06:42 11/07/21 05:45 Labs: Abnormal Lab Results - Last 24 Hours (Table) 11/06/21 11/06/21 11/07/21 Range/Units 15:03 21:51 05:45 Potassium 2.9 L 3.3 L (3.5-5.1) mmol/L Anion Gap 9.60 L (10.00-18.00) mmol/L BUN 19 H (7-17) mg/dL Creatinine 1.21 H (0.52-1.04) mg/dL Est GFR (CKD-EPI)AfAm 46.8 L (60.0-200.0) Est GFR (CKD-EPI)NonAf 40.4 L (60.0-200.0) Glucose 162 H 128 H (74-99) mg/dL Calcium 8.0 L 8.2 L (8.4-10.2) mg/dL Total Protein 5.1 L (6.3-8.2) g/dL Albumin 3.0 L (3.5-5.0) g/dL Microbiology - Last 24 Hours (Table) 11/05/21 07:45 Gram Stain - Final Sputum Sputum Culture - Final 11/03/21 19:25 Blood Culture - Preliminary Blood No Growth after 72 hours 11/03/21 19:15 Blood Culture - Preliminary Blood No Growth after 72 hours Assessment and Plan Plan: Acute hypoxemic respiratory failure secondary to diastolic congestive heart failure and possible pneumonia. Pro-calcitonin 0.83. Remains on Levaquin. Follow-up chest x-ray reveals no acute pulmonary process. History of multiple myeloma, on Revlimid Chronic venous insufficiency maintained on Eliquis Morbid obesity with a BMI of 42 g per metered squared Chronic anemia Hypertension Plan: patient is on room air oxygen No significant respiratory distress Completed the course of Levaquin Continue oral Lasix maintained on long-term and to coagulation with Eliquis Creatinine stable at 1.3 and the rest of the electrodes are stable Discharge from medicine
--- NOTE | 2021-11-07 17:18 | P.PN ---
Subjective Progress Note Date: 11/07/21 Principal diagnosis: Febrile, MM In f/u today pt feels well, she is trying to manage "fever blisters" on her lips, she is tolerating oral intake, no other c/o, she is ambulatory, denies bleeding. Objective - Vital Signs Vital signs: Vital Signs Temp 97.9 F 11/07/21 11:18 Pulse 68 11/07/21 12:25 Resp 16 11/07/21 11:18 BP 147/77 11/07/21 11:18 Pulse Ox 99 11/07/21 11:18 FiO2 21 11/06/21 19:38 Intake & Output 11/06/21 11/07/21 11/07/21 18:59 06:59 18:59 Intake Total 360 Balance 360 Intake: Oral 360 Other: Voiding Method Bedside Commode Bedside Commode # Voids 4 3 # Bowel Movements 1 - Constitutional General appearance: Present: cooperative, no acute distress, obese - EENT EENT Comment(s): lips have multiple dry patches, raw areas Eyes: Present: anicteric sclerae, EOMI ENT: Present: hearing grossly normal, normal oropharynx - Respiratory Respiratory: bilateral: CTA - Cardiovascular Rhythm: regular Heart sounds: normal: S1, S2 Abnormal Heart Sounds: Absent: systolic murmur, diastolic murmur, rub, S3 Gallop, S4 Gallop, click, other - Peripheral edema leg Peripheral Edema: bilateral: Trace - Gastrointestinal General gastrointestinal: Present: normal bowel sounds, soft - Integumentary Integumentary Comment(s): under rt eye skin is dry, scabbed - Neurologic Neurologic: Present: CNII-XII intact - Musculoskeletal Musculoskeletal: Present: strength equal bilaterally - Psychiatric Psychiatric: Present: A&O x's 3, appropriate affect, intact judgment & insight - Labs CBC & Chem 7: 11/06/21 06:42 11/07/21 05:45 Labs: Abnormal Lab Results - Last 24 Hours (Table) 11/06/21 11/07/21 Range/Units 21:51 05:45 Potassium 3.3 L (3.5-5.1) mmol/L Anion Gap 9.60 L (10.00-18.00) mmol/L Est GFR (CKD-EPI)AfAm 46.8 L (60.0-200.0) Est GFR (CKD-EPI)NonAf 40.4 L (60.0-200.0) Glucose 128 H (70-110) mg/dL Calcium 8.2 L (8.7-10.3) mg/dL Microbiology - Last 24 Hours (Table) 11/05/21 07:45 Gram Stain - Final Sputum Sputum Culture - Final 11/03/21 19:25 Blood Culture - Preliminary Blood No Growth after 72 hours 11/03/21 19:15 Blood Culture - Preliminary Blood No Growth after 72 hours Assessment and Plan (1) Dyspnea and respiratory abnormalities Status: Acute Priority: High Code(s): R06.00 - DYSPNEA, UNSPECIFIED; R06.89 - OTHER ABNORMALITIES OF BREATHING SNOMED Code(s): 794243456 (2) Multiple myeloma Status: Chronic Priority: Medium Code(s): C90.00 - MULTIPLE MYELOMA NOT HAVING ACHIEVED REMISSION SNOMED Code(s): 414270245 (3) Pancytopenia Status: Acute Priority: High Code(s): D61.818 - OTHER PANCYTOPENIA SNOMED Code(s): 244296677 Plan: Pt has recovered from her admitting c/o, treated by IM, Cardiology and Pulmonary Pt is to hold her revlimid until she has completed abx. She has f/u with Dr. Moncada early Dec. Pancytopenia is multifactorial including MM, treatment of myeloma and acute infection. Her counts are not normal but stable, her baseline is just a little higher. Anticipate recovery as pt condition improves. Revlimid held for now.
--- NOTE | 2021-11-08 10:45 | P.DS ---
Providers Date of admission: 11/03/21 20:29 Expected date of discharge: 11/07/21 Attending physician: Selvin Khan Consults: 11/04/21 12:47 Consult Physician Routine Consulting Provider: Philip Bowens Consult Reason/Comments: pneumonia Do you want consulting provider notified?: Yes 11/04/21 12:52 Consult Physician Routine Consulting Provider: Jet Moncada Consult Reason/Comments: multiple myeloma Do you want consulting provider notified?: Yes 11/04/21 12:53 Consult Physician Routine Consulting Provider: Parmjit Watts Consult Reason/Comments: poss chf Do you want consulting provider notified?: Yes Primary care physician: Fermín Chris [facility] Hospital Course: Final diagnosis Acute hypoxemic respiratory failure secondary to diastolic CHF with acute exacerbation and possible pneumonia Chronic venous insufficiency History of multiple myeloma Morbid obesity with a body mass index of 42 Chronic anemia Hypertension GI prophylaxis DVT prophylaxis Full code Discharge disposition Patient is being discharged in a stable condition with guarded prognosis to home. Patient will follow-up with Dr. Massiel Chris in the outpatient setting upon discharge. Patient is to also follow-up with pulmonary and cardiology. Recommend repeat labs and patient will continue on Lasix 40 mg twice a day along with a short course of Levaquin 750 mg every 48 hours for the next 3 days to complete the course. Total time taken is greater than 35 minutes. Hospital course This is a 76-year-old female This is a 65-year-old male who was recently admitted who was recently admitted with acute hypoxemic respiratory failure secondary to diastolic CHF with acute exacerbation and possible pneumonia. Patient was having worsening shortness of breath with congestion and fever and phlegm production. Patient also has a history of multiple myeloma and follows with hematology/oncology in the outpatient setting. Patient was seen and evaluated by cardiology and pulmonary and recommending outpatient follow-up. Patient's BNP originally was 3390. Patient will be continued on Lasix 40 mg twice daily and recommend repeat labs in the next 2-3 days to monitor kidney functions and electrolytes. Encourage the patient to continue to elevate lower extremities while at rest. Patient is eager to go home and oxygen saturation is 99% on room air. Currently no reports of chest pain, shortness of breath, or palpitations. Patient is afebrile. No reports of nausea or vomiting and patient is tolerating diet. Patient will be discharged home today. Guarded prognosis. On exam vital signs are stable. Cardio S1, S2 are muffled. Respiratory system shows diminished breath sounds at the bases with no wheezing or rhonchi noted. Abdomen is soft and obese, and nontender. Nervous system shows no focal deficits. Please refer to medication reconciliation sheet for a list of medications. The impression and plan of care has been dictated by Tyra Crowley, Nurse Practitioner as directed. Dr. Alfred MD I have performed a history and examination and MDM of this patient, discussed the same with the dictator, and agree with the dictator's assessment and plan as written ,documented as a scribe. Based on total visit time, I have performed more than 50% of the visit. Patient Condition at Discharge: Stable Plan - Discharge Summary Discharge Rx Participant: Yes New Discharge Prescriptions: New Potassium Chloride ER [K-Dur 20] 20 meq PO BID 30 Days #60 tab Furosemide [Lasix] 40 mg PO BID@0900,1600 30 Days #60 tab Levofloxacin [Levaquin] 750 mg PO Q48H 3 Days #3 tab Albuterol Inhaler [Ventolin Hfa Inhaler] 2 puff INHALATION RT-Q6H PRN 30 Days #1 each PRN Reason: Shortness Of Breath Metoprolol Tartrate [Lopressor] 12.5 mg PO BID 30 Days #60 tab Continue Apixaban [Eliquis] 2.5 mg PO BID Cyanocobalamin (Vitamin B-12) [Vitamin B-12] 1,000 mcg PO DAILY Lenalidomide [Revlimid] 10 mg PO DIRECTED Indomethacin [Indocin] 50 mg PO TID PRN PRN Reason: Pain L.acidoph,Paracasei, B.lactis [Probiotic] 1 cap PO DAILY Clotrimazole/Betameth Cream [Lotrisone] 1 applic TOPICAL BID PRN PRN Reason: Rash Discontinued atenoloL [Tenormin] 50 mg PO DAILY Furosemide [Lasix] 40 mg PO DAILY Discharge Medication List Apixaban [Eliquis] 2.5 mg PO BID 06/28/18 [History] Cyanocobalamin (Vitamin B-12) [Vitamin B-12] 1,000 mcg PO DAILY 12/02/18 [History] Lenalidomide [Revlimid] 10 mg PO DIRECTED 12/02/18 [History] L.acidoph,Paracasei, B.lactis [Probiotic] 1 cap PO DAILY 10/07/20 [History] Clotrimazole/Betameth Cream [Lotrisone] 1 applic TOPICAL BID PRN 11/03/21 [History] Indomethacin [Indocin] 50 mg PO TID PRN 11/03/21 [History] Albuterol Inhaler [Ventolin Hfa Inhaler] 2 puff INHALATION RT-Q6H PRN 30 Days #1 each 11/07/21 [Rx] Furosemide [Lasix] 40 mg PO BID@0900,1600 30 Days #60 tab 11/07/21 [Rx] Levofloxacin [Levaquin] 750 mg PO Q48H 3 Days #3 tab 11/07/21 [Rx] Metoprolol Tartrate [Lopressor] 12.5 mg PO BID 30 Days #60 tab 11/07/21 [Rx] Potassium Chloride ER [K-Dur 20] 20 meq PO BID 30 Days #60 tab 11/07/21 [Rx] Follow up Appointment(s)/Referral(s): Fermín Chris MD [Primary Care Provider] - 11/21/21 10:30 am () Angel Llanes DO [Doctor of Osteopathic Medicine] - 12/05/21 1:30 pm Nikolay Lang MD [STAFF PHYSICIAN] - 1 Week (The office will call you with an appointment time and date .) Ambulatory/Diagnostic Orders: Complete Blood Count w/diff [LAB.AMB] Time Frame: 3 Days, Location: None Selected Patient Instructions/Handouts: Metoprolol (By mouth), Furosemide (By mouth), Albuterol (By breathing), Potassium Chloride (By mouth), Levofloxacin (By mouth), Heart Failure (DC), Thrombocytopenia (DC) Activity/Diet/Wound Care/Special Instructions: Activity Limited until follow-up Follow-up with primary care provider on discharge Follow-up pulmonary outpatient Follow-up cardiology outpatient Continue taking medications as prescribed Continue to elevate lower extremities while at rest and/or use compression stockings or Toni wraps to lower extremities from the toes up to the knees Recommend repeat labs in 2-3 days to monitor kidney function and electrolytes Discharge Disposition: HOME SELF-CARE
== END 2021-11-07 16:13 | disposition home or self-care (01) | DRG 291 ==
LOC: EC 16:37 → 5NMEDONC 20:29
PROVIDERS: ADMIT Hospitalist; ATTEND Hospitalist
DX: I11.0 Hypertensive heart disease with heart failure (principal); I50.33 Acute on chronic diastolic (congestive) heart failure; D61.810 Antineoplastic chemotherapy induced pancytopenia; J18.9 Pneumonia, unspecified organism; C90.01 Multiple myeloma in remission; D84.9 Immunodeficiency, unspecified; Z68.41 Body mass index [BMI] 40.0-44.9, adult; E66.01 Morbid (severe) obesity due to excess calories; B00.1 Herpesviral vesicular dermatitis; G44.89 Other headache syndrome; E53.8 Deficiency of other specified B group vitamins; Z79.01 Long term (current) use of anticoagulants; Z20.822 Contact with and (suspected) exposure to COVID-19; T45.1X5A Adverse effect of antineoplastic and immunosuppressive drugs, initial encounter; E87.6 Hypokalemia; G47.00 Insomnia, unspecified; D53.9 Nutritional anemia, unspecified; M15.9 Polyosteoarthritis, unspecified; G47.10 Hypersomnia, unspecified; J30.2 Other seasonal allergic rhinitis; M10.9 Gout, unspecified; I87.2 Venous insufficiency (chronic) (peripheral); H54.7 Unspecified visual loss; H26.9 Unspecified cataract; R19.7 Diarrhea, unspecified; Z86.718 Personal history of other venous thrombosis and embolism; Z28.21 Immunization not carried out because of patient refusal; Z79.899 Other long term (current) drug therapy; Z98.42 Cataract extraction status, left eye; Z87.01 Personal history of pneumonia (recurrent); Z88.1 Allergy status to other antibiotic agents; Z91.041 Radiographic dye allergy status; Z90.49 Acquired absence of other specified parts of digestive tract; Z98.51 Tubal ligation status; Z98.890 Other specified postprocedural states; Z87.440 Personal history of urinary (tract) infections; Z80.8 Family history of malignant neoplasm of other organs or systems
CPT/HCPCS: 36415; 71046; 80048; 80053; 81001; 82306; 82728; 82746; 83540; 83550; 83605; 83735; 83880; 84132; 84145; 85025; 85027; 85610; 85730; 86140; 87040; 87070; 87205; 87502; 87635; 93005; 93306; 94640; 94760; 96365; 96375; 99285

== ENCOUNTER → 2022-12-15 | Outpatient (CLI) | payer MEDICARE, OTHER ==
[2022-12-15 11:06] VITALS: BP 164/80; PULSE 50; RESP 18; TEMP 97.8
--- NOTE | 2022-12-15 11:34 | P.GSHP ---
History of Present Illness H&P Date: 12/15/22 Chief Complaint: Atypical cells biopsy left breast Antoinette is a 77-year-old white female seen in consultation for Dr[place] [id number]. This revealed calcifications in both breasts which appeared to be benign there was a new mass measuring 7 mm seen in the left breast located 9 cm from the nipple. The patient was recommended to undergo an ultrasound-guided diagnostic mammogram of the left breast. This was performed and 61. The diagnostic left breast mammogram revealed a high-density round mass measuring 7 mm with microlobulated margins. The ultrasound demonstrated a 6 mm lesion seen in the same vicinity felt to be a poorly with this lesion. Ultrasound-[place] [id number]. Pathology revealed fragmented atypical epithelial proliferation with papillary features. The radiographs were reviewed with radiology and the post procedure clip appears to be in the correct location, sampling the area of concern. She tolerated the biopsy without difficulty. She does not feel any lumps masses or nodules of concern in either breast. She is not complaining of any nipple discharge or skin changes. She has not had any recent trauma or infection of the breast. She has not had any surgery on her breast. Caffeine: occasional nicotine: none chocolate: weekly BCP: none hormones: none Family History: mother: breast cancer father: prostate cancer Hormonal History: menarche: 15 M1, breast fed: no, age at first : 23 menopause: 53 Surgical History: gallbladder Medical History: ventral hernia multiple myloma follows with Dr. Moncada on [facility], had a blood clot left leg, on Revilimib Social History: nicotine: none alcohol: none drugs: none - Constitutional Constitutional: Denies chills, Denies fever - EENT Comment: bilateral cataract surgery Eyes: denies blurred vision, denies pain Ears: deny: decreased hearing, tinnitus Ears, nose, mouth and throat: Denies headache, Denies sore throat - Breasts Breasts: bilateral: as per HPI - Cardiovascular Cardiovascular: Denies chest pain, Denies shortness of breath - Respiratory Respiratory: Denies cough, Denies 7 - Gastrointestinal Gastrointestinal: Denies abdominal pain, Denies diarrhea, Denies nausea, Denies vomiting - Genitourinary (Female) Genitourinary: Denies dysuria, Denies hematuria - Menstruation Menstruation: Reports postmenopausal - Musculoskeletal Comment: leg pain, uses a cane when legs feel week - Integumentary Integumentary: Denies pruritus, Denies rash - Neurological Neurological: Denies numbness, Denies weakness - Psychiatric Psychiatric: Denies anxiety, Denies depression - Endocrine Comment: none - Hematologic/Lymphatic Comment: none - Allergic/Immunologic Allergic/Immunologic: Reports seasonal allergies Past Medical History Past Medical History: Cancer, Eye Disorder, Hypertension, Pneumonia Additional Past Medical History / Comment(s): multiple myeloma-in remission. CATARACT LT EYE History of Any Multi-Drug Resistant Organisms: ESBL Date of last positivie culture/infection: 06/28/18 ESBL E. coli MDRO Source:: Urine Past Surgical History: Cholecystectomy, Tubal Ligation Additional Past Surgical History / Comment(s): CATARACT REMOVED FROM RT EYE Past Anesthesia/Blood Transfusion Reactions: No Reported Reaction Past Psychological History: No Psychological Hx Reported Smoking Status: Never smoker Past Alcohol Use History: None Reported Past Drug Use History: None Reported - Past Family History Mother Family Medical History: Cancer Father Family Medical History: Cancer Medications and Allergies Home Medications Medication Instructions Recorded Confirmed Type Apixaban [Eliquis] 2.5 mg PO BID 06/28/18 11/03/21 History Cyanocobalamin (Vitamin B-12) 1,000 mcg PO DAILY 12/02/18 11/03/21 History [Vitamin B-12] Lenalidomide [Revlimid] 10 mg PO DIRECTED 12/02/18 11/03/21 History L.acidoph,Paracasei, B.lactis 1 cap PO DAILY 10/07/20 11/03/21 History [Probiotic] Clotrimazole/Betameth Cream 1 applic TOPICAL BID PRN 11/03/21 11/03/21 History [Lotrisone] Indomethacin [Indocin] 50 mg PO TID PRN 11/03/21 11/03/21 History Albuterol Inhaler [Ventolin Hfa 2 puff INHALATION RT-Q6H PRN 30 11/07/21 Rx Inhaler] Days #1 each Furosemide [Lasix] 40 mg PO BID@0900,1600 30 Days #60 11/07/21 Rx tab Levofloxacin [Levaquin] 750 mg PO Q48H 3 Days #3 tab 11/07/21 Rx Metoprolol Tartrate [Lopressor] 12.5 mg PO BID 30 Days #60 tab 11/07/21 Rx Potassium Chloride ER [K-Dur 20] 20 meq PO BID 30 Days #60 tab 11/07/21 Rx Allergies Allergy/AdvReac Type Severity Reaction Status Date / Time Iodinated Contrast Media Allergy Intermediate Rash/Hives Verified 12/15/22 11:06 cephalexin Allergy Rash/Hives Verified 12/15/22 11:06 Surgical - Exam Vital Signs Temp Pulse Resp BP Pulse Ox 97.8 F 50 L 18 164/80 98 12/15/22 11:03 12/15/22 11:03 12/15/22 11:03 12/15/22 11:03 12/15/22 11:03 - General no distress - Eyes normal ocular movement - Neck trachea midline - Respiratory normal expansion - Cardiovascular Rhythm: regular Heart Sounds: normal: S1, S2 - Abdomen Abdomen: soft, non tender, no guarding, no rigid, no rebound - Integumentary normal turgor - Musculoskeletal uses a cane - Psychiatric oriented to time, oriented to person, oriented to place, speech is normal, memory intact Breast Exam: BRA: 46DD Inspection: Bilateral grade 3 ptosis Palpation: Right breast: Multi-positional exam fibrocystic changes no dominant masses or nodules of concern Right axilla: No adenopathy of concern Left breast: Multiple positional exam fibrocystic changes no dominant masses or nodules of concern Left axilla: No adenopathy of concern Results Mammogram and ultrasound reviewed with radiologist Assessment and Plan Assessment: Impression: Multiple myeloma Radiographic abnormality left breast/core biopsy fragmented atypical epithelial proliferation with papillary features Fibrocystic breast changes Plan: Needle localization excisional lumpectomy lesion of concern left breast possible onco-plastic tissue transfer Clearance from primary care doctor/Dr. Moncada as patient is Eliquis CC: Dr. Chris, Dr. Moncada
== END ==
LOC: WWCWWP 10:38
PROVIDERS: ATTEND Surgery
DX: C90.00 Multiple myeloma not having achieved remission (principal); N60.19 Diffuse cystic mastopathy of unspecified breast; I10 Essential (primary) hypertension; Z80.3 Family history of malignant neoplasm of breast; Z91.041 Radiographic dye allergy status; Z88.8 Allergy status to other drugs, medicaments and biological substances

== ENCOUNTER → 2024-03-18 | Outpatient (CLI) | payer MEDICARE, OTHER ==
--- NOTE | 2024-03-18 16:07 | USB ---
Reason for Exam: Additional evaluation requested from abnormal screening. Patient History: Menarche at age 15. First Full-Term at age 21. Postmenopausal. Breast cancer, left, age 77. 10/25/2022, Malignant US biopsy breast VAD LT - 2 on the left side. Mother had breast cancer, age 55. Technique: Method: Targeted. Prior Study Comparison: 01/10/2021 Bilateral MG 3D screening mammo w/cad, Unknown. 10/04/2022 Bilateral MG 3D screening mammo w/cad, Unknown. 10/12/2022 Left MG 3D work up w/cad LT - 2, Unknown. Findings: The upper outer quadrant of the left breast, the area of palpable concern of the left breast, the axilla of the left breast and the retroareolar of the left breast were scanned. There is a large 3.0 x 3.1 x 3.9 cm hypoechoic: Nodule at the palpable abnormality located 10 cm from the nipple. This area correlates with the mammographic finding. This is a prior biopsy site reporting papillary carcinoma.There is a large 3.0 x 3.1 x 3.9 cm hypoechoic: Nodule at the palpable abnormality located 10 cm from the nipple. This area correlates with the mammographic finding. This is a prior biopsy site reporting papillary carcinoma. Patient has a appointment with surgery 03/21/2024. Overall Assessment: Known biopsy proven malignancy, BI-RAD 6 Management: Surgical Consultation of the left breast. A clinical breast exam by your physician is recommended on an annual basis and results should be correlated with mammographic findings. This exam should not preclude additional follow-up of suspicious palpable abnormalities. Results were given to the patient verbally at the time of exam. [facility], , 03/18/2024 3:59 PM. Electronically signed and approved by: Pipo Elizondo D.O. Radiologis
--- NOTE | 2024-03-24 13:29 | MM ---
Reason for Exam: Screening (asymptomatic). Last mammogram was performed 1 year(s) and 5 month(s) ago. Patient History: Menarche at age 15. First Full-Term at age 21. Postmenopausal. Breast cancer, left, age 77. 10/25/2022, Malignant US biopsy breast VAD LT - 2 on the left side. Mother had breast cancer, age 55. Prior Study Comparison: 02/21/2016 Bilateral MG 3D screening mammo w/cad, Unknown. 01/10/2021 Bilateral MG 3D screening mammo w/cad, Unknown. 10/04/2022 Bilateral MG 3D screening mammo w/cad, Unknown. 10/12/2022 Left MG 3D work up w/cad LT - 2, Unknown. Tissue Density: The breasts are almost entirely fatty. Findings: Analyzed By CAD. The pattern is symmetrical. There is extensive benign-appearing linear calcifications bilaterally. There is a new large hyperdense lobulated density measuring 3.3 cm in size located 8 cm from the nipple.. This area appears to correlate with the patient's prior biopsy site findings suspicious for invasive papillary carcinoma. Surgical consultation recommended. Right breast: No suspicious groups of microcalcifications, spiculated or lobular masses, architectural distortion or other secondary signs of malignancy are mammographically apparent. Overall Assessment: Known biopsy proven malignancy, BI-RAD 6 Management: Surgical Consultation of the left breast. A negative mammogram report should not preclude additional follow up of suspicious palpable abnormalities. Patient should continue monthly self breast exam. A clinical breast exam by your physician is recommended on an annual basis and results should be correlated with mammographic findings. Note on Sabra scores and lifetime risk: 1. A Sabra score greater than 3% is considered moderate risk. If this is the case, consider specialist referral to assess eligibility for a risk reducing agent. 2. If overall lifetime risk for the development of breast cancer is 20% or higher, the patient may qualify for future screening with alternating mammogram and breast MRI. [facility], , 03/18/2024 3:52 PM. Electronically signed and approved by: Pipo Elizondo D.O. Radiologis
== END | disposition home or self-care (01) ==
LOC: RADMAMWWP 14:57
PROVIDERS: ATTEND Family Medicine
DX: Z12.31 Encounter for screening mammogram for malignant neoplasm of breast (principal); C50.912 Malignant neoplasm of unspecified site of left female breast; Z78.0 Asymptomatic menopausal state; Z80.3 Family history of malignant neoplasm of breast; Z85.3 Personal history of malignant neoplasm of breast
CPT/HCPCS: 77063; 77067

== ENCOUNTER → 2024-03-21 | Outpatient (CLI) | payer MEDICARE, OTHER ==
[2024-03-21 13:53] VITALS: BP 180/77; PULSE 61; RESP 16; TEMP 98.7
--- NOTE | 2024-03-21 13:57 | P.PN ---
Subjective Progress Note Date: 03/21/24 Principal diagnosis: left breast mass Antoinette is a 78 female initially seen in consultation for Dr. Villasenor. She had had a bilateral screening mammogram on 10-04-2022. This revealed calcifications in both breast which appear to be benign but there was a new mass measuring 7 mm seen in the left breast 9 cm from the nipple. She underwent an ultrasound this area as well as a diagnostic mammogram. This revealed a high density mass measuring 7 mm with microlobulated margins. Ultrasound-guided core biopsy was performed on 10-26-2022. Pathology revealed fragmented atypical epithelial proliferation with papillary features. The radiographs at that time were reviewed and postprocedure clip appeared to be in the correct location. She was recommended to undergo a needle localization and excisional biopsy at that time. The patient however canceled the procedure and has not been seen until now. She states she had acute bronchitis and did not reschedule. She did have a mammogram and ultrasound on 03-18-2024. This revealed a 3 x 3.9 cm nodule at up the palpable abnormality this is consistent with the area of previous ultrasound core biopsy which was suspicious for invasive papillary carcinoma. The patient can now feel a spot in her left breast. She has not had any surgery on her breast. She is not complaining of any nipple discharge or skin changes. She has a spot under her right eye, will be seen by a staffing mgr. Caffeine: occasional nicotine: none chocolate: weekly BCP: none hormones: none Family History: mother: breast cancer father: prostate cancer Hormonal History: menarche: 15 M1, breast fed: no, age at first : 23 menopause: 53 Surgical History: gallbladder Medical History: ventral hernia multiple myloma follows with Dr. Moncada on [facility], had a blood clot left leg, was on Revilimib Social History: nicotine: none alcohol: none drugs: none - Constitutional Constitutional: Denies chills, Denies fever - EENT Comment: bilateral cataract surgery Eyes: denies blurred vision, denies pain Ears: deny: decreased hearing, tinnitus Ears, nose, mouth and throat: Denies headache, Denies sore throat - Breasts Breasts: bilateral: as per HPI - Cardiovascular Cardiovascular: Denies chest pain, Denies shortness of breath - Respiratory Respiratory: Denies cough - Gastrointestinal Gastrointestinal: Denies abdominal pain, Denies diarrhea, Denies nausea, Denies vomiting - Genitourinary (Female) Genitourinary: Denies dysuria, Denies hematuria - Menstruation Menstruation: Reports postmenopausal - Musculoskeletal Comment: leg pain, uses a cane when legs feel week - Integumentary Integumentary: Denies pruritus, Denies rash - Neurological Neurological: Denies numbness, Denies weakness - Psychiatric Psychiatric: Denies anxiety, Denies depression - Endocrine Comment: none - Hematologic/Lymphatic Comment: none - Allergic/Immunologic Allergic/Immunologic: Reports seasonal allergies Past Medical History Past Medical History: Cancer, Eye Disorder, Hypertension, Pneumonia Additional Past Medical History / Comment(s): multiple myeloma-in remission. CATARACT LT EYE History of Any Multi-Drug Resistant Organisms: ESBL Date of last positivie culture/infection: 06/28/18 ESBL E. coli MDRO Source:: Urine Past Surgical History: Cholecystectomy, Tubal Ligation Additional Past Surgical History / Comment(s): CATARACT REMOVED FROM RT EYE Past Anesthesia/Blood Transfusion Reactions: No Reported Reaction Past Psychological History: No Psychological Hx Reported Smoking Status: Never smoker Past Alcohol Use History: None Reported Past Drug Use History: None Reported - Past Family History Mother Family Medical History: Cancer Father Family Medical History: Cancer Medications and Allergies Home Medications Medication Instructions Recorded Confirmed Type Apixaban [Eliquis] 2.5 mg PO BID 06/28/18 11/03/21 History Cyanocobalamin (Vitamin B-12) 1,000 mcg PO DAILY 12/02/18 11/03/21 History [Vitamin B-12] Lenalidomide [Revlimid] 10 mg PO DIRECTED 12/02/18 11/03/21 History L.acidoph,Paracasei, B.lactis 1 cap PO DAILY 10/07/20 11/03/21 History [Probiotic] Clotrimazole/Betameth Cream 1 applic TOPICAL BID PRN 11/03/21 11/03/21 History [Lotrisone] Indomethacin [Indocin] 50 mg PO TID PRN 11/03/21 11/03/21 History Albuterol Inhaler [Ventolin Hfa 2 puff INHALATION RT-Q6H PRN 30 11/07/21 Rx Inhaler] Days #1 each Furosemide [Lasix] 40 mg PO BID@0900,1600 30 Days #60 11/07/21 Rx tab Levofloxacin [Levaquin] 750 mg PO Q48H 3 Days #3 tab 11/07/21 Rx Metoprolol Tartrate [Lopressor] 12.5 mg PO BID 30 Days #60 tab 11/07/21 Rx Potassium Chloride ER [K-Dur 20] 20 meq PO BID 30 Days #60 tab 11/07/21 Rx Allergies Allergy/AdvReac Type Severity Reaction Status Date / Time Iodinated Contrast Media Allergy Intermediate Rash/Hives Verified 12/15/22 11:06 cephalexin Allergy Rash/Hives Verified 12/15/22 11:06 Objective - Constitutional General appearance: Present: cooperative - EENT Eyes: Present: EOMI ENT: Present: hearing grossly normal - Neck Neck: Present: normal ROM - Respiratory Respiratory: bilateral: CTA - Cardiovascular Rhythm: regular Heart sounds: normal: S1, S2 - Integumentary Integumentary: Present: normal turgor - Musculoskeletal Musculoskeletal: Present: gait normal - Psychiatric Psychiatric: Present: A&O x's 3, appropriate affect, intact judgment & insight - Additional findings Additional findings: Breast Exam: BRA: 46DD Inspection: Bilateral grade 3 ptosis Palpation: Right breast: Multi-positional exam fibrocystic changes no dominant masses or nodules of concern Right axilla: No adenopathy of concern Left breast: Multiple positional exam fibrocystic changes no dominant masses or nodules of concern Left axilla: No adenopathy of concern Assessment and Plan Assessment: Impression: Multiple myeloma papillary lesion left breast probable cancer Fibrocystic breast changes Plan: left breast lumpectomy possible oncoplastic tissue transfer clearance from Dr. Chris Clearance from primary care doctor/Dr. Moncada as patient is Eliquis CC: Dr. Chris, Dr. Moncada
== END ==
LOC: WWCWWP 13:35
PROVIDERS: ATTEND Surgery
DX: Z48.817 Encounter for surgical aftercare following surgery on the skin and subcutaneous tissue (principal); R92.1 Mammographic calcification found on diagnostic imaging of breast; C90.00 Multiple myeloma not having achieved remission; L98.8 Other specified disorders of the skin and subcutaneous tissue; N60.11 Diffuse cystic mastopathy of right breast; N60.12 Diffuse cystic mastopathy of left breast; N63.10 Unspecified lump in the right breast, unspecified quadrant; N63.20 Unspecified lump in the left breast, unspecified quadrant; Z80.3 Family history of malignant neoplasm of breast; Z91.041 Radiographic dye allergy status; Z88.1 Allergy status to other antibiotic agents

== ENCOUNTER → 2024-04-18 | Outpatient (CLI) | payer MEDICARE, OTHER ==
[2024-04-18 09:29] VITALS: BP 122/63; PULSE 60; RESP 18; TEMP 98.9
--- NOTE | 2024-04-18 09:39 | P.BCPN ---
Subjective Progress Note Date: 04/18/24 Principal diagnosis: mass Subjective Progress Note Date: 04-18-24 Principal diagnosis: left breast mass Antoinette is a 78 female initially seen in consultation for Dr. Villasenor. She had had a bilateral screening mammogram on 10-04-2022. This revealed calcifications in both breast which appear to be benign but there was a new mass measuring 7 mm seen in the left breast 9 cm from the nipple. She underwent an ultrasound this area as well as a diagnostic mammogram. This revealed a high density mass measuring 7 mm with microlobulated margins. Ultrasound-guided core biopsy was performed on 10-26-2022. Pathology revealed fragmented atypical epithelial proliferation with papillary features. The radiographs at that time were reviewed and postprocedure clip appeared to be in the correct location. She was recommended to undergo a needle localization and excisional biopsy at that time. The patient however canceled the procedure and has not been seen until now. She states she had acute bronchitis and did not reschedule. She did have a mammogram and ultrasound on 03-18-2024. This revealed a 3 x 3.9 cm nodule at up the palpable abnormality this is consistent with the area of previous ultrasound core biopsy which was suspicious for invasive papillary carcinoma. The patient can now feel a spot in her left breast. She has not had any surgery on her breast. She is not complaining of any nipple discharge or skin changes. She has a spot under her right eye, will be seen by a stationary plant operators. Patient's case presented at tumor board on 1223. Recommendation for left breast lumpectomy with sentinel node biopsy. Depending on results of the pathology radiation will most likely be recommended postprocedure. This may be a secondary cancer from Revlamid. The patient would like to have a left breast lumpectomy oncoplastic tissue transfer and sentinel node injection, left SNB possible left axillary node disection. She understands we do not have additional pathology from that which was done on 11-21-2022. Despite this she would not like to have a repeat biopsy. Discussed radiation therapy and medical oncology, she is followed by Dr. Moncada secondary to multiple myeloma. Patient had two skin biopsies of her face and were + for skin cancer and having resection on with dermatology. clearance Dr. Moncada clearance Dr. Chris Caffeine: occasional nicotine: none chocolate: weekly BCP: none hormones: none Family History: mother: breast cancer father: prostate cancer Hormonal History: menarche: 15 M1, breast fed: no, age at first : 23 menopause: 53 Surgical History: gallbladder Medical History: ventral hernia multiple myloma follows with Dr. Moncada on Eliquis, had a blood clot left leg, was on Revilimib Social History: nicotine: none alcohol: none drugs: none - Constitutional Constitutional: Denies chills, Denies fever - EENT Comment: bilateral cataract surgery Eyes: denies blurred vision, denies pain Ears: deny: decreased hearing, tinnitus Ears, nose, mouth and throat: Denies headache, Denies sore throat - Breasts Breasts: bilateral: as per HPI - Cardiovascular Cardiovascular: Denies chest pain, Denies shortness of breath - Respiratory Respiratory: Denies cough - Gastrointestinal Gastrointestinal: Denies abdominal pain, Denies diarrhea, Denies nausea, Denies vomiting - Genitourinary (Female) Genitourinary: Denies dysuria, Denies hematuria - Menstruation Menstruation: Reports postmenopausal - Musculoskeletal Comment: leg pain, uses a cane when legs feel week - Integumentary Integumentary: Denies pruritus, Denies rash - Neurological Neurological: Denies numbness, Denies weakness - Psychiatric Psychiatric: Denies anxiety, Denies depression - Endocrine Comment: none - Hematologic/Lymphatic Comment: none - Allergic/Immunologic Allergic/Immunologic: Reports seasonal allergies Past Medical History Past Medical History: Cancer, Eye Disorder, Hypertension, Pneumonia Additional Past Medical History / Comment(s): multiple myeloma-in remission. CATARACT LT EYE History of Any Multi-Drug Resistant Organisms: ESBL Date of last positivie culture/infection: 06/28/18 ESBL E. coli MDRO Source:: Urine Past Surgical History: Cholecystectomy, Tubal Ligation Additional Past Surgical History / Comment(s): CATARACT REMOVED FROM RT EYE Past Anesthesia/Blood Transfusion Reactions: No Reported Reaction Past Psychological History: No Psychological Hx Reported Smoking Status: Never smoker Past Alcohol Use History: None Reported Past Drug Use History: None Reported - Past Family History Mother Family Medical History: Cancer Father Family Medical History: Cancer Medications and Allergies Home Medications Medication Instructions Recorded Confirmed Type Apixaban [Eliquis] 2.5 mg PO BID 06/28/18 11/03/21 History Cyanocobalamin (Vitamin B-12) 1,000 mcg PO DAILY 12/02/18 11/03/21 History [Vitamin B-12] Lenalidomide [Revlimid] 10 mg PO DIRECTED 12/02/18 11/03/21 History L.acidoph,Paracasei, B.lactis 1 cap PO DAILY 10/07/20 11/03/21 History [Probiotic] Clotrimazole/Betameth Cream 1 applic TOPICAL BID PRN 11/03/21 11/03/21 History [Lotrisone] Indomethacin [Indocin] 50 mg PO TID PRN 11/03/21 11/03/21 History Albuterol Inhaler [Ventolin Hfa 2 puff INHALATION RT-Q6H PRN 30 11/07/21 Rx Inhaler] Days #1 each Furosemide [Lasix] 40 mg PO BID@0900,1600 30 Days #60 11/07/21 Rx tab Levofloxacin [Levaquin] 750 mg PO Q48H 3 Days #3 tab 11/07/21 Rx Metoprolol Tartrate [Lopressor] 12.5 mg PO BID 30 Days #60 tab 11/07/21 Rx Potassium Chloride ER [K-Dur 20] 20 meq PO BID 30 Days #60 tab 11/07/21 Rx Allergies Allergy/AdvReac Type Severity Reaction Status Date / Time Iodinated Contrast Media Allergy Intermediate Rash/Hives Verified 12/15/22 11:06 cephalexin Allergy Rash/Hives Verified 12/15/22 11:06 Objective - Constitutional General appearance: Present: cooperative - EENT Eyes: Present: EOMI ENT: Present: hearing grossly normal - Neck Neck: Present: normal ROM - Breast Breast-Narrative: Breast Exam: BRA: 46DD Inspection: Bilateral grade 3 ptosis Palpation: Right breast: fibrocystic changes no dominant masses or nodules of concern Right axilla: No adenopathy of concern Left breast: 9 cm from the nipple at the 1 o'clock position there is a 5 x 3 cm firm palpable mass this is in the vicinity of the prior nodule which was biopsied. No other dominant masses or nodules of concern Left axilla: No adenopathy of concern Ptosis: Grade 3: Right Breast Ptosis, Left Breast Ptosis Breast: right: normal, left: mass (9 cm from nipple 5 by 3 cm) Right Breast Palpation (Multi-positional): No dominant masses, No nodules of concerns, Fibrocystic Changes Left Breast Palpation (Multi-positional): Other (ma) Right Axilla Palpation: No adenopathy of concern Left Axilla Palpation: No adenopathy of concern - Respiratory Respiratory: bilateral: CTA - Cardiovascular Heart sounds: normal: S1, S2 - Gastrointestinal General gastrointestinal: Present: soft - Integumentary Integumentary: Present: normal turgor - Musculoskeletal Musculoskeletal: Present: gait normal - Psychiatric Psychiatric: Present: A&O x's 3, appropriate affect, intact judgment & insight Assessment and Plan Plan: Impression: Multiple myeloma papillary lesion left breast probable cancer Fibrocystic breast changes Plan: left breast lumpectomy possible oncoplastic tissue transfer, left sentinel node injection, left sentinel node biopsy, possible left axillary node dissection clearance from Dr. Chris Clearance from primary care doctor/Dr. Moncada as patient is Eliquis Risk and benefits discussed with the patient. Risk include but are not limited to bleeding, infection, reaction to the anesthetic. The patient understands that because she is on Eliquis she does have increased risk of bleeding although she will stop this as per medical oncology prior to the surgical procedure. The risk of positive margin is discussed and if this were to be the case then additional tissue acquisition may be necessary. The risk of decreased sensation to the inner arm lymphedema injury to the thoracodorsal or long thoracic nerves were also discussed. She understands and wishes to proceed. CC: Dr. Chris, Dr. Moncada Prep Education Provided - Preoperative Education Given Pre-Op Kit Given Date: 04/18/24 - Functional Assessment Performed?: Yes - Smoking Cessation Education Provided?: Yes (patient is a nonsmoker)
== END ==
LOC: WWCWWP 08:57
PROVIDERS: ATTEND Surgery
DX: N60.11 Diffuse cystic mastopathy of right breast (principal); C90.00 Multiple myeloma not having achieved remission; C50.412 Malignant neoplasm of upper-outer quadrant of left female breast; R92.1 Mammographic calcification found on diagnostic imaging of breast; Z90.12 Acquired absence of left breast and nipple; Z80.3 Family history of malignant neoplasm of breast; Z91.041 Radiographic dye allergy status; Z88.1 Allergy status to other antibiotic agents; Z79.01 Long term (current) use of anticoagulants

== ENCOUNTER 2024-04-22 07:22 | Day surgery (SDC) | payer MEDICARE, OTHER ==
[2024-04-18 11:09] VITALS: BMI 42.3
[~2024-04-22 07:22] MED LIST changes: -LACTATED RINGERS 1,000 ML IV SCH; -LIDOCAINE 1% 20 ML VIAL (10MG/ML) FOR IV START INTRADERMA PRN; -MOXIFLOXACIN HCL 0.5% DROPS 3 ML BTL OP ONE; -TETRACAINE 0.5% OPHTH (PF) DROPS 4 ML BTL OP ONE; -TIMOLOL 0.5% OPHTH DROPS 5 ML BTL OP ONE
[2024-04-22] MEDS: ALPRAZolam 0.25 MG TAB PO STA (08:10)
[2024-04-22] MEDS: ACETAMINOPHEN TAB 500 MG TAB PO PRN (08:10)
[2024-04-22] MEDS: LACTATED RINGERS 1,000 ML IV SCH (08:26)
[2024-04-22] MEDS: IV FLUID CONTINUATION 1,000 ML IV ONE (08:27)
[2024-04-22] MEDS: ONDANSETRON 4 MG/2 ML VIAL IVP ONE (08:29)
[2024-04-22] MEDS: DEXAMETHASONE SOD PHOSPHATE 4 MG/ML 1 ML VIAL IV ONE (08:29)
[2024-04-22] MEDS: HEPARIN SODIUM,PORCINE 5,000 UNIT/ML 1 ML VIAL SQ PRN (08:30)
[2024-04-22] MEDS ORDERED: GLYCOPYRROLATE 0.2 MG/ML 2 ML VIAL ONE (09:20)
[2024-04-22] MEDS ORDERED: PROPOFOL 10 MG/ML 20 ML VIAL IV ONE (09:20)
[2024-04-22] MEDS ORDERED: ePHEDrine 50 MG/ML 1 ML VIAL ONE (09:20)
[2024-04-22] MEDS ORDERED: LIDOCAINE 1% INJ 10MG/ML (20 ML MDV) ONE (09:20)
[2024-04-22] MEDS ORDERED: SUCCINYLCHOLINE CHLORIDE 200 MG/10 ML VIAL IV ONE (09:20)
[2024-04-22] MEDS ORDERED: MIDAZOLAM 2 MG/2 ML VIAL ONE (09:20)
[2024-04-22] MEDS ORDERED: fentaNYL (PF) 50 MCG/ML 2 ML AMP ONE (09:20)
[2024-04-22] MEDS ORDERED: PHENYLEPHRINE 10 MG/ML VIAL ONE (09:20)
[2024-04-22] MEDS: ceFAZolin 3 GM in SODIUM CHLORIDE 0.9% 100 ML IVPB PRN (09:24)
[2024-04-22] MEDS: METHYLENE BLUE 50 MG/10 ML AMPUL MISCELLANE ONE (09:45)
--- NOTE | 2024-04-22 09:47 | NM ---
EXAMINATION TYPE: NM sentinel node injection DATE OF EXAM: 04/22/2024 COMPARISON: NONE INDICATION: Abnormal mammogram. Informed consent was obtained. A timeout was performed. The area around the left nipple was cleansed with alcohol. In a single dose, a total of 543 uCi Gómez hnetium 99m Tilmanocept was injected. The patient tolerated the procedure very well. IMPRESSION: 1. Successful injection for sentinel node evaluation. [facility], , 04/22/2024 9:44 AM
[2024-04-22] MEDS: LIDOCAINE 1% INJ 10MG/ML (20 ML MDV) SQ ONE (10:06)
[2024-04-22 11:59] VITALS: TEMP 97
[2024-04-22] MEDS: HYDROmorphone 0.5 MG/0.5 ML SYRINGE IVP PRN (12:27)
--- NOTE | 2024-04-22 12:38 | P.DS ---
Providers Attending physician: Jennifer Vance Primary care physician: Fermín Chris Plan - Discharge Summary Discharge Rx Participant: No New Discharge Prescriptions: New oxyCODONE HCL [OxyIR] 5 mg PO Q6H PRN #5 tab PRN Reason: Breakthrough Pain No Action Apixaban [Eliquis] 2.5 mg PO HS@1900 Indomethacin [Indocin] 50 mg PO HS@1900 Levothyroxine Sodium [Synthroid] 50 mcg PO DAILY L.acidoph,Paracasei, B.lactis [Probiotic] 1 cap PO HS@1900 atenoloL [Tenormin] 50 mg PO HS@1900 Furosemide [Lasix] 40 mg PO AC-BRKFST Cholecalciferol [Vitamin D3 (25 Mcg = 1000 Iu)] 50 mcg PO HS@1900 Cyanocobalamin (Vitamin B-12) [Vitamin B-12] 1 tab PO HS@1900 Discharge Medication List Apixaban [Eliquis] 2.5 mg PO HS@1900 06/28/18 [History] L.acidoph,Paracasei, B.lactis [Probiotic] 1 cap PO HS@1900 10/07/20 [History] Indomethacin [Indocin] 50 mg PO HS@1900 11/03/21 [History] atenoloL [Tenormin] 50 mg PO HS@1900 12/15/22 [History] Furosemide [Lasix] 40 mg PO AC-BRKFST 02/13/23 [History] Cholecalciferol [Vitamin D3 (25 Mcg = 1000 Iu)] 50 mcg PO HS@1900 02/27/23 [History] Cyanocobalamin (Vitamin B-12) [Vitamin B-12] 1 tab PO HS@1900 04/18/24 [History] Levothyroxine Sodium [Synthroid] 50 mcg PO DAILY 04/18/24 [History] oxyCODONE HCL [OxyIR] 5 mg PO Q6H PRN #5 tab 04/22/24 [Rx] Follow up Appointment(s)/Referral(s): Jennifer Vance MD [STAFF PHYSICIAN] - 05/01/24 10:00 am Patient Instructions/Handouts: *Surgery [facility] - (Anesthesia) Discharge Instructions Outpatient Surgery Discharge Disposition: HOME SELF-CARE
--- NOTE | 2024-04-22 12:47 | P.BCAON ---
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 Postoperative Diagnosis: Mass left breast probable papillary carcinoma Procedure(s) Performed: Left breast lumpectomy, oncoplastic tissue transfer 90 cm, left sentinel node mapping, left sentinel node biopsy Anesthesia: JEREMY Surgeon: Jennifer Vance Estimated Blood Loss (ml): 10 IV fluids (ml): 600 Pathology: other (Breast and axillary tissue) Condition: stable Disposition: same day Indications for Procedure: Mass left breast/probable invasive papillary carcinoma Operative Findings: Mass left breast Description of Procedure: Patient was seen initially by the radiology department where periareolar injection of a radiotracer was performed in the preoperative area. She was then brought to the operative suite. Following induction of anesthesia the neoprobe was used to interrogate the axilla. No radioactivity was identified in the axilla. Therefore 10 cc of half percent methylene blue was injected into the periareolar area and the breast was massaged. Following this the left breast and axilla were prepped and draped in a sterile fashion. The area of the axilla was approached initially. An incision was made and ca rried down to the axillary tissue. Several enlarged lymph nodes were identified by palpation and removed. No radioactive or blue lymph nodes were identified. After reassured that hemostasis was attained the wound was well irrigated. The deep tissues were closed using 3-0 Vicryl suture. The skin was closed using 4-0 Monocryl. The specimen have been sent to pathology to assure that ainsley tissue had been removed. This was confirmed. The area of the breast was approached. An incision was made over the palpable abnormality. Wide excision was performed. The area excised was 6 x 4 cm. The specimen was painted for orientation. Additional tissue was obtained medial lateral superior and inferiorly. Posterior dissection was onto the pectoralis muscle. Anterior dissection was performed with skin being taken. The patient then had a superior pedicle formed which was 7 x 3 cm. An inferior pedicle was formed which was 9 x 5 cm. The wound was well irrigated. Titanium clips were placed. Surgicel in powder form was placed. The superior and inferior pedicle were brought together and secured using 3-0 Vicryl suture. The tissue between the subcutaneous tissue and the flaps was well irrigated. Again Surgicel in powder form was placed. The subcutaneous tissue was closed using 3-0 Vicryl suture. This was followed by closure of the skin using 4-0 Monocryl. The patient tolerated the procedure in stable condition. 10 cc of 1% lidocaine were injected into the area of the incision prior to the termination of the procedure. All instrument and sponge counts were correct at the end of the procedure. - Sentinal Node Biopsy Operation performed with curative intent: Yes Tracer(s) used in upfront surgery (non-neoadjuvant): dye, radioactive tracer All nodes present at end of dye-filled channel removed: N/A All significantly radioactive nodes were removed: N/A All palpably suspicious nodes were removed: Yes
[2024-04-22 13:19] VITALS: RESP 16
[2024-04-22 13:32] VITALS: BP 127/82; PULSE 55
== END 2024-04-22 13:50 | disposition home or self-care (01) ==
LOC: OR 07:22
PROVIDERS: ATTEND Surgery
DX: C50.912 Malignant neoplasm of unspecified site of left female breast (principal); N60.12 Diffuse cystic mastopathy of left breast; C90.01 Multiple myeloma in remission; I11.0 Hypertensive heart disease with heart failure; I50.9 Heart failure, unspecified; D64.9 Anemia, unspecified; E78.5 Hyperlipidemia, unspecified; M54.51 Vertebrogenic low back pain; M15.8 Other polyosteoarthritis; E07.9 Disorder of thyroid, unspecified; M10.9 Gout, unspecified; Z80.3 Family history of malignant neoplasm of breast; Z90.49 Acquired absence of other specified parts of digestive tract; Z79.01 Long term (current) use of anticoagulants; Z86.718 Personal history of other venous thrombosis and embolism; Z98.41 Cataract extraction status, right eye; Z98.51 Tubal ligation status; Z79.899 Other long term (current) drug therapy; Z91.041 Radiographic dye allergy status; Z88.1 Allergy status to other antibiotic agents; Z79.890 Hormone replacement therapy; Z80.42 Family history of malignant neoplasm of prostate
CPT/HCPCS: 19301; 38525; 88305; 88342; 88307; 88341; 38792; A9520; J2250; J0330; J1644; J1100; J0690; J2405; J2003; J3010; J2704; Q9968; J1171; J2371; J1596

== ENCOUNTER → 2024-05-01 | Outpatient (CLI) | payer MEDICARE, OTHER ==
[2024-05-01 11:39] VITALS: BP 143/70; PULSE 52; RESP 16; TEMP 97.4
--- NOTE | 2024-05-01 11:42 | P.BCPO ---
Progress Note - Text Progress Note Date: 05/01/24 Antoinette is status post left breast lumpectomy and SNB on 04-22-24. 3.4 cm tumor all margins (-). Six nodes all (-). Trippel (-). Examination: Lungs: Clear Heart: Regular rate and rhythm Incision axilla and breast clean and dry Possible small seroma at the lumpectomy site but it is not bothering her at this time Impression: Patient doing well status post left breast lumpectomy and sentinel node biopsy on 04-22-2024 Plan: Appointment medical oncology Appointment radiation oncology Follow-up here in 4 months Follow-up sooner any questions or concerns Post Op Education - Post Op Education Post Op Education Provided Date: 05/01/24 - Functional Assessment Performed?: Yes (arm abduction passed) Path Report - Was patient given path report? Path Report Date Given: 05/01/24
== END ==
LOC: WWCWWP 09:45
PROVIDERS: ATTEND Surgery
DX: Z48.817 Encounter for surgical aftercare following surgery on the skin and subcutaneous tissue (principal); Z85.3 Personal history of malignant neoplasm of breast; Z91.041 Radiographic dye allergy status; Z88.1 Allergy status to other antibiotic agents

== ENCOUNTER → 2024-07-11 | Outpatient (CLI) | payer MEDICARE, OTHER ==
[2024-07-11 10:41] VITALS: BP 154/76; PULSE 67; RESP 17; TEMP 97.4
--- NOTE | 2024-07-11 11:08 | P.PN ---
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 Espinoza424. She had had a bilateral screening mammogram on 10-04-2022. This revealed calcifications in both breast which appear to be benign but there was a new mass measuring 7 mm seen in the left breast 9 cm from the nipple. She underwent an ultrasound this area as well as a diagnostic mammogram. This revealed a high density mass measuring 7 mm with microlobulated margins. Ultrasound-guided core biopsy was performed on 10-26-2022. Pathology revealed fragmented atypical epithelial proliferation with papillary features. The radiographs at that time were reviewed and postprocedure clip appeared to be in the correct location. She was recommended to undergo a needle localization and excisional biopsy at that time. The patient however canceled the procedure and has not been seen until now. She states she had acute bronchitis and did not reschedule. She did have a mammogram and ultrasound on 03-18-2024. This revealed a 3 x 3.9 cm nodule at up the palpable abnormality this is consistent with the area of previous ultrasound core biopsy which was suspicious for invasive papillary carcinoma. The patient can now feel a spot in her left breast. She has not had any surgery on her breast. She is not complaining of any nipple discharge or skin changes. She has a spot under her right eye, will be seen by a litigation docket manager. Patient's case presented at tumor board on 1223. Recommendation for left breast lumpectomy with sentinel node biopsy. Depending on results of the pathology radiation will most likely be recommended postprocedure. This may be a secondary cancer from [place]. The patient would like to have a left breast lumpectomy oncoplastic tissue transfer and sentinel node injection, left SNB possible left axillary node disection. She understands we do not have additional pathology from that which was done on 11-21-2022. Despite this she would not like to have a repeat biopsy. Discussed radiation therapy and medical oncology, she is followed by Dr. Moncada secondary to multiple myeloma. Patient had two skin biopsies of her face and were + for skin cancer and having resection on with dermatology. status post left breast lumpectomy and SNB on 04-22-24; all nodes (-), margins (-), 3.4 cm tumor, triple (-) 05-30-24 note radiation oncology reviewed recommend radiation therapy, she has had approximately 1 week of treatment at this time. At her appointment at radiation oncology she was noted to have some swelling in the left breast there was concern there was a seroma and she was asked to be seen by us to evaluate for possible seroma. The patient states she has noted some swelling in that area. She met with medical oncology Dr. Jet Moncada and decided against any chemotherapy. Caffeine: occasional nicotine: none chocolate: weekly BCP: none hormones: none Family History: mother: breast cancer father: prostate cancer Hormonal History: menarche: 15 M1, breast fed: no, age at first : 23 menopause: 53 Surgical History: gallbladder Medical History: ventral hernia multiple myloma follows with Dr. Moncada on Eliquis, had a blood clot left leg, was on Revilimib Social History: nicotine: none alcohol: none drugs: none - Constitutional Constitutional: Denies chills, Denies fever - EENT Comment: bilateral cataract surgery Eyes: denies blurred vision, denies pain Ears: deny: decreased hearing, tinnitus Ears, nose, mouth and throat: Denies headache, Denies sore throat - Breasts Breasts: bilateral: as per HPI - Cardiovascular Cardiovascular: Denies chest pain, Denies shortness of breath - Respiratory Respiratory: Denies cough - Gastrointestinal Gastrointestinal: Denies abdominal pain, Denies diarrhea, Denies nausea, Denies vomiting - Genitourinary (Female) Genitourinary: Denies dysuria, Denies hematuria - Menstruation Menstruation: Reports postmenopausal - Musculoskeletal Comment: leg pain, uses a cane when legs feel week - Integumentary Integumentary: Denies pruritus, Denies rash - Neurological Neurological: Denies numbness, Denies weakness - Psychiatric Psychiatric: Denies anxiety, Denies depression - Endocrine Comment: none - Hematologic/Lymphatic Comment: none - Allergic/Immunologic Allergic/Immunologic: Reports seasonal allergies Past Medical History Past Medical History: Cancer, Eye Disorder, Hypertension, Pneumonia Additional Past Medical History / Comment(s): multiple myeloma-in remission. CATARACT LT EYE History of Any Multi-Drug Resistant Organisms: ESBL Date of last positivie culture/infection: 06/28/18 ESBL E. coli MDRO Source:: Urine Past Surgical History: Cholecystectomy, Tubal Ligation Additional Past Surgical History / Comment(s): CATARACT REMOVED FROM RT EYE Past Anesthesia/Blood Transfusion Reactions: No Reported Reaction Past Psychological History: No Psychological Hx Reported Smoking Status: Never smoker Past Alcohol Use History: None Reported Past Drug Use History: None Reported - Past Family History Mother Family Medical History: Cancer Father Family Medical History: Cancer Medications and Allergies Home Medications Medication Instructions Recorded Confirmed Type Apixaban [Eliquis] 2.5 mg PO BID 06/28/18 11/03/21 History Cyanocobalamin (Vitamin B-12) 1,000 mcg PO DAILY 12/02/18 11/03/21 History [Vitamin B-12] Lenalidomide [Revlimid] 10 mg PO DIRECTED 12/02/18 11/03/21 History L.acidoph,Paracasei, B.lactis 1 cap PO DAILY 10/07/20 11/03/21 History [Probiotic] Clotrimazole/Betameth Cream 1 applic TOPICAL BID PRN 11/03/21 11/03/21 History [Lotrisone] Indomethacin [Indocin] 50 mg PO TID PRN 11/03/21 11/03/21 History Albuterol Inhaler [Ventolin Hfa 2 puff INHALATION RT-Q6H PRN 30 11/07/21 Rx Inhaler] Days #1 each Furosemide [Lasix] 40 mg PO BID@0900,1600 30 Days #60 11/07/21 Rx tab Levofloxacin [Levaquin] 750 mg PO Q48H 3 Days #3 tab 11/07/21 Rx Metoprolol Tartrate [Lopressor] 12.5 mg PO BID 30 Days #60 tab 11/07/21 Rx Potassium Chloride ER [K-Dur 20] 20 meq PO BID 30 Days #60 tab 11/07/21 Rx Allergies Allergy/AdvReac Type Severity Reaction Status Date / Time Iodinated Contrast Media Allergy Intermediate Rash/Hives Verified 12/15/22 11:06 cephalexin Allergy Rash/Hives Verified 12/15/22 11:06 Objective - Vital Signs Vital signs: Vital Signs Temp 97.4 F L 07/11/24 10:39 Pulse 67 07/11/24 10:39 Resp 17 07/11/24 10:39 BP 154/76 07/11/24 10:39 Pulse Ox 96 07/11/24 10:39 FiO2 Intake & Output 07/10/24 07/11/24 07/11/24 18:59 06:59 18:59 Weight 123.377 kg - Constitutional General appearance: Present: cooperative - EENT Eyes: Present: EOMI ENT: Present: hearing grossly normal - Neck Neck: Present: normal ROM - Respiratory Respiratory: bilateral: CTA - Cardiovascular Rhythm: regular Heart sounds: normal: S1, S2 - Integumentary Integumentary: Present: normal turgor - Musculoskeletal Musculoskeletal: Present: gait normal - Psychiatric Psychiatric: Present: A&O x's 3, appropriate affect, intact judgment & insight - Additional findings Additional findings: Breast Exam: BRA: 46DD Inspection: Bilateral grade 3 ptosis Palpation: Right breast: fibrocystic changes no dominant masses or nodules of concern Right axilla: No adenopathy of concern Left breast: 9 cm from the nipple at the 1 o'clock position post op changes; probable seroma Left axilla: No adenopathy of concern Ptosis: Grade 3: Right Breast Ptosis, Left Breast Ptosis Breast: right: normal, left: mass Right Breast Palpation (Multi-positional): No dominant masses, No nodules of concerns, Fibrocystic Changes Left Breast Palpation (Multi-positional): Other ; post op changes, postradiation changes, probable seroma Right Axilla Palpation: No adenopathy of concern Left Axilla Palpation: No adenopathy of concern Assessment and Plan Assessment: Impression: Multiple myeloma papillary lesion left breast probable cancer Fibrocystic breast changes Seroma left breast Plan: Following informed consent aspiration seroma left breast continue to follow with radiation oncology follow up in August follow up sooner any concerns Following informed consent the area of concern in the left breast was prepped using alcohol. An 18-gauge needle and a 20 cc syringe was used to aspirate 490 cc of straw-colored fluid with complete resolution of the seroma. The patient tolerated the procedure without any difficulty. CC: Dr. Chris
== END ==
LOC: WWCWWP 10:00
PROVIDERS: ATTEND Surgery
DX: C90.00 Multiple myeloma not having achieved remission (principal); N60.19 Diffuse cystic mastopathy of unspecified breast; N64.89 Other specified disorders of breast; Z80.3 Family history of malignant neoplasm of breast; Z91.041 Radiographic dye allergy status; Z88.1 Allergy status to other antibiotic agents

== ENCOUNTER → 2024-07-29 | Outpatient (CLI) | payer MEDICARE, OTHER ==
--- NOTE | 2024-07-29 08:49 | P.PN ---
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 Espinoza424. She had had a bilateral screening mammogram on 10-04-2022. This revealed calcifications in both breast which appear to be benign but there was a new mass measuring 7 mm seen in the left breast 9 cm from the nipple. She underwent an ultrasound this area as well as a diagnostic mammogram. This revealed a high density mass measuring 7 mm with microlobulated margins. Ultrasound-guided core biopsy was performed on 10-26-2022. Pathology revealed fragmented atypical epithelial proliferation with papillary features. The radiographs at that time were reviewed and postprocedure clip appeared to be in the correct location. She was recommended to undergo a needle localization and excisional biopsy at that time. The patient however canceled the procedure and has not been seen until now. She states she had acute bronchitis and did not reschedule. She did have a mammogram and ultrasound on 03-18-2024. This revealed a 3 x 3.9 cm nodule at up the palpable abnormality this is consistent with the area of previous u ltrasound core biopsy which was suspicious for invasive papillary carcinoma. The patient can now feel a spot in her left breast. She has not had any surgery on her breast. She is not complaining of any nipple discharge or skin changes. She has a spot under her right eye, will be seen by a shirt line operator. Patient's case presented at tumor board on 1223. Recommendation for left breast lumpectomy with sentinel node biopsy. Depending on results of the pathology radiation will most likely be recommended postprocedure. This may be a secondary cancer from Revlamid. The patient would like to have a left breast lumpectomy oncoplastic tissue transfer and sentinel node injection, left SNB possible left axillary node disection. She understands we do not have additional pathology from that which was done on 11-21-2022. Despite this she would not like to have a repeat biopsy. Discussed radiation therapy and medical oncology, she is followed by Dr. Moncada secondary to multiple myeloma. Patient had two skin biopsies of her face and were + for skin cancer and having resection on with dermatology. status post left breast lumpectomy and SNB on 04-22-24; all nodes (-), margins (-), 3.4 cm tumor, triple (-) 05-30-24 note radiation oncology reviewed recommend radiation therapy, she has had approximately 1 week of treatment at this time. At her appointment at radiation oncology she was noted to have some swelling in the left breast there was concern there was a seroma and she was asked to be seen by us to evaluate for possible seroma. The patient states she has noted some swelling in that area. She met with medical oncology Dr. Jet Moncada and decided against any chemotherapy. 07-29-24 Antoinette is status post left breast lumpectomy and sentinel node biopsy in 04-22-2025. 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 The patient is in the process of receiving radiation therapy and did undergo aspiration of the seroma on 07-11-2024. 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 She has 6 more radiation treatments pending. She is not going to undergo any chemotherapy. She does have a history of multiple myeloma. Caffeine: occasional nicotine: none chocolate: weekly BCP: none hormones: none Family History: mother: breast cancer father: prostate cancer Hormonal History: menarche: 15 M1, breast fed: no, age at first : 23 menopause: 53 Surgical History: gallbladder Medical History: ventral hernia multiple myloma follows with Dr. Moncada on [facility], had a blood clot left leg, was on Revilimib Social History: nicotine: none alcohol: none drugs: none - Constitutional Constitutional: Denies chills, Denies fever - EENT Comment: bilateral cataract surgery Eyes: denies blurred vision, denies pain Ears: deny: decreased hearing, tinnitus Ears, nose, mouth and throat: Denies headache, Denies sore throat - Breasts Breasts: bilateral: as per HPI - Cardiovascular Cardiovascular: Denies chest pain, Denies shortness of breath - Respiratory Respiratory: Denies cough - Gastrointestinal Gastrointestinal: Denies abdominal pain, Denies diarrhea, Denies nausea, Denies vomiting - Genitourinary (Female) Genitourinary: Denies dysuria, Denies hematuria - Menstruation Menstruation: Reports postmenopausal - Musculoskeletal Comment: leg pain, uses a cane when legs feel week - Integumentary Integumentary: Denies pruritus, Denies rash - Neurological Neurological: Denies numbness, Denies weakness - Psychiatric Psychiatric: Denies anxiety, Denies depression - Endocrine Comment: none - Hematologic/Lymphatic Comment: none - Allergic/Immunologic Allergic/Immunologic: Reports seasonal allergies Past Medical History Past Medical History: Cancer, Eye Disorder, Hypertension, Pneumonia Additional Past Medical History / Comment(s): multiple myeloma-in remission. CATARACT LT EYE History of Any Multi-Drug Resistant Organisms: ESBL Date of last positivie culture/infection: 06/28/18 ESBL E. coli MDRO Source:: Urine Past Surgical History: Cholecystectomy, Tubal Ligation Additional Past Surgical History / Comment(s): CATARACT REMOVED FROM RT EYE Past Anesthesia/Blood Transfusion Reactions: No Reported Reaction Past Psychological History: No Psychological Hx Reported Smoking Status: Never smoker Past Alcohol Use History: None Reported Past Drug Use History: None Reported - Past Family History Mother Family Medical History: Cancer Father Family Medical History: Cancer Medications and Allergies Home Medications Medication Instructions Recorded Confirmed Type Apixaban [Eliquis] 2.5 mg PO BID 06/28/18 11/03/21 History Cyanocobalamin (Vitamin B-12) 1,000 mcg PO DAILY 12/02/18 11/03/21 History [Vitamin B-12] Lenalidomide [Revlimid] 10 mg PO DIRECTED 12/02/18 11/03/21 History L.acidoph,Paracasei, B.lactis 1 cap PO DAILY 10/07/20 11/03/21 History [Probiotic] Clotrimazole/Betameth Cream 1 applic TOPICAL BID PRN 11/03/21 11/03/21 History [Lotrisone] Indomethacin [Indocin] 50 mg PO TID PRN 11/03/21 11/03/21 History Albuterol Inhaler [Ventolin Hfa 2 puff INHALATION RT-Q6H PRN 30 11/07/21 Rx Inhaler] Days #1 each Furosemide [Lasix] 40 mg PO BID@0900,1600 30 Days #60 11/07/21 Rx tab Levofloxacin [Levaquin] 750 mg PO Q48H 3 Days #3 tab 11/07/21 Rx Metoprolol Tartrate [Lopressor] 12.5 mg PO BID 30 Days #60 tab 11/07/21 Rx Potassium Chloride ER [K-Dur 20] 20 meq PO BID 30 Days #60 tab 11/07/21 Rx Allergies Allergy/AdvReac Type Severity Reaction Status Date / Time Iodinated Contrast Media Allergy Intermediate Rash/Hives Verified 12/15/22 11:06 cephalexin Allergy Rash/Hives Verified 12/15/22 11:06 Objective - Constitutional General appearance: Present: cooperative - EENT Eyes: Present: EOMI ENT: Present: hearing grossly normal - Neck Neck: Present: normal ROM - Respiratory Respiratory: right: wheezing, left: CTA - Cardiovascular Heart sounds: normal: S1, S2 - Psychiatric Psychiatric: Present: A&O x's 3 - Additional findings Additional findings: Left breast postradiation, seroma present Assessment and Plan Assessment: Impression: Seroma left breast Plan: Aspiration seroma Following informed consent the area of concern in the left breast was prepped us ing alcohol. An 18-gauge needle using both 60 and 20 cc syringes were used to aspirate 640 cc of serous fluid. There was complete resolution of the seroma. The patient tolerated the procedure in stable condition. The patient will follow-up on August 22, she will follow up sooner any concerns. Radiation therapy Follow-up with medical oncology as needed.
[2024-07-29 09:14] VITALS: BP 117/63; PULSE 59; RESP 17; TEMP 97.8
== END ==
LOC: WWCWWP 07:54
PROVIDERS: ATTEND Surgery
DX: N64.89 Other specified disorders of breast (principal); Z80.3 Family history of malignant neoplasm of breast; Z91.041 Radiographic dye allergy status; Z88.1 Allergy status to other antibiotic agents

== ENCOUNTER → 2024-08-12 | Outpatient (CLI) | payer MEDICARE, OTHER ==
[2024-08-12 13:32] VITALS: BP 110/65; PULSE 87; RESP 17; TEMP 97.9
--- NOTE | 2024-08-12 14:07 | P.PN ---
Subjective Progress Note Date: 08/12/24 08-12-24 Antoinette is status post left breast lumpectomy and sentinel node biopsy in 04-22-2025. 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 The patient is in the process of receiving radiation therapy and did undergo aspiration of the seroma on 07-11-2024. 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 She has 6 more radiation treatments pending. She completed her radiation on Thursday, August 08, 2024. At that time she was given a prescription for antibiotics clindamycin 300 TID. She has not had any fever or chills. It is not painful the antiobiotic seems to be helping. She has some drainage from her incision site which, she has very erythematous radiation changes over the top and inferior aspect of her breast. She is not going to undergo any chemotherapy. She does have a history of multiple myeloma. Caffeine: occasional nicotine: none chocolate: weekly BCP: none hormones: none Family History: mother: breast cancer father: prostate cancer Hormonal History: menarche: 15 M1, breast fed: no, age at first : 23 menopause: 53 Surgical History: gallbladder Medical History: ventral hernia multiple myloma follows with Dr. Moncada on [facility], had a blood clot left leg, was on Revilimib Social History: nicotine: none alcohol: none drugs: none - Constitutional Constitutional: Denies chills, Denies fever - EENT Comment: bilateral cataract surgery Eyes: denies blurred vision, denies pain Ears: deny: decreased hearing, tinnitus Ears, nose, mouth and throat: Denies headache, Denies sore throat - Breasts Breasts: left breast tripple (-) IDC status post lumpectoy 04-22-25 - Cardiovascular Cardiovascular: Denies chest pain, Denies shortness of breath - Respiratory Respiratory: Denies cough - Gastrointestinal Gastrointestinal: Denies abdominal pain, Denies diarrhea, Denies nausea, Denies vomiting - Genitourinary (Female) Genitourinary: Denies dysuria, Denies hematuria - Menstruation Menstruation: Reports postmenopausal - Musculoskeletal Comment: leg pain, uses a cane when legs feel week - Integumentary Integumentary: Denies pruritus, Denies rash - Neurological Neurological: Denies numbness, Denies weakness - Psychiatric Psychiatric: Denies anxiety, Denies depression - Endocrine Comment: none - Hematologic/Lymphatic Comment: none - Allergic/Immunologic Allergic/Immunologic: Reports seasonal allergies Past Medical History Past Medical History: Cancer, Eye Disorder, Hypertension, Pneumonia Additional Past Medical History / Comment(s): multiple myeloma-in remission. CATARACT LT EYE History of Any Multi-Drug Resistant Organisms: ESBL Date of last positivie culture/infection: 06/28/18 ESBL E. coli MDRO Source:: Urine Past Surgical History: Cholecystectomy, Tubal Ligation Additional Past Surgical History / Comment(s): CATARACT REMOVED FROM RT EYE Past Anesthesia/Blood Transfusion Reactions: No Reported Reaction Past Psychological History: No Psychological Hx Reported Smoking Status: Never smoker Past Alcohol Use History: None Reported Past Drug Use History: None Reported - Past Family History Mother Family Medical History: Cancer Father Family Medical History: Cancer Medications and Allergies Home Medications Medication Instructions Recorded Confirmed Type Apixaban [Eliquis] 2.5 mg PO BID 06/28/18 11/03/21 History Cyanocobalamin (Vitamin B-12) 1,000 mcg PO DAILY 12/02/18 11/03/21 History [Vitamin B-12] Lenalidomide [Revlimid] 10 mg PO DIRECTED 12/02/18 11/03/21 History L.acidoph,Paracasei, B.lactis 1 cap PO DAILY 10/07/20 11/03/21 History [Probiotic] Clotrimazole/Betameth Cream 1 applic TOPICAL BID PRN 11/03/21 11/03/21 History [Lotrisone] Indomethacin [Indocin] 50 mg PO TID PRN 11/03/21 11/03/21 History Albuterol Inhaler [Ventolin Hfa 2 puff INHALATION RT-Q6H PRN 30 11/07/21 Rx Inhaler] Days #1 each Furosemide [Lasix] 40 mg PO BID@0900,1600 30 Days #60 11/07/21 Rx tab Levofloxacin [Levaquin] 750 mg PO Q48H 3 Days #3 tab 11/07/21 Rx Metoprolol Tartrate [Lopressor] 12.5 mg PO BID 30 Days #60 tab 11/07/21 Rx Potassium Chloride ER [K-Dur 20] 20 meq PO BID 30 Days #60 tab 11/07/21 Rx Allergies Allergy/AdvReac Type Severity Reaction Status Date / Time Iodinated Contrast Media Allergy Intermediate Rash/Hives Verified 12/15/22 11:06 cephalexin Allergy Rash/Hives Verified 12/15/22 11:06 Objective - Vital Signs Vital signs: Vital Signs Temp 97.9 F 08/12/24 13:29 Pulse 87 08/12/24 13:29 Resp 17 08/12/24 13:29 BP 110/65 08/12/24 13:29 Pulse Ox 97 08/12/24 13:29 FiO2 Intake & Output 08/11/24 08/12/24 08/12/24 18:59 06:59 18:59 Weight 114.305 kg - Constitutional General appearance: Present: cooperative - EENT ENT: Present: hearing grossly normal - Neck Neck: Present: normal ROM - Integumentary Integumentary Comment(s): radiation sandhu left breast, opening with some drainagein [facility] medical aspect of hte incision Assessment and Plan Assessment: Impression: post radiation and surgical changes left breast Plan: I&D left breast the area of concern in the left breast was prepped with alcohol. It was openend and probged with a hemostaat. Necrotic tissue was removed with a small amount of turbid fluid. Cultures obtained. The wound was irrigated and packed. Home health care/ wound to be packed daily follow up in one week
== END ==
LOC: WWCWWP 12:27
PROVIDERS: ATTEND Surgery
DX: Z92.3 Personal history of irradiation (principal); Z91.041 Radiographic dye allergy status; Z88.1 Allergy status to other antibiotic agents
CPT/HCPCS: 87070; 87075; 87205

== ENCOUNTER → 2024-08-21 | Outpatient (CLI) | payer MEDICARE, OTHER ==
[2024-08-21 10:49] VITALS: BP 170/72; PULSE 80; RESP 17; TEMP 97.9
--- NOTE | 2024-08-21 10:56 | P.PN ---
Subjective Progress Note Date: 08/21/24 Principal diagnosis: wound check 08/21/24 Antoinette is status post left breast lumpectomy and sentinel node biopsy in 04-22-2025. 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 The patient is in the process of receiving radiation therapy and did undergo aspiration of the seroma on 07-11-2024. 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 She has 6 more radiation treatments pending. She completed her radiation on Thursday, August 08, 2024. At that time she was given a prescription for antibiotics clindamycin 300 TID. She has not had any fever or chills. Her breast is not painful the antiobiotic seems to be helping. She has some drainage from her incision site which, she has very erythematous radiation changes over the top and inferior aspect of her breast. on appointment of 08-13-23. Erythema has improved on today's visit. Her wound which was opened on the last visit is healing well with nice granulation tissue. She is not complaining of any fever or chills. She is not going to undergo any chemotherapy. She does have a history of multiple myeloma. Caffeine: occasional nicotine: none chocolate: weekly BCP: none hormones: none Family History: mother: breast cancer father: prostate cancer Hormonal History: menarche: 15 M1, breast fed: no, age at first : 23 menopause: 53 Surgical History: gallbladder Medical History: ventral hernia multiple myloma follows with Dr. Moncada on [facility], had a blood clot left leg, was on Revilimib Social History: nicotine: none alcohol: none drugs: none - Constitutional Constitutional: Denies chills, Denies fever - EENT Comment: bilateral cataract surgery Eyes: denies blurred vision, denies pain Ears: deny: decreased hearing, tinnitus Ears, nose, mouth and throat: Denies headache, Denies sore throat - Breasts Breasts: left breast tripple (-) IDC status post lumpectoy 04-22-25 - Cardiovascular Cardiovascular: Denies chest pain, Denies shortness of breath - Respiratory Respiratory: Denies cough - Gastrointestinal Gastrointestinal: Denies abdominal pain, Denies diarrhea, Denies nausea, Denies vomiting - Genitourinary (Female) Genitourinary: Denies dysuria, Denies hematuria - Menstruation Menstruation: Reports postmenopausal - Musculoskeletal Comment: leg pain, uses a cane when legs feel week - Integumentary Integumentary: Denies pruritus, Denies rash - Neurological Neurological: Denies numbness, Denies weakness - Psychiatric Psychiatric: Denies anxiety, Denies depression - Endocrine Comment: none - Hematologic/Lymphatic Comment: none - Allergic/Immunologic Allergic/Immunologic: Reports seasonal allergies Past Medical History Past Medical History: Cancer, Eye Disorder, Hypertension, Pneumonia Additional Past Medical History / Comment(s): multiple myeloma-in remission. CATARACT LT EYE History of Any Multi-Drug Resistant Organisms: ESBL Date of last positivie culture/infection: 06/28/18 ESBL E. coli MDRO Source:: Urine Past Surgical History: Cholecystectomy, Tubal Ligation Additional Past Surgical History / Comment(s): CATARACT REMOVED FROM RT EYE Past Anesthesia/Blood Transfusion Reactions: No Reported Reaction Past Psychological History: No Psychological Hx Reported Smoking Status: Never smoker Past Alcohol Use History: None Reported Past Drug Use History: None Reported - Past Family History Mother Family Medical History: Cancer Father Family Medical History: Cancer Medications and Allergies Home Medications Medication Instructions Recorded Confirmed Type Apixaban [Eliquis] 2.5 mg PO BID 06/28/18 11/03/21 History Cyanocobalamin (Vitamin B-12) 1,000 mcg PO DAILY 12/02/18 11/03/21 History [Vitamin B-12] Lenalidomide [Revlimid] 10 mg PO DIRECTED 12/02/18 11/03/21 History L.acidoph,Paracasei, B.lactis 1 cap PO DAILY 10/07/20 11/03/21 History [Probiotic] Clotrimazole/Betameth Cream 1 applic TOPICAL BID PRN 11/03/21 11/03/21 History [Lotrisone] Indomethacin [Indocin] 50 mg PO TID PRN 11/03/21 11/03/21 History Albuterol Inhaler [Ventolin Hfa 2 puff INHALATION RT-Q6H PRN 30 11/07/21 Rx Inhaler] Days #1 each Furosemide [Lasix] 40 mg PO BID@0900,1600 30 Days #60 11/07/21 Rx tab Levofloxacin [Levaquin] 750 mg PO Q48H 3 Days #3 tab 11/07/21 Rx Metoprolol Tartrate [Lopressor] 12.5 mg PO BID 30 Days #60 tab 11/07/21 Rx Potassium Chloride ER [K-Dur 20] 20 meq PO BID 30 Days #60 tab 11/07/21 Rx Allergies Allergy/AdvReac Type Severity Reaction Status Date / Time Iodinated Contrast Media Allergy Intermediate Rash/Hives Verified 12/15/22 11:06 cephalexin Allergy Rash/Hives Verified 12/15/22 11:06 Objective - Vital Signs Vital signs: Vital Signs Temp 97.9 F 08/21/24 10:47 Pulse 80 08/21/24 10:47 Resp 17 08/21/24 10:47 BP 170/72 08/21/24 10:47 Pulse Ox 98 08/21/24 10:47 FiO2 Intake & Output 08/20/24 08/21/24 08/21/24 18:59 06:59 18:59 Weight 122.47 kg - Constitutional General appearance: Present: cooperative - EENT Eyes: Present: EOMI ENT: Present: hearing grossly normal - Neck Neck: Present: normal ROM - Respiratory Respiratory: bilateral: CTA - Cardiovascular Heart sounds: normal: S1, S2 - Integumentary Integumentary Comment(s): Erythema in the left breast has decreased Opening in the medial aspect of the lumpectomy incision is approximately 2-1/2 cm in size. The packing is changed. The tissue inside appears to be clean granulation tissue Assessment and Plan Assessment: Impression: ventral hernia multiple myloma follows with Dr. Moncada on [facility], had a blood clot left leg, was on Revilimib 04-22-25 left breast lumpectomy/sentinel node biopsy, recently completed radiation therapy and had breakdown of the lumpectomy incision, this was debrided on 08 12 24 and patient comes for evaluation today this is healing well at this time Plan: Change dressing changes to Aquacel silver rope to be changed 3 times a week Patient to follow-up next week Patient to follow sooner any questions or concerns For home health care Please change dressing changes to Aquacel silver rope, size of wound is approximately 8 cm x 8 cm, can be changed 3 times a week
== END ==
LOC: WWCWWP 09:56
PROVIDERS: ATTEND Surgery
DX: K43.9 Ventral hernia without obstruction or gangrene (principal); Z98.890 Other specified postprocedural states; Z88.1 Allergy status to other antibiotic agents; Z91.041 Radiographic dye allergy status

== ENCOUNTER → 2024-09-05 | Outpatient (CLI) | payer MEDICARE, OTHER ==
[2024-09-05 13:38] VITALS: BP 142/78; PULSE 90; RESP 16; TEMP 98.4
--- NOTE | 2024-09-05 13:52 | P.PN ---
Subjective Progress Note Date: 09/05/24 09/05/24 Principal diagnosis: wound check 08/21/24 Antoinette is status post left breast lumpectomy and sentinel node biopsy in 04-22-2025. 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 The patient is in the process of receiving ra diation therapy and did undergo aspiration of the seroma on 07-11-2024. 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 She has 6 more radiation treatments pending. She completed her radiation on Thursday, August 08, 2024. At that time she was given a prescription for antibiotics clindamycin 300 TID. She has not had any fever or chills. Her breast is not painful the antiobiotic seems to be helping. She has some drainage from her incision site which, she has very erythematous radiation changes over the top and inferior aspect of her breast. on appointment of 08-13-23. wound check on 08-21-24 Erythema had improved on last visit. Her wound which was opened on the last visit is healing well with nice granulation tissue. She is not complaining of any fever or chills. She is not going to undergo any chemotherapy. She does have a history of multiple myeloma. Erythema in the left breast has decreased Opening in the medial aspect of the lumpectomy incision is approximately 2-1/2 cm in size. The packing is changed. The tissue inside appears to be clean granulation tissue size 8 by 8 CM 09-05-24 She had cancer surgery on her face on 08-25-24 Dr. Astudillo She is not complaining of any fever or chills The left breast wound is being packed with Aquacel silver rope and she is doing well There is decrease in the size of the cavity from 8 cm to 3 cm x 1 cm x 2 cm Caffeine: occasional nicotine: none chocolate: weekly BCP: none hormones: none Family History: mother: breast cancer father: prostate cancer Hormonal History: menarche: 15 M1, breast fed: no, age at first : 23 menopause: 53 Surgical History: gallbladder Medical History: ventral hernia multiple myloma follows with Dr. Moncada on [facility], had a blood clot left leg, was on Revilimib Social History: nicotine: none alcohol: none drugs: none - Constitutional Constitutional: Denies chills, Denies fever - EENT Comment: bilateral cataract surgery Eyes: denies blurred vision, denies pain Ears: deny: decreased hearing, tinnitus Ears, nose, mouth and throat: Denies headache, Denies sore throat - Breasts Breasts: left breast tripple (-) IDC status post lumpectoy 04-22-25 - Cardiovascular Cardiovascular: Denies chest pain, Denies shortness of breath - Respiratory Respiratory: Denies cough - Gastrointestinal Gastrointestinal: Denies abdominal pain, Denies diarrhea, Denies nausea, Denies vomiting - Genitourinary (Female) Genitourinary: Denies dysuria, Denies hematuria - Menstruation Menstruation: Reports postmenopausal - Musculoskeletal Comment: leg pain, uses a cane when legs feel week - Integumentary Integumentary: Denies pruritus, Denies rash - Neurological Neurological: Denies numbness, Denies weakness - Psychiatric Psychiatric: Denies anxiety, Denies depression - Endocrine Comment: none - Hematologic/Lymphatic Comment: none - Allergic/Immunologic Allergic/Immunologic: Reports seasonal allergies Past Medical History Past Medical History: Cancer, Eye Disorder, Hypertension, Pneumonia Additional Past Medical History / Comment(s): multiple myeloma-in remission. CATARACT LT EYE History of Any Multi-Drug Resistant Organisms: ESBL Date of last positivie culture/infection: 06/28/18 ESBL E. coli MDRO Source:: Urine Past Surgical History: Cholecystectomy, Tubal Ligation Additional Past Surgical History / Comment(s): CATARACT REMOVED FROM RT EYE Past Anesthesia/Blood Transfusion Reactions: No Reported Reaction Past Psychological History: No Psychological Hx Reported Smoking Status: Never smoker Past Alcohol Use History: None Reported Past Drug Use History: None Reported - Past Family History Mother Family Medical History: Cancer Father Family Medical History: Cancer Medications and Allergies Home Medications Medication Instructions Recorded Confirmed Type Apixaban [Eliquis] 2.5 mg PO BID 06/28/18 11/03/21 History Cyanocobalamin (Vitamin B-12) 1,000 mcg PO DAILY 12/02/18 11/03/21 History [Vitamin B-12] Lenalidomide [Revlimid] 10 mg PO DIRECTED 12/02/18 11/03/21 History L.acidoph,Paracasei, B.lactis 1 cap PO DAILY 10/07/20 11/03/21 History [Probiotic] Clotrimazole/Betameth Cream 1 applic TOPICAL BID PRN 11/03/21 11/03/21 History [Lotrisone] Indomethacin [Indocin] 50 mg PO TID PRN 11/03/21 11/03/21 History Albuterol Inhaler [Ventolin Hfa 2 puff INHALATION RT-Q6H PRN 30 11/07/21 Rx Inhaler] Days #1 each Furosemide [Lasix] 40 mg PO BID@0900,1600 30 Days #60 11/07/21 Rx tab Levofloxacin [Levaquin] 750 mg PO Q48H 3 Days #3 tab 11/07/21 Rx Metoprolol Tartrate [Lopressor] 12.5 mg PO BID 30 Days #60 tab 11/07/21 Rx Potassium Chloride ER [K-Dur 20] 20 meq PO BID 30 Days #60 tab 11/07/21 Rx Allergies Allergy/AdvReac Type Severity Reaction Status Date / Time Iodinated Contrast Media Allergy Intermediate Rash/Hives Verified 12/15/22 11:06 cephalexin Allergy Rash/Hives Verified 12/15/22 11:06 Objective - Vital Signs Vital signs: Vital Signs Temp 98.4 F 09/05/24 13:36 Pulse 90 09/05/24 13:36 Resp 16 09/05/24 13:36 BP 142/78 09/05/24 13:36 Pulse Ox 95 09/05/24 13:36 FiO2 Intake & Output 09/04/24 09/05/24 09/05/24 18:59 06:59 18:59 Weight 121.563 kg - Constitutional General appearance: Present: cooperative - EENT Eyes: Present: EOMI - Neck Neck: Present: normal ROM - Respiratory Respiratory: bilateral: CTA - Cardiovascular Heart sounds: normal: S1, S2 - Integumentary Integumentary: Present: normal turgor - Psychiatric Psychiatric: Present: A&O x's 3, appropriate affect, intact judgment & insight - Additional findings Additional findings: left breast: The 2-1/2 cm x 1 cm x 3 cm Packing changed, irrigated wound prior to packing change Assessment and Plan Assessment: Impression: ventral hernia multiple myloma follows with Dr. Moncada on [facility], had a blood clot left leg, was on Revilimib 04-22-25 left breast lumpectomy/sentinel node biopsy, recently completed radiation therapy and had breakdown of the lumpectomy incision, this was debrided on 08 12 24 and patient comes for evaluation today this is healing well at this time Plan: Change dressing changes to Aquacel silver rope to be changed 3 times a week Patient to follow-up one month Patient to follow sooner any questions or concerns For home health care Please change dressing changes to Aquacel silver rope, size of wound is approximately 3 by 2 cm, can be changed 3 times a week
== END ==
LOC: WWCWWP 11:42
PROVIDERS: ATTEND Surgery
DX: C90.00 Multiple myeloma not having achieved remission (principal); K43.2 Incisional hernia without obstruction or gangrene; Z79.61 Long term (current) use of immunomodulator; Z88.1 Allergy status to other antibiotic agents; Z91.041 Radiographic dye allergy status; Z98.890 Other specified postprocedural states

== ENCOUNTER → 2024-10-24 | Outpatient (CLI) | payer MEDICARE, OTHER ==
[2024-10-24 11:55] VITALS: BP 148/80; PULSE 53; RESP 17; TEMP 97.5
--- NOTE | 2024-10-24 12:33 | P.PN ---
Subjective Progress Note Date: 10/24/24 Principal diagnosis: wound check 10-24-24 Principal diagnosis: wound check 08/21/24 Antoinette is status post left breast lumpectomy and sentinel node biopsy on 04-22-2025. 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 The patient is in the process of receiving radiation therapy and did undergo aspiration of the seroma on 07-11-2024. 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 She has 6 more radiation treatments pending. She completed her radiation on Sunday, August 08, 2024. At that time she was given a prescription for antibiotics clindamycin 300 TID. She has not had any fever or chills. Her breast is not painful the antiobiotic seems to be helping. She has some drainage from her incision site which, she has very erythematous radiation changes over the top and inferior aspect of her breast. on appointment of 08-13-23. wound check on 08-21-24 Erythema had improved on last visit. Her wound which was opened on the last visit is healing well with nice granulation tissue. She is not complaining of any fever or chills. She is not going to undergo any chemotherapy. She does have a history of multiple myeloma. Erythema in the left breast has decreased Opening in the medial aspect of the lumpectomy incision is approximately 2-1/2 cm in size. The packing is changed. The tissue inside appears to be clean granulation tissue size 8 by 8 CM 09-05-24 She had cancer surgery on her face on 08-25-24 Dr. Astudillo She is not complaining of any fever or chills The left breast wound is being packed with Aquacel silver rope and she is doing well There is decrease in the size of the cavity from 8 cm to 3 cm x 1 cm x 2 cm 10-03-24 Antoinette is status post left breast lumpectomy and sentinel node biopsy on 04-22-2025. She had a 3.4 cm tumor which was triple negative. All margins were negative and all nodes were negative. The patient has completed a course of radiation therapy and following the radiation therapy developed a breakdown of the area of the incision. This has been packed and cared for via home care since July 2024. She comes for wound evaluation, nurse is coming to her home Sun, Sun, and Sunday and using Aquacel silver rope for the packing Wound at this time is 3 cm x 1 cm x 1 cm Note radiation oncology 09-04-2024 reviewed 10-24-24 Antoinette is a 79 year old status post left breast lumpectomy and sentinel node biopsy on 04-22-2025. She had a 3.4 cm tumor which was triple negative. All margins were negative and all nodes were negative. The patient has completed a course of radiation therapy and following the radiation therapy developed a breakdown of the area of the incision. This has been packed and cared for via home care since July 2024. She comes for wound evaluation, nurse is coming to her home Sun, Sun, and Sunday and using Aquacel silver rope for the packing The cavity depth is now 2-1/2 cm it is gone from 8 cm to 3 cm to 2-1/2 cm She is not complaining of any fever or chills. She is not complaining of any pain at the site. Caffeine: occasional nicotine: none chocolate: weekly BCP: none hormones: none Family History: mother: breast cancer father: prostate cancer Hormonal History: menarche: 15 M1, breast fed: no, age at first : 23 menopause: 53 Surgical History: gallbladder Medical History: ventral hernia multiple myloma follows with Dr. Moncada on [facility], had a blood clot left leg, was on Revilimib Social History: nicotine: none alcohol: none drugs: none - Constitutional Constitutional: Denies chills, Denies fever - EENT Comment: bilateral cataract surgery Eyes: denies blurred vision, denies pain Ears: deny: decreased hearing, tinnitus Ears, nose, mouth and throat: Denies headache, Denies sore throat - Breasts Breasts: left breast tripple (-) IDC status post lumpectoy 04-22-25 - Cardiovascular Cardiovascular: Denies chest pain, Denies shortness of breath - Respiratory Respiratory: Denies cough - Gastrointestinal Gastrointestinal: Denies abdominal pain, Denies diarrhea, Denies nausea, Denies vomiting - Genitourinary (Female) Genitourinary: Denies dysuria, Denies hematuria - Menstruation Menstruation: Reports postmenopausal - Musculoskeletal Comment: leg pain, uses a cane when legs feel week - Integumentary Integumentary: Denies pruritus, Denies rash - Neurological Neurological: Denies numbness, Denies weakness - Psychiatric Psychiatric: Denies anxiety, Denies depression - Endocrine Comment: none - Hematologic/Lymphatic Comment: none - Allergic/Immunologic Allergic/Immunologic: Reports seasonal allergies Past Medical History Past Medical History: Cancer, Eye Disorder, Hypertension, Pneumonia Additional Past Medical History / Comment(s): multiple myeloma-in remission. CATARACT LT EYE History of Any Multi-Drug Resistant Organisms: ESBL Date of last positivie culture/infection: 06/28/18 ESBL E. coli MDRO Source:: Urine Past Surgical History: Cholecystectomy, Tubal Ligation Additional Past Surgical History / Comment(s): CATARACT REMOVED FROM RT EYE Past Anesthesia/Blood Transfusion Reactions: No Reported Reaction Past Psychological History: No Psychological Hx Reported Smoking Status: Never smoker Past Alcohol Use History: None Reported Past Drug Use History: None Reported - Past Family History Mother Family Medical History: Cancer Father Family Medical History: Cancer Medications and Allergies Home Medications Medication Instructions Recorded Confirmed Type Apixaban [Eliquis] 2.5 mg PO BID 06/28/18 11/03/21 History Cyanocobalamin (Vitamin B-12) 1,000 mcg PO DAILY 12/02/18 11/03/21 History [Vitamin B-12] Lenalidomide [Revlimid] 10 mg PO DIRECTED 12/02/18 11/03/21 History L.acidoph,Paracasei, B.lactis 1 cap PO DAILY 10/07/20 11/03/21 History [Probiotic] Clotrimazole/Betameth Cream 1 applic TOPICAL BID PRN 11/03/21 11/03/21 History [Lotrisone] Indomethacin [Indocin] 50 mg PO TID PRN 11/03/21 11/03/21 History Albuterol Inhaler [Ventolin Hfa 2 puff INHALATION RT-Q6H PRN 30 11/07/21 Rx Inhaler] Days #1 each Furosemide [Lasix] 40 mg PO BID@0900,1600 30 Days #60 11/07/21 Rx tab Levofloxacin [Levaquin] 750 mg PO Q48H 3 Days #3 tab 11/07/21 Rx Metoprolol Tartrate [Lopressor] 12.5 mg PO BID 30 Days #60 tab 11/07/21 Rx Potassium Chloride ER [K-Dur 20] 20 meq PO BID 30 Days #60 tab 11/07/21 Rx Allergies Allergy/AdvReac Type Severity Reaction Status Date / Time Iodinated Contrast Media Allergy Intermediate Rash/Hives Verified 12/15/22 11:06 cephalexin Allergy Rash/Hives Verified 12/15/22 11:06 Objective - Vital Signs Vital signs: Vital Signs Temp 97.5 F L 10/24/24 11:51 Pulse 53 L 10/24/24 11:51 Resp 17 10/24/24 11:51 BP 148/80 10/24/24 11:51 Pulse Ox 98 10/24/24 11:51 FiO2 Intake & Output 10/23/24 10/24/24 10/24/24 18:59 06:59 18:59 Weight 121.563 kg - Constitutional General appearance: Present: cooperative - EENT Eyes: Present: EOMI ENT: Present: hearing grossly normal - Neck Neck: Present: normal ROM - Psychiatric Psychiatric: Present: A&O x's 3, appropriate affect, intact judgment & insight - Additional findings Additional findings: Breast examination: Right breast: Multi positional exam no dominant masses or nodules of concern Right axilla: No adenopathy of concern Left breast: Multi positional exam well-healed scar from prior lumpectomy open area approximately 1 cm x 1 cm x 2.5 cm which is being packed Left axilla: No adenopathy of concern packing was changed and wound measured Assessment and Plan Assessment: Impression: ventral hernia multiple myloma follows with Dr. Moncada on Eliquis, had a blood clot left leg, was on Revilimib, is off Eliquis at this time 04-22-25 left breast lumpectomy/sentinel node biopsy, recently completed radiation therapy and had breakdown of the lumpectomy incision, this was debrided on 08-12-24 Plan: Change dressing changes to Aquacel silver rope to be changed 3 times a week Patient to follow-up 1 month Patient to follow sooner any questions or concerns Bilateral mammogram in March 2025 If the wound is not decreasing in size in the next month we will consider appointment with wound care and possible hyperbaric oxygen I will be gone for [address] Ramsey is covering for me should she have any concerns while I am gone. For home health care Please change dressing changes to Aquacel silver rope, size of wound is approximately 2.5 by 1 cm, can be changed 3 times a week Additional CC's: Bing Padilla
== END ==
LOC: WWCWWP 11:35
PROVIDERS: ATTEND Surgery
DX: K43.9 Ventral hernia without obstruction or gangrene (principal); I74.9 Embolism and thrombosis of unspecified artery; Z92.3 Personal history of irradiation; Z91.041 Radiographic dye allergy status; Z91.018 Allergy to other foods; Z88.1 Allergy status to other antibiotic agents

== ENCOUNTER → 2024-11-18 | Outpatient (CLI) | payer MEDICARE, OTHER ==
[2024-11-18 08:02] VITALS: BP 168/81; PULSE 53; RESP 17; TEMP 97.4
--- NOTE | 2024-11-18 08:11 | P.PN ---
Subjective Progress Note Date: 11/18/24 11-18-24 Principal diagnosis: wound check 08/21/24 Antoinette is status post left breast lumpectomy and sentinel node biopsy on 04-22-2025. 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 The patient is in the process of receiving radiation therapy and did undergo aspiration of the seroma on 07-11-2024. 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 She has 6 more radiation treatments pending. She completed her radiation on Sunday, August 08, 2024. At that time she was given a prescription for antibiotics clindamycin 300 TID. She has not had any fever or chills. Her breast is not painful the antiobiotic seems to be helping. She has some drainage from her incision site which, she has very erythematous radiation changes over the top and inferior aspect of her breast. on appo intment of 08-13-23. wound check on 08-21-24 Erythema had improved on last visit. Her wound which was opened on the last visit is healing well with nice granulation tissue. She is not complaining of any fever or chills. She is not going to undergo any chemotherapy. She does have a history of multiple myeloma. Erythema in the left breast has decreased Opening in the medial aspect of the lumpectomy incision is approximately 2-1/2 cm in size. The packing is changed. The tissue inside appears to be clean granulation tissue size 8 by 8 CM 09-05-24 She had cancer surgery on her face on 08-25-24 Dr. Astudillo She is not complaining of any fever or chills The left breast wound is being packed with Aquacel silver rope and she is doing well There is decrease in the size of the cavity from 8 cm to 3 cm x 1 cm x 2 cm 10-03-24 Antoinette is status post left breast lumpectomy and sentinel node biopsy on 04-22-2025. She had a 3.4 cm tumor which was triple negative. All margins were negative and all nodes were negative. The patient has completed a course of radiation therapy and following the radiation therapy developed a breakdown of the area of the incision. This has been packed and cared for via home care since July 2024. She comes for wound evaluation, nurse is coming to her home Mon, Sun, and Sunday and using Aquacel silver rope for the packing Wound at this time is 3 cm x 1 cm x 1 cm Note radiation oncology 09-04-2024 reviewed 10-24-24 Antoinette is a 79 year old status post left breast lumpectomy and sentinel node biopsy on 04-22-2025. She had a 3.4 cm tumor which was triple negative. All margins were negative and all nodes were negative. The patient has completed a course of radiation therapy and following the radiation therapy developed a breakdown of the area of the incision. This has been packed and cared for via home care since July 2024. She comes for wound evaluation, nurse is coming to her home Sun, Sun, and Sunday and using Aquacel silver rope for the packing The cavity depth is now 2-1/2 cm it is gone from 8 cm to 3 cm to 2-1/2 cm She is not complaining of any fever or chills. She is not complaining of any pain at the site. 11-18-24 Antoinette is a 79 year old status post left breast lumpectomy and sentinel node biopsy on 04-22-2025. She had a 3.4 cm tumor which was triple negative. All margins were negative and all nodes were negative. The patient has completed a course of radiation therapy and following the radiation therapy developed a breakdown of the area of the incision. This has been packed and cared for via home care since July 2024. She comes for wound evaluation, nurse is coming to her home Sun, Sun, and Sunday and using Aquacel silver rope for the packing The cavity depth is now 2-1/2 cm it is gone from 8 cm to 3 cm to 2-1/2 cm; on 11-18-24 the diminsions are 3 cm by 1 cm by 5 mm there is minimal drainage She is not complaining of any fever or chills. She is not complaining of any pain at the site. Caffeine: occasional nicotine: none chocolate: weekly BCP: none hormones: none Family History: mother: breast cancer father: prostate cancer Hormonal History: menarche: 15 M1, breast fed: no, age at first : 23 menopause: 53 Surgical History: gallbladder Medical History: ventral hernia multiple myloma follows with Dr. Moncada on [facility], had a blood clot left leg, was on Revilimib Social History: nicotine: none alcohol: none drugs: none - Constitutional Constitutional: Denies chills, Denies fever - EENT Comment: bilateral cataract surgery Eyes: denies blurred vision, denies pain Ears: deny: decreased hearing, tinnitus Ears, nose, mouth and throat: Denies headache, Denies sore throat - Breasts Breasts: left breast tripple (-) IDC status post lumpectoy 04-22-25 - Cardiovascular Cardiovascular: Denies chest pain, Denies shortness of breath - Respiratory Respiratory: Denies cough - Gastrointestinal Gastrointestinal: Denies abdominal pain, Denies diarrhea, Denies nausea, Denies vomiting - Genitourinary (Female) Genitourinary: Denies dysuria, Denies hematuria - Menstruation Menstruation: Reports postmenopausal - Musculoskeletal Comment: leg pain, uses a cane when legs feel week - Integumentary Integumentary: Denies pruritus, Denies rash - Neurological Neurological: Denies numbness, Denies weakness - Psychiatric Psychiatric: Denies anxiety, Denies depression - Endocrine Comment: none - Hematologic/Lymphatic Comment: none - Allergic/Immunologic Allergic/Immunologic: Reports seasonal allergies Past Medical History Past Medical History: Cancer, Eye Disorder, Hypertension, Pneumonia Additional Past Medical History / Comment(s): multiple myeloma-in remission. CATARACT LT EYE History of Any Multi-Drug Resistant Organisms: ESBL Date of last positivie culture/infection: 06/28/18 ESBL E. coli MDRO Source:: Urine Past Surgical History: Cholecystectomy, Tubal Ligation Additional Past Surgical History / Comment(s): CATARACT REMOVED FROM RT EYE Past Anesthesia/Blood Transfusion Reactions: No Reported Reaction Past Psychological History: No Psychological Hx Reported Smoking Status: Never smoker Past Alcohol Use History: None Reported Past Drug Use History: None Reported - Past Family History Mother Family Medical History: Cancer Father Family Medical History: Cancer Medications and Allergies Home Medications Medication Instructions Recorded Confirmed Type Apixaban [Eliquis] 2.5 mg PO BID 06/28/18 11/03/21 History Cyanocobalamin (Vitamin B-12) 1,000 mcg PO DAILY 12/02/18 11/03/21 History [Vitamin B-12] Lenalidomide [Revlimid] 10 mg PO DIRECTED 12/02/18 11/03/21 History L.acidoph,Paracasei, B.lactis 1 cap PO DAILY 10/07/20 11/03/21 History [Probiotic] Clotrimazole/Betameth Cream 1 applic TOPICAL BID PRN 11/03/21 11/03/21 History [Lotrisone] Indomethacin [Indocin] 50 mg PO TID PRN 11/03/21 11/03/21 History Albuterol Inhaler [Ventolin Hfa 2 puff INHALATION RT-Q6H PRN 30 11/07/21 Rx Inhaler] Days #1 each Furosemide [Lasix] 40 mg PO BID@0900,1600 30 Days #60 11/07/21 Rx tab Levofloxacin [Levaquin] 750 mg PO Q48H 3 Days #3 tab 11/07/21 Rx Metoprolol Tartrate [Lopressor] 12.5 mg PO BID 30 Days #60 tab 11/07/21 Rx Potassium Chloride ER [K-Dur 20] 20 meq PO BID 30 Days #60 tab 11/07/21 Rx Allergies Allergy/AdvReac Type Severity Reaction Status Date / Time Iodinated Contrast Media Allergy Intermediate Rash/Hives Verified 12/15/22 11:06 cephalexin Allergy Rash/Hives Verified 12/15/22 11:06 Assessment and Plan Assessment: Impression: ventral hernia multiple myloma follows with Dr. Moncada on Eliquis, had a blood clot left leg, was on Revilimib, is off Eliquis at this time 04-22-25 left breast lumpectomy/sentinel node biopsy, recently completed radiation therapy and had breakdown of the lumpectomy incision, this was debrided on 08-12-24 Plan: Change dressing changes to Aquacel silver rope to be changed 3 times a week Patient to follow-up 1 month Patient to follow sooner any questions or concerns Bilateral mammogram in March 2025 If the wound is not decreasing in size in the next month we will consider appointment with wound care and possible hyperbaric oxygen I will be gone for [address] Ramsey is covering for me should she have any concerns while I am gone. For home health care Please change dressing changes to Aquacel silver rope, size of wound is approximately 2.5 by 1 cm, can be changed 3 times a week Additional CC's: Bing Padilla Additional CC's: Bing Padilla Objective - Vital Signs Vital signs: Vital Signs Temp 97.4 F L 11/18/24 07:59 Pulse 53 L 11/18/24 07:59 Resp 17 11/18/24 07:59 BP 168/81 11/18/24 07:59 Pulse Ox 97 11/18/24 07:59 FiO2 Intake & Output 11/17/24 11/18/24 11/18/24 18:59 06:59 18:59 Weight 121.563 kg Assessment and Plan Assessment: ssessment and Plan Assessment: Impression: ventral hernia multiple myloma follows with Dr. Moncada on Eliquis, had a blood clot left leg, was on Revilimib, is off Eliquis at this time 04-22-25 left breast lumpectomy/sentinel node biopsy, recently completed radiation therapy and had breakdown of the lumpectomy incision, this was debrided on 08-12-24 Plan: Change dressing changes to Aquacel silver rope to be changed 3 times a week Patient to follow-up 2 month Patient to follow sooner any questions or concerns Bilateral mammogram in March 2025 If the wound is not decreasing in size in the next month we will consider appointment with wound care and possible hyperbaric oxygen For home health care Please change dressing changes to Aquacel silver rope, size of wound is approximately 2.5 by 1 cm, can be changed 3 times a week request extension on wound care for the 2-month period, and then she will follow up after this Additional CC's: Bing Padilla
== END ==
LOC: WWCWWP 07:50
PROVIDERS: ATTEND Surgery
DX: Z48.00 Encounter for change or removal of nonsurgical wound dressing (principal); I82.402 Acute embolism and thrombosis of unspecified deep veins of left lower extremity; K43.9 Ventral hernia without obstruction or gangrene; Z98.890 Other specified postprocedural states; Z88.1 Allergy status to other antibiotic agents; Z91.041 Radiographic dye allergy status